=== PATIENT | male | born 1950 | race Caucasian/White ===

== ENCOUNTER 2019-07-13 13:38 | Outpatient (RCR) | payer MEDICARE, SELFPAY ==
--- NOTE | 2019-03-23 08:57 | PCPTNOTE ---
Patient called & cancelled scheduled appointment this date due to being sick
--- NOTE | 2019-03-23 09:20 | PCPTNOTE ---
The treatment documented on this account is a continuation of the treatment documented on visit number [id number] in [employer] EMR. Please see documentation on both accounts to view progress. The Plan of Care has been transitioned and updated within the new V#. I have addressed and agree with the discipline specific Problems, Interventions, and Goals for the current certification period. Completed interventions, outcomes, and problems have been marked as Inactive to facilitate the copying of the Care plan routine for recurring accounts.
--- NOTE | 2019-03-26 10:07 | PCPTNOTE ---
Patient called & cancelled scheduled appointment this date due to increased neck pain during his shoulder exercises. He reports the shoulder exercises cause increased pain and want to follow up with the MD. Will cancel his remaining therapy appts.[ ]
--- NOTE | 2019-03-26 10:08 | PCPTNOTE ---
Attending Provider: Jose Lewis DO Patient:Jose Watson Date of :1950 Patient has requested his remaining 4 physical therapy appointments be cancelled due to increased neck pain with shoulder exercises and increased shoulder pain with scapular strengthening exercises. He has not returned for additional visits since his last re-evaluation on 03/15/19. No additional progression with UE function or progression towards his therapy goals since last update performed. Therefore, Jose will be discharged from therapy at this time. The goals have been partially achieved. Thank you for referring this patient to [facility]. Please review, sign, date and return this discharge summary ESAU. I have been updated about the patient's current status and I agree with discharge from the above service at this time. Referring Physician Date
== END 2019-07-13 13:40 | disposition home or self-care (01) ==
LOC: ANHPT 13:38
PROVIDERS: PCP Internal Medicine; Visit Provider Internal Medicine
DX: M25.511 Pain in right shoulder (principal)
CPT/HCPCS: 99199

== ENCOUNTER 2019-12-17 06:54 | Outpatient (CLI) | payer MEDICARE, SELFPAY ==
[2019-12-17 07:30] LABS: Basophils Percent Auto 0.2 % (0.2-1.2); Eosinophils Absolute Auto 0.1 K/mm3 (0-0.3); Hematocrit 43.1 % (42.0-52.0); Hemoglobin 14.7 g/dL (14.0-18.0); Immature Platelet Fraction Pct 10.7 % (0.9-11.2); Lymphocytes Absolute Auto 1.61 K/mm3 (0.9-3.2); Lymphocytes Percent Auto 34.9 % (18.3-44.2); Mean Corpuscular HGB Conc 34.1 g/dl (32-36); Mean Corpuscular Hemoglobin 30.2 pg (26-34); Mean Corpuscular Volume 88.5 fl (80-100); Mean Platelet Volume 13.5 fl (7.4-10.4); Monocytes Absolute Auto 0.4 K/mm3 (0.1-0.6); Monocytes Percent Auto 8.2 % (2.6-8.5); Neutrophils Absolute Auto 2.5 K/mm3 (1.3-6.7); Neutrophils Percent Auto 53.7 % (45.5-73.1); Platelet Count Result 122 k/mm3 (150-375); Red Blood Count 4.87 M/mm3 (4.6-6.20); Red Cell Distribution Width 12.8 % (11.5-14.5); White Blood Count 4.6 K/mm3 (4.5-10.0)
[2019-12-17 07:40] LABS: Alanine Aminotransferase 27 U/L (4-50); Albumin Level 4.3 g/dL (3.5-5.1); Alkaline Phosphatase 52 U/L (38-126); Anion Gap 13.5 mmol/L (7-16); Aspartate Amino Transferase 32 U/L (17-59); Bilirubin,Total 0.8 mg/dL (0.2-1.3); Blood Urea Nitrogen 17 mg/dL (9-20); Calcium 9.1 mg/dL (8.4-10.2); Carbon Dioxide 25 mmol/L (22-30); Chloride 107 mmol/L (98-107); Cholesterol 107 mg/dL (0-200); Estimated Glomerular Filt Rate > 60; Glucose 142 mg/dL (75-110); HDL Direct 39 mg/dL; Potassium 4.5 mmol/L (3.4-5.0); Sodium 141 mmol/L (137-145); Triglycerides 68 mg/dL (<150)
[2019-12-17 07:56] LABS: LDL Cholesterol Direct 52 mg/dL
[2019-12-17 08:14] LABS: Hemoglobin A1C 6.4 % (<5.7)
[2019-12-17 08:36] LABS: Prostate Specific Antigen 0.3 ng/mL (< OR = 4.0)
== END 2019-12-17 06:55 | disposition home or self-care (01) ==
LOC: ANHIMG 07:00 → ANHLAB 07:31
PROVIDERS: PCP Internal Medicine; Visit Provider Clinical Nurse Specialist
DX: E78.5 Hyperlipidemia, unspecified (principal); E11.9 Type 2 diabetes mellitus without complications; Z12.5 Encounter for screening for malignant neoplasm of prostate
CPT/HCPCS: 36415; 80053; 80061; 83036; 84153; 85025; 85055; G0103

== ENCOUNTER 2019-12-24 07:04 | Outpatient (CLI) | payer MEDICARE, SELFPAY ==
[2019-12-24 11:39] LABS: Hepatitis C Virus Antibody Negative (Negative)
== END 2019-12-24 07:05 | disposition home or self-care (01) ==
PROVIDERS: PCP Internal Medicine; Visit Provider Nurse Practitioner
DX: D69.6 Thrombocytopenia, unspecified (principal)
CPT/HCPCS: 36415; 86803

== ENCOUNTER 2020-01-10 08:33 | Outpatient (CLI) | payer MEDICARE, SELFPAY ==
[2020-01-10 09:09] LABS: Basophils Percent Auto 0.5 % (0.2-1.2); Eosinophils Absolute Auto 0.2 K/mm3 (0-0.3); Eosinophils Percent Auto 4.1 % (0-4.4); Hematocrit 41.3 % (42.0-52.0); Hemoglobin 14.1 g/dL (14.0-18.0); Lymphocytes Absolute Auto 1.16 K/mm3 (0.9-3.2); Lymphocytes Percent Auto 27.8 % (18.3-44.2); Mean Corpuscular HGB Conc 34.1 g/dl (32-36); Mean Corpuscular Hemoglobin 29.7 pg (26-34); Mean Corpuscular Volume 86.9 fl (80-100); Monocytes Absolute Auto 0.3 K/mm3 (0.1-0.6); Monocytes Percent Auto 8.2 % (2.6-8.5); Neutrophils Absolute Auto 2.5 K/mm3 (1.3-6.7); Neutrophils Percent Auto 59.4 % (45.5-73.1); Red Blood Count 4.75 M/mm3 (4.6-6.20); Red Cell Distribution Width 12.8 % (11.5-14.5); White Blood Count 4.2 K/mm3 (4.5-10.0)
[2020-01-10 09:25] LABS: Platelet Count Result 109 k/mm3 (150-375)
[2020-01-10 11:26] LABS: Iron 107 ug/dL (49-181)
[2020-01-10 11:29] LABS: Alanine Aminotransferase 28 U/L (4-50); Albumin Level 4.2 g/dL (3.5-5.1); Alkaline Phosphatase 52 U/L (38-126); Anion Gap 9 mmol/L (8-16); Aspartate Amino Transferase 28 U/L (17-59); Bilirubin,Total 0.3 mg/dL (0.2-1.3); Blood Urea Nitrogen 16 mg/dL (9-20); Calcium 9.3 mg/dL (8.4-10.2); Carbon Dioxide 25 mmol/L (22-30); Chloride 105 mmol/L (98-107); Estimated Glomerular Filt Rate > 60; Glucose 112 mg/dL (75-110); Potassium 4.3 mmol/L (3.4-5.0); Sodium 139 mmol/L (137-145)
[2020-01-10 11:36] LABS: Percent Iron Saturation 31 % (20-50)
[2020-01-10 12:32] LABS: Folic Acid 8.8 ng/mL (2.76->20)
[2020-01-14 21:37] LABS: Platelet Antibody, Direct IgG NEGATIVE (NEGATIVE)
== END 2020-01-10 08:34 | disposition home or self-care (01) ==
PROVIDERS: PCP Internal Medicine; Visit Provider Internal Medicine Hematology & Oncology
DX: D69.59 Other secondary thrombocytopenia (principal)
CPT/HCPCS: 36415; 80053; 82607; 82728; 82746; 83540; 83550; 85025; 86023

== ENCOUNTER 2020-01-13 07:48 | Outpatient (CLI) | payer MEDICARE, SELFPAY ==
--- NOTE | ~2020-01-13 | US_ITS ---
EXAMINATION: US abdomen complete EXAM DATE: 01/13/2020 09:00 INDICATION: Secondary thrombocytopenia. TECHNIQUE: Multiple grayscale and Doppler images of the complete abdomen were obtained (by a technolo gist who performed the scan) and subsequently reviewed. Correlation is made to CT abdomen pelvis from 06/03/2018. FINDINGS: Mild aortic atherosclerosis and ectasia. Visualized portion IVC is patent. The pancreatic head and body are normal in appearance. The pancreatic tail is not visualized. The liver has normal echogenicity and contour. There are no focal liver lesions identified. There is no evidence of intrahepatic biliary duct dilation. Portal venous flow was seen in the hepatopedal , normal direction and has normal Doppler waveform. Common bile duct measures 5 mm, which is normal. The gallbladder wall is normal in thickness, with ex pected amount of distention. No sonographic evidence of pericholecystic fluid. There is no cholelit hiases. Technologist performing exam reports patient did not demonstrate sonographic Doherty's sign. Please note that this sign is less reliable in patients who have received pain medication. Right kidney: There is normal contour and echogenicity. It measures 11.9 x 6.5 x 4.6 centimeters. There are no focal renal lesions identified. There is no hydronephrosis. Left kidney: There is normal contour and echogenicity. It measures 10.5 x 6.5 x 6.3 centimeters. T here are no focal renal lesions identified. There is no hydronephrosis. Spleen has heterogeneous echogenicity which is nonspecific. No focal mass. It measures 10.7 cm which is normal. IMPRESSION: Nonspecific splenic heterogeneous echogenicity with normal size. Reviewed, dictated and finalized at location A.
== END 2020-01-13 07:49 | disposition home or self-care (01) ==
PROVIDERS: PCP Internal Medicine; Visit Provider Internal Medicine Hematology & Oncology
DX: D69.59 Other secondary thrombocytopenia (principal)
CPT/HCPCS: 76700

== ENCOUNTER 2020-04-17 08:27 | Outpatient (CLI) | payer MEDICARE, SELFPAY ==
[2020-04-17 08:49] LABS: Basophils Percent Auto 0.4 % (0.2-1.2); Eosinophils Absolute Auto 0.1 K/mm3 (0-0.3); Eosinophils Percent Auto 2.1 % (0-4.4); Hematocrit 41.6 % (42.0-52.0); Hemoglobin 14.2 g/dL (14.0-18.0); Immature Granulocyte Absolute 0.01 K/mm3 (0.00-0.031); Immature Granulocyte Percent A 0.2 % (0-0.5); Lymphocytes Absolute Auto 1.33 K/mm3 (0.9-3.2); Lymphocytes Percent Auto 27.8 % (18.3-44.2); Mean Corpuscular HGB Conc 34.1 g/dl (32-36); Mean Corpuscular Hemoglobin 29.5 pg (26-34); Mean Corpuscular Volume 86.5 fl (80-100); Mean Platelet Volume 12.2 fl (7.4-10.4); Monocytes Absolute Auto 0.3 K/mm3 (0.1-0.6); Monocytes Percent Auto 6.7 % (2.6-8.5); Neutrophils Percent Auto 62.8 % (45.5-73.1); Platelet Count Result 128 k/mm3 (150-375); Red Blood Count 4.81 M/mm3 (4.6-6.20); Red Cell Distribution Width 12.8 % (11.5-14.5); White Blood Count 4.8 K/mm3 (4.5-10.0)
[2020-04-17 12:38] LABS: Anion Gap 7 mmol/L (8-16); Blood Urea Nitrogen 15 mg/dL (9-20); Calcium 9.3 mg/dL (8.4-10.2); Carbon Dioxide 25 mmol/L (22-30); Chloride 106 mmol/L (98-107); Estimated Glomerular Filt Rate > 60; Glucose 153 mg/dL (75-110); Sodium 138 mmol/L (137-145)
[2020-04-17 12:44] LABS: Potassium 4.3 mmol/L (3.4-5.0)
[2020-04-17 13:37] LABS: Folic Acid 11.5 ng/mL (2.76->20)
== END 2020-04-17 08:28 | disposition home or self-care (01) ==
LOC: ANHLAB 08:29
PROVIDERS: PCP Internal Medicine; Visit Provider Internal Medicine Hematology & Oncology
DX: D69.59 Other secondary thrombocytopenia (principal)
CPT/HCPCS: 36415; 80048; 82607; 82746; 85025

== ENCOUNTER 2020-10-17 08:04 | Outpatient (CLI) | payer MEDICARE, SELFPAY ==
[2020-10-17 08:28] LABS: Basophils Percent Auto 0.7 % (0.2-1.2); Eosinophils Absolute Auto 0.2 K/mm3 (0-0.3); Eosinophils Percent Auto 4.4 % (0-4.4); Hematocrit 40.8 % (42.0-52.0); Hemoglobin 13.9 g/dL (14.0-18.0); Immature Granulocyte Absolute 0.01 K/mm3 (0.00-0.031); Immature Granulocyte Percent A 0.2 % (0-0.5); Lymphocytes Absolute Auto 1.24 K/mm3 (0.9-3.2); Mean Corpuscular HGB Conc 34.1 g/dl (32-36); Mean Corpuscular Hemoglobin 29.6 pg (26-34); Mean Corpuscular Volume 86.8 fl (80-100); Mean Platelet Volume 11.8 fl (7.4-10.4); Monocytes Absolute Auto 0.4 K/mm3 (0.1-0.6); Neutrophils Absolute Auto 2.3 K/mm3 (1.3-6.7); Neutrophils Percent Auto 55.7 % (45.5-73.1); Platelet Count Result 120 k/mm3 (150-375); Red Cell Distribution Width 12.7 % (11.5-14.5); White Blood Count 4.1 K/mm3 (4.5-10.0)
[2020-10-17 10:23] LABS: Alanine Aminotransferase 21 U/L (4-50); Albumin Level 3.9 g/dL (3.5-5.1); Alkaline Phosphatase 54 U/L (38-126); Anion Gap 8 mmol/L (8-16); Aspartate Amino Transferase 24 U/L (17-59); Bilirubin,Total 0.7 mg/dL (0.2-1.3); Blood Urea Nitrogen 14 mg/dL (9-20); Calcium 9.6 mg/dL (8.4-10.2); Carbon Dioxide 26 mmol/L (22-30); Chloride 107 mmol/L (98-107); Estimated Glomerular Filt Rate > 60; Glucose 144 mg/dL (75-110); Potassium 4.4 mmol/L (3.4-5.0); Sodium 141 mmol/L (137-145)
[2020-10-17 11:26] LABS: Folic Acid 6.4 ng/mL (2.76->20)
== END 2020-10-17 08:05 | disposition home or self-care (01) ==
LOC: ANHLAB 08:14
PROVIDERS: PCP Internal Medicine; Visit Provider Internal Medicine Hematology & Oncology
DX: D69.59 Other secondary thrombocytopenia (principal)
CPT/HCPCS: 36415; 80053; 82607; 82746; 85025

== ENCOUNTER 2021-01-18 06:57 | Outpatient (CLI) | payer MEDICARE, SELFPAY ==
[2021-01-18 07:36] LABS: Basophils Percent Auto 0.4 % (0.2-1.2); Eosinophils Absolute Auto 0.1 K/mm3 (0-0.3); Eosinophils Percent Auto 3.1 % (0-4.4); Hematocrit 41.1 % (42.0-52.0); Hemoglobin 13.6 g/dL (14.0-18.0); Immature Granulocyte Absolute 0.01 K/mm3 (0.00-0.031); Immature Granulocyte Percent A 0.2 % (0-0.5); Lymphocytes Absolute Auto 1.31 K/mm3 (0.9-3.2); Lymphocytes Percent Auto 29.4 % (18.3-44.2); Mean Corpuscular HGB Conc 33.1 g/dl (32-36); Mean Corpuscular Volume 90.5 fl (80-100); Mean Platelet Volume 12.4 fl (7.4-10.4); Monocytes Absolute Auto 0.4 K/mm3 (0.1-0.6); Monocytes Percent Auto 8.1 % (2.6-8.5); Neutrophils Absolute Auto 2.6 K/mm3 (1.3-6.7); Neutrophils Percent Auto 58.8 % (45.5-73.1); Platelet Count Result 107 k/mm3 (150-375); Red Blood Count 4.54 M/mm3 (4.6-6.20); Red Cell Distribution Width 12.9 % (11.5-14.5); White Blood Count 4.5 K/mm3 (4.5-10.0)
[2021-01-18 07:59] LABS: Hemoglobin A1C 6.2 % (<5.7)
[2021-01-18 08:16] LABS: Alanine Aminotransferase 21 U/L (4-50); Alkaline Phosphatase 52 U/L (38-126); Anion Gap 7 mmol/L (8-16); Aspartate Amino Transferase 29 U/L (17-59); Bilirubin,Total 1.2 mg/dL (0.2-1.3); Blood Urea Nitrogen 14 mg/dL (9-20); Calcium 9.3 mg/dL (8.4-10.2); Carbon Dioxide 24 mmol/L (22-30); Chloride 108 mmol/L (98-107); Cholesterol 97 mg/dL (0-200); Estimated Glomerular Filt Rate > 60; Glucose 124 mg/dL (65-110); HDL Direct 35 mg/dL; Potassium 4.4 mmol/L (3.4-5.0); Sodium 139 mmol/L (137-145); Triglycerides 55 mg/dL (<150)
[2021-01-18 08:27] LABS: LDL Cholesterol Direct 43 mg/dL
[2021-01-18 08:43] LABS: Prostate Specific Antigen 0.3 ng/mL (< OR = 4.0)
== END 2021-01-18 06:58 | disposition home or self-care (01) ==
PROVIDERS: PCP Internal Medicine; Visit Provider Nurse Practitioner
DX: E11.9 Type 2 diabetes mellitus without complications (principal); E78.2 Mixed hyperlipidemia; Z12.5 Encounter for screening for malignant neoplasm of prostate; I10 Essential (primary) hypertension
CPT/HCPCS: 36415; 80053; 80061; 83036; 84153; 85025; G0103

== ENCOUNTER 2021-07-16 10:14 | Outpatient (CLI) | payer MEDICARE, SELFPAY ==
[2021-07-16 10:37] LABS: Basophils Percent Auto 0.4 % (0.2-1.2); Eosinophils Absolute Auto 0.1 K/mm3 (0-0.3); Eosinophils Percent Auto 2.1 % (0-4.4); Hematocrit 43.1 % (42.0-52.0); Hemoglobin 14.2 g/dL (14.0-18.0); Immature Granulocyte Absolute 0.01 K/mm3 (0.00-0.031); Immature Granulocyte Percent A 0.2 % (0-0.5); Lymphocytes Percent Auto 22.7 % (18.3-44.2); Mean Corpuscular HGB Conc 32.9 g/dl (32-36); Mean Corpuscular Hemoglobin 30.1 pg (26-34); Mean Corpuscular Volume 91.3 fl (80-100); Mean Platelet Volume 11.6 fl (7.4-10.4); Monocytes Absolute Auto 0.4 K/mm3 (0.1-0.6); Monocytes Percent Auto 7.4 % (2.6-8.5); Neutrophils Absolute Auto 3.3 K/mm3 (1.3-6.7); Neutrophils Percent Auto 67.2 % (45.5-73.1); Platelet Count Result 136 k/mm3 (150-375); Red Blood Count 4.72 M/mm3 (4.6-6.20); White Blood Count 4.8 K/mm3 (4.5-10.0)
[2021-07-16 12:19] LABS: Alanine Aminotransferase 25 U/L (4-50); Albumin Level 4.3 g/dL (3.5-5.1); Alkaline Phosphatase 53 U/L (38-126); Anion Gap 4 mmol/L (8-16); Aspartate Amino Transferase 40 U/L (17-59); Bilirubin,Total 0.7 mg/dL (0.2-1.3); Blood Urea Nitrogen 18 mg/dL (9-20); Calcium 9.1 mg/dL (8.4-10.2); Carbon Dioxide 29 mmol/L (22-30); Chloride 105 mmol/L (98-107); Estimated Glomerular Filt Rate > 60; Glucose 137 mg/dL (65-110); Potassium 4.5 mmol/L (3.4-5.0); Sodium 138 mmol/L (137-145)
== END 2021-07-16 10:15 | disposition home or self-care (01) ==
LOC: ANHLAB 10:15
PROVIDERS: PCP Internal Medicine; Visit Provider Internal Medicine Hematology & Oncology
DX: D69.59 Other secondary thrombocytopenia (principal)
CPT/HCPCS: 36415; 80053; 82607; 85025

== ENCOUNTER 2022-01-23 07:07 | Outpatient (CLI) | payer MEDICARE, SELFPAY ==
[2022-01-23 08:02] LABS: Basophils Percent Auto 0.5 % (0.2-1.2); Eosinophils Absolute Auto 0.2 K/mm3 (0-0.3); Eosinophils Percent Auto 3.9 % (0-4.4); Hematocrit 40.6 % (42.0-52.0); Hemoglobin 13.7 g/dL (14.0-18.0); Lymphocytes Absolute Auto 1.35 K/mm3 (0.9-3.2); Lymphocytes Percent Auto 32.6 % (18.3-44.2); Mean Corpuscular HGB Conc 33.7 g/dl (32-36); Mean Corpuscular Hemoglobin 30.4 pg (26-34); Mean Corpuscular Volume 90.2 fl (80-100); Mean Platelet Volume 12.8 fl (7.4-10.4); Monocytes Absolute Auto 0.3 K/mm3 (0.1-0.6); Monocytes Percent Auto 7.7 % (2.6-8.5); Neutrophils Absolute Auto 2.3 K/mm3 (1.3-6.7); Neutrophils Percent Auto 55.3 % (45.5-73.1); Platelet Count Result 119 k/mm3 (150-375); Red Cell Distribution Width 12.9 % (11.5-14.5); White Blood Count 4.1 K/mm3 (4.5-10.0)
[2022-01-23 08:12] LABS: Hemoglobin A1C 6.5 % (<5.7)
[2022-01-23 08:13] LABS: Creatinine Urine 114.2 mg/dL
[2022-01-23 08:16] LABS: MALB Creatinine Ratio 16.5 mg/g (0-30); Microalbumin Urine Random 18.8 mg/L (0-16.7)
[2022-01-23 08:25] LABS: Alanine Aminotransferase 22 U/L (6-50); Albumin Level 4.1 g/dL (3.5-5.1); Alkaline Phosphatase 50 U/L (38-126); Anion Gap 8 mmol/L (8-16); Aspartate Amino Transferase 27 U/L (17-59); Bilirubin,Total 1.1 mg/dL (0.2-1.3); Blood Urea Nitrogen 16 mg/dL (9-20); Calcium 9.3 mg/dL (8.4-10.2); Carbon Dioxide 25 mmol/L (22-30); Chloride 106 mmol/L (98-107); Cholesterol 110 mg/dL (0-200); Estimated Glomerular Filt Rate > 60; Glucose 141 mg/dL (65-110); HDL Direct 41 mg/dL; Potassium 4.3 mmol/L (3.4-5.0); Sodium 139 mmol/L (137-145); Triglycerides 75 mg/dL (<150)
[2022-01-23 08:38] LABS: LDL Cholesterol Direct 43 mg/dL
[2022-01-23 08:52] LABS: Prostate Specific Antigen 0.3 ng/mL (< OR = 4.0)
== END 2022-01-23 07:08 | disposition home or self-care (01) ==
LOC: ANHLAB 07:10
PROVIDERS: PCP Internal Medicine; Visit Provider Clinical Nurse Specialist
DX: Z12.5 Encounter for screening for malignant neoplasm of prostate (principal); E11.9 Type 2 diabetes mellitus without complications; I10 Essential (primary) hypertension
CPT/HCPCS: 36415; 80053; 80061; 82043; 83036; 84153; 85025; G0103

== ENCOUNTER 2022-07-12 08:05 | Outpatient (CLI) | payer MEDICARE, SELFPAY ==
[2022-07-12 08:38] LABS: Basophils Percent Auto 0.5 % (0.2-1.2); Eosinophils Absolute Auto 0.2 K/mm3 (0-0.3); Eosinophils Percent Auto 3.6 % (0-4.4); Hematocrit 41.2 % (42.0-52.0); Hemoglobin 14.1 g/dL (14.0-18.0); Immature Granulocyte Absolute 0.01 K/mm3 (0.00-0.031); Immature Granulocyte Percent A 0.2 % (0-0.5); Lymphocytes Absolute Auto 1.04 K/mm3 (0.9-3.2); Lymphocytes Percent Auto 24.6 % (18.3-44.2); Mean Corpuscular HGB Conc 34.2 g/dl (32-36); Mean Corpuscular Hemoglobin 30.5 pg (26-34); Mean Corpuscular Volume 89.2 fl (80-100); Monocytes Absolute Auto 0.3 K/mm3 (0.1-0.6); Monocytes Percent Auto 6.9 % (2.6-8.5); Neutrophils Absolute Auto 2.7 K/mm3 (1.3-6.7); Neutrophils Percent Auto 64.2 % (45.5-73.1); Platelet Count Result 126 k/mm3 (150-375); Red Blood Count 4.62 M/mm3 (4.6-6.20); Red Cell Distribution Width 12.4 % (11.5-14.5); White Blood Count 4.2 K/mm3 (4.5-10.0)
== END 2022-07-12 08:06 | disposition home or self-care (01) ==
PROVIDERS: PCP Internal Medicine; Visit Provider Internal Medicine Hematology & Oncology
DX: D69.59 Other secondary thrombocytopenia (principal)
CPT/HCPCS: 36415; 82607; 82728; 85025

== ENCOUNTER 2023-01-28 06:45 | Outpatient (CLI) | payer MEDICARE, SELFPAY ==
[2023-01-28 07:45] LABS: Basophils Percent Auto 0.5 % (0.2-1.2); Eosinophils Absolute Auto 0.2 K/mm3 (0-0.3); Eosinophils Percent Auto 4.1 % (0-4.4); Hematocrit 40.4 % (42.0-52.0); Hemoglobin 13.3 g/dL (14.0-18.0); Lymphocytes Absolute Auto 1.09 K/mm3 (0.9-3.2); Lymphocytes Percent Auto 28.1 % (18.3-44.2); Mean Corpuscular HGB Conc 32.9 g/dl (32-36); Mean Corpuscular Volume 91.2 fl (80-100); Mean Platelet Volume 12.8 fl (7.4-10.4); Monocytes Absolute Auto 0.3 K/mm3 (0.1-0.6); Neutrophils Absolute Auto 2.3 K/mm3 (1.3-6.7); Neutrophils Percent Auto 60.3 % (45.5-73.1); Platelet Count Result 111 k/mm3 (150-375); Red Blood Count 4.43 M/mm3 (4.6-6.20); White Blood Count 3.9 K/mm3 (4.5-10.0)
[2023-01-28 07:47] LABS: Alanine Aminotransferase 29 U/L (6-50); Alkaline Phosphatase 51 U/L (38-126); Anion Gap 3 mmol/L (8-16); Aspartate Amino Transferase 30 U/L (17-59); Bilirubin,Total 0.7 mg/dL (0.2-1.3); Blood Urea Nitrogen 14 mg/dL (9-20); Calcium 8.7 mg/dL (8.4-10.2); Carbon Dioxide 29 mmol/L (22-30); Chloride 106 mmol/L (98-107); Cholesterol 105 mg/dL (0-200); Estimated Glomerular Filt Rate > 60; Glucose 159 mg/dL (65-110); HDL Direct 37 mg/dL; Potassium 4.4 mmol/L (3.4-5.0); Sodium 138 mmol/L (137-145); Triglycerides 77 mg/dL (<150)
[2023-01-28 07:56] LABS: Hemoglobin A1C 6.6 % (<5.7)
[2023-01-28 07:57] LABS: LDL Cholesterol Direct 55 mg/dL
[2023-01-28 08:17] LABS: Prostate Specific Antigen 0.1 ng/mL (< OR = 4.0)
[2023-01-28 10:16] LABS: Creatinine Urine 121.2 mg/dL
[2023-01-28 10:18] LABS: MALB Creatinine Ratio 18.1 mg/g (0-30); Microalbumin Urine Random 21.9 mg/L (0-16.7)
== END 2023-01-28 06:46 | disposition home or self-care (01) ==
LOC: ANHLAB 06:47
PROVIDERS: PCP Internal Medicine; Visit Provider Clinical Nurse Specialist
DX: Z12.5 Encounter for screening for malignant neoplasm of prostate (principal); Z13.228 Encounter for screening for other metabolic disorders; E11.9 Type 2 diabetes mellitus without complications; I10 Essential (primary) hypertension; E78.2 Mixed hyperlipidemia
CPT/HCPCS: 36415; 80053; 80061; 82043; 83036; 84153; 84443; 85025; G0103

== ENCOUNTER 2023-05-29 09:30 | Emergency (ER) | payer MEDICARE, SELFPAY ==
[2023-05-29 09:47] VITALS: BP 153/76; PULSE 57; RESP 16; TEMP 36.6; O2SAT 98
--- NOTE | 2023-05-29 10:34 | ED.URI ---
HPI - URI/Sore Throat General Chief Complaint: Upper Respiratory Infection Stated Complaint: Head Congestion Time Seen by Provider: 05/29/23 10:27 Source: patient and RN notes reviewed Mode of arrival: ambulatory Limitations: no limitations History of Present Illness HPI Narrative: Patient presents today with a 90 history of fatigue, body aches, nasal congestion, sinus pressure. Denies fever or cough. He has been taking Advil occasionally with some relief. Related Data Home Medications Medication Instructions Recorded Confirmed aspirin 81 mg tablet,delayed 81 mg PO DAILY 12/21/19 05/29/23 release (Adult Low Dose Aspirin) rosuvastatin 40 mg tablet (Crestor) 40 mg PO DAILY 12/21/19 05/29/23 lisinopril 10 mg tablet 20 mg PO DAILY 01/25/21 05/29/23 cholecalciferol (vitamin D3) 25 25 mcg PO DAILY 01/28/22 05/29/23 mcg (1,000 unit) capsule mecobalamin (vitamin B12) 1,000 1,000 mcg PO DAILY 01/28/22 05/29/23 mcg chewable tablet Allergies Allergy/AdvReac Type Severity Reaction Status Date / Time sulfamethoxazole Allergy Mild rash Verified 05/29/23 09:44 Penicillins Allergy Unknown Rash Verified 05/29/23 09:44 sulfamethizole Allergy Unknown Rash Verified 05/29/23 09:44 trimethoprim Allergy Unknown Rash Verified 05/29/23 09:44 Review of Systems Review of Systems: CONSTITUTIONAL: Denies fever, chills, or sweats.+ body aches, fatigue EYES: Denies visual changes, redness, or discharge. ENT: Denies rhinorrhea, sore throat, or otalgia.+ congestion, sinus pressure CARDIOVASCULAR: Denies chest pain, palpitations, or edema. RESPIRATORY: Denies cough or dyspnea. GASTROINTESTINAL: Denies abdominal pain, nausea, vomiting, or diarrhea. GENITOURINARY: Denies dysuria or hematuria. SKIN: Denies rash, itching, or wounds. MUSCULOSKELETAL: Denies back pain, joint pain, or myalgia. NEUROLOGIC: Denies headache, numbness, tingling, or weakness. PSYCH: Denies depression or anxiety. [facility] Past Medical History Medical History COVID Heart disease HTN (hypertension) Hyperlipidemia Pneumonia Surgical History Surgical History H/O eye surgery right eye refractive lens exchange History of appendectomy 1986 History of heart bypass surgery Status post biopsy of kidney Family History Family History Father Diabetes mellitus Family history of pancreatic cancer Grandparent Family history of malignant neoplasm Sibling Ovarian cancer Social History Social History Smoking status: Never smoker Alcohol intake: current Alcohol use details: rarely Lack of Transportation: No Lack of Food: Never True Current Housing: I Have Housing Concerned About Future Housing: No Difficulty Paying Gas/Electric Bills: No Difficulty Paying for Meds: No Currently Unemployed: No Education: Trade/Vocational Certificate Difficulty w/ Childcare or Family Care: No Comments At time of signature, I have reviewed and agree with nursing past medical, surgical, social and family history unless otherwise noted. Please see nursing chart for further information. There is no relevant family history pertinent to the presenting complaint Exam Narrative: GENERAL: Well-appearing, well-nourished, and in no acute distress. HEAD: Normocephalic, atraumatic. EYES: EOMI. No redness or drainage. Conjunctivae normal. ENT: Mucous membranes pink and moist. Nares congested. No rhinorrhea. Bilateral frontal and maxillary sinus tenderness. TMs normal bilaterally. Throat normal. Uvula midline. NECK: Normal AROM. Supple. No lymphadenopathy. CHEST: No respiratory distress. Clear to auscultation. HEART: Regular rate and rhythm. No murmur appreciated. EXTREMITIES: Normal range of motion. No edema. SKI
== END 2023-05-29 10:48 | disposition home or self-care (01) ==
PROVIDERS: Emergency Provider Nurse Practitioner; PCP Internal Medicine
DX: J01.90 Acute sinusitis, unspecified (principal); I10 Essential (primary) hypertension; E78.5 Hyperlipidemia, unspecified; I25.10 Atherosclerotic heart disease of native coronary artery without angina pectoris; Z95.1 Presence of aortocoronary bypass graft; Z86.16 Personal history of COVID-19
CPT/HCPCS: 99213; G0463

== ENCOUNTER 2023-08-20 07:03 | Outpatient (CLI) | payer MEDICARE, SELFPAY ==
[2023-08-20 07:39] LABS: Basophils Percent Auto 0.4 % (0.2-1.2); Eosinophils Absolute Auto 0.1 K/mm3 (0-0.3); Eosinophils Percent Auto 2.8 % (0-4.4); Hematocrit 43.5 % (42.0-52.0); Hemoglobin 14.5 g/dL (14.0-18.0); Immature Granulocyte Absolute 0.01 K/mm3 (0.00-0.031); Immature Granulocyte Percent A 0.2 % (0-0.5); Lymphocytes Absolute Auto 1.29 K/mm3 (0.9-3.2); Lymphocytes Percent Auto 25.4 % (18.3-44.2); Mean Corpuscular HGB Conc 33.3 g/dl (32-36); Mean Corpuscular Hemoglobin 29.9 pg (26-34); Mean Corpuscular Volume 89.7 fl (80-100); Mean Platelet Volume 12.1 fl (7.4-10.4); Monocytes Absolute Auto 0.3 K/mm3 (0.1-0.6); Monocytes Percent Auto 6.1 % (2.6-8.5); Neutrophils Absolute Auto 3.3 K/mm3 (1.3-6.7); Neutrophils Percent Auto 65.1 % (45.5-73.1); Platelet Count Result 138 k/mm3 (150-375); Red Blood Count 4.85 M/mm3 (4.6-6.20); Red Cell Distribution Width 12.7 % (11.5-14.5); White Blood Count 5.1 K/mm3 (4.5-10.0)
[2023-08-21 00:13] LABS: Alanine Aminotransferase 23 U/L (6-50); Albumin Level 4.3 g/dL (3.5-5.1); Alkaline Phosphatase 58 U/L (38-126); Anion Gap 6 mmol/L (4-12); Aspartate Amino Transferase 24 U/L (17-59); Bilirubin,Total 0.9 mg/dL (0.2-1.3); Blood Urea Nitrogen 18 mg/dL (9-20); Calcium 9.7 mg/dL (8.4-10.2); Carbon Dioxide 25 mmol/L (22-30); Chloride 106 mmol/L (98-107); Estimated Glomerular Filt Rate > 60; Glucose 181 mg/dL (65-110); Potassium 5.2 mmol/L (3.4-5.0); Sodium 137 mmol/L (137-145)
[2023-08-21 01:16] LABS: Folic Acid 7.6 ng/mL (2.76->20)
== END 2023-08-20 07:04 | disposition home or self-care (01) ==
LOC: ANHLAB 07:13
PROVIDERS: PCP Internal Medicine; Visit Provider Internal Medicine Hematology & Oncology
DX: D69.59 Other secondary thrombocytopenia (principal)
CPT/HCPCS: 36415; 80053; 82607; 82746; 85025

== ENCOUNTER 2023-09-26 08:54 | Outpatient (CLI) | payer MEDICARE, SELFPAY ==
[2023-09-26 09:39] LABS: Basophils Percent Auto 0.8 % (0.2-1.2); Eosinophils Absolute Auto 0.1 K/mm3 (0-0.3); Eosinophils Percent Auto 3.2 % (0-4.4); Hematocrit 40.1 % (42.0-52.0); Hemoglobin 13.3 g/dL (14.0-18.0); Immature Granulocyte Absolute 0.01 K/mm3 (0.00-0.031); Immature Granulocyte Percent A 0.3 % (0-0.5); Lymphocytes Absolute Auto 1.03 K/mm3 (0.9-3.2); Lymphocytes Percent Auto 27.7 % (18.3-44.2); Mean Corpuscular HGB Conc 33.2 g/dl (32-36); Mean Corpuscular Hemoglobin 29.6 pg (26-34); Mean Corpuscular Volume 89.3 fl (80-100); Mean Platelet Volume 12.2 fl (7.4-10.4); Monocytes Absolute Auto 0.3 K/mm3 (0.1-0.6); Monocytes Percent Auto 8.6 % (2.6-8.5); Neutrophils Absolute Auto 2.2 K/mm3 (1.3-6.7); Neutrophils Percent Auto 59.4 % (45.5-73.1); Platelet Count Result 151 k/mm3 (150-375); Red Blood Count 4.49 M/mm3 (4.6-6.20); Red Cell Distribution Width 12.5 % (11.5-14.5); White Blood Count 3.7 K/mm3 (4.5-10.0)
[2023-09-26 09:47] LABS: Alanine Aminotransferase 21 U/L (6-50); Albumin Level 4.2 g/dL (3.5-5.1); Alkaline Phosphatase 64 U/L (38-126); Anion Gap 6 mmol/L (4-12); Aspartate Amino Transferase 25 U/L (17-59); Bilirubin,Total 0.7 mg/dL (0.2-1.3); Blood Urea Nitrogen 15 mg/dL (9-20); Calcium 9.4 mg/dL (8.4-10.2); Carbon Dioxide 27 mmol/L (22-30); Chloride 107 mmol/L (98-107); Estimated Glomerular Filt Rate > 60; Glucose 140 mg/dL (65-110); Potassium 4.3 mmol/L (3.4-5.0); Sodium 140 mmol/L (137-145)
[2023-09-26 10:14] LABS: Hemoglobin A1C 6.7 % (<5.7)
[2023-09-26 10:19] LABS: Thyroid Stimulating Hormone 0.881 uIU/mL (0.465-4.680)
[2023-09-26 10:23] LABS: MALB Creatinine Ratio 20.4 mg/g (0-30); Microalbumin Urine Random 23.7 mg/L (0-16.7)
== END 2023-09-26 08:55 | disposition home or self-care (01) ==
PROVIDERS: PCP Internal Medicine; Visit Provider Clinical Nurse Specialist
DX: D69.6 Thrombocytopenia, unspecified (principal); E11.9 Type 2 diabetes mellitus without complications
CPT/HCPCS: 36415; 80053; 82043; 83036; 84443; 85025

== ENCOUNTER 2023-10-24 07:06 | Outpatient (CLI) | payer MEDICARE, SELFPAY ==
[2023-10-27 11:19] LABS: Thyroid Peroxidase Antibodies <1 IU/mL (<9)
[2023-10-29 13:34] LABS: Testosterone Free 63.7 pg/mL (30.0-135.0); Testosterone Total 364 ng/dL (250-1100)
== END 2023-10-24 07:07 | disposition home or self-care (01) ==
LOC: ANHLAB 07:09
PROVIDERS: PCP Internal Medicine; Visit Provider Clinical Nurse Specialist
DX: R53.83 Other fatigue (principal); E11.9 Type 2 diabetes mellitus without complications; F41.9 Anxiety disorder, unspecified
CPT/HCPCS: 36415; 84402; 84403; 84443; 86376

== ENCOUNTER 2024-02-19 07:01 | Outpatient (CLI) | payer MEDICARE, SELFPAY ==
[2024-02-19 08:07] LABS: Basophils Percent Auto 0.8 % (0.2-1.2); Eosinophils Absolute Auto 0.2 K/mm3 (0-0.3); Eosinophils Percent Auto 3.9 % (0-4.4); Hematocrit 40.4 % (42.0-52.0); Hemoglobin 13.5 g/dL (14.0-18.0); Immature Granulocyte Absolute 0.01 K/mm3 (0.00-0.031); Immature Granulocyte Percent A 0.3 % (0-0.5); Lymphocytes Absolute Auto 1.22 K/mm3 (0.9-3.2); Lymphocytes Percent Auto 31.7 % (18.3-44.2); Mean Corpuscular HGB Conc 33.4 g/dl (32-36); Mean Corpuscular Hemoglobin 29.5 pg (26-34); Mean Corpuscular Volume 88.2 fl (80-100); Mean Platelet Volume 12.5 fl (7.4-10.4); Monocytes Absolute Auto 0.3 K/mm3 (0.1-0.6); Monocytes Percent Auto 8.1 % (2.6-8.5); Neutrophils Absolute Auto 2.1 K/mm3 (1.3-6.7); Neutrophils Percent Auto 55.2 % (45.5-73.1); Platelet Count Result 121 k/mm3 (150-375); Red Blood Count 4.58 M/mm3 (4.6-6.20); White Blood Count 3.9 K/mm3 (4.5-10.0)
[2024-02-19 08:13] LABS: Alanine Aminotransferase 22 U/L (6-50); Alkaline Phosphatase 55 U/L (38-126); Anion Gap 6 mmol/L (4-12); Aspartate Amino Transferase 26 U/L (17-59); Bilirubin,Total 0.9 mg/dL (0.2-1.3); Blood Urea Nitrogen 13 mg/dL (9-20); Carbon Dioxide 26 mmol/L (22-30); Chloride 108 mmol/L (98-107); Cholesterol 100 mg/dL (0-200); Estimated Glomerular Filt Rate > 60; Glucose 150 mg/dL (65-110); HDL Direct 34 mg/dL; Potassium 3.8 mmol/L (3.4-5.0); Sodium 140 mmol/L (137-145); Triglycerides 74 mg/dL (<150)
[2024-02-19 08:25] LABS: LDL Cholesterol Direct 42 mg/dL
[2024-02-19 08:37] LABS: Prostate Specific Antigen 0.2 ng/mL (< OR = 4.0)
[2024-02-19 11:07] LABS: Hemoglobin A1C 7.3 % (<5.7)
== END 2024-02-19 07:02 | disposition home or self-care (01) ==
PROVIDERS: PCP Clinical Nurse Specialist; Visit Provider Clinical Nurse Specialist
DX: D69.6 Thrombocytopenia, unspecified (principal); E11.9 Type 2 diabetes mellitus without complications; I10 Essential (primary) hypertension; E78.2 Mixed hyperlipidemia; Z12.5 Encounter for screening for malignant neoplasm of prostate; Z13.228 Encounter for screening for other metabolic disorders
CPT/HCPCS: 36415; 80053; 80061; 83036; 84153; 85025; G0103

== ENCOUNTER 2024-03-23 00:36 | Day surgery (SDC) | payer MEDICARE, SELFPAY ==
[2024-03-16 14:07] VITALS: BMI 25.0
--- NOTE | 2024-03-22 14:02 | P.PNAN_ITS ---
Anes - Initial Pre Proc Eval Procedure: Operation Date: 03/23/24 07:30 Proposed Procedures p Esophagogastroduodenoscopy - Brice Salcedo MD Date/Time: 03/22/24 14:02 Surgeon: Brice Salcedo MD Pre Op Diagnosis: GERD Patient Data Age: 73 Gender: M Height: 1.83 m Weight: 83.9 kg Allergies Allergy/AdvReac Type Severity Reaction Status Date / Time sulfamethoxazole Allergy Mild rash Verified 02/25/24 08:24 Penicillins Allergy Unknown Rash Verified 02/25/24 08:24 sulfamethizole Allergy Unknown Rash Verified 02/25/24 08:24 trimethoprim Allergy Unknown Rash Verified 02/25/24 08:24 Home Medications Medication Instructions Recorded Confirmed Type aspirin 81 mg tablet,delayed 81 mg PO DAILY 12/21/19 03/16/24 History release (Adult Low Dose Aspirin) rosuvastatin 40 mg tablet (Crestor) 40 mg PO DAILY 12/21/19 03/16/24 History sildenafil 100 mg tablet (Viagra) 100 mg PO DAILY PRN sexual 02/08/21 03/16/24 Rx activity #20 tabs cholecalciferol (vitamin D3) 25 25 mcg PO DAILY 01/28/22 03/16/24 History mcg (1,000 unit) capsule mecobalamin (vitamin B12) 1,000 1,000 mcg PO DAILY 01/28/22 03/16/24 History mcg chewable tablet albuterol sulfate 90 mcg/actuation 2 puff inhalation Q4-6H PRN 01/30/23 03/16/24 Rx aerosol inhaler shortness of breath or wheezing #18 grams ascorbic acid (vitamin C) 1,000 mg 1 g PO DAILY 09/25/23 03/16/24 History capsule lisinopril 20 mg tablet 20 mg PO 09/25/23 02/25/24 History finasteride 5 mg tablet See Rx Instructions .Route 02/16/24 03/16/24 Rx .COMPLEX #90 tabs coenzyme Q10 200 mg capsule (Co 100 mg PO DAILY 02/25/24 03/16/24 History Q-10) zinc sulfate [Zinkel-220] 30 mg PO DAILY 02/25/24 03/16/24 History Results Review: All pre-operative results and documents have been reviewed as part of the pre- operative evaluation. [facility] Past Medical History Medical History (Updated 02/25/24 @ 12:47 by VALARIE Fonseca) COVID Heart disease HTN (hypertension) Hyperlipidemia Pneumonia Surgical History Surgical History (Updated 03/22/24 @ 14:02 by Khari Delong DO) H/O eye surgery right eye refractive lens exchange History of appendectomy 1986 History of heart bypass surgery 2007 Status post biopsy of kidney Family History Family History Father Diabetes mellitus Family history of pancreatic cancer Grandparent Family history of malignant neoplasm Sibling Ovarian cancer Social History Social History Smoking status: Never smoker Alcohol intake: current Drinks per week: 1 Alcohol use details: socially Substance use type: does not use Lack of Transportation: No Lack of Food: Never True Current Housing: I Have Housing Concerned About Future Housing: No Difficulty Paying Gas/Electric Bills: No Difficulty Paying for Meds: No Currently Unemployed: No Education: Trade/Vocational Certificate Difficulty w/ Childcare or Family Care: No Living arrangements: with family Spiritual care concerns: No Anes - Eval Final PreProcedure Day of Procedure 03/22/24 14:02 Results Review: All pre-operative results and documents have been reviewed as part of the pre- operative evaluation. Informed Consent: The patient's anesthetic plan and its attendant risks and benefits were discussed with the patient/family/POA. Questions were solicited and answers provided to the satisfaction of the patient/family/POA.
[2024-03-23 06:23] VITALS: BP 144/67; PULSE 51; RESP 18; TEMP 36.1; O2SAT 100
[2024-03-23] MEDS: LACTATED RINGERS 1,000 ML 150 ML IV CONT (06:35)
--- NOTE | 2024-03-23 06:39 | P.PNAN_ITS ---
Anes - Initial Pre Proc Eval Procedure: Operation Date: 03/23/24 07:30 Proposed Procedures p Esophagogastroduodenoscopy - Brice Salcedo MD Date/Time: 03/23/24 06:39 Surgeon: Brice Salcedo MD Pre Op Diagnosis: GERD Patient Data Age: 73 Gender: M Height: 1.83 m Weight: 85.5 kg Last Vital Signs Temp 36.1 C L 03/23/24 06:23 Pulse 51 L 03/23/24 06:23 Resp 18 03/23/24 06:23 BP 144/67 H 03/23/24 06:23 Pulse Ox 100 03/23/24 06:23 O2 Del Method Room Air 03/23/24 06:23 Allergies Allergy/AdvReac Type Severity Reaction Status Date / Time sulfamethoxazole Allergy Mild rash Verified 03/23/24 06:20 Penicillins Allergy Unknown Rash Verified 03/23/24 06:20 sulfamethizole Allergy Unknown Rash Verified 03/23/24 06:20 trimethoprim Allergy Unknown Rash Verified 03/23/24 06:20 Home Medications Medication Instructions Recorded Confirmed Type aspirin 81 mg tablet,delayed 81 mg PO DAILY 12/21/19 03/23/24 History release (Adult Low Dose Aspirin) rosuvastatin 40 mg tablet (Crestor) 40 mg PO DAILY 12/21/19 03/23/24 History sildenafil 100 mg tablet (Viagra) 100 mg PO DAILY PRN sexual 02/08/21 03/23/24 Rx activity #20 tabs cholecalciferol (vitamin D3) 25 25 mcg PO DAILY 01/28/22 03/23/24 History mcg (1,000 unit) capsule mecobalamin (vitamin B12) 1,000 1,000 mcg PO DAILY 01/28/22 03/23/24 History mcg chewable tablet albuterol sulfate 90 mcg/actuation 2 puff inhalation Q4-6H PRN 01/30/23 03/23/24 Rx aerosol inhaler shortness of breath or wheezing #18 grams ascorbic acid (vitamin C) 1,000 mg 1 g PO DAILY 09/25/23 03/23/24 History capsule lisinopril 20 mg tablet 20 mg PO DAILY 09/25/23 03/23/24 History finasteride 5 mg tablet See Rx Instructions .Route 02/16/24 03/23/24 Rx .COMPLEX #90 tabs coenzyme Q10 200 mg capsule (Co 100 mg PO DAILY 02/25/24 03/23/24 History Q-10) zinc sulfate [Zinkel-220] 30 mg PO DAILY 02/25/24 03/23/24 History Patient hx anesthesia problems: none Family hx anesthesia problems: none Results Review: All pre-operative results and documents have been reviewed as part of the pre- operative evaluation. 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 Status post biopsy of kidney Family History Family History Father Diabetes mellitus Family history of pancreatic cancer Grandparent Family history of malignant neoplasm Sibling Ovarian cancer Social History Social History Smoking status: Never smoker Alcohol intake: current Drinks per week: 1 Alcohol use details: socially Substance use type: does not use Lack of Transportation: No Lack of Food: Never True Current Housing: I Have Housing Concerned About Future Housing: No Difficulty Paying Gas/Electric Bills: No Difficulty Paying for Meds: No Currently Unemployed: No Education: Trade/Vocational Certificate Difficulty w/ Childcare or Family Care: No Living arrangements: with family Spiritual care concerns: No Anes - Eval Final PreProcedure Day of Procedure 03/23/24 06:39 Patient weight: normal Heart: regular rate and rhythm Lungs: clear to auscultation Airway: Mallampati scale class II Neurological: alert and oriented Last oral intake: >/= 8 hours ASA classification: III Emergent: no Anesthetic plan: proceed Anesthesia type and monitoring: general GIVS and standard monitoring Results Review: All pre-operative results and documents have been reviewed as part of the pre- operative evaluation. Informed Consent: The patient's anesthetic plan and its attendant risks and benefits were discussed with the patient/family/POA. Questions were solicited and answers provided to the satisfaction of the patient/family/POA.
--- NOTE | 2024-03-23 07:19 | P.HP_ITS ---
History of Present Illness History of Present Illness Consent: Risks, benefits, and alternatives have been discussed and questions answered. Patient agrees to proceed with procedure. Chief complaint: GERD Narrative: Jose Watson is a 73 year old male here for first EGD, noted intermittent cough after eating, no much of reflux symptoms and he is not taking any medication for that. 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 Status post biopsy of kidney Family History Family History Father Diabetes mellitus Family history of pancreatic cancer Grandparent Family history of malignant neoplasm Sibling Ovarian cancer Social History Social History Smoking status: Never smoker Alcohol intake: current Drinks per week: 1 Alcohol use details: socially Substance use type: does not use Lack of Transportation: No Lack of Food: Never True Current Housing: I Have Housing Concerned About Future Housing: No Difficulty Paying Gas/Electric Bills: No Difficulty Paying for Meds: No Currently Unemployed: No Education: Trade/Vocational Certificate Difficulty w/ Childcare or Family Care: No Living arrangements: with family Spiritual care concerns: No Meds Home Medications and Allergies Home Medications Medication Instructions Recorded Confirmed Type aspirin 81 mg tablet,delayed 81 mg PO DAILY 12/21/19 03/23/24 History release (Adult Low Dose Aspirin) rosuvastatin 40 mg tablet (Crestor) 40 mg PO DAILY 12/21/19 03/23/24 History sildenafil 100 mg tablet (Viagra) 100 mg PO DAILY PRN sexual 02/08/21 03/23/24 Rx activity #20 tabs cholecalciferol (vitamin D3) 25 25 mcg PO DAILY 01/28/22 03/23/24 History mcg (1,000 unit) capsule mecobalamin (vitamin B12) 1,000 1,000 mcg PO DAILY 01/28/22 03/23/24 History mcg chewable tablet albuterol sulfate 90 mcg/actuation 2 puff inhalation Q4-6H PRN 01/30/23 03/23/24 Rx aerosol inhaler shortness of breath or wheezing #18 grams ascorbic acid (vitamin C) 1,000 mg 1 g PO DAILY 09/25/23 03/23/24 History capsule lisinopril 20 mg tablet 20 mg PO DAILY 09/25/23 03/23/24 History finasteride 5 mg tablet See Rx Instructions .Route 02/16/24 03/23/24 Rx .COMPLEX #90 tabs coenzyme Q10 200 mg capsule (Co 100 mg PO DAILY 02/25/24 03/23/24 History Q-10) zinc sulfate [Zinkel-220] 30 mg PO DAILY 02/25/24 03/23/24 History Allergies Allergy/AdvReac Type Severity Reaction Status Date / Time sulfamethoxazole Allergy Mild rash Verified 03/23/24 06:20 Penicillins Allergy Unknown Rash Verified 03/23/24 06:20 sulfamethizole Allergy Unknown Rash Verified 03/23/24 06:20 trimethoprim Allergy Unknown Rash Verified 03/23/24 06:20 Vital Signs Vital Signs - 24 hr 03/23/24 06:23 Temperature 97 F L Pulse Rate 51 L Respiratory Rate 18 Blood Pressure 144/67 H Pulse Oximetry 100 Oxygen Delivery Room Air Exam Const: General: comfortable and no acute distress HENMT: Face/Nose/Sinus: Normal nares present Eyes: General: appearance normal, both eyes and all related structures Neck: Neck: no JVD Resp: Auscultation: clear to auscultation bilaterally Cardio: Rate: regular rate Rhythm: regular rhythm GI: Inspection: non-distended GI Palp: Yes Soft to palpation Skin: General skin exam: normal color Neuro: General: gait normal Speech: normal speech Extrem: General: normal to inspection Psych: Mental Status: mental status grossly normal Assessment and Plan Assessment and plan (1) Cough: Code(s): R05.9 - Cough, unspecified Status: Acute Assessment and Plan: egd with bx
[2024-03-23 07:41] VITALS: BP 121/84; PULSE 67; RESP 18; O2SAT 100
[2024-03-23 07:51] VITALS: BP 120/83; PULSE 61; RESP 25; O2SAT 100
[2024-03-23 07:58] VITALS: BP 117/57; PULSE 58; RESP 21; O2SAT 100
== END 2024-03-23 08:10 | disposition home or self-care (01) ==
PROVIDERS: PCP Clinical Nurse Specialist; Visit Provider Internal Medicine Gastroenterology
PROC: 0DJ08ZZ Inspection of Upper Intestinal Tract, Via Natural or Artificial Opening Endoscopic (ICD-10-PCS; CPT 43235; principal; 2024-03-23 07:30)
DX: K22.70 Barrett's esophagus without dysplasia (principal); K44.9 Diaphragmatic hernia without obstruction or gangrene; K29.70 Gastritis, unspecified, without bleeding; K21.9 Gastro-esophageal reflux disease without esophagitis; E78.5 Hyperlipidemia, unspecified; I11.9 Hypertensive heart disease without heart failure; Z79.82 Long term (current) use of aspirin; Z79.51 Long term (current) use of inhaled steroids; Z98.890 Other specified postprocedural states; Z95.1 Presence of aortocoronary bypass graft; Z80.0 Family history of malignant neoplasm of digestive organs; Z80.41 Family history of malignant neoplasm of ovary
CPT/HCPCS: 43239; 88305; J2003; J2704; J7120

== ENCOUNTER 2024-05-31 06:49 | Outpatient (CLI) | payer MEDICARE, SELFPAY ==
[2024-05-31 07:22] LABS: Hemoglobin A1C 6.8 % (<5.7)
[2024-05-31 10:05] LABS: Creatinine Urine 165.7 mg/dL
[2024-05-31 10:10] LABS: MALB Creatinine Ratio 27.2 mg/g (0-30)
[2024-06-02 05:09] LABS: ANA Cascade Screen NEGATIVE (NEGATIVE)
== END 2024-05-31 06:50 | disposition home or self-care (01) ==
PROVIDERS: PCP Clinical Nurse Specialist; Visit Provider Clinical Nurse Specialist
DX: R20.9 Unspecified disturbances of skin sensation (principal); E11.9 Type 2 diabetes mellitus without complications; Z82.49 Family history of ischemic heart disease and other diseases of the circulatory system
CPT/HCPCS: 36415; 82043; 83036; 86038; 86225; 86235; 86364

== ENCOUNTER 2024-08-17 07:06 | Outpatient (CLI) | payer MEDICARE, SELFPAY ==
--- OUTSIDE RECORDS SUMMARY | 2024-08-17 07:10 | XMS_ITS | Encounter Summary ---
Author Organization [facility] Address 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 Gender Identity Not on file Sexual Orientation Not on file documented as of this encounter Plan of Treatment Upcoming Encounters Date Type Department Care Team (Late st Contact Info) Description 08/20/2024 8:45 AM CDT Office Visit [facility] Oncology and Hematology - [place] [address] [place] [phone] Graeme Diez MD [address] [facility] [address] [place] [address] 03/18/2025 9:00 AM CDT Office Visit [facility] Heart and Vascular [facility] [place] [address] [facility] [address] [place] [phone] Jh Willis MD [address] [place] [address] [address] [place] [address] documented as of this encounter Visit Diagnoses Not on filedocumented in this encounter Care Teams Car Supplier Relationship Specialty Start Date End Date Jose Lewis DO PCP - General 05/04/15 documented as of this encounter
--- OUTSIDE RECORDS SUMMARY | 2024-08-17 07:10 | XMS_ITS | Encounter Summary ---
Author Organization [facility] Address 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 [address] D.O.B: 1950 SSN: [id number] Parent/Guardian if applicable: Patient Insurance: BLUE CROSS BLUE SHIELD ID#: [id number] Group#: ORDER(S) #: [id number] stress thallium BEST TO CALL HOME. BEST TIME TO CALL: ANYTIME. MAY WE LEAVE MESSAGE AT THAT NUMBER: YES, LEAVE MESSAGE. PLEASE SCHEDULE THE APPOINTMENT AT THE FOLLOWING LOCATION: nkechi batista m.d. [phone] TEST PRIORITY: 2 - 7 DAYS. SPECIAL SCHEDULING INSTRUCTIONS: pt needs prep ORDERING PHYSICIAN: LOBO OLSEN MD OFFICE PLATE PRINTER & PHONE: Katherine Byrd E ORDER PRINTED BY: Ayse Falcon A FOR SCHEDULING USE ONLY: FIRST ATTEMPT Date:AUG 13, 2006 Ayes Falcon A 06:23 p Spoke with Patient. PT WANTS TO HAVE DONE IN A PRIVATE DR'S OFFICE.. W/C/B IN AM.. DR. BATISTA SECOND ATTEMPT: Date:AUG 15, 2006 Ayse Falcon A 01:40 p Spoke with Patient. TEST SCHEDULE OTHER LOCATION. DR. KELLY'S OFFICE APPOINTMENT DATE : 08/21/2006 ( 9:15 AM) The appointment was scheduled by Ayse Falcon A at [phone] Pre[place]: [place] Given/Authorized by: pre-recorded message/fast check @ [phone] FINAL ACTION Spoke with patient. Follow up completed. * Lobo Olsen MD - 10/09/2007 2:07 PM CDT WHO TOOK THE CALL: Lobo Olsen M TIME:05:34 pm given wrong z richie--notify pt can change to z richie (script for alexandre) 08/11/06 5:38P Spoke w/pt. Pharm # [phone]. [place] called back & corrected to oral Z-richie 250 mg. take as directed. sl Electronically Signed by: Donna Gutiérrez on Friday, August 11, 2006 * Lobo Olsen MD - 10/09/2007 2:07 PM CDT WEIGHT: 202lbs BLOOD PRESSURE: 122/76 Right Arm Sitting NURSE NAME: SophiaGhazal J CHIEF COMPLAINT Patient here for follow up hyperlipidemia. HISTORY: HISTORY: 272.4-HYPERLIPIDEMIA The patient is tolerating the medications. The patient`s most recent labs reviewed. 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 RESPIRATORY: No dyspnea, cough, hemoptysis or wheezing. : No dysuria or hematuria. GI: No abdominal pain, nausea, vomiting, diarrhea, constipation, melena, or hematochezia. FAMILY HISTORY: father cad50's FATHER: The father is . Illnesses: Hypercholesterolemia, diabetes, heart disease. The causeof was cancer. occurred at age 67. MOTHER: The mother is . The cause of was. childbirth complications SIBLINGS: 1) The patient's sister is living. No major illnesses are known. PHYSICAL EXAMINATION: CONSTITUTIONAL: GENERAL APPEARANCE: Healthy appearing patient in no distress. EARS, NOSE, MOUTH AND THROAT: EARS: EFFUSION PRESENT BILATERALLY. ORAL: No erythema in oropharynx. NECK/THYROID: Trachea midline. No thyroid enlargement, tenderness, or mass. No supraclavicular or cervical adenopathy. RESPIRATORY: Clear to auscultation and percussion. Normal respiratory effort. CARDIOVASCULAR: CARDIAC: Regular rhythm. No murmurs, rubs, or gallops. ARTERIAL: No aortic bruits. EDEMA/VARICOSITIES OF EXTREMITIES: No edema or varicosities. GASTROINTESTINAL: ABDOMEN: Soft, non-tender, without masses. Bowel sounds active. LIVER/SPLEEN/KIDNEY: No hepatosplenomegaly, tenderness or nodularity. Kidneys not palpable. SKIN: SKIN: Warm, dry, no diaphoresis, no significant lesions, irritation, rashes or ulcers. No induration, obvious subcutaneous nodules or tightening. OFFICE PROCEDURES: EKG INTERPRETATION EKG RHYTHM: The EKG shows normal sinus rhythm. No ischemic changes noted. ASSESSMENT/PLAN: 272.4-HYPERLIPIDEMIA cont med, improved LAB ORDERS: 6 mo Order number: [id number] Test Ordered: COMPREHENSIVE METABOLIC PANEL & GFR 1112 Order number: [id number] Test Ordered: LIPID PANEL 1078 461.9-SINUSITIS UNSPECIFIED rx MEDICATIONS: ZITHROMAX Z-RICHIE ORAL TABLET 250 MG, DIRECTED, 1 Dispensed, status: NEW PRESCRIPTION, 08/11/2006. 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 Electronically Signed by: Lobo Olsen MD on Friday, August 11, 2006 documented in this encounter Plan of Treatment Upcoming Encounters Date Type Department Care Team (Late st Contact Info) Description 08/20/2024 8:45 AM CDT Office Visit [facility] Oncology and Hematology - [place] [address] [facility] [address] [place] [address] Graeme Diez MD [address] [facility] [address] [place] [address] 03/18/2025 9:00 AM CDT Office Visit [facility] Heart and Vascular At [place] [address] [address] [facility] [address] [place] [address] Jh Willis MD [address] [place] [address] [address] [place] [address] documented as of this encounter Visit Diagnoses Not on filedocumented in this encounter Care Teams Research Administrator Relationship Specialty Start Date End Date Nkechi Lewis DO PCP - General 05/04/15 documented as of this encounter
--- OUTSIDE RECORDS SUMMARY | 2024-08-17 07:10 | XMS_ITS | Encounter Summary ---
Author Organization [facility] Address 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 [address] [place] [address] Jh Willis MD [address] [place] [address] [address] [place] [address] documented as of this encounter Visit Diagnoses Not on filedocumented in this encounter Care Teams Countersinker Relationship Specialty Start Date End Date Jose Lewis DO PCP - General 05/04/15 documented as of this encounter
--- OUTSIDE RECORDS SUMMARY | 2024-08-17 07:10 | XMS_ITS | Continuity of Care Document ---
Author Organization [facility] Address [address] [place] [address] [address] [place] [address] Phone Care Team Providers Care Hearing Aid Repairer Name Role Phone Jh Peralta MD Unavailable Unavailable Allergies, Adverse Reactions, Alerts Substance Reaction Status Criticality niacin Active No Information trimethoprim Active No Information sulfamethoxazole Active No Informat ion PENICILLIN Active No Information Medications Medication Instructions Dosage Effective Dates (start - stop) Status Comments lisinopril 20 mg tablet - Active rosuvastatin 40 mg tablet - Active finasteride 5 mg tablet TAKE 1 TABLET BY MOUTH DAILY - Active sildenafil 100 mg tablet - Active Procedures Procedure Date CORNEAL PACHYMETRY VISUAL FIELD- EXTENDED GDX Optic Nerve GONIOSCOPY OFFICE/OUTPATIENT VISIT, [facility] Advance Directives Directive Yes / No Effective Date File Name No Information Encounters Encounter Description Practice Location Reason(s) For Visit Diagnoses Date Provider Providers Copied on Encounter OFFICE/OUTPA TIENT VISIT, [facility], [address] [place] [address], [place], [place], [id number], [place] tel:[phone] [facility] Glaucoma Evaluation (chief complaint) Presence of pseudophakiaOp en angle with borderline findings, low risk, bilateralPucke ring of macula, bilateral Jul-2 [address] [place], [address], [place]. tel:[phone] Consulting Provider: Donnie Lemons, [address] [facility], [place], [address]. tel:[phone] ring Provider: Jh Peralta, [address] [facility], [place], [address]. tel:[phone] [facility], [address] [place] [address], [place], [place], [id number], tel:[phone] [facility] No Information [address] [place], [address], [place]. tel:[phone] Family History Family Member Type Diagnosis Age At Onset Problem Family history of Heart dise ase Problem Family history of Diabetes m bryan Payers Payer name Insurance type Covered green party ID Authoriza anant(s) [place] [id number] [id number] Social History Type Description Quantity Date Captured Comments Alcohol Use Details Unknown Caffeine Use Details Unknown Tobacco Use Status Current non-smoker Smoking Status Never smoker Non-Smoking Tobacco Use Details : No Details Available : No Details Available Sex Male Chief Complaint And Reason For Visit From encounter dated '08/14/2021 14:00'. Glaucoma Evaluation (chief complaint). Description: The 71 year old male presents for evaluation ofGlaucoma Evaluation in the right eye and left eye, for the past 4 months. Patient was referred by Dr. Hinds for Glaucoma eval. Patient reports hx of high blood pressure, heart bypass (08/2006). Patient reports hx of RLE OU (02/2019) OD Distance, OS Near. Patient denies hx of eye disease and fhx glaucoma. Patient denies headaches, watering, and pain. Patient currently uses AT's PRN OU. Reason For Referral Reason For Referral No Information History Of Present Illness Encounter Date Complaint History Of Prese nt Illness Glaucoma Evaluation The 71 year old male presents for evaluation of Glaucoma Evaluation in the right eye and left eye, for the past 4 months. Patient was referred by Dr. Hinds for Glaucoma eval. Patient reports hx of high blood pressure, heart bypass (08/2006). Patient reports hx of RLE OU (02/2019) OD Distance, OS Near. Patient denies hx of eye disease and fhx glaucoma. Patient denies headaches, watering, and pain. Patient currently uses AT's PRN OU. Functional Status Date Functional Assessmen t No Information Instructions Date Instruction Additional Infor carter Impression/Plan Related to Prese nce of pseudophakia Impression/Plan Related to Pucke ring of macula, bilateral Impression/Plan Related to Open angle with borderline findings, low risk, bilateral Assessments Type Assessment Date assessment Presence of pseudophakia 2021 impression Presence of pseudophakia: Z96.1 assessment Open angle with borderline findi ngs, low risk, bilateral impression Open angle with bord belinda findings, low risk, bilateral: H40.013 assessment Puckering of macula, bilateral M impression Puckering of macula, 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
--- OUTSIDE RECORDS SUMMARY | 2024-08-17 07:10 | XMS_ITS | Encounter Summary ---
Author Organization [facility] Address 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 SIMVASTATIN ORAL TABLET 80 MG, 1 Every Day, 90 Dispensed, 3 Fills, 90 Duration/Days Supply, status:NEW PRESCRIPTION, 12/16/2006. ukendr 12/16/06 10:25 am STAFF FOLLOW UP: . spoke with pt. given above results and directions faxedto respiratory director Dr. Hernandez. /bear Electronically Signed by: Chayito Barakat on Saturday, December 16, 2006 documented in this encounter Plan of Treatment Upcoming Encounters Date Type Department Care Team (Late st Contact Info) Description 08/20/2024 8:45 AM CDT Office Visit [facility] Oncology and Hematology - [place] [address] [facility] [address] [place] [address] Graeme Diez MD [address] [facility] [address] [place] [address] 03/18/2025 9:00 AM CDT Office Visit [facility] Heart and Vascular At [facility] [address] [facility] [address] [place] [address] Jh Willis MD [facility] [address] [facility] [address] [place] [address] documented as of this encounter Visit Diagnoses Not on filedocumented in this encounter Care Teams Tourist Information Officer Relationship Specialty Start Date End Date Jose Lewis DO PCP - General 05/04/15 documented as of this encounter
--- OUTSIDE RECORDS SUMMARY | 2024-08-17 07:10 | XMS_ITS | Encounter Summary ---
Author Organization [facility] Address 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 Gender Identity Not on file Sexual Orientation Not on file documented as of this encounter Last Filed Vital Signs Vital Sign Reading Time Taken Comments Blood Pressure 122/74 09/29/2006 3:15 PM CDT Pulse - - Temperature - - Respiratory Rate - - Oxygen Saturation - - Inhaled Oxygen Concentration - - Weight 87.1 kg (192 lb) 09/29/2006 3:15 PM CDT Height - - Body Mass Index - - documented in this encounter Plan of Treatment Upcoming Encounters Date Type Department Care Team (Late st Contact Info) Description 08/20/2024 8:45 AM CDT Office Visit [facility] Oncology and Hematology - [place] [address] [facility] [address] [place] [address] Graeme Diez MD [address] [facility] [address] [place] [address] 03/18/2025 9:00 AM CDT Office Visit [facility] Heart and Vascular At [facility] [address] [facility] [address] [place] [address] [facility] [address] [facility] [address] [place] [address] documented as of this encounter Visit Diagnoses Not on filedocumented in this encounter Care Teams Autographer Relationship Specialty Start Date End Date Jose Lewis DO PCP - General 05/04/15 documented as of this encounter
--- OUTSIDE RECORDS SUMMARY | 2024-08-17 07:10 | XMS_ITS | Encounter Summary ---
Author Organization [facility] Address 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 [address] [place] [address] Jh Willis MD [address] [place] [address] [address] [place] [address] documented as of this encounter Visit Diagnoses Not on filedocumented in this encounter Care Teams Housekeeper/Laundry Assistant Relationship Specialty Start Date End Date Jose Lewis DO PCP - General 05/04/15 documented as of this encounter
--- OUTSIDE RECORDS SUMMARY | 2024-08-17 07:10 | XMS_ITS | Encounter Summary ---
Author Organization [facility] Address 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 PROBLEMS: S/P CABG 08/22/06. Only new med on is Metoprolol, which he was started on 08/23/06. RASH: Patient complains of rash. The rash began approximately 5 days ago. NO RASH NOW. He says it pops up in various places on his body & then it disappears. Rash is red & when scratched it forms bumps. Only seems to occur in late afternoon & goran. Tylenol PM seems to help. SECTION 1: REQUESTED ACTION laura 09/29/06 at 11:14 am: NEXT STEP: Patient is no better and wants to know the next step. (NO RASH VISIBLE NOW.) DOCTOR`S RESPONSE: canelo 09/29/06 at 11:16 am pt needs appt FINAL ACTION: laura 09/29/06 at 11:17 am Spoke with patient 09/29/06 at 11:17 am. Booked appointment: today Electronically Signed by: Donna Gutiérrez on Friday, September 29, 2006 * Octvaio Mccain MD - 10/08/2007 10:32 AM CDT WEIGHT: 192lbs BLOOD PRESSURE: 122/74 Right Arm Sitting NURSE NAME: Ghazal Cortes J CHIEF COMPLAINT Patient complains of rash. HISTORY: 1 mo post cabg---2 weeks post bypass--had itching and sweats, had chest xray--was on cipro, then got better, had been on metoprolol--then dose decreased due to low bp HISTORY: 272.4-HYPERLIPIDEMIA The patient is tolerating the medications. 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 CARDIAC: No chest pain, palpitations, orthopnea, dyspnea on exertion, or paroxysmal nocturnal dyspnea. RESPIRATORY: No dyspnea, cough, hemoptysis or wheezing. : No dysuria or hematuria. GI: No abdominal pain, nausea, vomiting, diarrhea, constipation, melena, or hematochezia. PAST MEDICAL HISTORY: reviewed CABG MEDICAL: No significant history of medical diseases. SURGICAL: Appendectomy. kidney biopsy CURRENT MEDICATIONS: Lescol. ALLERGIES/ADVERSE REACTIONS: Penicillins. FAMILY HISTORY: father cad50's FATHER: The father is . Illnesses: Hypercholesterolemia, diabetes, heart disease. The causeof was cancer. occurred at age 67. MOTHER: The mother is . The cause of was. childbirth complications SIBLINGS: 1) The patient's sister is living. No major illnesses are known. SOCIAL HISTORY: MARITAL HISTORY: , living with spouse. LIVING WILL: The patient has a living will. TOBACCO USE: Has no significant smoking history. DISCUSSED SMOKING: neg. 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 CAFFEINE: A minimal amount of caffeinated beverages daily. EXERCISES: The patient exercises regularly. The exercise is predominantly walking, weight lifting. DIET: Follows no specific diet. SAFETY ISSUES: Uses seat belts. PHYSICAL EXAMINATION: CONSTITUTIONAL: GENERAL APPEARANCE: Healthy appearing patient in no distress. EARS, NOSE, MOUTH AND THROAT: ORAL: Inspection of gums, lips, palate, and teeth normal. No scars, lesions, or masses. Oral mucosaunremarkable with non-inflamed posterior pharynx. NECK/THYROID: Trachea midline. No thyroid enlargement, tenderness, [...] ulcers. No induration, obvious subcutaneous nodules or tightening.scars well healed ASSESSMENT/PLAN: 272.4-HYPERLIPIDEMIA discussed aggressive rx, fu post cardiolgy 782.1-RASH pruritis, med vs anxiety, ok benadryl at hx, wean off metoprolol, consider Coreg, pt to Cardiology 414.00-CORONARY ARTERY DISEASE discussed at length, advised beta solitario, shruthi inh, statin, aspirin 309.81-ADJUSTMENT REACTION med prn reassess MEDICATIONS: ALPRAZOLAM ORAL TABLET 0.25 MG, 1 Two Times A Day, As Needed, 40 Dispensed, status: NEW PRESCRIPTION, 09/29/2006. PREVENTIVE COUNSELING The patient was counseled regarding diet, regular sustained exercise for at least 30 minutes 3-4 times per week. Patient Education: Risks, benefits, and possible side effects of medication(s) were reviewed with the patient. RETURN VISIT : Patient instructed to return in 2 months. Electronically Signed by: Octavio Mccain MD on Friday, September 29, 2006 documented in this encounter Plan of Treatment Upcoming Encounters Date Type Department Care Team (Late st Contact Info) Description 08/20/2024 8:45 AM CDT Office Visit [facility] Oncology and Hematology - [place] [address] [facility] [address] [place] [phone] Graeme Diez MD [address] [facility] [address] [place] [address] 03/18/2025 9:00 AM CDT Office Visit [facility] Heart and Vascular At [facility] [address] [facility] [address] [place] [address] Jh Willis MD [address] [facility] [address] [place] [address] documented as of this encounter Visit Diagnoses Not on filedocumented in this encounter Care Teams Retail Merchandiser Relationship Specialty Start Date End Date Jose Lewis DO PCP - General 05/04/15 documented as of this encounter
--- OUTSIDE RECORDS SUMMARY | 2024-08-17 07:10 | XMS_ITS | Encounter Summary ---
Author Organization [facility] Address 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 Gender Identity Not on file Sexual Orientation Not on file documented as of this encounter Plan of Treatment Upcoming Encounters Date Type Department Care Team (Late st Contact Info) Description 08/20/2024 8:45 AM CDT Office Visit [facility] Oncology and Hematology - [place] [address] [facility] [address] [place] [phone] Graeme Diez MD [address] [facility] [address] [place] [address] 03/18/2025 9:00 AM CDT Office Visit [facility] Heart and Vascular At [place] [address] [facility] [address] [place] [address] Jh Willis MD [facility] [address] [facility] [address] [place] [address] documented as of this encounter Procedures Procedure Name Priority Date/Time Associated Diagnosis Comments CBC WITH DIFFERENTIAL Routine 09/17/2006 11:50 AM CDT CBC WITH DIFFERENTIAL Routine 09/17/2006 11:50 AM CDT documented in this encounter Results * (ABNORMAL) CBC WITH DIFFERENTIAL (09/17/2006 11:50 AM CDT) NEUTROPHILS 58 45 - 70 % INTERFAC E SYSTEM LYMPHOCYTES 16 16 - 45 % INTERFAC E SYSTEM MONOCYTES 7 3 - 13 % INTERFACE SYSTEM EOSINOPHILS 18(H) 0 - 7 % INTERFAC E SYSTEM BASOPHILS 0 0 - 2 % INTERFACE SYSTEM NEUTROPHIL ABSOLUTE 3.90 1.90 - 7.00 K/uL INTERFACE SYSTEM LYMPHOCYTE ABSOLUTE 1.09 0.70 - 4.50 K/uL INTERFACE SYSTEM MONOCYTE ABSOLUTE 0.47 0.10 - 1.30 K/uL INTERFACE SYSTEM EOSINOPHIL ABSOLUTE 1.21(H) 0.00 - 0.70 K/uL INTERFACE SYSTEM BASOPHILS ABSOLUTE 0.03 0.00 - 0.20 K/uL INTERFACE SYSTEM 09/17/2006 11:5 0 AM CDT us Jh Guerrero Jr., MD HEMATOLOGY ORDERABLES E dited INTERFACE SYSTEM Refer to clinic/hospital department * (ABNORMAL) CBC WITH DIFFERENTIAL (09/17/2006 11:50 AM CDT) Pathologist [facility] WBC 6.7 4.0 - 9.8 K/uL INTERFACE SYSTEM RBC 4.13(L) 4.50 - 5.40 M/uL INTERFACE SYSTEM HEMOGLOBIN 12.0(L) 13.6 - 16.5 g/dL INTERFACE SYSTEM HEMATOCRIT 36.1(L) 40.0 - 48.0 % INTERFACE SYSTEM MCV 87.4 82.0 - 99.0 fL INTERFACE SYSTEM MCH 29.1 27.2 - 32.6 pg INTERFACE SYSTEM MCHC 33.2 31.5 - 35.5 % INTERFACE SYSTEM RDW 13.6 11.5 - 14.5 % INTERFACE SYSTEM RDW-STDEV 43.4 37.1 - 48.7 fL INTERFACE SYSTEM PLATELETS 230 140 - 350 K/uL INTERFACE SYSTEM MPV 11.9 9.3 - 12.4 fL INTERFACE SYSTEM 09/17/2006 11:5 0 AM CDT us Jh Guerrero Jr., MD HEMATOLOGY ORDERABLES E dited INTERFACE SYSTEM Refer to clinic/hospital department documented in this encounter Visit Diagnoses Diagnosis Coronary atherosclerosis of [place] coronary artery- Primary documented in this encounter Care Teams Radiographer Relationship Specialty Start Date End Date Jose Lewis DO PCP - General 05/04/15 documented as of this encounter
--- OUTSIDE RECORDS SUMMARY | 2024-08-17 07:10 | XMS_ITS | Encounter Summary ---
Author Organization [facility] Address [address] [place] [address] Care Team Providers Care Bird Cage Assembler Name Role Phone Joshua Jose Moreland DO Primary Care Provider Encounter Details Date Type Department Care Team (Late st Contact Info) Description 09/17/[address] 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 Oncology and Hematology - [place] [address] [facility] [address] [place] [phone] Graeme Diez MD [address] [facility] [address] [place] [phone] 03/18/2025 9:00 AM CDT Office Visit [facility] Heart and Vascular At [address] [place] [address] Jh Willis MD [address] [place] [address] [address] [place] [address] documented as of this encounter Visit Diagnoses Not on filedocumented in this encounter Care Teams Bird Cage Assembler Relationship Specialty Start Date End Date Jose Lewis DO PCP - General 05/04/15 documented as of this encounter
--- OUTSIDE RECORDS SUMMARY | 2024-08-17 07:10 | XMS_ITS | Encounter Summary ---
Author Organization [facility] Address 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 Gender Identity Not on file Sexual Orientation Not on file documented as of this encounter Plan of Treatment Upcoming Encounters Date Type Department Care Team (Late st Contact Info) Description 08/20/2024 8:45 AM CDT Office Visit [facility] Oncology and Hematology - [place] [address] [place] [address] [address] [place] [phone] Graeme Diez MD [address] [facility] [address] [place] [phone] 03/18/2025 9:00 AM CDT Office Visit [facility] Heart and Vascular At [place] [address] [facility] [address] [place] [address] Jh Willis MD [address] [place] [address] [address] [place], [place] [phone] documented as of this encounter Visit Diagnoses Diagnosis Special screening for malignant neoplasms, colon- Primary documented in this encounter Care Teams Bill Sorter Relationship Specialty Start Date End Date Jose Lewis DO PCP - General 05/04/15 documented as of this encounter
--- OUTSIDE RECORDS SUMMARY | 2024-08-17 07:10 | XMS_ITS | Encounter Summary ---
Author Organization [facility] Address 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 Gender Identity Not on file Sexual Orientation Not on file documented as of this encounter Plan of Treatment Upcoming Encounters Date Type Department Care Team (Late st Contact Info) Description 08/20/2024 8:45 AM CDT Office Visit [facility] Oncology and Hematology - [place] [address] [facility] [address] [place] [phone] Graeme Diez MD [address] [facility] [address] [place] [phone] 03/18/2025 9:00 AM CDT Office Visit [facility] Heart and Vascular At [address] [place] [address] Jh Willis MD [address] [place] [address] [address] [place] [address] documented as of this encounter Visit Diagnoses Not on filedocumented in this encounter Care Teams Knife Machine Operator Relationship Specialty Start Date End Date Jose Lewis DO PCP - General 05/04/15 documented as of this encounter
--- OUTSIDE RECORDS SUMMARY | 2024-08-17 07:10 | XMS_ITS | Encounter Summary ---
Author Organization [facility] Address 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 Gender Identity Not on file Sexual Orientation Not on file documented as of this encounter Last Filed Vital Signs Vital Sign Reading Time Taken Comments Blood Pressure 120/80 08/20/2005 3:15 PM CDT Pulse - - Temperature - - Respiratory Rate - - Oxygen Saturation - - Inhaled Oxygen Concentration - - Weight 97.5 kg (215 lb) 08/20/2005 3:15 PM CDT Height - - Body Mass Index - - documented in this encounter Plan of Treatment Upcoming Encounters Date Type Department Care Team (Late st Contact Info) Description 08/20/2024 8:45 AM CDT Office Visit [facility] Oncology and Hematology - [place] [address] [facility] [address] [place] [address] Graeme Diez MD [address] [facility] [address] [place] [address] 03/18/2025 9:00 AM CDT Office Visit [facility] Heart and Vascular At [facility] [address] [facility] [address] [place] [address] Jh Willis MD [facility] [address] [facility] [address] [place] [address] documented as of this encounter Visit Diagnoses Not on filedocumented in this encounter Care Teams Home Care Chaplain Relationship Specialty Start Date End Date Jose Lewis DO PCP - General 05/04/15 documented as of this encounter
--- OUTSIDE RECORDS SUMMARY | 2024-08-17 07:10 | XMS_ITS | Encounter Summary ---
Author Organization [facility] Address 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 No major weight gain or loss. No malaise, chills, fever, diaphoresis. ALLERGIC/IMMUNOLOGIC: No hay fever or history of environmental allergies. No chronic problems with immunity. EYES: No vision changes or diplopia. ENT: No hearing loss, epistaxis, hoarseness or dysphagia. No sinus congestion. ENDOCRINE: No heat or cold intolerance, no excessive thirst. CARDIAC: No chest pain, palpitations, orthopnea, dyspnea on exertion, or paroxysmal nocturnal dyspnea. RESPIRATORY: No dyspnea, cough, hemoptysis or wheezing. SKIN/BREAST/CHEST: No rashes or non-healing lesions. No breast symptoms noted. HEMATOLOGIC/LYMPHATIC: No anemia, easy bruising, bleeding or swollen nodes. : No dysuria or hematuria. GI: No abdominal pain, nausea, vomiting, diarrhea, constipation, melena, or hematochezia. NEUROLOGIC: No weakness, dizziness, loss of consciousness, transient ischemic symptoms, or seizures. MUSCULOSKELETAL: No muscle or joint pain, weakness, swelling or inflammation. No restriction of motion, no atrophy or backache. PSYCHIATRIC: No increased nervousness, mood changes or depression. Coping well. PAST MEDICAL HISTORY: MEDICAL: No significant history of medical diseases. SURGICAL: Appendectomy. kidney biopsy CURRENT MEDICATIONS: Lescol. ALLERGIES/ADVERSE REACTIONS: Penicillins. FAMILY HISTORY: FATHER: The father is . Illnesses: Hypercholesterolemia, [...] TOBACCO USE: Has no significant smoking history. 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 CAFFEINE: A minimal amount of caffeinated beverages daily. EXERCISES: The patient exercises regularly. The exercise is predominantly walking, weight lifting. DIET: Follows no specific diet. SAFETY ISSUES: Uses seat belts. PHYSICAL EXAMINATION: CONSTITUTIONAL: GENERAL APPEARANCE: Healthy appearing patient in no distress. EARS, NOSE, MOUTH AND THROAT: EARS: Tympanic membranes shiny without retraction. Canals unremarkable. Hearing grossly normal. ORAL: Normal oropharynx. NECK/THYROID: Trachea midline. No thyroid enlargement, tenderness, or mass. No supraclavicular or cervical adenopathy. RESPIRATORY: Clear to auscultation and percussion. Normal respiratory effort. CARDIOVASCULAR: CARDIAC: Regular rhythm. No murmurs, rubs, or gallops. ARTERIAL: Aortic pulses of normal amplitude with no bruits. EDEMA/VARICOSITIES OF EXTREMITIES: No edema or varicosities. GASTROINTESTINAL: ABDOMEN: Soft, non-tender, without masses. Bowel sounds active. LIVER/SPLEEN/KIDNEY: No hepatosplenomegaly, tenderness or nodularity. Kidneys not palpable. RECTAL: Rectal exam reveals no masses or hemorrhoids, sphincter tone is normal. STOOL/HEMOCCULT: Stool is hemoccult negative. Stool is normal. GENITOURINARY: SCROTUM/CONTENTS: Normal in appearance with no hydrocele, spermatocele, tenderness of cord, or testicular mass. PHALLUS: No lesion on glans. Shaft normal. No Peyronie's noted. PROSTATE: 1+ ENLARGED, smooth. ASSESSMENT/PLAN: V70.0-ROUTINE GENERAL MEDICAL EXAMINATION Td, colonoscpy, prostate exam, disc pros and cons of asa qd, ok fish oil, MVI, reviewed other supplts LAB ORDERS: Order number: [id number] Test Ordered: INJ-TETANUS & DIPTHERIA TOXOID 08082 272.4-HYPERLIPIDEMIA LAB ORDERS: now, pt fasting Order number: [id number] Test Ordered: CBC (INCLUDES DIFF/PLT) 6399 Order number: [id number] Test Ordered: COMPREHENSIVE METABOLIC PANEL 16556 Order number: [id number] Test Ordered: LIPID PANEL 7600 Order number: [id number] Test Ordered: TSH 899 Order number: [id number] Test Ordered: PSA 5363 602.9-OTHER DISORDERS OF PROSTATE discussed, rx if sx, check psa LAB ORDERS: Order number: [id number] Test Ordered: HEMOCCULT SINGLE 00676 SPECIALTY REFERRAL: GASTROENTEROLOGY Dr. Anil Shaw ph: [phone].colonscopy RETURN VISIT : Patient instructed to return in 3 months. Electronically Signed by: Octavio Mccain MD on Tuesday, June 14, 2005 documented in this encounter Plan of Treatment Upcoming Encounters Date Type Department Care Team (Late st Contact Info) Description 08/20/2024 8:45 AM CDT Office Visit [facility] Oncology and Hematology - [place] [address] [facility] [address] [place] [address] Graeme Diez MD [address] [facility] [address] [place] [address] 03/18/2025 9:00 AM CDT Office Visit [facility] Heart and Vascular At [facility] [address] [facility] [address] [place] [address] Jh Willis MD [facility] [address] [facility] [address] [place] [address] documented as of this encounter Visit Diagnoses Not on filedocumented in this encounter Care Teams Personal Lines Account Manager Relationship Specialty Start Date End Date Jose Lewis DO PCP - General 05/04/15 documented as of this encounter
--- OUTSIDE RECORDS SUMMARY | 2024-08-17 07:10 | XMS_ITS | Encounter Summary ---
Author Organization [facility] Address [address] [place] [address] Care Team Providers Care Photography Sales Associate Name Role Phone Joshua Jose Moreland DO Primary Care Provider Encounter Details Date Type Department Care Team (Late st Contact Info) Description 08/22/2006 Outpatient Historical [facility] ([facility]3] Cardiovas and Thor Surg at [address] [place] [address] Jh Guerrero Jr., MD NO ADDRESS ON FILE Social History Tobacco Use Types Packs/Day Years Used Date Smoking Tobacco: Never Assessed Sex and Gender Information Value Date Recorded Sex Assigned at Not on file 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 [address] [place] [phone] 03/18/2025 9:00 AM CDT Office Visit [facility] ([facility]3] Heart and Vascular At [address] [place] [address] Jh Willis MD [address] [place] [address] [address] [place] [address] documented as of this encounter Visit Diagnoses Not on filedocumented in this encounter Care Teams Photography Sales Associate Relationship Specialty Start Date End Date Jose Lewis DO PCP - General 05/04/15 documented as of this encounter
--- OUTSIDE RECORDS SUMMARY | 2024-08-17 07:10 | XMS_ITS | Encounter Summary ---
Author Organization [facility] Address 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) Social History Tobacco Use Types Packs/Day Years Used Date Smoking Tobacco: Never Assessed Sex and Gender Information Value Date Recorded Sex Assigned at Not on file 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 Gender Identity Not on file Sexual Orientation Not on file documented as of this encounter Plan of Treatment Upcoming Encounters Date Type Department Care Team (Late st Contact Info) Description 08/20/2024 8:45 AM CDT Office Visit [facility] Oncology and Hematology - [place] [address] [facility] [address] [place] [address] Graeme Diez MD [address] [facility] [address] [place] [address] 03/18/2025 9:00 AM CDT Office Visit [facility] Heart and Vascular At [facility] [address] [facility] [address] [place] [id number] Jh Willis MD [facility] [address] [facility] [address] [place] [address] documented as of this encounter Procedures Procedure Name Priority Date/Time Associated Diagnosis Comments POC GLUCOSE Routine 08/26/2006 12:08 PM CDT CBC WITH DIFFERENTIAL Routine 08/26/2006 8:37 AM CDT CBC WITH DIFFERENTIAL Routine 08/26/2006 8:37 AM CDT BASIC METABOLIC PANEL Routine 08/26/2006 8:37 AM CDT POC GLUCOSE Routine 08/26/2006 8:16 AM CDT POC GLUCOSE Routine 08/25/2006 8:18 PM CDT POC GLUCOSE Routine 08/25/2006 4:56 PM CDT POC GLUCOSE Routine 08/25/2006 12:00 PM CDT POC GLUCOSE Routine 08/25/2006 7:25 AM CDT POC GLUCOSE Routine 08/24/2006 8:33 PM CDT POC GLUCOSE Routine 08/24/2006 6:12 PM CDT POC GLUCOSE Routine 08/24/2006 11:48 AM CDT CBC WITH DIFFERENTIAL Routine 08/24/2006 8:05 AM CDT CBC WITH DIFFERENTIAL Routine 08/24/2006 8:05 AM CDT POC GLUCOSE Routine 08/24/2006 7:56 AM CDT BASIC METABOLIC PANEL Routine 08/24/2006 5:37 AM CDT POC GLUCOSE Routine 08/23/2006 8:28 PM CDT POC GLUCOSE Routine 08/23/2006 6:00 PM CDT POC GLUCOSE Routine 08/23/2006 3:50 PM CDT POC GLUCOSE Routine 08/23/2006 12:38 PM CDT POC GLUCOSE Routine 08/23/2006 9:57 AM CDT POC GLUCOSE Routine 08/23/2006 6:14 AM CDT POC GLUCOSE Routine 08/23/2006 4:57 AM CDT PT AND APTT Routine 08/23/2006 4:20 AM CDT CBC WITH DIFFERENTIAL Routine 08/23/2006 4:20 AM CDT CBC WITH DIFFERENTIAL Routine 08/23/2006 4:20 AM CDT COMPREHENSIVE METABOLIC PANEL Routine 08/23/2006 4:20 AM CDT POC GLUCOSE Routine 08/23/2006 4:11 AM CDT POC GLUCOSE Routine 08/23/2006 2:40 AM CDT POC GLUCOSE Routine 08/23/2006 1:45 AM CDT POC GLUCOSE Routine 08/23/2006 12:26 AM CDT POC, BLOOD GASES Routine 08/23/2006 12:2 2 AM CDT CVR ONLY, CKMB/CK Routine 08/22/2006 11: 50 PM CDT POTASSIUM LEVEL Routine 08/22/2006 11:50 PM CDT MAGNESIUM LEVEL Routine 08/22/2006 11:50 PM CDT POC GLUCOSE Routine 08/22/2006 11:46 PM CDT POC GLUCOSE Routine 08/22/2006 11:02 PM CDT POC GLUCOSE Routine 08/22/2006 9:58 PM CDT POC GLUCOSE Routine 08/22/2006 9:31 PM CDT POC, BLOOD GASES Routine 08/22/2006 9:15 PM CDT POC GLUCOSE Routine 08/22/2006 8:31 PM CDT POC GLUCOSE Routine 08/22/2006 7:40 PM CDT MAGNESIUM LEVEL Routine 08/22/2006 5:57 PM CDT CVR ONLY, CKMB/CK Routine 08/22/2006 5:5 5 PM CDT PT AND APTT Routine 08/22/2006 5:55 PM CDT CBC WITH DIFFERENTIAL Routine 08/22/2006 5:55 PM CDT CBC WITH DIFFERENTIAL Routine 08/22/2006 5:55 PM CDT BASIC METABOLIC PANEL Routine 08/22/2006 5:55 PM CDT POC, BLOOD GASES Routine 08/22/2006 5:25 PM CDT POC, BLOOD GASES Routine 08/22/2006 4:19 PM CDT CVR ONLY, CKMB/CK Routine 08/22/2006 4:0 0 PM CDT CBC WITH DIFFERENTIAL Routine 08/22/2006 4:00 PM CDT CBC WITH DIFFERENTIAL Routine 08/22/2006 4:00 PM CDT MAGNESIUM LEVEL Routine 08/22/2006 4:00 PM CDT BASIC METABOLIC PANEL Routine 08/22/2006 4:00 PM CDT POC, BLOOD GASES Routine 08/22/2006 3:52 PM CDT POC, BLOOD GASES Routine 08/22/2006 3:20 PM CDT POC, BLOOD GASES Routine 08/22/2006 2:54 PM CDT POC, BLOOD GASES Routine 08/22/2006 2:44 PM CDT POC, BLOOD GASES Routine 08/22/2006 1:58 PM CDT POC, BLOOD GASES Routine 08/22/2006 12:4 9 PM CDT PT AND APTT Routine 08/22/2006 9:42 AM CDT documented in this encounter Results * (ABNORMAL) POC GLUCOSE (08/26/2006 12:08 PM CDT) [facility] GLUCOSE POC 124(H) 65 - 99 mg/dL INTERFACE SYSTEM 08/26/2006 12:0 8 PM CDT Jose Schrader MD POINT OF CARE TESTING Edited INTERFACE SYSTEM Refer to clinic/hospital department * (ABNORMAL) CBC WITH DIFFERENTIAL (08/26/2006 8:37 AM CDT) Pathologist [facility] NEUTROPHILS 82(H) 45 - 70 % INTERFAC E SYSTEM LYMPHOCYTES 14(L) 16 - 45 % INTERFAC E SYSTEM MONOCYTES 3 3 - 13 % INTERFACE SYSTEM EOSINOPHILS 1 0 - 7 % INTERFAC E SYSTEM BASOPHILS 0 0 - 2 % INTERFACE SYSTEM NEUTROPHIL ABSOLUTE 5.97 1.90 - 7.00 K/uL INTERFACE SYSTEM LYMPHOCYTE ABSOLUTE 1.04 0.70 - 4.50 K/uL INTERFACE SYSTEM MONOCYTE ABSOLUTE 0.23 0.10 - 1.30 K/uL INTERFACE SYSTEM EOSINOPHIL ABSOLUTE 0.08 0.00 - 0.70 K/uL INTERFACE SYSTEM BASOPHILS ABSOLUTE 0.01 0.00 - 0.20 K/uL INTERFACE SYSTEM 08/26/2006 8:37 AM CDT us Jh Guerrero Jr., MD HEMATOLOGY ORDERABLES E dited Performing Organization Address [facility] Phone Number INTERFACE SYSTEM Refer to clinic/hospital department * (ABNORMAL) CBC WITH DIFFERENTIAL (08/26/2006 8:37 AM CDT) WBC 7.3 4.0 - 9.8 K/uL INTERFACE SYSTEM RBC 3.37(L) 4.50 - 5.40 M/uL INTERFACE SYSTEM HEMOGLOBIN 9.8(L) 13.6 - 16.5 g/dL INTERFACE SYSTEM HEMATOCRIT 29.3(L) 40.0 - 48.0 % INTERFACE SYSTEM MCV 86.9 82.0 - 99.0 fL INTERFACE SYSTEM MCH 29.1 27.2 - 32.6 pg INTERFACE SYSTEM MCHC 33.4 31.5 - 35.5 % INTERFACE SYSTEM RDW 13.4 11.5 - 14.5 % INTERFACE SYSTEM RDW-STDEV 42.3 37.1 - 48.7 fL INTERFACE SYSTEM PLATELETS 130(L) 140 - 350 K/uL INTERFACE SYSTEM MPV 12.8(H) 9.3 - 12.4 fL INTERFACE SYSTEM 08/26/2006 8:37 AM CDT us Jh Guerrero Jr., MD HEMATOLOGY ORDERABLES E dited Performing Organization Address [facility] Phone Number INTERFACE SYSTEM Refer to clinic/hospital department * (ABNORMAL) BASIC METABOLIC PANEL (08/26/2006 8:37 AM CDT) GLUCOSE 177(H) 65 - 99 mg/dL INTERFACE SYSTEM CREATININE 0.82 0.67 - 1.17 mg/dL INTERFACE SYSTEM CALCIUM 8.0(L) 8.4 - 10.2 mg/dL INTERFACE SYSTEM BUN 15 6 - 20 mg/dL INTERFACE SYSTEM SODIUM 133(L) 135 - 145 mmol/L INTERFACE SYSTEM POTASSIUM 3.8 3.5 - 4.9 mmol/L INTERFACE SYSTEM CHLORIDE 99 96 - 108 mmol/L INTERFACE SYSTEM CO2 23 22 - 30 mmol/L INTERFACE SYSTEM GFR, >60 >=60 mL/min/1. 7 sq meter INTERFACE SYSTEM GFR >60 >=60 mL/min/1. 7 sq meter INTERFACE SYSTEM Comment: Estimated GFR rate interpretative information for both Americans and non- Americans is available on the [facility]anet at: [email or web address] Select: Lab Policies and Procedures Select: Reference Ranges - GFR 08/26/2006 8:37 AM CDT Jh Guerrero Jr., MD CHEMISTRY ORDERABLES Ed ited Performing Organization Address City/[facility] Co de Phone Number INTERFACE SYSTEM Refer to clinic/hospital department * (ABNORMAL) POC GLUCOSE (08/26/2006 8:16 AM CDT) GLUCOSE POC 202(H) 65 - 99 mg/dL INTERFACE SYSTEM 08/26/2006 8:16 AM CDT us Jose Schrader MD POINT OF CARE TESTING Edited Performing Organization Address [facility] Co de Phone Number INTERFACE SYSTEM Refer to clinic/hospital department * (ABNORMAL) POC GLUCOSE (08/25/2006 8:18 PM CDT) GLUCOSE POC 180(H) 65 - 99 mg/dL INTERFACE SYSTEM 08/25/2006 8:18 PM CDT Jose Schrader MD POINT OF CARE TESTING Edited Performing Organization Address [facility] de Phone Number INTERFACE SYSTEM Refer to clinic/hospital department * (ABNORMAL) POC GLUCOSE (08/25/2006 4:56 PM CDT) GLUCOSE POC 131(H) 65 - 99 mg/dL INTERFACE SYSTEM 08/25/2006 4:56 PM CDT us Jose Schrader MD POINT OF CARE TESTING Edited Performing Organization Address City/[facility] Co de Phone Number INTERFACE SYSTEM Refer to clinic/hospital department * (ABNORMAL) POC GLUCOSE (08/25/2006 12:00 PM CDT) GLUCOSE POC 148(H) 65 - 99 mg/dL INTERFACE SYSTEM 08/25/2006 12:0 0 PM CDT us Jose Schrader MD POINT OF CARE TESTING Edited Performing Organization Address City/[facility] Co de Phone Number INTERFACE SYSTEM Refer to clinic/hospital department * (ABNORMAL) POC GLUCOSE (08/25/2006 7:25 AM CDT) GLUCOSE POC 137(H) 65 - 99 mg/dL INTERFACE SYSTEM 08/25/2006 7:25 AM CDT us Jose Schrader MD POINT OF CARE TESTING Edited Performing Organization Address [facility] de Phone Number INTERFACE SYSTEM Refer to clinic/hospital department * (ABNORMAL) POC GLUCOSE (08/24/2006 8:33 PM CDT) GLUCOSE POC 185(H) 65 - 99 mg/dL INTERFACE SYSTEM 08/24/2006 8:33 PM CDT us Jose Schrader MD POINT OF CARE TESTING Edited Performing Organization Address [facility] de Phone Number INTERFACE SYSTEM Refer to clinic/hospital department * (ABNORMAL) POC GLUCOSE (08/24/2006 6:12 PM CDT) GLUCOSE POC 165(H) 65 - 99 mg/dL INTERFACE SYSTEM 08/24/2006 6:12 PM CDT us Jose Schrader MD POINT OF CARE TESTING Edited Performing Organization Address City/[facility] de Phone Number INTERFACE SYSTEM Refer to clinic/hospital department * (ABNORMAL) POC GLUCOSE (08/24/2006 11:48 AM CDT) GLUCOSE POC 135(H) 65 - 99 mg/dL INTERFACE SYSTEM 08/24/2006 11:4 8 AM CDT Jose Schrader MD POINT OF CARE TESTING Edited Performing Organization Address City/[facility] Co de Phone Number INTERFACE SYSTEM Refer to clinic/hospital department * (ABNORMAL) CBC WITH DIFFERENTIAL (08/24/2006 8:05 AM CDT) NEUTROPHILS 88(H) 45 - 70 % INTERFAC E SYSTEM LYMPHOCYTES 7(L) 16 - 45 % INTERFAC E SYSTEM MONOCYTES 5 3 - 13 % INTERFACE SYSTEM EOSINOPHILS 0 0 - 7 % INTERFAC E SYSTEM BASOPHILS 0 0 - 2 % INTERFACE SYSTEM NEUTROPHIL ABSOLUTE 14.05(H) 1.90 - 7.00 K/uL INTERFACE SYSTEM LYMPHOCYTE ABSOLUTE 1.09 0.70 - 4.50 K/uL INTERFACE SYSTEM MONOCYTE ABSOLUTE 0.77 0.10 - 1.30 K/uL INTERFACE SYSTEM EOSINOPHIL ABSOLUTE 0.01 0.00 - 0.70 K/uL INTERFACE SYSTEM BASOPHILS ABSOLUTE 0.01 0.00 - 0.20 K/uL INTERFACE SYSTEM 08/24/2006 8:05 AM CDT us Srinivas Guardado MD HEMATOLOGY ORDERABLES Edited Performing Organization Address [facility] de Phone Number INTERFACE SYSTEM Refer to clinic/hospital department * (ABNORMAL) CBC WITH DIFFERENTIAL (08/24/2006 8:05 AM CDT) WBC 15.9(H) 4.0 - 9.8 K/uL INTERFACE SYSTEM RBC 3.73(L) 4.50 - 5.40 M/uL INTERFACE SYSTEM HEMOGLOBIN 11.0(L) 13.6 - 16.5 g/dL INTERFACE SYSTEM HEMATOCRIT 31.6(L) 40.0 - 48.0 % INTERFACE SYSTEM MCV 84.7 82.0 - 99.0 fL INTERFACE SYSTEM MCH 29.5 27.2 - 32.6 pg INTERFACE SYSTEM MCHC 34.8 31.5 - 35.5 % INTERFACE SYSTEM RDW 13.1 11.5 - 14.5 % INTERFACE SYSTEM RDW-STDEV 39.8 37.1 - 48.7 fL INTERFACE SYSTEM PLATELETS 93(L) 140 - 350 K/uL INTERFACE SYSTEM Comment:Persistent abnormal result MPV 12.8(H) 9.3 - 12.4 fL INTERFACE SYSTEM 08/24/2006 8:05 AM CDT Srinivas Guardado MD HEMATOLOGY ORDERABLES Edited Performing Organization Address [facility] Phone Number INTERFACE SYSTEM Refer to clinic/hospital department * (ABNORMAL) POC GLUCOSE (08/24/2006 7:56 AM CDT) GLUCOSE POC 157(H) 65 - 99 mg/dL INTERFACE SYSTEM 08/24/2006 7:56 AM CDT Jose Schrader MD POINT OF CARE TESTING Edited Performing Organization Address [facility] Phone Number INTERFACE SYSTEM Refer to clinic/hospital department * (ABNORMAL) BASIC METABOLIC PANEL (08/24/2006 5:37 AM CDT) GLUCOSE 144(H) 65 - 99 mg/dL INTERFACE SYSTEM CREATININE 0.80 0.67 - 1.17 mg/dL INTERFACE SYSTEM CALCIUM 7.6(L) 8.4 - 10.2 mg/dL INTERFACE SYSTEM BUN 16 6 - 20 mg/dL INTERFACE SYSTEM SODIUM 137 135 - 145 mmol/L INTERFACE SYSTEM POTASSIUM 4.2 3.5 - 4.9 mmol/L INTERFACE SYSTEM CHLORIDE 106 96 - 108 mmol/L INTERFACE SYSTEM CO2 24 22 - 30 mmol/L INTERFACE SYSTEM GFR, >60 >=60 mL/min/1. 7 sq meter INTERFACE SYSTEM GFR >60 >=60 mL/min/1. 7 sq meter INTERFACE SYSTEM Comment: Estimated GFR rate interpretative information for both Americans and non- Americans is available on the [facility] Intran[facility] at: [email or web address] Select: Lab Policies and Procedures Select: Reference Ranges - GFR 08/24/2006 5:37 AM CDT us Jh Guerrero Jr., MD CHEMISTRY ORDERABLES Ed ited Performing Organization Address [facility] de Phone Number INTERFACE SYSTEM Refer to clinic/hospital department * (ABNORMAL) POC GLUCOSE (08/23/2006 8:28 PM CDT) GLUCOSE POC 153(H) 65 - 99 mg/dL INTERFACE SYSTEM 08/23/2006 8:28 PM CDT us Jose Schrader MD POINT OF CARE TESTING Edited Performing Organization Address City/[facility] Co de Phone Number INTERFACE SYSTEM Refer to clinic/hospital department * (ABNORMAL) POC GLUCOSE (08/23/2006 6:00 PM CDT) GLUCOSE POC 160(H) 65 - 99 mg/dL INTERFACE SYSTEM 08/23/2006 6:00 PM CDT us Jose Schrader MD POINT OF CARE TESTING Edited Performing Organization Address [facility] Phone Number INTERFACE SYSTEM Refer to clinic/hospital department * (ABNORMAL) POC GLUCOSE (08/23/2006 3:50 PM CDT) GLUCOSE POC 181(H) 65 - 99 mg/dL INTERFACE SYSTEM 08/23/2006 3:50 PM CDT us Jose Schrader MD POINT OF CARE TESTING Edited Performing Organization Address [facility] de Phone Number INTERFACE SYSTEM Refer to clinic/hospital department * (ABNORMAL) POC GLUCOSE (08/23/2006 12:38 PM CDT) GLUCOSE POC 137(H) 65 - 99 mg/dL INTERFACE SYSTEM 08/23/2006 12:3 8 PM CDT us Jose Schrader MD POINT OF CARE TESTING Edited Performing Organization Address City/[facility] Co de Phone Number INTERFACE SYSTEM Refer to clinic/hospital department * (ABNORMAL) POC GLUCOSE (08/23/2006 9:57 AM CDT) GLUCOSE POC 170(H) 65 - 99 mg/dL INTERFACE SYSTEM 08/23/2006 9:57 AM CDT Jose Schrader MD POINT OF CARE TESTING Edited Performing Organization Address [facility] de Phone Number INTERFACE SYSTEM Refer to clinic/hospital department * (ABNORMAL) POC GLUCOSE (08/23/2006 6:14 AM CDT) GLUCOSE POC 114(H) 65 - 99 mg/dL INTERFACE SYSTEM 08/23/2006 6:14 AM CDT Jose Schrader MD POINT OF CARE TESTING Edited Performing Organization Address [facility] de Phone Number INTERFACE SYSTEM Refer to clinic/hospital department * (ABNORMAL) POC GLUCOSE (08/23/2006 4:57 AM CDT) GLUCOSE POC 111(H) 65 - 99 mg/dL INTERFACE SYSTEM 08/23/2006 4:57 AM CDT Jose Schrader MD POINT OF CARE TESTING Edited Performing Organization Address [facility] de Phone Number INTERFACE SYSTEM Refer to clinic/hospital department * (ABNORMAL) CBC WITH DIFFERENTIAL (08/23/2006 4:20 AM CDT) NEUTROPHILS 91(H) 45 - 70 % INTERFAC E SYSTEM LYMPHOCYTES 4(L) 16 - 45 % INTERFAC E SYSTEM MONOCYTES 6 3 - 13 % INTERFACE SYSTEM EOSINOPHILS 0 0 - 7 % INTERFAC E SYSTEM BASOPHILS 0 0 - 2 % INTERFACE SYSTEM NEUTROPHIL ABSOLUTE 11.73(H) 1.90 - 7.00 K/uL INTERFACE SYSTEM LYMPHOCYTE ABSOLUTE 0.49(L) 0.70 - 4.50 K/uL INTERFACE SYSTEM MONOCYTE ABSOLUTE 0.74 0.10 - 1.30 K/uL INTERFACE SYSTEM EOSINOPHIL ABSOLUTE 0.00 0.00 - 0.70 K/uL INTERFACE SYSTEM BASOPHILS ABSOLUTE 0.00 0.00 - 0.20 K/uL INTERFACE SYSTEM 08/23/2006 4:20 AM CDT Jh Guerrero Jr., MD HEMATOLOGY ORDERABLES E dited Performing Organization Address [facility] Phone Number INTERFACE SYSTEM Refer to clinic/hospital department * (ABNORMAL) CBC WITH DIFFERENTIAL (08/23/2006 4:20 AM CDT) WBC 13.0(H) 4.0 - 9.8 K/uL INTERFACE SYSTEM RBC 3.95(L) 4.50 - 5.40 M/uL INTERFACE SYSTEM HEMOGLOBIN 11.8(L) 13.6 - 16.5 g/dL INTERFACE SYSTEM HEMATOCRIT 33.2(L) 40.0 - 48.0 % INTERFACE SYSTEM MCV 84.1 82.0 - 99.0 fL INTERFACE SYSTEM MCH 29.9 27.2 - 32.6 pg INTERFACE SYSTEM MCHC 35.5 31.5 - 35.5 % INTERFACE SYSTEM RDW 12.7 11.5 - 14.5 % INTERFACE SYSTEM RDW-STDEV 38.9 37.1 - 48.7 fL INTERFACE SYSTEM PLATELETS 96(L) 140 - 350 K/uL INTERFACE SYSTEM MPV 12.4 9.3 - 12.4 fL INTERFACE SYSTEM 08/23/2006 4:20 AM CDT Jh Guerrero Jr., MD HEMATOLOGY ORDERABLES E dited Performing Organization Address [facility] Phone Number INTERFACE SYSTEM Refer to clinic/hospital department * (ABNORMAL) PT AND APTT (08/23/2006 4:20 AM CDT) PROTIME 17.2(H) 12.7 - 15.1 Seconds INTERFACE SYSTEM INR 1.4(H) 0.9 - 1.1 INTERFACE SYSTEM Comment: INR Therapeutic Range: Adult: 2.0 - 3.0 for pulmonary embolism or prophylaxis against venous thrombosis or systemic embolization. 2.0 - 3.0 for patients with tissue heart valves. 2.5 - 3.5 for patients with mechanical heart valves or post [place]. Pediatric (12 years and under): 1.5 - 3.0 Although the target range in children is not well established , INR values of 1.5 - 3.0 are recommended for most patients. Higher values have been used in children with prosthetic cardiac valves and hereditary clotting disorders. (<3 days) therapeutic ranges have not been established. PTT 30.5 24.4 - 36.4 Seconds INTERFACE SYSTEM Comment: PTT Therapeutic Range: Heparin Level PTT (seconds) <0.10 units/mL <53 0.10 - 0.30 units/mL 53 - 67 0.30 - 0.70 units/mL* 67 - 95* 0.70 - 1.00 units/mL 95 - 116 *corresponds to therapeutic range for unfractionated heparin 08/23/2006 4:20 AM CDT Jh Guerrero Jr., MD HEMATOLOGY ORDERABLES E dited INTERFACE SYSTEM Refer to clinic/hospital department * (ABNORMAL) COMPREHENSIVE METABOLIC PANEL (08/23/2006 4:20 AM CDT) GLUCOSE 104(H) 65 - 99 mg/dL INTERFACE SYSTEM CREATININE 0.83 0.67 - 1.17 mg/dL INTERFACE SYSTEM CALCIUM 7.5(L) 8.4 - 10.2 mg/dL INTERFACE SYSTEM ALKALINE PHOSPHATASE 40 40 - 129 U/L INTERFACE SYSTEM AST 34 12 - 38 U/L INTERFACE SYSTEM ALT 23 0 - 41 U/L INTERFACE SYSTEM TOTAL PROTEIN 4.3(L) 6.3 - 8.6 g/dL INTERFACE SYSTEM ALBUMIN 2.4(L) 3.4 - 4.8 g/dL INTERFACE SYSTEM BILIRUBIN TOTAL 0.4 0.2 - 1.0 mg/dL INTERFACE SYSTEM BUN 9 6 - 20 mg/dL INTERFACE SYSTEM SODIUM 140 135 - 145 mmol/L INTERFACE SYSTEM POTASSIUM 4.2 3.5 - 4.9 mmol/L INTERFACE SYSTEM CHLORIDE 109(H) 96 - 108 mmol/L INTERFACE SYSTEM CO2 24 22 - 30 mmol/L INTERFACE SYSTEM GFR, >60 >=60 mL/min/1. 7 sq meter INTERFACE SYSTEM GFR >60 >=60 mL/min/1. 7 sq meter INTERFACE SYSTEM Comment: Estimated GFR rate interpretative information for both Americans and non- Americans is available on the [facility] Intran[facility] at: [email or web address] Select: Lab Policies and Procedures Select: Reference Ranges - GFR 08/23/2006 4:20 AM CDT Jh Guerrero Jr., MD CHEMISTRY ORDERABLES Ed ited Performing Organization Address [facility] Phone Number INTERFACE SYSTEM Refer to clinic/hospital department * (ABNORMAL) POC GLUCOSE (08/23/2006 4:11 AM CDT) GLUCOSE POC 118(H) 65 - 99 mg/dL INTERFACE SYSTEM 08/23/2006 4:11 AM CDT Jose Schrader MD POINT OF CARE TESTING Edited Performing Organization Address [facility] Phone Number INTERFACE SYSTEM Refer to clinic/hospital department * (ABNORMAL) POC GLUCOSE (08/23/2006 2:40 AM CDT) GLUCOSE POC 133(H) 65 - 99 mg/dL INTERFACE SYSTEM 08/23/2006 2:40 AM CDT Jose Schrader MD POINT OF CARE TESTING Edited Performing Organization Address [facility] Phone Number INTERFACE SYSTEM Refer to clinic/hospital department * (ABNORMAL) POC GLUCOSE (08/23/2006 1:45 AM CDT) GLUCOSE POC 142(H) 65 - 99 mg/dL INTERFACE SYSTEM 08/23/2006 1:45 AM CDT us Jose Schrader MD POINT OF CARE TESTING Edited Performing Organization Address [facility] Phone Number INTERFACE SYSTEM Refer to clinic/hospital department * (ABNORMAL) POC GLUCOSE (08/23/2006 12:26 AM CDT) GLUCOSE POC 168(H) 65 - 99 mg/dL INTERFACE SYSTEM 08/23/2006 12:2 6 AM CDT us Jose Schrader MD POINT OF CARE TESTING Edited Performing Organization Address [facility] de Phone Number INTERFACE SYSTEM Refer to clinic/hospital department * (ABNORMAL) POC RT, BLOOD GASES (08/23/2006 12:22 AM CDT) PH ARTERIAL 7.31(L) 7.35 - 7.45 INTERFACE SYSTEM PCO2 ARTERIAL 42 35 - 48 mm Hg INTERFACE SYSTEM PO2 ARTERIAL 132(H) 83 - 108 mm Hg INTERFACE SYSTEM O2 SAT EST ABG POC 99 95 - 99 % INTERFACE SYSTEM PATIENT'S TEMPERATURE 37.0 Degree C INTERFACE SYSTEM BASE EXCESS ABG -4.9(L) -2.0 - 3.0 mmol/L INTERFACE SYSTEM HCO3 ARTERIAL 21(L) 22 - 26 mmol/L INTERFACE SYSTEM SODIUM POC 136 135 - 145 mmol/L INTERFACE SYSTEM POTASSIUM POC 4.4 3.5 - 4.9 mmol/L INTERFACE SYSTEM CALICUM IONIZED, WHOLE BLOOD 4.53(L) 4.76 - 5.16 mg/dL INTERFACE SYSTEM HEMATOCRIT POC 32.0(L) 40.0 - 48.0 % INTERFACE SYSTEM FIO2 35 INTERFACE SYSTEM OXYGEN MODE SIMV/PS 8 INTERFAC E SYSTEM PEEP POC 5 INTERFACE SYSTEM COMMENT, GASES POC RN AWARE INTERFACE SYSTEM 08/23/2006 12:2 2 AM CDT us Jose Schrader MD CHEMISTRY ORDERABLES Edited Performing Organization Address [facility] Phone Number INTERFACE SYSTEM Refer to clinic/hospital department * MAGNESIUM LEVEL (08/22/2006 11:50 PM CDT) MAGNESIUM 1.9 1.5 - 2.5 mg/dL INTERFACE SYSTEM 08/22/2006 11:5 0 PM CDT us Jh Guerrero Jr., MD CHEMISTRY ORDERABLES Ed ited Performing Organization Address City/[facility] Co de Phone Number INTERFACE SYSTEM Refer to clinic/hospital department * POTASSIUM LEVEL (08/22/2006 11:50 PM CDT) POTASSIUM 4.8 3.5 - 4.9 mmol/L INTERFACE SYSTEM 08/22/2006 11:5 0 PM CDT us Jh Guerrero Jr., MD CHEMISTRY ORDERABLES Ed ited Performing Organization Address [facility] Phone Number INTERFACE SYSTEM Refer to clinic/hospital department * (ABNORMAL) CVR ONLY, CKMB/CK (08/22/2006 11:50 PM CDT) CKMB 16.8(AA) <=6.7 ng/mL INTERFACE SYSTEM Comment:Persistent abnormal result CKMB INTERP See Below INTERFAC E SYSTEM Comment:Elevated CKMB,Consis tent with Myocardial Injury CK 404(H) 10 - 170 U/L INTERFACE SYSTEM CARDIAC RELATIVE INDEX 4.2(H) <=4.0 INTERFACE SYSTEM 08/22/2006 11:5 0 PM CDT us Jh Guerrero Jr., MD CHEMISTRY ORDERABLES Ed ited Performing Organization Address [facility] [address] [facility] Phone Number INTERFACE SYSTEM Refer to clinic/hospital department * (ABNORMAL) POC GLUCOSE (08/22/2006 11:46 PM CDT) GLUCOSE POC 175(H) 65 - 99 mg/dL INTERFACE SYSTEM 08/22/2006 11:4 6 PM CDT us Jose Schrader MD POINT OF CARE TESTING Edited Performing Organization Address [facility] [address]/[facility] Phone Number INTERFACE SYSTEM Refer to clinic/hospital department * (ABNORMAL) POC GLUCOSE (08/22/2006 11:02 PM CDT) GLUCOSE POC 177(H) 65 - 99 mg/dL INTERFACE SYSTEM 08/22/2006 11:0 2 PM CDT Jose Schrader MD POINT OF CARE TESTING Edited Performing Organization Address [facility] [address]/[facility] de Phone Number INTERFACE SYSTEM Refer to clinic/hospital department * (ABNORMAL) POC GLUCOSE (08/22/2006 9:58 PM CDT) GLUCOSE POC 183(H) 65 - 99 mg/dL INTERFACE SYSTEM 08/22/2006 9:58 PM CDT Jose Schrader MD POINT OF CARE TESTING Edited Performing Organization Address [facility] [address]/[facility] Co de Phone Number INTERFACE SYSTEM Refer to clinic/hospital department * (ABNORMAL) POC GLUCOSE (08/22/2006 9:31 PM CDT) GLUCOSE POC 189(H) 65 - 99 mg/dL INTERFACE SYSTEM 08/22/2006 9:31 PM CDT Jose Schrader MD POINT OF CARE TESTING Edited Performing Organization Address [facility] [address]/[facility] de Phone Number INTERFACE SYSTEM Refer to clinic/hospital department * (ABNORMAL) POC RT, BLOOD GASES (08/22/2006 9:15 PM CDT) PH ARTERIAL 7.30(L) 7.35 - 7.45 INTERFACE SYSTEM PCO2 ARTERIAL 42 35 - 48 mm Hg INTERFACE SYSTEM PO2 ARTERIAL 136(H) 83 - 108 mm Hg INTERFACE SYSTEM O2 SAT EST ABG POC 99 95 - 99 % INTERFACE SYSTEM PATIENT'S TEMPERATURE 37.0 Degree C INTERFACE SYSTEM BASE EXCESS ABG -5.5(L) -2.0 - 3.0 mmol/L INTERFACE SYSTEM HCO3 ARTERIAL 21(L) 22 - 26 mmol/L INTERFACE SYSTEM SODIUM POC 135 135 - 145 mmol/L INTERFACE SYSTEM POTASSIUM POC 5.0(H) 3.5 - 4.9 mmol/L INTERFACE SYSTEM CALICUM IONIZED, WHOLE BLOOD 4.65(L) 4.76 - 5.16 mg/dL INTERFACE SYSTEM HEMATOCRIT POC 37.0(L) 40.0 - 48.0 % INTERFACE SYSTEM FIO2 35 INTERFACE SYSTEM OXYGEN MODE SIMV/PS 8 INTERFAC E SYSTEM PEEP POC 5 INTERFACE SYSTEM COMMENT, GASES POC RN AWARE INTERFACE SYSTEM 08/22/2006 9:15 PM CDT us Jose Schrader MD CHEMISTRY ORDERABLES Edited Performing Organization Address City/[facility] [address]/[facility] de Phone Number INTERFACE SYSTEM Refer to clinic/hospital department * (ABNORMAL) POC GLUCOSE (08/22/2006 8:31 PM CDT) GLUCOSE POC 168(H) 65 - 99 mg/dL INTERFACE SYSTEM 08/22/2006 8:31 PM CDT Jose Schrader MD POINT OF CARE TESTING Edited Performing Organization Address [facility] [address]/[facility] de Phone Number INTERFACE SYSTEM Refer to clinic/hospital department * (ABNORMAL) POC GLUCOSE (08/22/2006 7:40 PM CDT) GLUCOSE POC 142(H) 65 - 99 mg/dL INTERFACE SYSTEM 08/22/2006 7:40 PM CDT Jose Schrader MD POINT OF CARE TESTING Edited Performing Organization Address [facility] Phone Number INTERFACE SYSTEM Refer to clinic/hospital department * MAGNESIUM LEVEL (08/22/2006 5:57 PM CDT) MAGNESIUM 2.0 1.5 - 2.5 mg/dL INTERFACE SYSTEM 08/22/2006 5:57 PM CDT Jh Guerrero Jr., MD CHEMISTRY ORDERABLES Ed ited Performing Organization Address [facility] [address]/[facility] Phone Number INTERFACE SYSTEM Refer to clinic/hospital department * (ABNORMAL) CBC WITH DIFFERENTIAL (08/22/2006 5:55 PM CDT) NEUTROPHILS 84(H) 45 - 70 % INTERFAC E SYSTEM LYMPHOCYTES 10(L) 16 - 45 % INTERFAC E SYSTEM MONOCYTES 6 3 - 13 % INTERFACE SYSTEM EOSINOPHILS 0 0 - 7 % INTERFAC E SYSTEM BASOPHILS 0 0 - 2 % INTERFACE SYSTEM NEUTROPHIL ABSOLUTE 18.81(H) 1.90 - 7.00 K/uL INTERFACE SYSTEM LYMPHOCYTE ABSOLUTE 2.13 0.70 - 4.50 K/uL INTERFACE SYSTEM MONOCYTE ABSOLUTE 1.36(H) 0.10 - 1.30 K/uL INTERFACE SYSTEM EOSINOPHIL ABSOLUTE 0.07 0.00 - 0.70 K/uL INTERFACE SYSTEM BASOPHILS ABSOLUTE 0.02 0.00 - 0.20 K/uL INTERFACE SYSTEM 08/22/2006 5:55 PM CDT us Jh Guerrero Jr., MD HEMATOLOGY ORDERABLES E dited INTERFACE SYSTEM Refer to clinic/hospital department * (ABNORMAL) CBC WITH DIFFERENTIAL (08/22/2006 5:55 PM CDT) WBC 22.4(H) 4.0 - 9.8 K/uL INTERFACE SYSTEM RBC 4.26(L) 4.50 - 5.40 M/uL INTERFACE SYSTEM HEMOGLOBIN 13.0(L) 13.6 - 16.5 g/dL INTERFACE SYSTEM HEMATOCRIT 35.7(L) 40.0 - 48.0 % INTERFACE SYSTEM MCV 83.8 82.0 - 99.0 fL INTERFACE SYSTEM MCH 30.5 27.2 - 32.6 pg INTERFACE SYSTEM MCHC 36.4(H) 31.5 - 35.5 % INTERFACE SYSTEM RDW 12.8 11.5 - 14.5 % INTERFACE SYSTEM RDW-STDEV 38.4 37.1 - 48.7 fL INTERFACE SYSTEM PLATELETS 125(L) 140 - 350 K/uL INTERFACE SYSTEM MPV 12.5(H) 9.3 - 12.4 fL INTERFACE SYSTEM 08/22/2006 5:55 PM CDT us Jh Guerrero Jr., MD HEMATOLOGY ORDERABLES E dited Performing Organization Address [facility] [address]/[facility] de Phone Number INTERFACE SYSTEM Refer to clinic/hospital department * (ABNORMAL) PT AND APTT (08/22/2006 5:55 PM CDT) PROTIME 18.1(H) 12.7 - 15.1 Seconds INTERFACE SYSTEM INR 1.5(H) 0.9 - 1.1 INTERFACE SYSTEM Comment: INR Therapeutic Range: Adult: 2.0 - 3.0 for pulmonary embolism or prophylaxis against venous thrombosis or systemic embolization. 2.0 - 3.0 for patients with tissue heart valves. 2.5 - 3.5 for patients with mechanical heart valves or post [place]. Pediatric (12 years and under): 1.5 - 3.0 Although the target range in children is not well established , INR values of 1.5 - 3.0 are recommended for most patients. Higher values have been used in children with prosthetic cardiac valves and hereditary clotting disorders. (<3 days) therapeutic ranges have not been established. PTT 31.9 24.4 - 36.4 Seconds INTERFACE SYSTEM Comment: PTT Therapeutic Range: Heparin Level PTT (seconds) <0.10 units/mL <53 0.10 - 0.30 units/mL 53 - 67 0.30 - 0.70 units/mL* 67 - 95* 0.70 - 1.00 units/mL 95 - 116 *corresponds to therapeutic range for unfractionated heparin 08/22/2006 5:55 PM CDT Jh Guerrero Jr., MD HEMATOLOGY ORDERABLES E dited Performing Organization Address [facility] [address]/[facility] de Phone Number INTERFACE SYSTEM Refer to clinic/hospital department * (ABNORMAL) BASIC METABOLIC PANEL (08/22/2006 5:55 PM CDT) GLUCOSE 156(H) 65 - 99 mg/dL INTERFACE SYSTEM CREATININE 0.75 0.67 - 1.17 mg/dL INTERFACE SYSTEM CALCIUM 7.9(L) 8.4 - 10.2 mg/dL INTERFACE SYSTEM BUN 10 6 - 20 mg/dL INTERFACE SYSTEM SODIUM 134(L) 135 - 145 mmol/L INTERFACE SYSTEM POTASSIUM 3.9 3.5 - 4.9 mmol/L INTERFACE SYSTEM CHLORIDE 108 96 - 108 mmol/L INTERFACE SYSTEM CO2 19(L) 22 - 30 mmol/L INTERFACE SYSTEM GFR, >60 >=60 mL/min/1. 7 sq meter INTERFACE SYSTEM GFR >60 >=60 mL/min/1. 7 sq meter INTERFACE SYSTEM Comment: Estimated GFR rate interpretative information for both Americans and non- Americans is available on the [facility] at: [email or web address] Select: Lab Policies and Procedures Select: Reference Ranges - GFR 08/22/2006 5:55 PM CDT Jh Guerrero Jr., MD CHEMISTRY ORDERABLES Ed ited Performing Organization Address [facility] [address]/[facility] de Phone Number INTERFACE SYSTEM Refer to clinic/hospital department * (ABNORMAL) CVR ONLY, CKMB/CK (08/22/2006 5:55 PM CDT) CKMB 19.5(AA) <=6.7 ng/mL INTERFACE SYSTEM Comment:Results called to Humberto pérez at 08/22/2006 7:10 PM and read back verified. CKMB INTERP See Below INTERFAC E SYSTEM Comment:Elevated CKMB,Consis tent with Myocardial Injury. CK 275(H) 10 - 170 U/L INTERFACE SYSTEM CARDIAC RELATIVE INDEX 7.1(H) <=4.0 INTERFACE SYSTEM 08/22/2006 5:55 PM CDT us Jh Guerrero Jr., MD CHEMISTRY ORDERABLES Ed ited Performing Organization Address [facility] [address]/[facility] de Phone Number INTERFACE SYSTEM Refer to clinic/hospital department * (ABNORMAL) POC RT, BLOOD GASES (08/22/2006 5:25 PM CDT) PH ARTERIAL 7.38 7.35 - 7.45 INTERFACE SYSTEM PCO2 ARTERIAL 36 35 - 48 mm Hg INTERFACE SYSTEM PO2 ARTERIAL 422(H) 83 - 108 mm Hg INTERFACE SYSTEM O2 SAT EST ABG POC 100(H) 95 - 99 % INTERFACE SYSTEM PATIENT'S TEMPERATURE 37.0 Degree C INTERFACE SYSTEM BASE EXCESS ABG -3.4(L) -2.0 - 3.0 mmol/L INTERFACE SYSTEM HCO3 ARTERIAL 21(L) 22 - 26 mmol/L INTERFACE SYSTEM SODIUM POC 136 135 - 145 mmol/L INTERFACE SYSTEM POTASSIUM POC 3.7 3.5 - 4.9 mmol/L INTERFACE SYSTEM CALICUM IONIZED, WHOLE BLOOD 4.89 4.76 - 5.16 mg/dL INTERFACE SYSTEM HEMATOCRIT POC 31.0(L) 40.0 - 48.0 % INTERFACE SYSTEM COMMENT, GASES POC RN AWARE INTERFACE SYSTEM 08/22/2006 5:25 PM CDT us Jose Schrader MD CHEMISTRY ORDERABLES Edited Performing Organization Address [facility] [address]/[facility] Co de Phone Number INTERFACE SYSTEM Refer to clinic/hospital department * (ABNORMAL) POC RT, BLOOD GASES (08/22/2006 4:19 PM CDT) PH ARTERIAL 7.41 7.35 - 7.45 INTERF ALLAN SYSTEM PCO2 ARTERIAL 36 35 - 48 mm Hg INTERFACE SYSTEM PO2 ARTERIAL 447(H) 83 - 108 mm Hg INTERFACE SYSTEM O2 SAT EST ABG POC 100(H) 95 - 99 % INTERFACE SYSTEM PATIENT'S TEMPERATURE 37.0 Degree C INTERFACE SYSTEM BASE EXCESS ABG -1.6 -2.0 - 3.0 mmol/L INTERFACE SYSTEM HCO3 ARTERIAL 23 22 - 26 mmol/L INTERFACE SYSTEM SODIUM POC 134(L) 135 - 145 mmol/L INTERFACE SYSTEM POTASSIUM POC 4.2 3.5 - 4.9 mmol/L INTERFACE SYSTEM CALICUM IONIZED, WHOLE BLOOD 4.89 4.76 - 5.16 mg/dL INTERFACE SYSTEM HEMATOCRIT POC 25.0(L) 40.0 - 48.0 % INTERFACE SYSTEM TCO2, ABG POC 24 19 - 24 mmol/L INTERFACE SYSTEM LACTIC ACID 1.7 0.5 - 2.2 mmol/L INTERFACE SYSTEM GLUCOSE POC 133(H) 65 - 99 mg/dL INTERFACE SYSTEM 08/22/2006 4:19 PM CDT us Jose Schrader MD CHEMISTRY ORDERABLES Edited INTERFACE SYSTEM Refer to clinic/hospital department * CVR ONLY, CKMB/CK (08/22/2006 4:00 PM CDT) [facility] CKMB Invalid Result <=6.7 INTERFACE SYSTEM Comment:Results called to Sarmad posey at 08/22/2006 4:33 PM and read back verified. CKMB INTERP Invalid Result INTERFACE SYSTEM Comment:Elevated CKMB,Consis tent with Myocardial Injury. CK Invalid Result 10 - 170 INTERFACE SYSTEM CARDIAC RELATIVE INDEX Invalid Result <=4.0 INTERFACE SYSTEM 08/22/2006 4:00 PM CDT us Jh Guerrero Jr., MD CHEMISTRY ORDERABLES Ed ited INTERFACE SYSTEM Refer to clinic/hospital department * CBC WITH DIFFERENTIAL (08/22/2006 4:00 PM CDT) Pathologist [facility] NEUTROPHILS Invalid Result 45 - 70 INTERFACE SYSTEM Comment:Wrong patient per RN Karin LYMPHOCYTES Invalid Result 16 - 45 INTERFACE SYSTEM MONOCYTES Invalid Result 3 - 13 INTERFACE SYSTEM EOSINOPHILS Invalid Result 0 - 7 INTERFACE SYSTEM BASOPHILS Invalid Result 0 - 2 INTERFACE SYSTEM NEUTROPHIL ABSOLUTE Invalid Result 1.90 - 7.00 INTERFACE SYSTEM LYMPHOCYTE ABSOLUTE Invalid Result 0.70 - 4.50 INTERFACE SYSTEM MONOCYTE ABSOLUTE Invalid Result 0.10 - 1.30 INTERFACE SYSTEM EOSINOPHIL ABSOLUTE Invalid Result 0.00 - 0.70 INTERFACE SYSTEM BASOPHILS ABSOLUTE Invalid Result 0.00 - 0.20 INTERFACE SYSTEM 08/22/2006 4:00 PM CDT us Jh Guerrero Jr., MD HEMATOLOGY ORDERABLES E dited Performing Organization Address City/[facility] [address]/[facility] de Phone Number INTERFACE SYSTEM Refer to clinic/hospital department * CBC WITH DIFFERENTIAL (08/22/2006 4:00 PM CDT) WBC Invalid Result 4.0 - 9.8 INTERFACE SYSTEM RBC Invalid Result 4.50 - 5.40 INTERFACE SYSTEM HEMOGLOBIN Invalid Result 13.6 - 16.5 INTERFACE SYSTEM HEMATOCRIT Invalid Result 40.0 - 48.0 INTERFACE SYSTEM MCV Invalid Result 82.0 - 99.0 INTERFACE SYSTEM MCH Invalid Result 27.2 - 32.6 INTERFACE SYSTEM MCHC Invalid Result 31.5 - 35.5 INTERFACE SYSTEM RDW Invalid Result 11.5 - 14.5 INTERFACE SYSTEM RDW-STDEV Invalid Result 37.1 - 48.7 INTERFACE SYSTEM PLATELETS Invalid Result 140 - 350 INTERFACE SYSTEM MPV Invalid Result 9.3 - 12.4 INTERFACE SYSTEM 08/22/2006 4:00 PM CDT us Jh Guerrero Jr., MD HEMATOLOGY ORDERABLES E dited INTERFACE SYSTEM Refer to clinic/hospital department * MAGNESIUM LEVEL (08/22/2006 4:00 PM CDT) MAGNESIUM Invalid Result 1.5 - 2.5 INTERFACE SYSTEM 08/22/2006 4:00 PM CDT us Jh Guerrero Jr., MD CHEMISTRY ORDERABLES Ed ited INTERFACE SYSTEM Refer to clinic/hospital department * BASIC METABOLIC PANEL (08/22/2006 4:00 PM CDT) GLUCOSE Invalid Result 65 - 99 INTERFACE SYSTEM CREATININE Invalid Result 0.67 - 1.17 INTERFACE SYSTEM CALCIUM Invalid Result 8.4 - 10.2 INTERFACE SYSTEM BUN Invalid Result 6 - 20 INTERFACE SYSTEM SODIUM Invalid Result 135 - 145 INTERFACE SYSTEM POTASSIUM Invalid Result 3.5 - 4.9 INTERFACE SYSTEM CHLORIDE Invalid Result 96 - 108 INTERFACE SYSTEM CO2 Invalid Result 22 - 30 INTERFACE SYSTEM GFR, Invalid Result >=60 INTERFACE SYSTEM GFR Invalid Result >=60 INTERFACE SYSTEM Comment: Estimated GFR rate interpretative information for both Americans and non- Americans is available on the [facility] Intranet at: [email or web address] Select: Lab Policies and Procedures Select: Reference Ranges - GFR 08/22/2006 4:00 PM CDT Jh Guerrero Jr., MD CHEMISTRY ORDERABLES Ed ited Performing Organization Address City/State/[facility] Co de Phone Number INTERFACE SYSTEM Refer to clinic/hospital department * (ABNORMAL) POC RT, BLOOD GASES (08/22/2006 3:52 PM CDT) PH ARTERIAL 7.37 7.35 - 7.45 INTERF ALLAN SYSTEM PCO2 ARTERIAL 39 35 - 48 mm Hg INTERFACE SYSTEM PO2 ARTERIAL 98 83 - 108 mm Hg INTERFACE SYSTEM O2 SAT EST ABG POC 97 95 - 99 % INTERFACE SYSTEM PATIENT'S TEMPERATURE 37.0 Degree C INTERFACE SYSTEM BASE EXCESS ABG -2.6(L) -2.0 - 3.0 mmol/L INTERFACE SYSTEM HCO3 ARTERIAL 22 22 - 26 mmol/L INTERFACE SYSTEM SODIUM POC 135 135 - 145 mmol/L INTERFACE SYSTEM POTASSIUM POC 4.3 3.5 - 4.9 mmol/L INTERFACE SYSTEM CALICUM IONIZED, WHOLE BLOOD 5.17(H) 4.76 - 5.16 mg/dL INTERFACE SYSTEM HEMATOCRIT POC 24.0(L) 40.0 - 48.0 % INTERFACE SYSTEM TCO2, ABG POC 24 19 - 24 mmol/L INTERFACE SYSTEM LACTIC ACID 2.1 0.5 - 2.2 mmol/L INTERFACE SYSTEM GLUCOSE POC 144(H) 65 - 99 mg/dL INTERFACE SYSTEM 08/22/2006 3:52 PM CDT Jose Schrader MD CHEMISTRY ORDERABLES Edited Performing Organization Address [facility] [address]/[facility] de Phone Number INTERFACE SYSTEM Refer to clinic/hospital department * (ABNORMAL) POC RT, BLOOD GASES (08/22/2006 3:20 PM CDT) PH ARTERIAL 7.43 7.35 - 7.45 INTERFACE SYSTEM PCO2 ARTERIAL 35 35 - 48 mm Hg INTERFACE SYSTEM PO2 ARTERIAL 292(H) 83 - 108 mm Hg INTERFACE SYSTEM O2 SAT EST ABG POC 100(H) 95 - 99 % INTERFACE SYSTEM PATIENT'S TEMPERATURE 37.0 Degree C INTERFACE SYSTEM BASE EXCESS ABG -1.0 -2.0 - 3.0 mmol/L INTERFACE SYSTEM HCO3 ARTERIAL 23 22 - 26 mmol/L INTERFACE SYSTEM SODIUM POC 134(L) 135 - 145 mmol/L INTERFACE SYSTEM POTASSIUM POC 4.9 3.5 - 4.9 mmol/L INTERFACE SYSTEM CALICUM IONIZED, WHOLE BLOOD 4.61(L) 4.76 - 5.16 mg/dL INTERFACE SYSTEM HEMATOCRIT POC 22.0(AA) 40.0 - 48.0 % INTERFACE SYSTEM TCO2, ABG POC 24 19 - 24 mmol/L INTERFACE SYSTEM LACTIC ACID 1.7 0.5 - 2.2 mmol/L INTERFACE SYSTEM GLUCOSE POC 119(H) 65 - 99 mg/dL INTERFACE SYSTEM 08/22/2006 3:20 PM CDT Jose Schrader MD CHEMISTRY ORDERABLES Edited Performing Organization Address [facility] [address]/[facility] Co de Phone Number INTERFACE SYSTEM Refer to clinic/hospital department * (ABNORMAL) POC RT, BLOOD GASES (08/22/2006 2:54 PM CDT) PH MVBG 7.38 7.32 - 7.43 INTERFACE SYSTEM PCO2 VENOUS 41 38 - 50 mm Hg INTERFACE SYSTEM PO2 MVBG 31 25 - 40 mm Hg INTERFACE SYSTEM O2 SAT EST MVBG POC 58 40 - 70 % INTERFACE SYSTEM PATIENT'S TEMPERATURE 37.0 Degree C INTERFACE SYSTEM BASE EXCESS VENOUS -0.8 -2.0 - 3.0 mmol/L INTERFACE SYSTEM HCO3 MIXED VENOUS 24 22 - 29 mmol/L INTERFACE SYSTEM SODIUM POC 137 135 - 145 mmol/L INTERFACE SYSTEM POTASSIUM POC 4.7 3.5 - 4.9 mmol/L INTERFACE SYSTEM CALICUM IONIZED, WHOLE BLOOD 4.85 4.76 - 5.16 mg/dL INTERFACE SYSTEM HEMATOCRIT POC 23.0(AA) 40.0 - 48.0 % INTERFACE SYSTEM TCO2, MVBG POC 26 22 - 26 mmol/L INTERFACE SYSTEM LACTIC ACID 1.5 0.5 - 2.2 mmol/L INTERFACE SYSTEM GLUCOSE POC 87 65 - 99 mg/dL INTERFACE SYSTEM 08/22/2006 2:54 PM CDT us Jose Schrader MD CHEMISTRY ORDERABLES Edited INTERFACE SYSTEM Refer to clinic/hospital department * (ABNORMAL) POC RT, BLOOD GASES (08/22/2006 2:44 PM CDT) PH ARTERIAL 7.41 7.35 - 7.45 INTERFACE SYSTEM PCO2 ARTERIAL 36 35 - 48 mm Hg INTERFACE SYSTEM PO2 ARTERIAL 294(H) 83 - 108 mm Hg INTERFACE SYSTEM O2 SAT EST ABG POC 100(H) 95 - 99 % INTERFACE SYSTEM PATIENT'S TEMPERATURE 37.0 Degree C INTERFACE SYSTEM BASE EXCESS ABG -1.7 -2.0 - 3.0 mmol/L INTERFACE SYSTEM HCO3 ARTERIAL 23 22 - 26 mmol/L INTERFACE SYSTEM SODIUM POC 132(L) 135 - 145 mmol/L INTERFACE SYSTEM POTASSIUM POC 5.5(H) 3.5 - 4.9 mmol/L INTERFACE SYSTEM CALICUM IONIZED, WHOLE BLOOD 4.65(L) 4.76 - 5.16 mg/dL INTERFACE SYSTEM HEMATOCRIT POC 21.0(AA) 40.0 - 48.0 % INTERFACE SYSTEM TCO2, ABG POC 24 19 - 24 mmol/L INTERFACE SYSTEM LACTIC ACID 2.0 0.5 - 2.2 mmol/L INTERFACE SYSTEM GLUCOSE POC 84 65 - 99 mg/dL INTERFACE SYSTEM 08/22/2006 2:44 PM CDT us Jose Schrader MD CHEMISTRY ORDERABLES Edited INTERFACE SYSTEM Refer to clinic/hospital department * (ABNORMAL) POC RT, BLOOD GASES (08/22/2006 1:58 PM CDT) PH ARTERIAL 7.37 7.35 - 7.45 INTERF ALLAN SYSTEM PCO2 ARTERIAL 43 35 - 48 mm Hg INTERFACE SYSTEM PO2 ARTERIAL 385(H) 83 - 108 mm Hg INTERFACE SYSTEM O2 SAT EST ABG POC 100(H) 95 - 99 % INTERFACE SYSTEM PATIENT'S TEMPERATURE 37.0 Degree C INTERFACE SYSTEM BASE EXCESS ABG -0.5 -2.0 - 3.0 mmol/L INTERFACE SYSTEM HCO3 ARTERIAL 25 22 - 26 mmol/L INTERFACE SYSTEM SODIUM POC 137 135 - 145 mmol/L INTERFACE SYSTEM POTASSIUM POC 4.0 3.5 - 4.9 mmol/L INTERFACE SYSTEM CALICUM IONIZED, WHOLE BLOOD 4.69(L) 4.76 - 5.16 mg/dL INTERFACE SYSTEM HEMATOCRIT POC 35.0(L) 40.0 - 48.0 % INTERFACE SYSTEM TCO2, ABG POC 26(H) 19 - 24 mmol/L INTERFACE SYSTEM LACTIC ACID 0.9 0.5 - 2.2 mmol/L INTERFACE SYSTEM GLUCOSE POC 100(H) 65 - 99 mg/dL INTERFACE SYSTEM 08/22/2006 1:58 PM CDT Jose Schrader MD CHEMISTRY ORDERABLES Final R esult INTERFACE SYSTEM Refer to clinic/hospital department * (ABNORMAL) POC RT, BLOOD GASES (08/22/2006 12:49 PM CDT) PH ARTERIAL 7.37 7.35 - 7.45 INTERF ALLAN SYSTEM PCO2 ARTERIAL 45 35 - 48 mm Hg INTERFACE SYSTEM PO2 ARTERIAL 472(H) 83 - 108 mm Hg INTERFACE SYSTEM O2 SAT EST ABG POC 100(H) 95 - 99 % INTERFACE SYSTEM PATIENT'S TEMPERATURE 37.0 Degree C INTERFACE SYSTEM BASE EXCESS ABG 0.4 -2.0 - 3.0 mmol/L INTERFACE SYSTEM HCO3 ARTERIAL 26 22 - 26 mmol/L INTERFACE SYSTEM SODIUM POC 137 135 - 145 mmol/L INTERFACE SYSTEM POTASSIUM POC 3.7 3.5 - 4.9 mmol/L INTERFACE SYSTEM CALICUM IONIZED, WHOLE BLOOD 4.69(L) 4.76 - 5.16 mg/dL INTERFACE SYSTEM HEMATOCRIT POC 38.0(L) 40.0 - 48.0 % INTERFACE SYSTEM TCO2, ABG POC 27(H) 19 - 24 mmol/L INTERFACE SYSTEM LACTIC ACID 0.8 0.5 - 2.2 mmol/L INTERFACE SYSTEM GLUCOSE POC 90 65 - 99 mg/dL INTERFACE SYSTEM 08/22/2006 12:4 9 PM CDT us Jose Schrader MD CHEMISTRY ORDERABLES Edited Performing Organization Address [facility] [address]/[facility] de Phone Number INTERFACE SYSTEM Refer to clinic/hospital department * PT AND APTT (08/22/2006 9:42 AM CDT) PROTIME 14.7 12.7 - 15.1 Seconds INTERFACE SYSTEM INR 1.1 0.9 - 1.1 INTERFACE SYSTEM Comment: INR Therapeutic Range: Adult: 2.0 - 3.0 for pulmonary embolism or prophylaxis against venous thrombosis or systemic embolization. 2.0 - 3.0 for patients with tissue heart valves. 2.5 - 3.5 for patients with mechanical heart valves or post [place]. Pediatric (12 years and under): 1.5 - 3.0 Although the target range in children is not well established , INR values of 1.5 - 3.0 are recommended for most patients. Higher values have been used in children with prosthetic cardiac valves and hereditary clotting disorders. (<3 days) therapeutic ranges have not been established. PTT 27.5 24.4 - 36.4 Seconds INTERFACE SYSTEM Comment: PTT Therapeutic Range: Heparin Level PTT (seconds) <0.10 units/mL <53 0.10 - 0.30 units/mL 53 - 67 0.30 - 0.70 units/mL* 67 - 95* 0.70 - 1.00 units/mL 95 - 116 *corresponds to therapeutic range for unfractionated heparin 08/22/2006 9:42 AM CDT us Jh Guerrero Jr., MD HEMATOLOGY ORDERABLES E dited Performing Organization Address City/[facility] [address]/[facility] Co de Phone Number INTERFACE SYSTEM Refer to clinic/hospital department documented in this encounter Visit Diagnoses Diagnosis Coronary atherosclerosis of [place] coronary artery- Primary documented in this encounter Care Teams Junior Network Administrator Relationship Specialty Start Date End Date Jose Lewis DO PCP - General 05/04/15 documented as of this encounter
--- OUTSIDE RECORDS SUMMARY | 2024-08-17 07:10 | XMS_ITS | Encounter Summary ---
Author Organization [facility] Address 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 Gender Identity Not on file Sexual Orientation Not on file documented as of this encounter Plan of Treatment Upcoming Encounters Date Type Department Care Team (Late st Contact Info) Description 08/20/2024 8:45 AM CDT Office Visit [facility] Oncology and Hematology - [place] [address] [facility] [address] [place] [phone] Graeme Diez MD [address] [facility] [address] [place] [phone] 03/18/2025 9:00 AM CDT Office Visit [facility] Heart and Vascular At [address] [place] [address] Jh Willis MD [address] [place] [address] [address] [place] [address] documented as of this encounter Visit Diagnoses Not on filedocumented in this encounter Care Teams Stripping Cutter And Winder Relationship Specialty Start Date End Date Jose Lewis DO PCP - General 05/04/15 documented as of this encounter
--- OUTSIDE RECORDS SUMMARY | 2024-08-17 07:10 | XMS_ITS | Encounter Summary ---
Author Organization [facility] Address 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 Gender Identity Not on file Sexual Orientation Not on file documented as of this encounter Plan of Treatment Upcoming Encounters Date Type Department Care Team (Late st Contact Info) Description 08/20/2024 8:45 AM CDT Office Visit [facility] Oncology and Hematology - [place] [address] [facility] [address] [place] [phone] Graeme Diez MD [address] [facility] [address] [place] [address] 03/18/2025 9:00 AM CDT Office Visit [facility] Heart and Vascular [place] [address] [facility] [address] [place] [address] Jh Willis MD [address] [place] [address] [address] [place] [address] documented as of this encounter Visit Diagnoses Not on filedocumented in this encounter Care Teams Pharmacy Analyst Relationship Specialty Start Date End Date Jsoe Lewis DO PCP - General 05/04/15 documented as of this encounter
--- OUTSIDE RECORDS SUMMARY | 2024-08-17 07:10 | XMS_ITS | Encounter Summary ---
Author Organization [facility] Address 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 Gender Identity Not on file Sexual Orientation Not on file documented as of this encounter Plan of Treatment Upcoming Encounters Date Type Department Care Team (Late st Contact Info) Description 08/20/2024 8:45 AM CDT Office Visit [facility] Oncology and Hematology - [place] 222 [facility] 200 [place] [phone] Graeme Diez MD [address] [facility] [address] [place] [address] 03/18/2025 9:00 AM CDT Office Visit [facility] Heart and Vascular [place] [address] [facility] [address] [place] [address] Jh Willis MD [address] [place] [address] [address] [place] [address] documented as of this encounter Visit Diagnoses Not on filedocumented in this encounter Care Teams Tattoo Designer Relationship Specialty Start Date End Date Jose Lewis DO PCP - General 05/04/15 documented as of this encounter
--- OUTSIDE RECORDS SUMMARY | 2024-08-17 07:10 | XMS_ITS | Encounter Summary ---
Author Organization [facility] Address 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 Gender Identity Not on file Sexual Orientation Not on file documented as of this encounter Plan of Treatment Upcoming Encounters Date Type Department Care Team (Late st Contact Info) Description 08/20/2024 8:45 AM CDT Office Visit [facility] Oncology and Hematology - [place] 222 [facility] [address] [place] [phone] Graeme Diez MD [address] [facility] [address] [place] [address] 03/18/2025 9:00 AM CDT Office Visit [facility] Heart and Vascular [place] [address] [facility] [address] [place] [address] Jh Willis MD [address] [place] [address] [address] [place] [address] documented as of this encounter Visit Diagnoses Not on filedocumented in this encounter Care Teams Complaint Manager Relationship Specialty Start Date End Date Jose Lewis DO PCP - General 05/04/15 documented as of this encounter
--- OUTSIDE RECORDS SUMMARY | 2024-08-17 07:10 | XMS_ITS | Encounter Summary ---
Author Organization [facility] Address 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 Gender Identity Not on file Sexual Orientation Not on file documented as of this encounter Plan of Treatment Upcoming Encounters Date Type Department Care Team (Late st Contact Info) Description 08/20/2024 8:45 AM CDT Office Visit [facility] Oncology and Hematology - [place] [address] [place] [address] [address] Graeme Diez MD 2[address] [facility] [address] [place] [address] 03/18/2025 9:00 AM CDT Office Visit [facility] Heart and Vascular At [address] [place] [address] Jh Willis MD [address] [place] [address] [address] [place] [address] documented as of this encounter Visit Diagnoses Not on filedocumented in this encounter Care Teams Informaticist Relationship Specialty Start Date End Date Jose Lewis DO PCP - General 05/04/15 documented as of this encounter
--- OUTSIDE RECORDS SUMMARY | 2024-08-17 07:10 | XMS_ITS | Encounter Summary ---
Author Organization [facility] Address 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 Gender Identity Not on file Sexual Orientation Not on file documented as of this encounter Plan of Treatment Upcoming Encounters Date Type Department Care Team (Late st Contact Info) Description 08/20/2024 8:45 AM CDT Office Visit [facility] Oncology and Hematology - [place] 222 [facility] 200 [place] [phone] Graeme Diez MD [address] [facility] [address] [place] [address] 03/18/2025 9:00 AM CDT Office Visit [facility] Heart and Vascular At [place] [address] [facility] [address] [place] [address] Jh Willis MD [address] [place] [address] [address] [place] [address] documented as of this encounter Visit Diagnoses Not on filedocumented in this encounter Care Teams Consumer Attorney Relationship Specialty Start Date End Date Jose Lewis DO PCP - General 05/04/15 documented as of this encounter
--- OUTSIDE RECORDS SUMMARY | 2024-08-17 07:10 | XMS_ITS | Encounter Summary ---
Author Organization [facility] Address 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 [address] [place] [address] Jh Willis MD [address] [place] [address] [address] [place] [address] documented as of this encounter Visit Diagnoses Not on filedocumented in this encounter Care Teams Taper Operator Relationship Specialty Start Date End Date Jose Lewis DO PCP - General 05/04/15 documented as of this encounter
--- OUTSIDE RECORDS SUMMARY | 2024-08-17 07:10 | XMS_ITS | Encounter Summary ---
Author Organization [facility] Address 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 Gender Identity Not on file Sexual Orientation Not on file documented as of this encounter Plan of Treatment Upcoming Encounters Date Type Department Care Team (Late st Contact Info) Description 08/20/2024 8:45 AM CDT Office Visit [facility] Oncology and Hematology - [place] [address] [facility] 200 [place] [address] Graeme Diez MD [address] [facility] [address] [place] [address] 03/18/2025 9:00 AM CDT Office Visit [facility] Heart and Vascular [place] [address] [facility] [address] [place] [address] Jh Willis MD [address] [place] [address] [address] [place] [address] documented as of this encounter Visit Diagnoses Not on filedocumented in this encounter Care Teams Pot Lining Supervisor Relationship Specialty Start Date End Date Jose Lewis DO PCP - General 05/04/15 documented as of this encounter
--- OUTSIDE RECORDS SUMMARY | 2024-08-17 07:10 | XMS_ITS | Encounter Summary ---
Author Organization [facility] Address 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 [address] D.O.B: 1950 SSN: [id number] Parent/Guardian if applicable: Patient Insurance: BLUE CROSS BLUE SHIELD ID#: [id number] Group#: ORDER(S) #: [id number] MRI of left shoulder BEST TO CALL HOME. BEST TIME TO CALL: ANYTIME. MAY WE LEAVE MESSAGE AT THAT NUMBER: YES, LEAVE MESSAGE. PLEASE SCHEDULE THE APPOINTMENT AT THE FOLLOWING LOCATION: TEST SCHEDULE OTHER LOCATION. [place] in [place]-patient to give name of facility TEST PRIORITY: 2 - 7 DAYS. ORDERING PHYSICIAN: LOBO OLSEN MD OFFICE CONFERENCE SERVICES MANAGER & PHONE: Rita Alfaro R ORDER PRINTED BY: DEC 04, 2006 Thania Michelle, P 06:09 p FOR SCHEDULING USE ONLY: FIRST ATTEMPT Date:DEC 04, 2006 Thania Michelle, P 06:47 p Left message on Recorder. Actually spoke with pt and stated he will call back tomorrow to schedule because [facility] already closed. SECOND ATTEMPT: Date:MAR 05, 2007 Misty Jules C 12:48 p Left Message on [email or web address].@home LETTER SENT: Date MAR 05, 2007 Misty Jules C 12:48 p * Lobo Olsen MD - 10/07/2007 10:37 AM CDT WEIGHT: 196lbs BLOOD PRESSURE: 118/72 Right Arm Sitting NURSE NAME: Sophia Samantha Harman TOBACCO USE Patient does not currently use tobacco. CHIEF COMPLAINT Patient here for follow up Coronary Artery Disease (CAD), hyperlipidemia. HISTORY: HISTORY: 272.4-HYPERLIPIDEMIA The patient is tolerating the medications. The patient has not had any labs done recently. 309.81-ADJUSTMENT REACTION stable, did not use xanax 414.00-CORONARY ARTERY DISEASE The patient denies dyspnea on exertion, orthopnea, pedal edema, palpitations, and paroxysmal nocturnal dyspnea. No complications noted from the medication presently being used. 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 715.11-OSTEOARTHROSIS AND ALLIED DISORDERS difficulty moving left shoulder since bypass ROS: ENT: No hearing loss, epistaxis, hoarseness or dysphagia. No sinus congestion. oc left ear pain ENDOCRINE: No heat or cold intolerance, no [...] retraction. Canals unremarkable. Hearing grossly normal. ORAL: Inspection of gums, lips, palate, and [...] hepatosplenomegaly, tenderness or nodularity. Kidneys not palpable. MUSCULOSKELETAL EXAM: dec abd, tender, left shoulder SKIN: SKIN: Warm, dry, no diaphoresis, no significant lesions, irritation, rashes or ulcers. No induration, obvious subcutaneous nodules or tightening. 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 Patient Education: Risks, benefits, and possible side effects of medication(s) were reviewed with the patient. RETURN VISIT : Patient instructed to return in 4 months. Electronically Signed by: Lobo Olsen MD on Saturday, December 02, 2006 documented in this encounter Plan of Treatment Upcoming Encounters Date Type Department Care Team (Late st Contact Info) Description 08/20/2024 8:45 AM CDT Office Visit [facility] Oncology and Hematology - [place] [address] [facility] 200 [place] [address] Graeme Diez MD 2[address] [facility] [address] [place] [address] 03/18/2025 9:00 AM CDT Office Visit [facility] Heart and Vascular [place] [address] [facility] [address] [place] [address] Jh Willis MD [address] [place] [address] documented as of this encounter Visit Diagnoses Not on filedocumented in this encounter Care Teams Fisher Gill Net Relationship Specialty Start Date End Date Nkechi Lewis DO PCP - General 05/04/15 documented as of this encounter
--- OUTSIDE RECORDS SUMMARY | 2024-08-17 07:10 | XMS_ITS | Clinical Summary ---
Author Organization [facility] Address [address] [place] [address] Care Team Providers Care Preparing Box Tender Name Role Phone Jose Lewis DO Primary Care Provider Allergies Active Allergy Reactions Criticality Noted Date Comments Niacin 06/14/2005 Penicillins Rash Low 11/23/2008 Sulfamethoxazole-Trimethoprim Fever Low 2018 Medications aspirin (ASPIR-81) 81 mg Oral TbEC Take 1 Tab by mouth daily. 90 0 8 Active finasteride (PROSCAR) 5 mg tablet Take 5 mg by mouth daily. Active albuterol HFA 90 mcg inhaler INL 2 PFS PO Q 4 TO 6 H PRF SOB OR WHZ 0 Active Cholecalciferol, Vitamin D3, (VITAMIN D3) 10 mcg (400 unit) capsule 9 Active Zinc Gluconate 100 mg Tablet Take by mouth. Active famotidine (PEPCID) 20 mg tablet take 1 tablet by mouth every day at bedtime 4 Active cyanocobalamin/marina mamide (B-12 PLUS SUBLINGUAL) 0 Active omega 2-nky-tlo-fish oil 300 mg (120 mg- 180mg)-1,000 mg Capsule 9 Active rosuvastatin (CRESTOR) 40 mg tabletIndications:C oronary artery disease involving ekwok coronary artery of ekwok heart without angina pectoris,Mixed hyperlipidemia TAKE 1 TABLET(40 MG) BY MOUTH DAILY 90 Tablet 3 4 Active omeprazole (PriLOSEC) 20 mg Capsule, Delayed Release(E.C.) Take 20 mg by mouth daily. Active NIFEdipine (PROCARDIA XL) 30 mg Extended Release 24 hour tablet Take 1 Tablet (30 mg) by mouth daily. 90 Tablet 1 5 Active lisinopriL (PRINIVIL) 20 mg tablet TAKE 1 TABLET(20 MG) BY MOUTH DAILY 90 Tablet 3 5 Active Active Problems Patient Care Coordination No te Formatting of this note migh t be different from the original. 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 Sinus node dysfunction 04/10/2015 Overview (04/10/2015): HR 50 on no rate slowing meds HTN (hypertension) 04/10/2015 Glucose intolerance (pre-diabetes) 04/10/2015 Overview (04/10/2015): hgb A1C 6.3 CAD (coronary artery disease) 03/29/2010 Overview (02/18/2022): Given advanced ds at young age, active lifestyle, surveillnace stress test 2021 S/P CABG 2006 No echo ischemia, + ECG ischemia, nl LV fxn stress 02/07 bblocker not started bc bradycardia HLD (hyperlipidemia) 03/29/2010 Erectile dysfunction 02/28/2010 Unspecified disorder of prostate 06/14/2005 Overview (02/03/2008): 08 bx neg Resolved Problems Problem Noted Date Diagnosed Date Resolved Date Type 2 diabetes mellitus 02/11/201901/2020 Primary localized osteoarthr osis, shoulder region 12/02/2006 02/28/2010 Other and unspecified hyperlipidemia 09/29/2006 03/29/2010 Rash and other nonspecific skin eruption 09/29/2006 02/03/2008 Coronary atherosclerosis of unspecified type of vessel, ekwok or graft 09/29/2006 03/29/2010 Posttraumatic stress disorder 09/29/2006 02/03/2008 Chest pain, unspecified 08/11/200601/17 Acute sinusitis, unspecified 08/20/2005 02/03/2008 Routine general medical exam ination at a health care facility 06/14/2005 02/03/2008 Special screening for malign ant neoplasm of prostate 06/14/2005 02/03/2008 Need for prophylactic vaccin ation with tetanus-diphtheria (Td) 06/14/2005 02/03/2008 Screening for malignant neop lasm of the rectum 06/14/2005 02/03/2008 Encounters Date Type Department Care Team Description 08/04/2024 External Device Data STL ABSTRACTION Provider, Abstract 07/24/2024 External Device Data STL ABSTRACTION Provider, Abstract 07/23/2024 External Device Data ST[facility] ABSTRACTION Provider, Abstract 07/07/2024 External Device Data [facility] ABSTRACTION Provider, Abstract 06/16/2024 External Device Data [facility] ABSTRACTION Provider, Abstract 06/10/2024 External Device Data ST[facility] ABSTRACTION Provider, Abstract 06/08/2024 Refill [facility] Heart and Vascular At [address] [place] [address] Jh Willis MD from Last 3 Months Immunizations Immunization Administration Dates Next Due (ADACEL/BOOSTRIX)(10 YR UP) TDAP VACCINE, 0.5ML, IM 11/14/2011 (PFIZER)(12 YR UP) COVID-19 VACCINE - EMERGENCY USE AUTHORIZATION, MRNA, [id number](PF) 30 MCG/0.3 ML IM SUSP 02/20/2021,07/12/2020,06/23/2020 (PNEUMOVAX 23)(50 YRS UP) PN EUMOCOCCAL POLYSACCHARIDE (PPV23) 0.5 ML, IM 02/03/2008 (Pfizer Bivalent)(12 Yr Up) COVID-19 Vaccine - Emergency Use Authorization, MRNA, Lnp-S(Pf) 30 Mcg/0.3 Ml Susp 02/07/2022 (TDVAX)(7 YRS UP) TETANUS AN D DIPHTHERIA TOXOIDS, ADSORBED (2 LF OF TETANUS TOXOID AND 2 LF OF DIPHTHERIA TOXOID), 0.5ML (PF), IM 06/14/2005 Influenza Seasonal Unspecifi ed Formulation IM 03/06/2012,02/25/2011,03/02/2010,03/07 Influenza Vaccine Split 3+ Yrs IM 03/19/2007 Family History Medical History Relation Name Comments Heart Disease Father Relation Name Status Comments Father Mother Sister Alive Son 1 Alive Son 2 Alive Son 3 Alive Social History Tobacco Use Types Packs/Day Years Used Date Smoking Tobacco: Never Smokeless Tobacco: Never Tobacco Cessation:Counseling Given: Not Answered Alcohol Use Standard Drinks/Week Comments Yes 0 (1 standard drink = 0.6 oz pur e alcohol) OCASSIONLLY Sex and Gender Information Value Date Recorded Sex Assigned at Not on file 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 Gender Identity Not on file Sexual Orientation Not on file Last Filed Vital Signs Vital Sign Reading Time Taken Comments Blood Pressure 122/72 03/15/2024 1:09 PM CDT Pulse 54 03/15/2024 1:09 PM CDT Temperature 36.2 C (97.2 F) 08/22/2023 9:52 AM CDT Respiratory Rate 14 08/22/2023 9:52 AM CDT Oxygen Saturation 96% 08/22/2023 9:52 AM CDT Inhaled Oxygen Concentration - - Weight 89.8 kg (198 lb) 03/15/2024 1:09 PM CDT Height 182.9 cm (6') 03/15/2024 1:09 PM CDT Body Mass Index 26.85 03/15/2024 1:09 PM CDT Plan of Treatment Upcoming Encounters Date Type Department Care Team (Late st Contact Info) Description 08/20/2024 8:45 AM CDT Office Visit [facility] Oncology and Hematology - [place] [address] [place] [address] [address] Graeme Diez MD [address] [facility] [address] [place] [address] 03/18/2025 9:00 AM CDT Office Visit [facility] Heart and Vascular At [facility] [address] [facility] [address] [place] [address] Jh Willis MD [facility] [address] [facility] [address] [place], [place] [phone] Health Maintenance Due Date Last Done Comments Traditional Medicare (ACO) A nnual Wellness Visit 1970 COLORECTAL SCREENING 1996 FIT-DNA Q 3 years 1996 Flex Sig/CT Colonography Q 5 years 1996 ZOSTER VACCINE (1 of 2) 2001 Colorectal Cancer Screening 02/10/2007 FIT/FOBT Q 1 year 02/10/2007 02/10/2006, 06/14/2005 PNEUMOCOCCAL VACCINE 50+ YEA RS (2 of 2 - PCV) 02/02/2009 02/03/2008 RSV VACCINE (60+ or ) (1 - Risk 60-74 years 1-dose series) 2011 DTAP/TDAP/TD VACCINES (2 - T d or Tdap) 11/13/2021 11/14/2011, 06/14/2005 INFLUENZA VACCINE (#1) 2023 2, 02/25/2011, 03/02/2010, Additional history exists COVID-19 Vaccine (2023-2 5 season) 2024 02/07/2022, 02/20/2021, 07/12/2020, Additional history exists Insurance MEDICARE PART A AND B [facility] SUPP [facility] MEDICARE PART A AND B BCBS SUPP Advance Directives For more information, please contact: [phone] Documents on File Type Date Recorded Patient Home Care Nurse Expl anation Advance Directive POA 01/06/2020 10:40 AM Advance Directive POA Care Teams Preparing Box Tender Relationship Specialty Start Date End Date Jose Lewis DO PCP - General 05/04/15
--- OUTSIDE RECORDS SUMMARY | 2024-08-17 07:10 | XMS_ITS | Encounter Summary ---
Author Organization [facility] Address 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 Gender Identity Not on file Sexual Orientation Not on file documented as of this encounter Last Filed Vital Signs Vital Sign Reading Time Taken Comments Blood Pressure 118/72 12/02/2006 3:45 PM CDT Pulse - - Temperature - - Respiratory Rate - - Oxygen Saturation - - Inhaled Oxygen Concentration - - Weight 88.9 kg (196 lb) 12/02/2006 3:45 PM CDT Height - - Body Mass Index - - documented in this encounter Plan of Treatment Upcoming Encounters Date Type Department Care Team (Late st Contact Info) Description 08/20/2024 8:45 AM CDT Office Visit [facility] Oncology and Hematology - [place] [address] [facility] [address] [place] [address] Graeme Diez MD [address] [facility] [address] [place] [address] 03/18/2025 9:00 AM CDT Office Visit [facility] Heart and Vascular At [facility] [address] [facility] [address] [place] [address] Jh Willis MD [facility] [address] [facility] [address] [place] [address] documented as of this encounter Visit Diagnoses Not on filedocumented in this encounter Care Teams Bowling Ball Engraver Relationship Specialty Start Date End Date Jose Lewis DO PCP - General 05/04/15 documented as of this encounter
[2024-08-17 08:11] LABS: Basophils Percent Auto 0.7 % (0.2-1.2); Eosinophils Absolute Auto 0.1 K/mm3 (0-0.3); Eosinophils Percent Auto 3.2 % (0-4.4); Hematocrit 42.8 % (42.0-52.0); Hemoglobin 14.1 g/dL (14.0-18.0); Immature Granulocyte Absolute 0.04 K/mm3 (0.00-0.031); Immature Granulocyte Percent A 0.9 % (0-0.5); Lymphocytes Absolute Auto 1.62 K/mm3 (0.9-3.2); Lymphocytes Percent Auto 37.4 % (18.3-44.2); Mean Corpuscular HGB Conc 32.9 g/dl (32-36); Mean Corpuscular Hemoglobin 29.3 pg (26-34); Mean Platelet Volume 12.6 fl (7.4-10.4); Monocytes Absolute Auto 0.3 K/mm3 (0.1-0.6); Monocytes Percent Auto 6.5 % (2.6-8.5); Neutrophils Absolute Auto 2.2 K/mm3 (1.3-6.7); Neutrophils Percent Auto 51.3 % (45.5-73.1); Platelet Count Result 127 k/mm3 (150-375); Red Blood Count 4.81 M/mm3 (4.6-6.20); Red Cell Distribution Width 12.8 % (11.5-14.5); White Blood Count 4.3 K/mm3 (4.5-10.0)
[2024-08-17 08:20] LABS: Alanine Aminotransferase 24 U/L (6-50); Albumin Level 4.3 g/dL (3.5-5.1); Alkaline Phosphatase 58 U/L (38-126); Anion Gap 8 mmol/L (4-12); Aspartate Amino Transferase 23 U/L (17-59); Bilirubin,Total 0.7 mg/dL (0.2-1.3); Blood Urea Nitrogen 21 mg/dL (9-20); Calcium 9.3 mg/dL (8.4-10.2); Carbon Dioxide 27 mmol/L (22-30); Chloride 105 mmol/L (98-107); Estimated Glomerular Filt Rate > 60; Glucose 163 mg/dL (65-110); Potassium 4.4 mmol/L (3.4-5.0); Sodium 140 mmol/L (137-145)
== END 2024-08-17 07:07 | disposition home or self-care (01) ==
PROVIDERS: PCP Clinical Nurse Specialist; Visit Provider Internal Medicine Hematology & Oncology
DX: D69.59 Other secondary thrombocytopenia (principal)
CPT/HCPCS: 36415; 80053; 82607; 85025

== ENCOUNTER 2024-08-31 06:48 | Outpatient (CLI) | payer MEDICARE, SELFPAY ==
--- OUTSIDE RECORDS SUMMARY | 2024-08-31 06:52 | XMS_ITS | Encounter Summary ---
Author Organization [facility] Address 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 Gender Identity Not on file Sexual Orientation Not on file documented as of this encounter Plan of Treatment Upcoming Encounters Date Type Department Care Team (Late st Contact Info) Description 03/18/2025 9:00 AM CDT Office Visit [facility] Heart and Vascular At [address] [place] [address] Jh Willis MD [address] [place] [address] [address] [place] [address] 08/26/2025 8:45 AM CDT Office Visit [facility] Oncology and Hematology - [place] [address] [facility] [address] [place] [address] Graeme Diez MD [address] [facility] [address] [place] [address] documented as of this encounter Visit Diagnoses Not on filedocumented in this encounter Care Teams Headwaitress Relationship Specialty Start Date End Date Jose Lewis DO PCP - General 05/04/15 documented as of this encounter
--- OUTSIDE RECORDS SUMMARY | 2024-08-31 06:52 | XMS_ITS | Encounter Summary ---
Author Organization [facility] Address [address] [place] [address] Care Team Providers Care Lead Web Application Developer Name Role Phone Nkechi Lewis DO Primary Care Provider Encounter Details Date Type Department Care Team (Late st Contact Info) Description 12/02/2006 Orders Only [facility] Internal Medicine [address] [address] Lobo Olsen MD [address] [place] [address] Social History Tobacco Use Types Packs/Day Years Used Date Smoking Tobacco: Never Assessed Sex and Gender Information Value Date Recorded Sex Assigned at Not on file Legal Sex Male 5:22 AM SAMPLE STITCHER Gender Identity Not on file Sexual Orientation Not on file documented as of this encounter Progress Notes * Lobo Olsen MD - 10/07/2007 10:37 AM CDT CENTRAL TEST SCHEDULING DATE: DEC 02, 2006 Note created by: Rita Alfaro R 04:13 p Patient Name : NKECHI AGUIAR [address]: [address] [place] [address]. [address] D.O.B: 1950 SSN: [id number] Parent/Guardian if applicable: Patient Insurance: BLUE CROSS BLUE SHIELD ID#: [id number] Group#: ORDER(S) #: [id number] MRI of left shoulder BEST TO CALL HOME. BEST TIME TO CALL: ANYTIME. MAY WE LEAVE MESSAGE AT THAT NUMBER: YES, LEAVE MESSAGE. PLEASE SCHEDULE THE APPOINTMENT AT THE FOLLOWING LOCATION: TEST SCHEDULE OTHER LOCATION. MRI in [place]-patient to give name of facility TEST PRIORITY: 2 - 7 DAYS. ORDERING PHYSICIAN: LOBO OLSEN MD OFFICE CORRECTIONAL OFFICER CHIEF & PHONE: Rita Alfaro R ORDER PRINTED BY: DEC 04, 2006 Thania Michelle, P 06:09 p FOR SCHEDULING USE ONLY: FIRST ATTEMPT Date:DEC 04, 2006 Thania Michelle, P 06:47 p Left message on Recorder. Actually spoke with pt and stated he will call back tomorrow to schedule because [facility] in [place] was already closed. 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 782.1-RASH improved 715.11-OSTEOARTHROSIS AND ALLIED DISORDERS left shoulder pain LAB ORDERS: Order number: [id number] Test Ordered: MRI SHOULDER LEFT PREVENTIVE COUNSELING [...] Description 03/18/2025 9:00 AM CDT Office Visit [facility] Heart and Vascular At [place] [address] [facility] [address] [place] [address] Jh Willis MD [facility] [address] [facility] [address] [place] [address] 08/26/2025 8:45 AM CDT Office Visit [facility] Oncology and Hematology - [place] [address] [place] [address] Graeme Diez MD [facility] [facility] [address] [place] [phone] documented as of this encounter Visit Diagnoses Not on filedocumented in this encounter Care Teams Lead Web Application Developer Relationship Specialty Start Date End Date Nkechi Lewis DO PCP - General 05/04/15 documented as of this encounter
--- OUTSIDE RECORDS SUMMARY | 2024-08-31 06:52 | XMS_ITS | Encounter Summary ---
Author Organization [facility] Address [address] [place] [address] Care Team Providers Care Shell Trim Operator Name Role Phone Joshua Jose Moreland DO Primary Care Provider Encounter Details Date Type Department Care Team (Late st Contact Info) Description 08/22/2006 Outpatient Historical [facility] Cardiovas and Thor Surg at [address] [place] [address] Jh Guerrero Jr., MD NO ADDRESS ON FILE Social History Tobacco Use Types Packs/Day Years Used Date Smoking Tobacco: Never Assessed Sex and Gender Information Value Date Recorded Sex Assigned at Not on file Legal Sex Male 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 Gender Identity Not on file Sexual Orientation Not on file documented as of this encounter Plan of Treatment Upcoming Encounters Date Type Department Care Team (Late st Contact Info) Description 03/18/2025 9:00 AM CDT Office Visit [facility] Heart and Vascular At [address] [place] [address] Jh Willis MD [address] [place] [address] [address] [place] [address] 08/26/2025 8:45 AM CDT Office Visit [facility] Oncology and Hematology - [place] [address] [facility] [address] [place] [address] Graeme Diez MD [address] [facility] [address] [place] [address] documented as of this encounter Visit Diagnoses Not on filedocumented in this encounter Care Teams Shell Trim Operator Relationship Specialty Start Date End Date Jose Lewis DO PCP - General 05/04/15 documented as of this encounter
--- OUTSIDE RECORDS SUMMARY | 2024-08-31 06:52 | XMS_ITS | Encounter Summary ---
Author Organization [facility] Address 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 Gender Identity Not on file Sexual Orientation Not on file documented as of this encounter Plan of Treatment Upcoming Encounters Date Type Department Care Team (Late st Contact Info) Description 03/18/2025 9:00 AM CDT Office Visit [facility] Heart and Vascular At [address] [place] [address] Jh Willis MD [address] [place] [address] [address] [place] [address] 08/26/2025 8:45 AM CDT Office Visit [facility] Oncology and Hematology - [place] [address] [facility] [address] [place] [address] Graeme Diez MD [address] [facility] [address] [place] [phone] documented as of this encounter Visit Diagnoses Not on filedocumented in this encounter Care Teams Lawn Mower Relationship Specialty Start Date End Date Jose Lewis DO PCP - General 05/04/15 documented as of this encounter
--- OUTSIDE RECORDS SUMMARY | 2024-08-31 06:52 | XMS_ITS | Encounter Summary ---
Author Organization [facility] Address [address] [place] [address] Care Team Providers Care Mma Fighter Name Role Phone Jose Lewis DO Primary Care Provider Encounter Details Date Type Department Care Team (Late st Contact Info) Description 06/14/2005 Outpatient Historical [facility] Internal Medicine [address] [address] Octavio Mccain MD [address] [place] [phone] Social History Tobacco Use Types Packs/Day Years Used Date Smoking Tobacco: Never Assessed Sex and Gender Information Value Date Recorded Sex Assigned at Not on file Legal 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 Male 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 Gender Identity Not on file Sexual Orientation Not on file documented as of this encounter Plan of Treatment Upcoming Encounters Date Type Department Care Team (Late st Contact Info) Description 03/18/2025 9:00 AM CDT Office Visit [facility]3] Heart and Vascular At [address] [place] [address] Jh Willis MD [address] [place] [address] [address] [place] [address] 08/26/2025 8:45 AM CDT Office Visit [facility]3] Oncology and Hematology - [place] [address] [facility] [address] [place] [address] Graeme Diez MD [address] [facility] [address] [place] [phone] documented as of this encounter Visit Diagnoses Not on filedocumented in this encounter Care Teams Mma Fighter Relationship Specialty Start Date End Date Jose Lewis DO PCP - General 05/04/15 documented as of this encounter
--- OUTSIDE RECORDS SUMMARY | 2024-08-31 06:52 | XMS_ITS | Encounter Summary ---
Author Organization [facility] Address [address] [place] [address] Care Team Providers Care Radiology Teacher Name Role Phone Jose Lewis DO Primary Care Provider Encounter Details Date Type Department Care Team (Late st Contact Info) Description 02/10/2006 Outpatient Historical [facility] Internal Medicine [address] [address] Octavio Mccain MD [address] [place] [phone] Social History Tobacco Use Types Packs/Day Years Used Date Smoking Tobacco: Never Assessed Sex and Gender Information Value Date Recorded Sex Assigned at Not on file Legal Sex Male 5:22 AM ROUTER OPERATOR RADIAL Gender Identity Not on file Sexual Orientation Not on file documented as of this encounter Plan of Treatment Upcoming Encounters Date Type Department Care Team (Late st Contact Info) Description 03/18/2025 9:00 AM CDT Office Visit [facility] Heart and Vascular At [address] [place] [address] Jh Willis MD [address] [place] [address] [address] [place] [address] 08/26/2025 8:45 AM CDT Office Visit [facility] Oncology and Hematology - [place] [address] [facility] 200 [place] [address] Graeme Diez MD [address] [facility] [address] [place] [phone] documented as of this encounter Visit Diagnoses Not on filedocumented in this encounter Care Teams Radiology Teacher Relationship Specialty Start Date End Date Jose Lewis DO PCP - General 05/04/15 documented as of this encounter
--- OUTSIDE RECORDS SUMMARY | 2024-08-31 06:52 | XMS_ITS | Encounter Summary ---
Author Organization [facility] Address 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 Gender Identity Not on file Sexual Orientation [...] Description 03/18/2025 9:00 AM CDT Office Visit [facility] Heart and Vascular At [address] [place] [address] Jh Willis MD [address] [place] [address] [address] [place], [place] [phone] 08/26/2025 8:45 AM CDT Office Visit [facility] Oncology and Hematology - [place] [address] [facility] 200 [place] [address] Graeme Diez MD [address] [facility] [address] [place] [address] documented as of this encounter Visit Diagnoses Not on filedocumented in this encounter Care Teams Job Trainer Relationship Specialty Start Date End Date Jose Lewis DO PCP - General 05/04/15 documented as of this encounter
--- OUTSIDE RECORDS SUMMARY | 2024-08-31 06:52 | XMS_ITS | Encounter Summary ---
Author Organization [facility] Address [address] [place] [address] Care Team Providers Care Salt Manager Name Role Phone Jose Lewis DO Primary Care Provider Encounter Details Date Type Department Care Team (Late st Contact Info) Description 07/26/2005 Outpatient Historical [facility] Angel Luis Paul MD [address] [place] [address] [address] [place] [address] Special Screening for Malignant Neoplasms, Colon (Primary Dx) Social History Tobacco Use Types Packs/Day Years Used Date Smoking Tobacco: Never Assessed Sex and Gender Information Value Date Recorded Sex Assigned at Not on file Legal Sex Male 5:22 AM ANESTHESIOLOGY CRNA Gender Identity Not on file Sexual Orientation Not on file documented as of this encounter Plan of Treatment Upcoming Encounters Date Type Department Care Team (Late st Contact Info) Description 03/18/2025 9:00 AM CDT Office Visit [facility] Heart and Vascular At [place] [address] [facility] [address] [place] [address] Jh Willis MD [facility] [address] [facility] [address] [place] [address] 08/26/2025 8:45 AM CDT Office Visit [facility] Oncology and Hematology - [place] [address] [facility] [address] [place] [address] Graeme Diez MD [address] [facility] [address] [place] [address] documented as of this encounter Visit Diagnoses Diagnosis Special screening for malignant neoplasms, colon- Primary documented in this encounter Care Teams Salt Manager Relationship Specialty Start Date End Date Jose Lewis DO PCP - General 05/04/15 documented as of this encounter
--- OUTSIDE RECORDS SUMMARY | 2024-08-31 06:52 | XMS_ITS | Encounter Summary ---
Author Organization [facility] Address 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 Gender Identity Not on file Sexual Orientation Not on file documented as of this encounter Plan of Treatment Upcoming Encounters Date Type Department Care Team (Late st Contact Info) Description 03/18/2025 9:00 AM CDT [facility] Visit [facility] Heart and Vascular At [address] [place] [address] Jh Willis MD [address] [place] [address] [address] [place] [address] 08/26/2025 8:45 AM CDT Office Visit [facility] Oncology and Hematology - Brandin [address] [facility] 200 [place] [address] Graeme Diez MD [address] [facility] [address] [place] [phone] documented as of this encounter Visit Diagnoses Not on filedocumented in this encounter Care Teams Fine Arts Packer Relationship Specialty Start Date End Date Jose Lewis DO PCP - General 05/04/15 documented as of this encounter
--- OUTSIDE RECORDS SUMMARY | 2024-08-31 06:52 | XMS_ITS | Encounter Summary ---
Author Organization [facility] Address 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 Gender Identity Not on file Sexual Orientation [...] Description 03/18/2025 9:00 AM CDT Office Visit [facility] Heart and Vascular At [place] [address] [facility] [address] [place] [address] Jh Willis MD [address] [place] [address] [address] [place], [place] [id number] 08/26/2025 8:45 AM CDT Office Visit [facility] Oncology and Hematology - Brand[place] [address] [facility] 200 [place] [address] Graeme Diez MD [address] [facility] [address] [place] [address] documented as of this encounter Visit Diagnoses Not on filedocumented in this encounter Care Teams Cash Management Coordinator Relationship Specialty Start Date End Date Jose Lewis DO PCP - General 05/04/15 documented as of this encounter
--- OUTSIDE RECORDS SUMMARY | 2024-08-31 06:52 | XMS_ITS | Encounter Summary ---
Author Organization [facility] Address 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 Gender Identity Not on file Sexual Orientation [...] reviewed other supplts LAB ORDERS: Order number: [id number] Test Ordered: INJ-TETANUS & DIPTHERIA TOXOID 84396 272.4-HYPERLIPIDEMIA LAB ORDERS: now, pt fasting Order number: [id number] Test Ordered: CBC (INCLUDES DIFF/PLT) 6399 Order number: [id number] Test Ordered: COMPREHENSIVE METABOLIC PANEL 72670 Order number: [id number] Test Ordered: LIPID PANEL 7600 Order number: [id number] Test Ordered: TSH 899 Order number: [id number] Test Ordered: PSA 5363 602.9-OTHER DISORDERS OF PROSTATE discussed, rx if sx, check psa LAB ORDERS: Order number: [id number] Test Ordered: HEMOCCULT SINGLE 20755 SPECIALTY REFERRAL: GASTROENTEROLOGY Dr. Anil Shaw ph: [phone].colonscopy RETURN VISIT : Patient instructed to return in 3 months. Electronically Signed by: Octavio Mccain MD on Tuesday, June 14, 2005 documented in this encounter Plan of Treatment Upcoming Encounters Date Type Department Care Team (Late st Contact Info) Description 03/18/2025 9:00 AM CDT Office Visit [facility] Heart and Vascular At [address] [place] [address] Jh Willis MD [address] [place] [address] [address] [place] [address] 08/26/2025 8:45 AM CDT Office Visit [facility] Oncology and Hematology - Brandin [address] [facility] 200 [place] [address] Graeme Diez MD [address] [facility] [address] [place] [address] documented as of this encounter Visit Diagnoses Not on filedocumented in this encounter Care Teams Dry Transfer Man Relationship Specialty Start Date End Date Jose Lewis DO PCP - General 05/04/15 documented as of this encounter
--- OUTSIDE RECORDS SUMMARY | 2024-08-31 06:52 | XMS_ITS | Encounter Summary ---
Author Organization [facility] Address 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 Gender Identity Not on file Sexual Orientation Not on file documented as of this encounter Plan of Treatment Upcoming Encounters Date Type Department Care Team (Late st Contact Info) Description 03/18/2025 9:00 AM CDT Office Visit [facility] Heart and Vascular At [address] [place] [address] Jh Willis MD [address] [place] [address] [address] [place] [address] 08/26/2025 8:45 AM CDT Office Visit [facility] Oncology and Hematology - Brandin [address] [facility] 200 [place] [address] Graeme Diez MD [address] [facility] [address] [place] [phone] documented as of this encounter Visit Diagnoses Not on filedocumented in this encounter Care Teams Portrait Photographer Relationship Specialty Start Date End Date Jose Lewis DO PCP - General 05/04/15 documented as of this encounter
--- OUTSIDE RECORDS SUMMARY | 2024-08-31 06:52 | XMS_ITS | Encounter Summary ---
Author Organization [facility] Address 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 PROBLEMS: S/P CABG [...] seems to occur in late afternoon & gorna. Tylenol PM seems to help. SECTION 1: [...] Gutiérrez on Friday, September 29, 2006 * Octavio Mccain MD - 10/08/2007 10:32 AM CDT [facility] Heart [facility] At [facility] [address] [facility] [address] [place] [address] Jh Willis MD [facility] [address] [facility] [address] [place] [address] 08/26/2025 8:45 AM CDT Office Visit [facility] Oncology and Hematology - Brand[place] [address] [facility] 200 [place] [address] Graeme Diez MD [address] [facility] [address] [place] [address] documented as of this encounter Visit Diagnoses Not on filedocumented in this encounter Care Teams Char Belt Operator Relationship Specialty Start Date End Date Jose Lewis DO PCP - General 05/04/15 documented as of this encounter
--- OUTSIDE RECORDS SUMMARY | 2024-08-31 06:52 | XMS_ITS | Encounter Summary ---
Author Organization [facility] Address 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 Gender Identity Not on file Sexual [...] Description 03/18/2025 9:00 AM CDT Office Visit [facility] Heart and Vascular At [address] [place] [address] Jh Willis MD [address] [place] [address] [address] [place], [place] [id number] 08/26/2025 8:45 AM CDT Office Visit [facility] Oncology and Hematology - Brandin [address] [facility] 200 [place] [address] Graeme Diez MD [address] [facility] [address] [place] [address] documented as of this encounter Visit Diagnoses Not on filedocumented in this encounter Care Teams In Flight Refueling System Repairer Relationship Specialty Start Date End Date Jose Lewis DO PCP - General 05/04/15 documented as of this encounter
--- OUTSIDE RECORDS SUMMARY | 2024-08-31 06:52 | XMS_ITS | Encounter Summary ---
Author Organization [facility] Address 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 [address] [place] [phone] documented as of this encounter Visit Diagnoses Not on filedocumented in this encounter Care Teams Hearing Therapy Director Relationship Specialty Start Date End Date Jose Lewis DO PCP - General 05/04/15 documented as of this encounter
--- OUTSIDE RECORDS SUMMARY | 2024-08-31 06:52 | XMS_ITS | Encounter Summary ---
Author Organization [facility] Address 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 200 [place] [address] Graeme Diez MD [address] [facility] [address] [place] [phone] documented as of this encounter Visit Diagnoses Not on filedocumented in this encounter Care Teams Plastic Production Machine Setter Relationship Specialty Start Date End Date Jose Lewis DO PCP - General 05/04/15 documented as of this encounter
--- OUTSIDE RECORDS SUMMARY | 2024-08-31 06:53 | XMS_ITS | Encounter Summary ---
Author Organization [facility] Address 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 [address] D.O.B: 1950 SSN: [id number] Parent/Guardian if applicable: Patient Insurance: BLUE CROSS BLUE SHIELD ID#: [id number] Group#: ORDER(S) #: [id number] stress thallium BEST TO CALL HOME. BEST TIME TO CALL: ANYTIME. MAY WE LEAVE MESSAGE AT THAT NUMBER: YES, LEAVE MESSAGE. PLEASE SCHEDULE THE APPOINTMENT AT THE FOLLOWING LOCATION: nkechi batista m.d. [phone] TEST PRIORITY: 2 - 7 DAYS. SPECIAL SCHEDULING INSTRUCTIONS: pt needs prep ORDERING PHYSICIAN: LOBO OLSEN MD OFFICE CERAMIC COATER MACHINE & PHONE: Katherine Byrd E ORDER PRINTED BY: Ayse Falcon A FOR SCHEDULING USE ONLY: FIRST ATTEMPT Date:AUG 13, 2006 Ayse Falcon A 06:23 p Spoke with Patient. PT WANTS TO HAVE DONE IN A PRIVATE DR'S OFFICE.. W/C/B IN AM.. DR. BATISTA SECOND ATTEMPT: Date:AUG 15, 2006 Ayse Falcon A 01:40 p Spoke with Patient. TEST SCHEDULE OTHER LOCATION. DR. KELLY'S OFFICE APPOINTMENT DATE : 08/21/2006 ( 9:15 AM) The appointment was scheduled by Ayse Falcon A at [phone] Pre-authorization number: [place] of [place] -- NN Given/Authorized by: pre-recorded message/fast check @ [phone] FINAL ACTION Spoke with patient. Follow up completed. * Lobo Olsen MD - 10/09/2007 2:07 PM CDT WHO TOOK THE CALL: Lobo Olsen M TIME:05:34 pm given wrong z richie--notify pt can change to z richie (script for alexandre) 08/11/06 5:38P Spoke w/pt. Pharm # [phone]. AK called back & corrected to oral Z-richie 250 mg. take as directed. sl Electronically Signed by: Donna Gutiérrez on Friday, August 11, 2006 * Lobo Olsen MD - 10/09/2007 2:07 PM CDT WEIGHT: 202lbs BLOOD PRESSURE: 122/76 Right Arm Sitting NURSE NAME: [place] J CHIEF COMPLAINT Patient here for follow [...] improved LAB ORDERS: 6 mo Order number: [id number] Test Ordered: COMPREHENSIVE METABOLIC PANEL & GFR 1112 Order number: [id number] Test Ordered: LIPID PANEL 1078 461.9-SINUSITIS UNSPECIFIED rx MEDICATIONS: ZITHROMAX Z-RICHIE ORAL TABLET 250 MG, DIRECTED, 1 Dispensed, status: NEW PRESCRIPTION, 08/11/2006. 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 Electronically Signed by: Lobo Olsen MD on Friday, August 11, 2006 documented in this encounter Plan of Treatment Upcoming Encounters Date Type Department Care Team (Late st Contact Info) Description 03/18/2025 9:00 AM CDT Office Visit [facility] Heart and Vascular At [place] [address] [facility] [address] [place] [address] Jh Willis MD [facility] S [facility] [address] [place] [address] 08/26/2025 8:45 AM CDT Office Visit [facility] Oncology and Hematology - [place] [address] [place] [address] Graeme Diez MD [address] [facility] [address] [place] [address] documented as of this encounter Visit Diagnoses Not on filedocumented in this encounter Care Teams Mail Messenger Relationship Specialty Start Date End Date Nkechi Lewis DO PCP - General 05/04/15 documented as of this encounter
--- OUTSIDE RECORDS SUMMARY | 2024-08-31 06:53 | XMS_ITS | Encounter Summary ---
Author Organization [facility] Address 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 given above results and directions faxedto it programmer Dr. Hernandez. /bear Electronically Signed by: Chayito Barakat on Saturday, December 16, 2006 documented in this encounter Plan of Treatment Upcoming Encounters Date Type Department Care Team (Late st Contact Info) Description 03/18/2025 9:00 AM CDT Office Visit [facility] Heart and Vascular At [facility] [address] [facility] [address] [place] [address] Jh Willis MD [address] [facility] [address] [place] [address] 08/26/2025 8:45 AM CDT Office Visit [facility] Oncology and Hematology - [place] [address] [facility] [place] [address] [place] [address] rGaeme Diez MD [address] [facility] [address] [place] [address] documented as of this encounter Visit Diagnoses Not on filedocumented in this encounter Care Teams Sample Sewer Relationship Specialty Start Date End Date Jose Lewis DO PCP - General 05/04/15 documented as of this encounter
--- OUTSIDE RECORDS SUMMARY | 2024-08-31 06:53 | XMS_ITS | Encounter Summary ---
Author Organization [facility] Address 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 Gender Identity Not on file Sexual Orientation Not on file documented as of this encounter Plan of Treatment Upcoming Encounters Date Type Department Care Team (Late st Contact Info) Description 03/18/2025 9:00 AM CDT Office Visit [facility] Heart and Vascular At [address] [place] [address] Jh Willis MD [address] [place] [address] [address] [place] [address] 08/26/2025 8:45 AM CDT Office Visit [facility] Oncology and Hematology - [place]in [address] [facility] 200 [place] [address] Graeme Diez MD [address] [facility] [address] [place] [address] documented as of this encounter Visit Diagnoses Not on filedocumented in this encounter Care Teams Dump Truck Driver Off Highway Relationship Specialty Start Date End Date Jose Lewis DO PCP - General 05/04/15 documented as of this encounter
--- OUTSIDE RECORDS SUMMARY | 2024-08-31 06:53 | XMS_ITS | Encounter Summary ---
Author Organization [facility] Address [address] [place] [address] Care Team Providers Care Self Pay Specialist Name Role Phone Jose Lewis DO Primary Care Provider Encounter Details Date Type Department Care Team (Latest Contact Info) Description 08/22/2006 Inpatient Historical HIS PATIENT IN A BED Jh Guerrero Jr., MD NO ADDRESS ON FILE Jose Schrader MD [address] 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 Gender Identity Not on file Sexual Orientation Not on file documented as of this encounter Plan of Treatment Upcoming Encounters Date Type Department Care Team (Late st Contact Info) Description 03/18/2025 9:00 AM CDT Office Visit [facility] [address] [facility] [facility] [address] [place] [address] Jh Willis MD [facility] [address] [facility] [address] [place] [address] 08/26/2025 8:45 AM CDT Office Visit [facility] Oncology and Hematology - [place] [address] [place] [address] Graeme Diez MD [address] [facility] [address] [place] [address] documented as of this encounter Procedures Procedure [...] (ABNORMAL) POC GLUCOSE (08/26/2006 12:08 PM CDT) [facility] GLUCOSE POC 124(H) 65 - 99 mg/dL INTERFACE SYSTEM 08/26/2006 12:0 8 PM CDT Jose Schrader MD POINT OF CARE TESTING Edited INTERFACE SYSTEM Refer to clinic/hospital department * (ABNORMAL) CBC WITH DIFFERENTIAL (08/26/2006 8:37 AM CDT) Pathologist [facility] NEUTROPHILS 82(H) 45 - 70 % INTERFAC [...] HEMATOLOGY ORDERABLES E dited Performing Organization Address [facility] Phone Number INTERFACE SYSTEM Refer [...] HEMATOLOGY ORDERABLES E dited Performing Organization Address [facility] Phone Number INTERFACE SYSTEM Refer [...] and non- Americans is available on the [facility] Intranet at: [email or web address] Select: Lab Policies and Procedures Select: Reference Ranges - GFR 08/26/2006 8:37 AM CDT Jh Guerrero Jr., MD CHEMISTRY ORDERABLES Ed ited Performing Organization Address City/[facility] Co de Phone Number INTERFACE SYSTEM Refer to clinic/hospital department * (ABNORMAL) POC GLUCOSE (08/26/2006 8:16 AM CDT) GLUCOSE POC 202(H) 65 - 99 mg/dL INTERFACE SYSTEM 08/26/2006 8:16 AM CDT us Jose Schrader MD POINT OF CARE TESTING Edited Performing Organization Address [facility] Co de Phone Number INTERFACE SYSTEM Refer to clinic/hospital department * (ABNORMAL) POC GLUCOSE (08/25/2006 8:18 PM CDT) GLUCOSE POC 180(H) 65 - 99 mg/dL INTERFACE SYSTEM 08/25/2006 8:18 PM CDT Jose Schrader MD POINT OF CARE TESTING Edited Performing Organization Address [facility] de Phone Number INTERFACE SYSTEM Refer to clinic/hospital department * (ABNORMAL) POC GLUCOSE (08/25/2006 4:56 PM CDT) GLUCOSE POC 131(H) 65 - 99 mg/dL INTERFACE SYSTEM 08/25/2006 4:56 PM CDT us Jose Schrader MD POINT OF CARE TESTING Edited Performing Organization Address [facility] Co de Phone Number INTERFACE SYSTEM Refer to clinic/hospital department * (ABNORMAL) POC GLUCOSE (08/25/2006 12:00 PM CDT) GLUCOSE POC 148(H) 65 - 99 mg/dL INTERFACE SYSTEM 08/25/2006 12:0 0 PM CDT us Jose Schrader MD POINT OF CARE TESTING Edited Performing Organization Address [facility] Co de Phone Number INTERFACE SYSTEM Refer to clinic/hospital department * (ABNORMAL) POC GLUCOSE (08/25/2006 7:25 AM CDT) GLUCOSE POC 137(H) 65 - 99 mg/dL INTERFACE SYSTEM 08/25/2006 7:25 AM CDT us Jose Schrader MD POINT OF CARE TESTING Edited Performing Organization Address [facility] de Phone Number INTERFACE SYSTEM Refer to clinic/hospital department * (ABNORMAL) POC GLUCOSE (08/24/2006 8:33 PM CDT) GLUCOSE POC 185(H) 65 - 99 mg/dL INTERFACE SYSTEM 08/24/2006 8:33 PM CDT us Jose Schrader MD POINT OF CARE TESTING Edited Performing Organization Address [facility] de Phone Number INTERFACE SYSTEM Refer to clinic/hospital department * (ABNORMAL) POC GLUCOSE (08/24/2006 6:12 PM CDT) GLUCOSE POC 165(H) 65 - 99 mg/dL INTERFACE SYSTEM 08/24/2006 6:12 PM CDT us Jose Schrader MD POINT OF CARE TESTING Edited Performing Organization Address [facility] de Phone Number INTERFACE SYSTEM Refer to clinic/hospital department * (ABNORMAL) POC GLUCOSE (08/24/2006 11:48 AM CDT) GLUCOSE POC 135(H) 65 - 99 mg/dL INTERFACE SYSTEM 08/24/2006 11:4 8 AM CDT Jose Schrader MD POINT OF CARE TESTING Edited Performing Organization Address [facility] Co de Phone Number INTERFACE SYSTEM Refer [...] MD HEMATOLOGY ORDERABLES Edited Performing Organization Address [facility] de Phone Number INTERFACE SYSTEM Refer to [...] MD HEMATOLOGY ORDERABLES Edited Performing Organization Address [facility] Phone Number INTERFACE SYSTEM Refer to clinic/hospital department * (ABNORMAL) POC GLUCOSE (08/24/2006 7:56 AM CDT) GLUCOSE POC 157(H) 65 - 99 mg/dL INTERFACE SYSTEM 08/24/2006 7:56 AM CDT Jose Schrader MD POINT OF CARE TESTING Edited Performing Organization Address [facility] Phone Number INTERFACE SYSTEM Refer to [...] and non- Americans is available on the [facility] Intranet at: [email or web address] Select: Lab Policies and Procedures Select: Reference Ranges - GFR 08/24/2006 5:37 AM CDT us Jh Guerrero Jr., MD CHEMISTRY ORDERABLES Ed ited Performing Organization Address [facility] de Phone Number INTERFACE SYSTEM Refer to clinic/hospital department * (ABNORMAL) POC GLUCOSE (08/23/2006 8:28 PM CDT) GLUCOSE POC 153(H) 65 - 99 mg/dL INTERFACE SYSTEM 08/23/2006 8:28 PM CDT us Jose Schrader MD POINT OF CARE TESTING Edited Performing Organization Address City/[facility] Co de Phone Number INTERFACE SYSTEM Refer to clinic/hospital department * (ABNORMAL) POC GLUCOSE (08/23/2006 6:00 PM CDT) GLUCOSE POC 160(H) 65 - 99 mg/dL INTERFACE SYSTEM 08/23/2006 6:00 PM CDT us Jose Schrader MD POINT OF CARE TESTING Edited Performing Organization Address [facility] Phone Number INTERFACE SYSTEM Refer to clinic/hospital department * (ABNORMAL) POC GLUCOSE (08/23/2006 3:50 PM CDT) GLUCOSE POC 181(H) 65 - 99 mg/dL INTERFACE SYSTEM 08/23/2006 3:50 PM CDT us Jose Schrader MD POINT OF CARE TESTING Edited Performing Organization Address [facility] de Phone Number INTERFACE SYSTEM Refer to clinic/hospital department * (ABNORMAL) POC GLUCOSE (08/23/2006 12:38 PM CDT) GLUCOSE POC 137(H) 65 - 99 mg/dL INTERFACE SYSTEM 08/23/2006 12:3 8 PM CDT us Jose Scrhader MD POINT OF CARE TESTING Edited Performing Organization Address [facility] Co de Phone Number INTERFACE SYSTEM Refer to clinic/hospital department * (ABNORMAL) POC GLUCOSE (08/23/2006 9:57 AM CDT) GLUCOSE POC 170(H) 65 - 99 mg/dL INTERFACE SYSTEM 08/23/2006 9:57 AM CDT Jose Schrader MD POINT OF CARE TESTING Edited Performing Organization Address [facility] de Phone Number INTERFACE SYSTEM Refer to clinic/hospital department * (ABNORMAL) POC GLUCOSE (08/23/2006 6:14 AM CDT) GLUCOSE POC 114(H) 65 - 99 mg/dL INTERFACE SYSTEM 08/23/2006 6:14 AM CDT Jose Schrader MD POINT OF CARE TESTING Edited Performing Organization Address [facility] de Phone Number INTERFACE SYSTEM Refer to clinic/hospital department * (ABNORMAL) POC GLUCOSE (08/23/2006 4:57 AM CDT) GLUCOSE POC 111(H) 65 - 99 mg/dL INTERFACE SYSTEM 08/23/2006 4:57 AM CDT Jose Schrader MD POINT OF CARE TESTING Edited Performing Organization Address [facility] de Phone Number INTERFACE SYSTEM Refer to [...] HEMATOLOGY ORDERABLES E dited Performing Organization Address [facility] Phone Number INTERFACE SYSTEM Refer [...] HEMATOLOGY ORDERABLES E dited Performing Organization Address [facility] Phone Number INTERFACE SYSTEM Refer [...] patients with mechanical heart valves or post [place]. Pediatric (12 years and under): 1.5 - [...] and non- Americans is available on the [facility] Intranet at: [email or web address] Select: Lab Policies and Procedures Select: Reference Ranges - GFR 08/23/2006 4:20 AM CDT Jh Guerrero Jr., MD CHEMISTRY ORDERABLES Ed ited Performing Organization Address [facility] Phone Number INTERFACE SYSTEM Refer to clinic/hospital department * (ABNORMAL) POC GLUCOSE (08/23/2006 4:11 AM CDT) GLUCOSE POC 118(H) 65 - 99 mg/dL INTERFACE SYSTEM 08/23/2006 4:11 AM CDT Jose Schrader MD POINT OF CARE TESTING Edited Performing Organization Address [facility] Phone Number INTERFACE SYSTEM Refer to clinic/hospital department * (ABNORMAL) POC GLUCOSE (08/23/2006 2:40 AM CDT) GLUCOSE POC 133(H) 65 - 99 mg/dL INTERFACE SYSTEM 08/23/2006 2:40 AM CDT Jose Schrader MD POINT OF CARE TESTING Edited Performing Organization Address [facility] Phone Number INTERFACE SYSTEM Refer to clinic/hospital department * (ABNORMAL) POC GLUCOSE (08/23/2006 1:45 AM CDT) GLUCOSE POC 142(H) 65 - 99 mg/dL INTERFACE SYSTEM 08/23/2006 1:45 AM CDT us Jose Schrader MD POINT OF CARE TESTING Edited Performing Organization Address [facility] Phone Number INTERFACE SYSTEM Refer to clinic/hospital department * (ABNORMAL) POC GLUCOSE (08/23/2006 12:26 AM CDT) GLUCOSE POC 168(H) 65 - 99 mg/dL INTERFACE SYSTEM 08/23/2006 12:2 6 AM CDT us Jose Schrader MD POINT OF CARE TESTING Edited Performing Organization Address [facility] de Phone Number INTERFACE SYSTEM Refer to [...] MD CHEMISTRY ORDERABLES Edited Performing Organization Address [facility] Phone Number INTERFACE SYSTEM Refer to clinic/hospital department * MAGNESIUM LEVEL (08/22/2006 11:50 PM CDT) MAGNESIUM 1.9 1.5 - 2.5 mg/dL INTERFACE SYSTEM 08/22/2006 11:5 0 PM CDT us Jh Guerrero Jr., MD CHEMISTRY ORDERABLES Ed ited Performing Organization Address City/[facility] Co de Phone Number INTERFACE SYSTEM Refer to clinic/hospital department * POTASSIUM LEVEL (08/22/2006 11:50 PM CDT) POTASSIUM 4.8 3.5 - 4.9 mmol/L INTERFACE SYSTEM 08/22/2006 11:5 0 PM CDT us Jh Guerrero Jr., MD CHEMISTRY ORDERABLES Ed ited Performing Organization Address [facility] Phone Number INTERFACE SYSTEM Refer [...] CHEMISTRY ORDERABLES Ed ited Performing Organization Address [facility] Phone Number INTERFACE SYSTEM Refer to clinic/hospital department * (ABNORMAL) POC GLUCOSE (08/22/2006 11:46 PM CDT) GLUCOSE POC 175(H) 65 - 99 mg/dL INTERFACE SYSTEM 08/22/2006 11:4 6 PM CDT us Jose Schrader MD POINT OF CARE TESTING Edited Performing Organization Address [facility] Phone Number INTERFACE SYSTEM Refer to clinic/hospital department * (ABNORMAL) POC GLUCOSE (08/22/2006 11:02 PM CDT) GLUCOSE POC 177(H) 65 - 99 mg/dL INTERFACE SYSTEM 08/22/2006 11:0 2 PM CDT Jose Schrader MD POINT OF CARE TESTING Edited Performing Organization Address [facility] de Phone Number INTERFACE SYSTEM Refer to clinic/hospital department * (ABNORMAL) POC GLUCOSE (08/22/2006 9:58 PM CDT) GLUCOSE POC 183(H) 65 - 99 mg/dL INTERFACE SYSTEM 08/22/2006 9:58 PM CDT Jose Schrader MD POINT OF CARE TESTING Edited Performing Organization Address [facility] Co de Phone Number INTERFACE SYSTEM Refer to clinic/hospital department * (ABNORMAL) POC GLUCOSE (08/22/2006 9:31 PM CDT) GLUCOSE POC 189(H) 65 - 99 mg/dL INTERFACE SYSTEM 08/22/2006 9:31 PM CDT Jose Schrader MD POINT OF CARE TESTING Edited Performing Organization Address [facility] de Phone Number INTERFACE SYSTEM Refer to [...] MD CHEMISTRY ORDERABLES Edited Performing Organization Address City/[facility] de Phone Number INTERFACE SYSTEM Refer to clinic/hospital department * (ABNORMAL) POC GLUCOSE (08/22/2006 8:31 PM CDT) GLUCOSE POC 168(H) 65 - 99 mg/dL INTERFACE SYSTEM 08/22/2006 8:31 PM CDT Jose Schrader MD POINT OF CARE TESTING Edited Performing Organization Address [facility] de Phone Number INTERFACE SYSTEM Refer to clinic/hospital department * (ABNORMAL) POC GLUCOSE (08/22/2006 7:40 PM CDT) GLUCOSE POC 142(H) 65 - 99 mg/dL INTERFACE SYSTEM 08/22/2006 7:40 PM CDT Jose Schrader MD POINT OF CARE TESTING Edited Performing Organization Address [facility] Phone Number INTERFACE SYSTEM Refer to clinic/hospital department * MAGNESIUM LEVEL (08/22/2006 5:57 PM CDT) MAGNESIUM 2.0 1.5 - 2.5 mg/dL INTERFACE SYSTEM 08/22/2006 5:57 PM CDT Jh Guerrero Jr., MD CHEMISTRY ORDERABLES Ed ited Performing Organization Address [facility] Phone Number INTERFACE SYSTEM Refer [...] HEMATOLOGY ORDERABLES E dited Performing Organization Address [facility] de Phone Number INTERFACE SYSTEM Refer to [...] patients with mechanical heart valves or post [place]. Pediatric (12 years and under): 1.5 - [...] HEMATOLOGY ORDERABLES E dited Performing Organization Address [facility] de Phone Number INTERFACE SYSTEM Refer to [...] and non- Americans is available on the [facility] Intranet at: [email or web address] Select: Lab Policies and Procedures Select: Reference Ranges - GFR 08/22/2006 5:55 PM CDT Jh Guerrero Jr., MD CHEMISTRY ORDERABLES Ed ited Performing Organization Address [facility] de Phone Number INTERFACE SYSTEM Refer to [...] CHEMISTRY ORDERABLES Ed ited Performing Organization Address [facility] de Phone Number INTERFACE SYSTEM Refer to [...] MD CHEMISTRY ORDERABLES Edited Performing Organization Address [facility] Co de Phone Number INTERFACE SYSTEM Refer [...] CVR ONLY, CKMB/CK (08/22/2006 4:00 PM CDT) [facility] CKMB Invalid Result <=6.7 INTERFACE SYSTEM Comment:Results [...] WITH DIFFERENTIAL (08/22/2006 4:00 PM CDT) Pathologist [facility] NEUTROPHILS Invalid Result 45 - 70 INTERFACE [...] HEMATOLOGY ORDERABLES E dited Performing Organization Address City/[facility] de Phone Number INTERFACE SYSTEM Refer to [...] and non- Americans is available on the [facility] Intranet at: [email or web address] Select: Lab Policies and Procedures Select: Reference Ranges - GFR 08/22/2006 4:00 PM CDT Jh Guerrero Jr., MD CHEMISTRY ORDERABLES Ed ited Performing Organization Address City/State/[facility] Co de Phone Number INTERFACE SYSTEM Refer [...] MD CHEMISTRY ORDERABLES Edited Performing Organization Address [facility] de Phone Number INTERFACE SYSTEM Refer to [...] MD CHEMISTRY ORDERABLES Edited Performing Organization Address [facility] Co de Phone Number INTERFACE SYSTEM Refer [...] MD CHEMISTRY ORDERABLES Edited Performing Organization Address [facility] de Phone Number INTERFACE SYSTEM Refer to [...] patients with mechanical heart valves or post [place]. Pediatric (12 years and under): 1.5 - [...] HEMATOLOGY ORDERABLES E dited Performing Organization Address City/[facility] Co de Phone Number INTERFACE SYSTEM Refer to clinic/hospital department documented in this encounter Visit Diagnoses Diagnosis Coronary atherosclerosis of [place] coronary artery- Primary documented in this encounter Care Teams Self Pay Specialist Relationship Specialty Start Date End Date Jose Lewis DO PCP - General 05/04/15 documented as of this encounter
--- OUTSIDE RECORDS SUMMARY | 2024-08-31 06:53 | XMS_ITS | Clinical Summary ---
Author Organization [facility] Address [address] [place] [address] Care Team Providers Care Peanut Picker Name Role Phone Jose Lewis DO Primary [...] mamide (B-12 PLUS SUBLINGUAL) 0 Active omega 3-tqu-ujr-fish oil 300 mg (120 mg- 180mg)-1,000 mg Capsule 9 Active rosuvastatin (CRESTOR) 40 mg tabletIndications:C oronary artery disease involving [place] coronary artery of [place] heart without angina pectoris,Mixed hyperlipidemia TAKE 1 [...] Coronary atherosclerosis of unspecified type of vessel, [place] or graft 09/29/2006 03/29/2010 Posttraumatic stress disorder [...] Encounters Date Type Department Care Team Description 08/20/2024 8:45 AM CDT Office Visit [facility] Oncology and Hematology [facility] [address] [place] [address] Graeme Diez MD Other secondary thrombocytopenia (Primary Dx) 08/17/2024 Orders Only [facility] Oncology [facility] Hematology [facility] [address] [place] [address] Graeme Diez MD 08/04/2024 External Device Data [facility] ABSTRACTION Provider, Abstract 07/24/2024 External Device Data [place] ABSTRACTION Provider, Abstract 07/23/2024 External Device Data [facility] ABSTRACTION Provider, Abstract 07/07/2024 External Device Data [facility] ABSTRACTION Provider, Abstract 06/16/2024 External Device Data [place] ABSTRACTION Provider, Abstract 06/10/2024 External Device Data [place] ABSTRACTION Provider, Abstract 06/08/2024 Refill [facility] [place] [address] [place] [address] Jh Willis MD from Last 3 Months Immunizations Immunization Administration Dates Next Due (ADACEL/BOOSTRIX)(10 YR UP) TDAP VACCINE, 0.5ML, IM 11/14/2011 (PFIZER)(12 YR UP) COVID-19 VACCINE - EMERGENCY USE AUTHORIZATION, MRNA, [id number](PF) 30 MCG/0.3 ML IM SUSP 02/20/2021,07/12/2020,06/23/2020 (PNEUMOVAX [...] on file 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 Gender Identity Not on file Sexual Orientation Not on file Last Filed Vital Signs Vital Sign Reading Time Taken Comments Blood Pressure 131/72 08/20/2024 9:03 AM CDT Pulse 50 08/20/2024 9:03 AM CDT Temperature 35.9 C (96.6 F) 08/20/2024 9:03 AM CDT Respiratory Rate 16 08/20/2024 9:03 AM CDT Oxygen Saturation 97% 08/20/2024 9:03 AM CDT Inhaled Oxygen Concentration - - Weight 84.5 kg (186 lb 3.2 oz) 08/20/2024 9:03 A M CDT Height 182.9 cm (6') 03/15/2024 1:09 PM CDT Body Mass Index 25.25 03/15/2024 1:09 PM CDT Plan of Treatment Upcoming Encounters Date Type Department Care Team (Late st Contact Info) Description 03/18/2025 9:00 AM CDT Office Visit [facility] [place] [address] [place] [phone] Jh Willis MD [facility] [address] [facility] [address] [place] [address] 08/26/2025 8:45 AM CDT Office Visit [facility] Oncology and Hematology - [place] [address] [place] [address] Graeme Diez MD [address] [facility] [address] [place] [address] Health Maintenance Due Date Last Done Comments [...] 02/25/2011, 03/02/2010, Additional history exists COVID-19 Vaccine (5 - 2023-2 5 season) 2024 02/07/2022, 02/20/2021, 07/12/2020, Additional history exists Procedures Procedure Name Priority Date/Time Associated Diagnosis Comments COMPREHENSIVE METABOLIC PANEL Routine 08/17/2024 1:04 PM CDT COMPREHENSIVE METABOLIC PANEL Routine 08/17/2024 1:00 PM CDT from Last 3 Months Results * COMPREHENSIVE METABOLIC PANEL (08/17/2024 1:04 PM CDT) Only the most recent of2 resultswithin the time period is included. Blood us Graeme Diez MD CHEMISTRY ORDERABLES Final Resu lt from Last 3 Months Insurance MEDICARE PART A AND B [facility] SUPP MEDICARE PART A AND B [facility] SUPP Advance Directives For more information, please contact: [phone] Documents on File Type Date Recorded Patient Cupola Operator Insulation Expl anation Advance Directive POA 01/06/2020 10:40 AM Advance Directive POA Care Teams Peanut Picker Relationship Specialty Start Date End Date Jose Lewis DO PCP - General 05/04/15
--- OUTSIDE RECORDS SUMMARY | 2024-08-31 06:53 | XMS_ITS | Encounter Summary ---
Author Organization [facility] Address 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 Gender Identity Not on file Sexual Orientation Not on file documented as of this encounter Plan of Treatment Upcoming Encounters Date Type Department Care Team (Late st Contact Info) Description 03/18/2025 9:00 AM CDT Office Visit [facility] Heart and Vascular At [address] [place] [address] Jh Willis MD [address] [place] [address] [address] [place] [address] 08/26/2025 8:45 AM CDT Office Visit [facility] Oncology and Hematology - [place] [address] [facility] [address] [place] [address] Graeme Diez MD [address] [facility] [address] [place] [address] documented as of this encounter Visit Diagnoses Not on filedocumented in this encounter Care Teams Youth Corrections Officer Relationship Specialty Start Date End Date Jose Lewis DO PCP - General 05/04/15 documented as of this encounter
--- OUTSIDE RECORDS SUMMARY | 2024-08-31 06:53 | XMS_ITS | Continuity of Care Document ---
Author Organization [facility] Address [address] [place] [address] [address] [place] [address] Phone Care Team Providers Care Revenue Cycle Consultant Name Role Phone Jh Peralta MD Unavailable [...] GDX Optic Nerve GONIOSCOPY OFFICE/OUTPATIENT VISIT, [facility] Advance Directives Directive Yes / No Effective Date File Name No Information Encounters Encounter Description Practice Location Reason(s) For Visit Diagnoses Date Provider Providers Copied on Encounter OFFICE/OUTPA TIENT VISIT, [facility], [address] [place] [address], [place], [place], [id number], [place] tel:[phone] [facility] Glaucoma Evaluation (chief complaint) Presence of pseudophakiaOp en angle with borderline findings, low risk, bilateralPucke ring of macula, bilateral Jul-2 Bj Peñaloza. [address] [place], [address], [place]. tel:[phone] Consulting Provider: Donnie Lemons, [address] [place] [facility], [place], [address]. tel:[phone] ring Provider: Jh Peralta, [address] [facility], [place], [address]. tel:[phone] [facility], [address] [place] [address], [place], [place], [id number], tel:[phone] [facility] No Information 2 Bj Peñaloza. [address] [place], [address], [place]. tel:[phone] Family History Family Member Type Diagnosis Age At Onset Problem Family history of Heart dise ase Problem Family history of Diabetes m bryan Payers Payer name Insurance type Covered green party ID Authoriza anant(s) [place] MB [id number] [employer] [place] [id number] Social History Type Description Quantity Date Captured [...]
--- OUTSIDE RECORDS SUMMARY | 2024-08-31 06:53 | XMS_ITS | Encounter Summary ---
Author Organization [facility] Address 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 Gender Identity Not on file Sexual Orientation Not on file documented as of this encounter Plan of Treatment Upcoming Encounters Date Type Department Care Team (Late st Contact Info) Description 03/18/2025 9:00 AM CDT Office Visit [facility] Heart and Vascular At [address] [place] [address] Jh Willis MD [address] [place] [address] [address] [place] [address] 08/26/2025 8:45 AM CDT Office Visit [facility] Oncology and Hematology - [place] [address] [facility] 200 [place] [address] Graeme Diez MD 2227 [facility] 100 [place] [address] documented as of this encounter Visit Diagnoses Not on filedocumented in this encounter Care Teams Greenhouse Laborer Relationship Specialty Start Date End Date Jose Lewis DO PCP - General 05/04/15 documented as of this encounter
--- OUTSIDE RECORDS SUMMARY | 2024-08-31 06:53 | XMS_ITS | Encounter Summary ---
Author Organization [facility] Address 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 Gender Identity Not on file Sexual Orientation Not on file documented as of this encounter Plan of Treatment Upcoming Encounters Date Type Department Care Team (Late st Contact Info) Description 03/18/2025 9:00 AM CDT Office Visit [facility] Heart and Vascular At [place] [address] [facility] [address] [place] [address] Jh Willis MD [address] [place] [address] [address] [place] [address] 08/26/2025 8:45 AM CDT Office Visit [facility] Oncology and Hematology - Brandin 2[address] [facility] 200 [place] [address] Graeme Diez MD 2227 [facility] [address] [place] [phone] documented as of this encounter Visit Diagnoses Not on filedocumented in this encounter Care Teams Ged Teacher Relationship Specialty Start Date End Date Jose Lewis DO PCP - General 05/04/15 documented as of this encounter
--- OUTSIDE RECORDS SUMMARY | 2024-08-31 06:53 | XMS_ITS | Encounter Summary ---
Author Organization [facility] Address 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 Gender Identity Not on file Sexual Orientation Not on file documented as of this encounter Plan of Treatment Upcoming Encounters Date Type Department Care Team (Late st Contact Info) Description 03/18/2025 9:00 AM CDT Office Visit [facility] Heart and Vascular At [address] [place] [address] Jh Willis MD [address] [place] [address] [address] [place] [address] 08/26/2025 8:45 AM CDT Office Visit [facility] Oncology and Hematology - Brandin [address] [place] [address] Graeme Diez MD 2227 [facility] [address] [place] [address] documented as of this encounter Procedures Procedure [...] WITH DIFFERENTIAL (09/17/2006 11:50 AM CDT) Pathologist [facility] WBC 6.7 4.0 - 9.8 K/uL INTERFACE [...] encounter Visit Diagnoses Diagnosis Coronary atherosclerosis of [place] coronary artery- Primary documented in this encounter Care Teams Balloon Seller Relationship Specialty Start Date End Date Jose Lewis DO PCP - General 05/04/15 documented as of this encounter
--- OUTSIDE RECORDS SUMMARY | 2024-08-31 06:53 | XMS_ITS | Encounter Summary ---
Author Organization [facility] Address 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 Gender Identity Not on file Sexual Orientation Not on file documented as of this encounter Plan of Treatment Upcoming Encounters Date Type Department Care Team (Late st Contact Info) Description 03/18/2025 9:00 AM CDT Office Visit [facility] Heart and Vascular At [place] [address] [facility] [address] [place] [address] Jh Willis MD [address] [place] [address] [address] [place] [address] 08/26/2025 8:45 AM CDT Office Visit [facility] Oncology and Hematology - Brandin 2[address] [facility] 200 [place] [address] Graeme iDez MD 2227 [facility] [address] [place] [phone] documented as of this encounter Visit Diagnoses Not on filedocumented in this encounter Care Teams Orange Picker Relationship Specialty Start Date End Date Jose Lewis DO PCP - General 05/04/15 documented as of this encounter
[2024-08-31 08:59] LABS: Creatinine Urine 105.3 mg/dL
[2024-08-31 09:03] LABS: MALB Creatinine Ratio 32.9 mg/g (0-30); Microalbumin Urine Random 34.6 mg/L (0-16.7)
== END 2024-08-31 06:49 | disposition home or self-care (01) ==
PROVIDERS: PCP Clinical Nurse Specialist; Visit Provider Clinical Nurse Specialist
DX: E11.9 Type 2 diabetes mellitus without complications (principal)
CPT/HCPCS: 36415; 82043; 83036

== ENCOUNTER 2024-09-20 13:46 | Emergency (ER) | payer MEDICARE, SELFPAY ==
[2024-09-20] VITALS (11 sets, daily range): BP systolic 142–162; BP diastolic 61–70; PULSE 52–67; RESP 13–24; TEMP 36.6; O2SAT 97–100
--- NOTE | ~2024-09-20 | XR_ITS ---
EXAMINATION: XR chest 2V DATE: 09/20/2024 14:22 INDICATION: Chest pain and shortness of breath TECHNIQUE: PA and lateral views of the chest were obtained. COMPARISON: Chest radiograph dated 04/06/2022 FINDINGS: The lungs are clear with no focal airspace opacities, pulmonary edema, pleural effusion or pneumothor ax. The cardiomediastinal silhouette is normal. Median sternotomy wires and mediastinal surgical clip s are seen, likely from prior coronary artery bypass grafting. IMPRESSION: 1. No acute cardiopulmonary disease. Reviewed, dictated and finalized at location A.
--- NOTE | 2024-09-20 13:47 | ECG_ITS ---
Test Date: 2024-09-20 13:56:09 Measurements Intervals [place] Rate: 61 P: -1 TX: 147 QRS: 16 QRSD: 96 T: 41 QT: 426 QTc: 432 Interpretive Statements SINUS RHYTHM [address] SEGMENT DEPRESSION CONSIDER ISCHEMIA ABNORMAL ECG No previous ECG available for comparison Electronically Signed On 09-20-2024 15:50:11 CDT by Noel Hernández M.D.
--- OUTSIDE RECORDS SUMMARY | 2024-09-20 14:18 | XMS_ITS | Encounter Summary ---
Author Organization [facility] Address 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 Gender Identity Not on file Sexual Orientation Not on file documented as of this encounter Plan of Treatment Upcoming Encounters Date Type Department Care Team (Late st Contact Info) Description 03/18/2025 9:00 AM CDT Office Visit [facility] Heart and Vascular At [address] [place] [address] Jh Willis MD [address] [place] [address] [address] [place] [address] 08/26/2025 8:45 AM CDT Office Visit [facility] Oncology and Hematology - Brandin [address] [facility] 200 [place] [address] Graeme Diez MD 2227 [facility] [address] [place] [phone] documented as of this encounter Visit Diagnoses Not on filedocumented in this encounter Care Teams Tow Mate Relationship Specialty Start Date End Date Jose Lewis DO PCP - General 05/04/15 documented as of this encounter
--- OUTSIDE RECORDS SUMMARY | 2024-09-20 14:19 | XMS_ITS | Encounter Summary ---
Author Organization [facility] Address 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 Gender Identity Not on file Sexual Orientation Not on file documented as of this encounter Plan of Treatment Upcoming Encounters Date Type Department Care Team (Late st Contact Info) Description 03/18/2025 9:00 AM CDT Office Visit [facility] Heart and Vascular At [address] [place] [address] Jh Willis MD [address] [place] [address] [address] [place] [address] 08/26/2025 8:45 AM CDT Office Visit [facility] Oncology and Hematology - Brandin 2227 [facility] 200 [place] [address] Graeme Diez MD 2227 [facility] [address] [place] [phone] documented as of this encounter Visit Diagnoses Not on filedocumented in this encounter Care Teams Benefits Administrator Relationship Specialty Start Date End Date Jose Lewis DO PCP - General 05/04/15 documented as of this encounter
--- OUTSIDE RECORDS SUMMARY | 2024-09-20 14:19 | XMS_ITS | Encounter Summary ---
Author Organization [facility] Address 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 Gender Identity Not on file Sexual Orientation Not on file documented as of this encounter Plan of Treatment Upcoming Encounters Date Type Department Care Team (Late st Contact Info) Description 03/18/2025 9:00 AM CDT Office Visit [facility] Heart and Vascular At [address] [place] [address] Jh Willis MD [address] [place] [address] [address] [place] [address] 08/26/2025 8:45 AM CDT Office Visit [facility] Oncology and Hematology - Brandin [address] [facility] 200 [place] [address] Graeme Diez MD 2[address] [facility] 100 [place] [address] documented as of this encounter Visit Diagnoses Not on filedocumented in this encounter Care Teams Operations Asst Relationship Specialty Start Date End Date Jose Lewis DO PCP - General 05/04/15 documented as of this encounter
--- OUTSIDE RECORDS SUMMARY | 2024-09-20 14:19 | XMS_ITS | Encounter Summary ---
Author Organization [facility] Address 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 [address] D.O.B: 1950 SSN: [id number] Parent/Guardian if applicable: Patient Insurance: BLUE CROSS BLUE SHIELD ID#: [id number] Group#: ORDER(S) #: [id number] MRI of left shoulder BEST TO CALL HOME. BEST TIME TO CALL: ANYTIME. MAY WE LEAVE MESSAGE AT THAT NUMBER: YES, LEAVE MESSAGE. PLEASE SCHEDULE THE APPOINTMENT AT THE FOLLOWING LOCATION: TEST SCHEDULE OTHER LOCATION. MRI in [place]-patient to give name of facility TEST PRIORITY: 2 - 7 DAYS. ORDERING PHYSICIAN: LOBO OLSEN MD OFFICE BLUEPRINT CLERK & PHONE: Rita Alfaro R ORDER PRINTED BY: DEC 04, 2006 Thania Michelle, P 06:09 p FOR SCHEDULING USE ONLY: FIRST ATTEMPT Date:DEC 04, 2006 Thania Michelle, P 06:47 p Left message on Recorder. Actually spoke with pt and stated he will call back tomorrow to schedule because [facility] [place] was already closed. SECOND ATTEMPT: Date:MAR 05, [...] aggressive risk reduction LAB ORDERS: Order number: [id number] Test Ordered: COMPREHENSIVE METABOLIC PANEL & GFR 1112 Order number: [id number] Test Ordered: LIPID PANEL 1078 Order number: [id number] Test Ordered: PSA, TOTAL 1002 602.9-OTHER DISORDERS OF PROSTATE cont med 782.1-RASH improved 715.11-OSTEOARTHROSIS AND ALLIED DISORDERS left shoulder pain LAB ORDERS: Order number: [id number] Test Ordered: MRI SHOULDER LEFT PREVENTIVE COUNSELING [...] Description 03/18/2025 9:00 AM CDT Office Visit [facility] Heart and Vascular At [place] [address] [facility] [address] [place] [address] Jh Willis MD [facility] [address] [place] [address] 08/26/2025 8:45 AM CDT Office Visit [facility] Oncology and Hematology - Brandin [address] [place] [address] Graeme Diez MD [facility] [address] [place] [address] [phone] documented as of this encounter Visit Diagnoses Not on filedocumented in this encounter Care Teams Shoe Lacer Relationship Specialty Start Date End Date Nkechi Lewis DO PCP - General 05/04/15 documented as of this encounter
--- OUTSIDE RECORDS SUMMARY | 2024-09-20 14:19 | XMS_ITS | Encounter Summary ---
Author Organization [facility] Address 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 Gender Identity Not on file Sexual Orientation Not on file documented as of this encounter Plan of Treatment Upcoming Encounters Date Type Department Care Team (Late st Contact Info) Description 03/18/2025 9:00 AM CDT Office Visit [facility] Heart and Vascular At [address] [place] [address] Jh Willis MD [address] [place] [address] [address] [place] [address] 08/26/2025 8:45 AM CDT Office Visit [facility] Oncology and Hematology - Brandin 2227 [facility] 200 [place] [address] Graeme Diez MD 2227 [facility] [address] [place] [phone] documented as of this encounter Visit Diagnoses Not on filedocumented in this encounter Care Teams Ssrs Developer Relationship Specialty Start Date End Date Jose Lewis DO PCP - General 05/04/15 documented as of this encounter
--- OUTSIDE RECORDS SUMMARY | 2024-09-20 14:19 | XMS_ITS | Encounter Summary ---
Author Organization [facility] Address 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 Gender Identity Not on file Sexual Orientation Not on file documented as of this encounter Plan of Treatment Upcoming Encounters Date Type Department Care Team (Late st Contact Info) Description 03/18/2025 9:00 AM CDT Office Visit [facility] Heart and Vascular At [address] [place] [address] Jh Willis MD [address] [place] [address] [address] [place] [address] 08/26/2025 8:45 AM CDT Office Visit [facility] Oncology and Hematology - Brandin 2227 [facility] 200 [place] [address] Graeme Diez MD 2227 [facility] [address] [place] [phone] documented as of this encounter Visit Diagnoses Not on filedocumented in this encounter Care Teams Glove Printer Relationship Specialty Start Date End Date Jose Lewis DO PCP - General 05/04/15 documented as of this encounter
--- OUTSIDE RECORDS SUMMARY | 2024-09-20 14:19 | XMS_ITS | Encounter Summary ---
Author Organization [facility] Address 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 Gender Identity Not on file Sexual Orientation Not on file documented as of this encounter Plan of Treatment Upcoming Encounters Date Type Department Care Team (Late st Contact Info) Description 03/18/2025 9:00 AM CDT Office Visit [facility] Heart and Vascular At [address] [place] [address] Jh Willis MD [address] [place] [address] [address] [place] [address] 08/26/2025 8:45 AM CDT Office Visit [facility] Oncology and Hematology - Brandin 2227 [facility] 200 [place] [address] Graeme Diez MD 2227 [facility] [address] [place] [phone] documented as of this encounter Visit Diagnoses Not on filedocumented in this encounter Care Teams Frog Farmer Relationship Specialty Start Date End Date Jose Lewis DO PCP - General 05/04/15 documented as of this encounter
--- OUTSIDE RECORDS SUMMARY | 2024-09-20 14:19 | XMS_ITS | Encounter Summary ---
Author Organization [facility] Address 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 PROBLEMS: S/P CABG [...] [facility] V[facility] At [facility] [address] [facility] [address] [place] [address] Jh Willis MD [facility] [address] [facility] [address] [place] [address] 08/26/2025 8:45 AM CDT Office Visit [facility] Oncology and Hematology - Brandin 2227 [facility] 200 [place] [address] Graeme Diez MD 2227 [facility] [address] [place] [address] documented as of this encounter Visit Diagnoses Not on filedocumented in this encounter Care Teams Ludlow Machine Operator Relationship Specialty Start Date End Date Jose Lewis DO PCP - General 05/04/15 documented as of this encounter
--- OUTSIDE RECORDS SUMMARY | 2024-09-20 14:19 | XMS_ITS | Encounter Summary ---
Author Organization [facility] Address 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 Gender Identity Not on file Sexual Orientation [...] reviewed other supplts LAB ORDERS: Order number: [id number] Test Ordered: INJ-TETANUS & DIPTHERIA TOXOID 63287 272.4-HYPERLIPIDEMIA LAB ORDERS: now, pt fasting Order number: [id number] Test Ordered: CBC (INCLUDES DIFF/PLT) 6399 Order number: [id number] Test Ordered: COMPREHENSIVE METABOLIC PANEL 29090 Order number: [id number] Test Ordered: LIPID PANEL 7600 Order number: [id number] Test Ordered: TSH 899 Order number: [id number] Test Ordered: PSA 5363 602.9-OTHER DISORDERS OF PROSTATE discussed, rx if sx, check psa LAB ORDERS: Order number: [id number] Test Ordered: HEMOCCULT SINGLE 23116 SPECIALTY REFERRAL: GASTROENTEROLOGY Dr. Anil Shaw ph: [phone].colonscopy RETURN VISIT : Patient instructed to return in 3 months. Electronically Signed by: Octavio Mccain MD on Tuesday, June 14, 2005 documented in this encounter Plan of Treatment Upcoming Encounters Date Type Department Care Team (Late st Contact Info) Description 03/18/2025 9:00 AM CDT Office Visit [facility] Heart and Vascular At [address] [place] [address] Jh Willis MD [address] [place] [address] [address] [place] [address] 08/26/2025 8:45 AM CDT Office Visit [facility] Oncology and Hematology - Brandin 2227 [facility] 200 [place] [address] Graeme Diez MD 2227 [facility] [address] [place] [address] documented as of this encounter Visit Diagnoses Not on filedocumented in this encounter Care Teams Ball Rolling Machine Operator Relationship Specialty Start Date End Date Jose Lewis DO PCP - General 05/04/15 documented as of this encounter
--- OUTSIDE RECORDS SUMMARY | 2024-09-20 14:19 | XMS_ITS | Encounter Summary ---
Author Organization [facility] Address 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 Gender Identity Not on file Sexual Orientation Not on file documented as of this encounter Plan of Treatment Upcoming Encounters Date Type Department Care Team (Late st Contact Info) Description 03/18/2025 9:00 AM CDT Office Visit [facility] Heart and Vascular At [address] [place] [address] Jh Willis MD [address] [place] [address] [address] [place] [address] 08/26/2025 8:45 AM CDT Office Visit [facility] Oncology and Hematology - Brandin [address] [place] [address] Graeme Diez MD [address] [facility] [address] [place] [address] documented as of this encounter [...] WITH DIFFERENTIAL (09/17/2006 11:50 AM CDT) Pathologist [facility] WBC 6.7 4.0 - 9.8 K/uL INTERFACE [...] encounter Visit Diagnoses Diagnosis Coronary atherosclerosis of [place] coronary artery- Primary documented in this encounter Care Teams Mud Mixer Operator Relationship Specialty Start Date End Date Jose Lewis DO PCP - General 05/04/15 documented as of this encounter
--- OUTSIDE RECORDS SUMMARY | 2024-09-20 14:19 | XMS_ITS | Encounter Summary ---
Author Organization [facility] Address 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 PAN OPERATOR Gender Identity Not on file Sexual [...] 03/18/2025 9:00 AM CDT Office Visit [facility] Heart and Vascular At [address] [place] [address] Jh Willis MD [address] [place] [address] [address] [place], [place] [id number] 08/26/2025 8:45 AM CDT Office Visit [facility] Oncology and Hematology - Brandin 2227 [facility] 200 [place] [address] Graeme Diez MD [address] [facility] [address] [place] [address] documented as of this encounter Visit Diagnoses Not on filedocumented in this encounter Care Teams Finishing Powder Press Operator Relationship Specialty Start Date End Date Jose Lewis DO PCP - General 05/04/15 documented as of this encounter
--- OUTSIDE RECORDS SUMMARY | 2024-09-20 14:19 | XMS_ITS | Encounter Summary ---
Author Organization [facility] Address [address] [place] [address] Care Team Providers Care Software Developer Mid Level Name Role Phone Jose Lewis DO Primary Care Provider Encounter Details Date Type Department Care Team (Late st Contact Info) Description 08/20/2005 Outpatient Historical [facility] Internal Medicine [address] [address] Octavio Mccain MD [address] [place] [address] Social History Tobacco Use Types Packs/Day Years Used Date Smoking Tobacco: Never Assessed Sex and Gender Information Value Date Recorded Sex Assigned at Not on file Legal Sex Male 5:22 AM ESTIMATOR Gender Identity Not on file Sexual Orientation [...] Description 03/18/2025 9:00 AM CDT Office Visit [facility] Heart and Vascular At [address] [place] [address] Jh Willis MD [address] [place] [address] [address] [place], [place] [id number] 08/26/2025 8:45 AM CDT Office Visit [facility] Oncology and Hematology - Brandin 2227 [facility] 200 [place] [address] Graeme Diez MD 2227 [facility] [address] [place] [address] documented as of this encounter Visit Diagnoses Not on filedocumented in this encounter Care Teams Software Developer Mid Level Relationship Specialty Start Date End Date Jose Lewis DO PCP - General 05/04/15 documented as of this encounter
--- OUTSIDE RECORDS SUMMARY | 2024-09-20 14:19 | XMS_ITS | Encounter Summary ---
Author Organization [facility] Address [address] [place] [address] Care Team Providers Care Rotary Surface Grinder Name Role Phone Jose Lewis DO Primary Care Provider Encounter Details Date Type Department Care Team (Late st Contact Info) Description 12/02/2006 Outpatient Historical [facility] Internal Medicine [address] [address] Octavio Mccain MD [address] [place] [address] Social History Tobacco Use Types Packs/Day Years Used Date Smoking Tobacco: Never Assessed Sex and Gender Information Value Date Recorded Sex Assigned at Not on file Legal Sex Male 5:[address] INSTALLER Gender Identity Not on file Sexual [...] Description 03/18/2025 9:00 AM CDT Office Visit [facility] Heart and Vascular At [place] [address] [facility] [address] [place] [address] Jh Willis MD [address] [place] [address] [address] [place], [place] [id number] 08/26/2025 8:45 AM CDT Office Visit [facility] Oncology and Hematology - Brandin 2227 [facility] 200 [place] [address] Graeme Diez MD 2227 [facility] [address] [place] [address] documented as of this encounter Visit Diagnoses Not on filedocumented in this encounter Care Teams Rotary Surface Grinder Relationship Specialty Start Date End Date Jose Lewis DO PCP - General 05/04/15 documented as of this encounter
--- OUTSIDE RECORDS SUMMARY | 2024-09-20 14:19 | XMS_ITS | Encounter Summary ---
Author Organization [facility] Address 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 Gender Identity Not on file Sexual Orientation Not on file documented as of this encounter Plan of Treatment Upcoming Encounters Date Type Department Care Team (Late st Contact Info) Description 03/18/2025 9:00 AM CDT Office Visit [facility] Heart and Vascular At [address] [place] [address] Jh Willis MD [address] [place] [address] [address] [place] [address] 08/26/2025 8:45 AM CDT Office Visit [facility] Oncology and Hematology - Brandin [address] [facility] 200 [place] [address] Graeme Diez MD 2227 [facility] 100 [place] [address] documented as of this encounter Visit Diagnoses Not on filedocumented in this encounter Care Teams Production Engineer Track Relationship Specialty Start Date End Date Jose Lewis DO PCP - General 05/04/15 documented as of this encounter
--- OUTSIDE RECORDS SUMMARY | 2024-09-20 14:19 | XMS_ITS | Encounter Summary ---
Author Organization [facility] Address 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 [address] [facility] [address] [place] [address] 08/26/2025 8:45 AM CDT Office Visit [facility] Oncology and Hematology - Brandin [address] [facility] [address] [place] [address] Graeme Diez MD 2[address] [facility] [address] [place] [address] documented as of this encounter Visit Diagnoses Diagnosis Special screening for malignant neoplasms, colon- Primary documented in this encounter Care Teams Elevator Builder Relationship Specialty Start Date End Date Jose Lewis DO PCP - General 05/04/15 documented as of this encounter
--- OUTSIDE RECORDS SUMMARY | 2024-09-20 14:19 | XMS_ITS | Continuity of Care Document ---
Author Organization [facility] Address [address] [place] [address] [address] [place] [address] Phone Care Team Providers Care Switch Crew Supervisor Name Role Phone Jh Peralta MD Unavailable [...] EXTENDED GDX Optic Nerve GONIOSCOPY OFFICE/OUTPATIENT VISIT, [facility] Advance Directives Directive Yes / No Effective Date File Name No Information Encounters Encounter Description Practice Location Reason(s) For Visit Diagnoses Date Provider Providers Copied on Encounter OFFICE/OUTPA TIENT VISIT, [facility], [address] [place] [address], [place], [place], [id number], [place] tel:[phone] [facility] Glaucoma Evaluation (chief complaint) Presence of pseudophakiaOp en angle with borderline findings, low risk, bilateralPucke ring of macula, bilateral Jul-2 2 Bj Peñalo[address]. [address] [place], [place], [id number] , [place]. tel:[phone] Consulting Provider: Donnie Lemons, [address] [facility], [place], [address]. tel:[phone] ring Provider: Jh Peralta, [address] [facility], [place], [address]. tel:[phone] [facility], [address] [place] [address], [place], [place], [id number], tel:[phone] [facility] No Information 2 Bj Peñaloza. [address] [facility], [place], [place], [id number] , [place]. [phone] Family History Family Member Type Diagnosis Age At Onset Problem Family history of Heart dise ase Problem Family history of Diabetes m bryan Payers Payer name Insurance type Covered republican ID Authoriza tion(s) [place] MB [id number] [facility] [id number] Social History Type Description Quantity Date Captured [...]
--- OUTSIDE RECORDS SUMMARY | 2024-09-20 14:19 | XMS_ITS | Encounter Summary ---
Author Organization [facility] Address 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 Gender Identity Not on file Sexual Orientation Not on file documented as of this encounter Plan of Treatment Upcoming Encounters Date Type Department Care Team (Late st Contact Info) Description 03/18/2025 9:00 AM CDT Office Visit [facility] Heart and Vascular At [address] [place] [address] Jh Willis MD [address] [place] [address] [address] [place] [address] 08/26/2025 8:45 AM CDT Office Visit [facility] Oncology and Hematology - Brandin 2227 [facility] 200 [place] [address] Graeme Diez MD 2227 [facility] [address] [place] [address] documented as of this encounter Visit Diagnoses Not on filedocumented in this encounter Care Teams Tool Room Lathe Operator Relationship Specialty Start Date End Date Jose Lewis DO PCP - General 05/04/15 documented as of this encounter
--- OUTSIDE RECORDS SUMMARY | 2024-09-20 14:19 | XMS_ITS | Encounter Summary ---
Author Organization [facility] Address 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 given above results and directions faxedto wood tile installer Dr. Hernandez. /bear Electronically Signed by: Chayito Barakat on Saturday, December 16, 2006 documented in this encounter Plan of Treatment Upcoming Encounters Date Type Department Care Team (Late st Contact Info) Description 03/18/2025 9:00 AM CDT Office Visit [facility] Heart and Vascular At [facility] [address] [facility] [address] [place] [address] Jh Willis MD [address] [facility] [address] [place] [address] 08/26/2025 8:45 AM CDT Office Visit [facility] Oncology and Hematology - Brandin 2227 [facility] 200 [place] [address] rGaeme Diez MD 2227 [facility] [address] [place] [address] documented as of this encounter Visit Diagnoses Not on filedocumented in this encounter Care Teams Cone Operator Relationship Specialty Start Date End Date Jose Lewis DO PCP - General 05/04/15 documented as of this encounter
--- OUTSIDE RECORDS SUMMARY | 2024-09-20 14:19 | XMS_ITS | Encounter Summary ---
Author Organization [facility] Address [address] [place] [address] Care Team Providers Care Advertising Analyst Name Role Phone Joshua Jose Moreland DO Primary Care Provider Encounter Details Date Type Department Care Team (Late st Contact Info) Description 08/22/2006 Outpatient Historical [facility] Cardiovas and Thor Surg at [address] [place] [address] Jh Guerrero Jr., MD NO ADDRESS ON FILE Social History Tobacco Use Types Packs/Day Years Used Date Smoking Tobacco: Never Assessed Sex and Gender Information Value Date Recorded Sex Assigned at Not on file Legal Sex Male 5:22 AM MUSEUM GUIDE Gender Identity Not on file Sexual Orientation Not on file documented as of this encounter Plan of Treatment Upcoming Encounters Date Type Department Care Team (Late st Contact Info) Description 03/18/2025 9:00 AM CDT Office Visit [facility] Heart and Vascular At [address] [place] [address] Jh Willis MD [address] [place] [address] [address] [place] [address] 08/26/2025 8:45 AM CDT Office Visit [facility] Oncology and Hematology - Brandin [address] [facility] 200 [place] [address] Graeme Diez MD 2227 [facility] 100 [place] [address] documented as of this encounter Visit Diagnoses Not on filedocumented in this encounter Care Teams Advertising Analyst Relationship Specialty Start Date End Date Jose Lewis DO PCP - General 05/04/15 documented as of this encounter
--- OUTSIDE RECORDS SUMMARY | 2024-09-20 14:19 | XMS_ITS | Encounter Summary ---
Author Organization [facility] Address 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 Gender Identity Not on file Sexual Orientation Not on file documented as of this encounter Plan of Treatment Upcoming Encounters Date Type Department Care Team (Late st Contact Info) Description 03/18/2025 9:00 AM CDT Office Visit [facility] Heart and Vascular At [address] [place] [address] Jh Willis MD [address] [place] [address] [address] [place] [address] 08/26/2025 8:45 AM CDT Office Visit [facility] Oncology and Hematology - Brandin [address] [facility] 200 [place] [address] Graeme Diez MD 2227 [facility] 100 [place] [address] documented as of this encounter Visit Diagnoses Not on filedocumented in this encounter Care Teams Product Merchandiser Relationship Specialty Start Date End Date Jose Lewis DO PCP - General 05/04/15 documented as of this encounter
--- OUTSIDE RECORDS SUMMARY | 2024-09-20 14:19 | XMS_ITS | Encounter Summary ---
Author Organization [facility] Address 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 [address] [place] [address] Graeme Diez MD [address] [facility] [address] [place] [phone] documented as of this encounter Visit Diagnoses Not on filedocumented in this encounter Care Teams Workers Compensation Legal Secretary Relationship Specialty Start Date End Date Jose Lewis DO PCP - General 05/04/15 documented as of this encounter
--- OUTSIDE RECORDS SUMMARY | 2024-09-20 14:19 | XMS_ITS | Encounter Summary ---
Author Organization [facility] Address [address] [place] [address] Care Team Providers Care Safety Equipment Testing Specialist Name Role Phone Jose Lewis DO Primary Care Provider Encounter Details Date Type Department Care Team (Late st Contact Info) Description 08/22/2006 Outpatient Historical [facility]3] Cardiovas and Thor Surg at [address] [place] [phone] Amy Norman PA Social History Tobacco Use Types Packs/Day Years Used Date Smoking Tobacco: Never Assessed Sex and Gender Information Value Date Recorded Sex Assigned at Not on file 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 Gender Identity Not on file Sexual Orientation Not on file documented as of this encounter Plan of Treatment Upcoming Encounters Date Type Department Care Team (Late st Contact Info) Description 03/18/2025 9:00 AM CDT Office Visit [facility]3] Heart and Vascular At [address] [place] [address] Jh Willis MD [address] [place] [address] [address] [place] [address] 08/26/2025 8:45 AM CDT Office Visit [facility]3] Oncology and Hematology - [place] [address] [facility] [address] [place] [address] Graeme Diez MD [address] [facility] [address] [place] [address] documented as of this encounter Visit Diagnoses Not on filedocumented in this encounter Care Teams Safety Equipment Testing Specialist Relationship Specialty Start Date End Date Jose Lewis DO PCP - General 05/04/15 documented as of this encounter
--- OUTSIDE RECORDS SUMMARY | 2024-09-20 14:19 | XMS_ITS | Clinical Summary ---
Author Organization [facility] Address [address] [place] [address] Care Team Providers Care Barbed Wire Machine Operator Name Role Phone Jose Lewis [...] mamide (B-12 PLUS SUBLINGUAL) 0 Active omega 6-sbb-zmr-fish oil 300 mg (120 mg- 180mg)-1,000 mg Capsule 9 Active rosuvastatin (CRESTOR) 40 mg tabletIndications:C oronary artery disease involving [place] coronary artery of [place] heart without angina pectoris,Mixed hyperlipidemia TAKE 1 [...] Coronary atherosclerosis of unspecified type of vessel, [place] or graft 09/29/2006 03/29/2010 Posttraumatic stress disorder [...] Office Visit [facility] Oncology and Hematology [place] [address] [place] [phone] Graeme Diez MD Other secondary thrombocytopenia (Primary Dx) 08/17/2024 Orders Only [facility] Oncology and Hematology [facility] [address] [place] [phone] Graeme Diez MD 08/04/2024 External Device Data STL ABSTRACTION Provider, Abstract 07/24/2024 External Device Data ST[facility] ABSTRACTION Provider, Abstract 07/23/2024 External Device Data ST[place] ABSTRACTION Provider, Abstract 07/07/2024 External Device Data STL ABSTRACTION Provider, Abstract from Last 3 Months Immunizations Immunization Administration Dates Next Due (ADACEL/BOOSTRIX)(10 YR UP) TDAP VACCINE, 0.5ML, IM 11/14/2011 (PFIZER)(12 YR UP) COVID-19 VACCINE - EMERGENCY USE AUTHORIZATION, MRNA, [id number](PF) 30 MCG/0.3 ML IM SUSP 02/20/2021,07/12/2020,06/23/2020 (PNEUMOVAX [...] on file 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 Gender Identity Not on file Sexual Orientation [...] Visit [facility] Heart and Vascular At [place] [address] [facility] [address] [place] [address] Jh Willis MD [facility] [address] [place] [address] 08/26/2025 8:45 AM CDT Office Visit [facility] Oncology and Hematology - [place] [address] [facility] [address] [place] [address] Graeme Diez MD [address] [facility] [address] [place] [address] Health Maintenance Due Date Last Done Comments COLORECTAL SCREENING 1996 FIT-DNA Q 3 years [...] resultswithin the time period is included. Blood Graeme Diez MD CHEMISTRY ORDERABLES Final Resu lt from Last 3 Months Insurance MEDICARE PART A AND B BCBS SUPP MEDICARE PART A AND B [facility] SUPP Advance Directives For more information, please contact: [phone] Documents on File Type Date Recorded Patient Debt Recovery Officer Expl anation Advance Directive POA 01/06/2020 10:40 AM Advance Directive POA Care Teams Barbed Wire Machine Operator Relationship Specialty Start Date End Date Jose Lewis DO PCP - General 05/04/15
--- OUTSIDE RECORDS SUMMARY | 2024-09-20 14:19 | XMS_ITS | Encounter Summary ---
Author Organization [facility] Address 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 Gender Identity Not on file Sexual Orientation Not on file documented as of this encounter Plan of Treatment Upcoming Encounters Date Type Department Care Team (Late st Contact Info) Description 03/18/2025 9:00 AM CDT Office Visit [facility] Heart and Vascular At [place] [address] [facility] [address] [place] [address] Jh Willis MD [address] [place] [address] [address] [place] [address] 08/26/2025 8:45 AM CDT Office Visit [facility] Oncology and Hematology - [place] [address] [facility] [place] [address] [place] [address] Graeme Diez MD [address] [facility] [address] [place] [phone] documented as of this encounter Visit Diagnoses Not on filedocumented in this encounter Care Teams Newspaper Publisher Relationship Specialty Start Date End Date Jose Lewis DO PCP - General 05/04/15 documented as of this encounter
--- OUTSIDE RECORDS SUMMARY | 2024-09-20 14:19 | XMS_ITS | Encounter Summary ---
Author Organization [facility] Address [address] [place] [address] Care Team Providers Care Bilingual Loan Processor Name Role Phone Jose Lewis DO Primary Care Provider Encounter Details Date Type Department Care Team (Latest Contact Info) Description 08/22/2006 Inpatient Historical HIS PATIENT IN A BED Jh Guerrero Jr., MD NO ADDRESS ON FILE Jose Schrader MD [address] [place] [address] Coronary Atherosclerosis of [place] Coronary Artery (Primary Dx) Social History Tobacco Use Types Packs/Day Years Used Date Smoking Tobacco: Never Assessed Sex and Gender Information Value Date Recorded Sex Assigned at Not on file 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 Gender Identity Not on file Sexual Orientation Not on file documented as of this encounter Plan of Treatment Upcoming Encounters Date Type Department Care Team (Late st Contact Info) Description 03/18/2025 9:00 AM CDT Office Visit [facility] Heart [facility] V[facility] At [facility] [address] [place] [address] Jh Willis MD [facility] [address] [facility] [address] [place] [address] 08/26/2025 8:45 AM CDT Office Visit [facility] Oncology and Hematology - Brandin [address] [place] [address] Graeme Diez MD [address] [place] [address] documented as of this encounter Procedures Procedure [...] (ABNORMAL) POC GLUCOSE (08/26/2006 12:08 PM CDT) [facility] GLUCOSE POC 124(H) 65 - 99 mg/dL INTERFACE SYSTEM 08/26/2006 12:0 8 PM CDT Jose Schrader MD POINT OF CARE TESTING Edited INTERFACE SYSTEM Refer to clinic/hospital department * (ABNORMAL) CBC WITH DIFFERENTIAL (08/26/2006 8:37 AM CDT) Pathologist [facility] NEUTROPHILS 82(H) 45 - 70 % INTERFAC [...] HEMATOLOGY ORDERABLES E dited Performing Organization Address [facility] Phone Number INTERFACE SYSTEM Refer to [...] HEMATOLOGY ORDERABLES E dited Performing Organization Address [facility] Phone Number INTERFACE SYSTEM Refer to [...] and non- Americans is available on the [facility] Intranet at: [email or web address] Select: Lab Policies and Procedures Select: Reference Ranges - GFR 08/26/2006 8:37 AM CDT Jh Guerrero Jr., MD CHEMISTRY ORDERABLES Ed ited Performing Organization Address City/[facility] Co de Phone Number INTERFACE SYSTEM Refer to clinic/hospital department * (ABNORMAL) POC GLUCOSE (08/26/2006 8:16 AM CDT) GLUCOSE POC 202(H) 65 - 99 mg/dL INTERFACE SYSTEM 08/26/2006 8:16 AM CDT us Jose Schrader MD POINT OF CARE TESTING Edited Performing Organization Address [facility] Co de Phone Number INTERFACE SYSTEM Refer to clinic/hospital department * (ABNORMAL) POC GLUCOSE (08/25/2006 8:18 PM CDT) GLUCOSE POC 180(H) 65 - 99 mg/dL INTERFACE SYSTEM 08/25/2006 8:18 PM CDT Jose Schrader MD POINT OF CARE TESTING Edited Performing Organization Address [facility] de Phone Number INTERFACE SYSTEM Refer to clinic/hospital department * (ABNORMAL) POC GLUCOSE (08/25/2006 4:56 PM CDT) GLUCOSE POC 131(H) 65 - 99 mg/dL INTERFACE SYSTEM 08/25/2006 4:56 PM CDT us Jose Schrader MD POINT OF CARE TESTING Edited Performing Organization Address City/[facility] Co de Phone Number INTERFACE SYSTEM Refer to clinic/hospital department * (ABNORMAL) POC GLUCOSE (08/25/2006 12:00 PM CDT) GLUCOSE POC 148(H) 65 - 99 mg/dL INTERFACE SYSTEM 08/25/2006 12:0 0 PM CDT us Jose Schrader MD POINT OF CARE TESTING Edited Performing Organization Address [facility] Co de Phone Number INTERFACE SYSTEM Refer to clinic/hospital department * (ABNORMAL) POC GLUCOSE (08/25/2006 7:25 AM CDT) GLUCOSE POC 137(H) 65 - 99 mg/dL INTERFACE SYSTEM 08/25/2006 7:25 AM CDT us Jose Schrader MD POINT OF CARE TESTING Edited Performing Organization Address [facility] de Phone Number INTERFACE SYSTEM Refer to clinic/hospital department * (ABNORMAL) POC GLUCOSE (08/24/2006 8:33 PM CDT) GLUCOSE POC 185(H) 65 - 99 mg/dL INTERFACE SYSTEM 08/24/2006 8:33 PM CDT us Jose Schrader MD POINT OF CARE TESTING Edited Performing Organization Address [facility] de Phone Number INTERFACE SYSTEM Refer to clinic/hospital department * (ABNORMAL) POC GLUCOSE (08/24/2006 6:12 PM CDT) GLUCOSE POC 165(H) 65 - 99 mg/dL INTERFACE SYSTEM 08/24/2006 6:12 PM CDT us Jose Schrader MD POINT OF CARE TESTING Edited Performing Organization Address [facility] de Phone Number INTERFACE SYSTEM Refer to clinic/hospital department * (ABNORMAL) POC GLUCOSE (08/24/2006 11:48 AM CDT) GLUCOSE POC 135(H) 65 - 99 mg/dL INTERFACE SYSTEM 08/24/2006 11:4 8 AM CDT Jose Schrader MD POINT OF CARE TESTING Edited Performing Organization Address [facility] Co de Phone Number INTERFACE SYSTEM [...] MD HEMATOLOGY ORDERABLES Edited Performing Organization Address [facility] de Phone Number INTERFACE SYSTEM Refer to [...] MD HEMATOLOGY ORDERABLES Edited Performing Organization Address [facility] Phone Number INTERFACE SYSTEM Refer to clinic/hospital department * (ABNORMAL) POC GLUCOSE (08/24/2006 7:56 AM CDT) GLUCOSE POC 157(H) 65 - 99 mg/dL INTERFACE SYSTEM 08/24/2006 7:56 AM CDT Jose Schrader MD POINT OF CARE TESTING Edited Performing Organization Address [facility] Phone Number INTERFACE SYSTEM Refer to [...] and non- Americans is available on the [facility] Intranet at: [email or web address] Select: Lab Policies and Procedures Select: Reference Ranges - GFR 08/24/2006 5:37 AM CDT us Jh Guerrero Jr., MD CHEMISTRY ORDERABLES Ed ited Performing Organization Address [facility] de Phone Number INTERFACE SYSTEM Refer to clinic/hospital department * (ABNORMAL) POC GLUCOSE (08/23/2006 8:28 PM CDT) GLUCOSE POC 153(H) 65 - 99 mg/dL INTERFACE SYSTEM 08/23/2006 8:28 PM CDT us Jose Schrader MD POINT OF CARE TESTING Edited Performing Organization Address [facility] Co de Phone Number INTERFACE SYSTEM Refer to clinic/hospital department * (ABNORMAL) POC GLUCOSE (08/23/2006 6:00 PM CDT) GLUCOSE POC 160(H) 65 - 99 mg/dL INTERFACE SYSTEM 08/23/2006 6:00 PM CDT us oJse Schrader MD POINT OF CARE TESTING Edited Performing Organization Address [facility] Phone Number INTERFACE SYSTEM Refer to clinic/hospital department * (ABNORMAL) POC GLUCOSE (08/23/2006 3:50 PM CDT) GLUCOSE POC 181(H) 65 - 99 mg/dL INTERFACE SYSTEM 08/23/2006 3:50 PM CDT us Jose Schrader MD POINT OF CARE TESTING Edited Performing Organization Address [facility] de Phone Number INTERFACE SYSTEM Refer to clinic/hospital department * (ABNORMAL) POC GLUCOSE (08/23/2006 12:38 PM CDT) GLUCOSE POC 137(H) 65 - 99 mg/dL INTERFACE SYSTEM 08/23/2006 12:3 8 PM CDT us Jose Schrader MD POINT OF CARE TESTING Edited Performing Organization Address [facility] Co de Phone Number INTERFACE SYSTEM Refer to clinic/hospital department * (ABNORMAL) POC GLUCOSE (08/23/2006 9:57 AM CDT) GLUCOSE POC 170(H) 65 - 99 mg/dL INTERFACE SYSTEM 08/23/2006 9:57 AM CDT Jose Schrader MD POINT OF CARE TESTING Edited Performing Organization Address [facility] de Phone Number INTERFACE SYSTEM Refer to clinic/hospital department * (ABNORMAL) POC GLUCOSE (08/23/2006 6:14 AM CDT) GLUCOSE POC 114(H) 65 - 99 mg/dL INTERFACE SYSTEM 08/23/2006 6:14 AM CDT Jose Schrader MD POINT OF CARE TESTING Edited Performing Organization Address [facility] de Phone Number INTERFACE SYSTEM Refer to clinic/hospital department * (ABNORMAL) POC GLUCOSE (08/23/2006 4:57 AM CDT) GLUCOSE POC 111(H) 65 - 99 mg/dL INTERFACE SYSTEM 08/23/2006 4:57 AM CDT Jose Schrader MD POINT OF CARE TESTING Edited Performing Organization Address [facility] de Phone Number INTERFACE SYSTEM [...] HEMATOLOGY ORDERABLES E dited Performing Organization Address [facility] Phone Number INTERFACE SYSTEM Refer to [...] HEMATOLOGY ORDERABLES E dited Performing Organization Address [facility] Phone Number INTERFACE SYSTEM Refer to [...] patients with mechanical heart valves or post CO. Pediatric (12 years and under): 1.5 - [...] and non- Americans is available on the [facility] Intranet at: [email or web address] Select: Lab Policies and Procedures Select: Reference Ranges - GFR 08/23/2006 4:20 AM CDT Jh Guerrero Jr., MD CHEMISTRY ORDERABLES Ed ited Performing Organization Address [facility] Phone Number INTERFACE SYSTEM Refer to clinic/hospital department * (ABNORMAL) POC GLUCOSE (08/23/2006 4:11 AM CDT) GLUCOSE POC 118(H) 65 - 99 mg/dL INTERFACE SYSTEM 08/23/2006 4:11 AM CDT Jose Schrader MD POINT OF CARE TESTING Edited Performing Organization Address [facility] Phone Number INTERFACE SYSTEM Refer to clinic/hospital department * (ABNORMAL) POC GLUCOSE (08/23/2006 2:40 AM CDT) GLUCOSE POC 133(H) 65 - 99 mg/dL INTERFACE SYSTEM 08/23/2006 2:40 AM CDT Jose Schrader MD POINT OF CARE TESTING Edited Performing Organization Address [facility] Phone Number INTERFACE SYSTEM Refer to clinic/hospital department * (ABNORMAL) POC GLUCOSE (08/23/2006 1:45 AM CDT) GLUCOSE POC 142(H) 65 - 99 mg/dL INTERFACE SYSTEM 08/23/2006 1:45 AM CDT us Jose Schrader MD POINT OF CARE TESTING Edited Performing Organization Address [facility] Phone Number INTERFACE SYSTEM Refer to clinic/hospital department * (ABNORMAL) POC GLUCOSE (08/23/2006 12:26 AM CDT) GLUCOSE POC 168(H) 65 - 99 mg/dL INTERFACE SYSTEM 08/23/2006 12:2 6 AM CDT us Jose Schrader MD POINT OF CARE TESTING Edited Performing Organization Address [facility] de Phone Number INTERFACE SYSTEM Refer to [...] MD CHEMISTRY ORDERABLES Edited Performing Organization Address [facility] Phone Number INTERFACE SYSTEM Refer to clinic/hospital department * MAGNESIUM LEVEL (08/22/2006 11:50 PM CDT) MAGNESIUM 1.9 1.5 - 2.5 mg/dL INTERFACE SYSTEM 08/22/2006 11:5 0 PM CDT us Jh Guerrero Jr., MD CHEMISTRY ORDERABLES Ed ited Performing Organization Address [facility] Co de Phone Number INTERFACE SYSTEM Refer to clinic/hospital department * POTASSIUM LEVEL (08/22/2006 11:50 PM CDT) POTASSIUM 4.8 3.5 - 4.9 mmol/L INTERFACE SYSTEM 08/22/2006 11:5 0 PM CDT us Jh Guerrero Jr., MD CHEMISTRY ORDERABLES Ed ited Performing Organization Address [facility] Phone Number INTERFACE SYSTEM Refer to [...] CHEMISTRY ORDERABLES Ed ited Performing Organization Address [facility] Phone Number INTERFACE SYSTEM Refer to clinic/hospital department * (ABNORMAL) POC GLUCOSE (08/22/2006 11:46 PM CDT) GLUCOSE POC 175(H) 65 - 99 mg/dL INTERFACE SYSTEM 08/22/2006 11:4 6 PM CDT us Jose Schrader MD POINT OF CARE TESTING Edited Performing Organization Address [facility] Phone Number INTERFACE SYSTEM Refer to clinic/hospital department * (ABNORMAL) POC GLUCOSE (08/22/2006 11:02 PM CDT) GLUCOSE POC 177(H) 65 - 99 mg/dL INTERFACE SYSTEM 08/22/2006 11:0 2 PM CDT Jose Schrader MD POINT OF CARE TESTING Edited Performing Organization Address [facility] de Phone Number INTERFACE SYSTEM Refer to clinic/hospital department * (ABNORMAL) POC GLUCOSE (08/22/2006 9:58 PM CDT) GLUCOSE POC 183(H) 65 - 99 mg/dL INTERFACE SYSTEM 08/22/2006 9:58 PM CDT Jose Schrader MD POINT OF CARE TESTING Edited Performing Organization Address [facility] Co de Phone Number INTERFACE SYSTEM Refer to clinic/hospital department * (ABNORMAL) POC GLUCOSE (08/22/2006 9:31 PM CDT) GLUCOSE POC 189(H) 65 - 99 mg/dL INTERFACE SYSTEM 08/22/2006 9:31 PM CDT Jose Schrader MD POINT OF CARE TESTING Edited Performing Organization Address [facility] de Phone Number INTERFACE SYSTEM Refer to [...] MD CHEMISTRY ORDERABLES Edited Performing Organization Address City/[facility] de Phone Number INTERFACE SYSTEM Refer to clinic/hospital department * (ABNORMAL) POC GLUCOSE (08/22/2006 8:31 PM CDT) GLUCOSE POC 168(H) 65 - 99 mg/dL INTERFACE SYSTEM 08/22/2006 8:31 PM CDT Jose Schrader MD POINT OF CARE TESTING Edited Performing Organization Address [facility] de Phone Number INTERFACE SYSTEM Refer to clinic/hospital department * (ABNORMAL) POC GLUCOSE (08/22/2006 7:40 PM CDT) GLUCOSE POC 142(H) 65 - 99 mg/dL INTERFACE SYSTEM 08/22/2006 7:40 PM CDT Jose Schrader MD POINT OF CARE TESTING Edited Performing Organization Address [facility] Phone Number INTERFACE SYSTEM Refer to clinic/hospital department * MAGNESIUM LEVEL (08/22/2006 5:57 PM CDT) MAGNESIUM 2.0 1.5 - 2.5 mg/dL INTERFACE SYSTEM 08/22/2006 5:57 PM CDT Jh Guerrero Jr., MD CHEMISTRY ORDERABLES Ed ited Performing Organization Address [facility] Phone Number INTERFACE SYSTEM Refer to [...] HEMATOLOGY ORDERABLES E dited Performing Organization Address [facility] de Phone Number INTERFACE SYSTEM Refer to [...] patients with mechanical heart valves or post CO. Pediatric (12 years and under): 1.5 - [...] HEMATOLOGY ORDERABLES E dited Performing Organization Address [facility] de Phone Number INTERFACE SYSTEM Refer to [...] and non- Americans is available on the [facility] Intranet at: [email or web address] Select: Lab Policies and Procedures Select: Reference Ranges - GFR 08/22/2006 5:55 PM CDT Jh Guerrero Jr., MD CHEMISTRY ORDERABLES Ed ited Performing Organization Address [facility] de Phone Number INTERFACE SYSTEM Refer to [...] CHEMISTRY ORDERABLES Ed ited Performing Organization Address [facility] de Phone Number INTERFACE SYSTEM Refer to [...] MD CHEMISTRY ORDERABLES Edited Performing Organization Address [facility] Co de Phone Number INTERFACE SYSTEM [...] CVR ONLY, CKMB/CK (08/22/2006 4:00 PM CDT) [facility] CKMB Invalid Result <=6.7 INTERFACE SYSTEM Comment:Results [...] WITH DIFFERENTIAL (08/22/2006 4:00 PM CDT) Pathologist [facility] NEUTROPHILS Invalid Result 45 - 70 INTERFACE [...] HEMATOLOGY ORDERABLES E dited Performing Organization Address [facility] de Phone Number INTERFACE SYSTEM Refer to [...] and non- Americans is available on the [facility] Intranet at: [email or web address] Select: Lab Policies and Procedures Select: Reference Ranges - GFR 08/22/2006 4:00 PM CDT Jh Guerrero Jr., MD CHEMISTRY ORDERABLES Ed ited Performing Organization Address City/State/[facility] Co de Phone Number INTERFACE SYSTEM [...] MD CHEMISTRY ORDERABLES Edited Performing Organization Address [facility] de Phone Number INTERFACE SYSTEM Refer to [...] MD CHEMISTRY ORDERABLES Edited Performing Organization Address [facility] Co de Phone Number INTERFACE SYSTEM [...] MD CHEMISTRY ORDERABLES Edited Performing Organization Address [facility] de Phone Number INTERFACE SYSTEM Refer to [...] patients with mechanical heart valves or post CO. Pediatric (12 years and under): 1.5 - [...] HEMATOLOGY ORDERABLES E dited Performing Organization Address City/[facility] Co de Phone Number INTERFACE SYSTEM Refer to clinic/hospital department documented in this encounter Visit Diagnoses Diagnosis Coronary atherosclerosis of [place] coronary artery- Primary documented in this encounter Care Teams Bilingual Loan Processor Relationship Specialty Start Date End Date Jose Lewis DO PCP - General 05/04/15 documented as of this encounter
--- OUTSIDE RECORDS SUMMARY | 2024-09-20 14:19 | XMS_ITS | Encounter Summary ---
Author Organization [facility] Address 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 [address] D.O.B: 1950 SSN: [id number] Parent/Guardian if applicable: Patient Insurance: BLUE CROSS BLUE SHIELD ID#: [id number] Group#: ORDER(S) #: [id number] stress thallium BEST TO CALL HOME. BEST TIME TO CALL: ANYTIME. MAY WE LEAVE MESSAGE AT THAT NUMBER: YES, LEAVE MESSAGE. PLEASE SCHEDULE THE APPOINTMENT AT THE FOLLOWING LOCATION: nkechi batista m.d. [phone] TEST PRIORITY: 2 - 7 DAYS. SPECIAL SCHEDULING INSTRUCTIONS: pt needs prep ORDERING PHYSICIAN: LOBO OLSEN MD OFFICE DULSER & PHONE: Katherine Byrd E ORDER PRINTED [...] was scheduled by Ayse Falcon A at [phone] Pre-authorization number: [place] of [place] -- [place] Given/Authorized by: pre-recorded message/fast check @ [phone] FINAL ACTION Spoke with patient. Follow up completed. * Lobo Olsen MD - 10/09/2007 2:07 PM CDT WHO TOOK THE CALL: Lobo Olsen M TIME:05:34 pm given wrong z richie--notify pt can change to z richie (script for alexandre) 08/11/06 5:38P Spoke w/pt. Pharm # [phone]. [place] called back & corrected to oral Z-richie 250 mg. take as directed. sl Electronically Signed by: Donna Gutiérrez on Friday, August 11, 2006 * Lobo Olsen MD - 10/09/2007 2:07 PM CDT WEIGHT: 202lbs BLOOD PRESSURE: 122/76 Right Arm Sitting NURSE NAME: [place] CHIEF COMPLAINT Patient here for follow [...] improved LAB ORDERS: 6 mo Order number: [id number] Test Ordered: COMPREHENSIVE METABOLIC PANEL & GFR 1112 Order number: [id number] Test Ordered: LIPID PANEL 1078 461.9-SINUSITIS UNSPECIFIED rx MEDICATIONS: ZITHROMAX Z-RICHIE ORAL TABLET 250 MG, DIRECTED, 1 Dispensed, status: NEW PRESCRIPTION, 08/11/2006. 602.9-OTHER DISORDERS OF PROSTATE cont med, discussed 786.50-CHEST PAIN UNSPECIFIED risk factors, fhx, send stress test discussed LAB ORDERS: Order number: [id number] Test Ordered: EKG W/ INTERPRETATION & REPORT [id number] Order number: [id number] Test Ordered: STRESS THALLIUM pt would like to schedule with [facility] RETURN VISIT : Patient instructed to return in 6 months. Electronically Signed by: Lobo Olsen MD on Friday, August 11, 2006 documented in this encounter Plan of Treatment Upcoming Encounters Date Type Department Care Team (Late st Contact Info) Description 03/18/2025 9:00 AM CDT Office Visit [facility] Heart and Vascular At [place] [address] [place] [address] Jh Willis MD [facility] [address] [facility] [address] [place] [address] 08/26/2025 8:45 AM CDT Office Visit [facility] Oncology and Hematology - [address] [place] [address] Graeme Diez MD [address] [place] [address] documented as of this encounter Visit Diagnoses Not on filedocumented in this encounter Care Teams Bundle Breaker Relationship Specialty Start Date End Date Nkechi Lewis DO PCP - General 05/04/15 documented as of this encounter
--- OUTSIDE RECORDS SUMMARY | 2024-09-20 14:19 | XMS_ITS | Encounter Summary ---
Author Organization [facility] Address 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 Gender Identity Not on file Sexual Orientation Not on file documented as of this encounter Plan of Treatment Upcoming Encounters Date Type Department Care Team (Late st Contact Info) Description 03/18/2025 9:00 AM CDT Office Visit [facility] Heart and Vascular At [address] [place] [address] Jh Willis MD [address] [place] [address] [address] [place] [address] 08/26/2025 8:45 AM CDT Office Visit [facility] Oncology and Hematology - Brandin [address] [facility] [address] [place] [address] Graeme Diez MD [address] [facility] [address] [place] [address] [phone] documented as of this encounter Visit Diagnoses Not on filedocumented in this encounter Care Teams Synthetic Gem Press Operator Relationship Specialty Start Date End Date Jose Lewis DO PCP - General 05/04/15 documented as of this encounter
--- NOTE | 2024-09-20 14:27 | ECG_ITS ---
Test Date: 2024-09-20 14:31:13 Measurements Intervals [place] Rate: 56 P: 12 PA: 155 QRS: 26 QRSD: 98 T: 40 QT: 423 QTc: 411 Interpretive Statements [address]US BR[address]IA [address] SEGMENT DEPRESSION CONSIDER ISCHEMIA ABNORMAL ECG Compared to ECG 09/20/2024 13:56:09 NO SIGNIFICANT CHANGE Electronically Signed On 09-20-2024 15:51:27 CDT by Noel Hernández M.D.
--- NOTE | 2024-09-20 14:28 | ED_ITS ---
HPI - Chest Pain General Chief Complaint: Chest Pain <Deepthi Lee PA-C - Last Filed: 09/22/24 09:14> Stated Complaint: chest pain <Deepthi Lee PA-C - Last Filed: 09/22/24 09:14> Time Seen by Provider: 09/20/24 14:28 <Deepthi Lee PA-C - Last Filed: 09/22/24 09:14> Focused HPI: This is a 74 year old male that presents to the ER for chest pain. Reports it started after walking on the treadmill this morning. Reports he also felt short of breath going up the steps. 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 History of CABG. Reports he believes the last time he had a stress test was 2021. GENERAL: Well-appearing, well-nourished, and in no acute distress. HEAD: Normocephalic, atraumatic. CHEST: Clear to auscultation. ?No respiratory distress. HEART: Regular rate and rhythm.? NEURO: ?Alert and oriented x3. Patient screened in triage and initial orders placed.? ?Additional care and disposition to be based upon?diagnostic testing and treatment. <Deepthi Lee PA-C - Last Filed: 09/22/24 09:14> History of Present Illness HPI narrative: 74-year-old male with a history of CAD status post CABG in 2006 presenting with chest pressure. States that he had a little bit of chest pressure at the start of the weekend while getting worked up watching a sports game. It resolved on its own and then he again had an episode last night while watching another hockey game and getting worked up. It went away as well. This morning he did a treadmill workup and then noticed chest pressure and shortness of breath when he went up the stairs. This concerned him enough to tell his who brought him in for evaluation. No lightheadedness or palpitations. No sweating or nausea. No leg swelling. <Sherry Puri MD - Last Filed: 09/20/24 19:14> Related Data Home Medications: Home Medications ?Medication ?Instructions ?Recorded ?Confirmed ?Last Taken ?Type aspirin 81 mg tablet,delayed 81 mg PO DAILY 12/21/19 09/03/24 03/22/24 History release (Adult Low Dose Aspirin) rosuvastatin 40 mg tablet (Crestor) 40 mg PO DAILY 12/21/19 09/03/24 03/22/24 History cholecalciferol (vitamin D3) 25 25 mcg PO DAILY 01/28/22 09/03/24 03/22/24 History mcg (1,000 unit) capsule mecobalamin (vitamin B12) 1,000 1,000 mcg PO DAILY 01/28/22 09/03/24 03/22/24 History mcg chewable tablet ascorbic acid (vitamin C) 1,000 mg 1 g PO DAILY 09/25/23 09/03/24 03/22/24 History capsule lisinopril 20 mg tablet 20 mg PO DAILY 09/25/23 09/03/24 03/22/24 History coenzyme Q10 200 mg capsule (Co 100 mg PO DAILY 02/25/24 09/03/24 03/22/24 History Q-10) zinc sulfate [Zinkel-220] 30 mg PO DAILY 02/25/24 09/03/24 03/22/24 History <Deepthi Lee PA-C - Last Filed: 09/22/24 09:14> Allergies/Adverse Reactions: Allergies Allergy/AdvReac Type Severity Reaction Status Date / Time sulfamethoxazole Allergy Mild rash Verified 09/03/24 08:28 Penicillins Allergy Unknown Rash Verified 09/03/24 08:28 sulfamethizole Allergy Unknown Rash Verified 09/03/24 08:28 trimethoprim Allergy Unknown Rash Verified 09/03/24 08:28 <Deepthi Lee PA-C - Last Filed: 09/22/24 09:14> Review of Systems 2 Review of Systems: All systems reviewed & are unremarkable except as noted in HPI and below <Sherry Puri MD - Last Filed: 09/20/24 19:14> [facility] Past Medical History Medical History: Medical History Cough COVID HTN (hypertension) Heart disease Hyperlipidemia Pneumonia <Deepthi Lee PA-C - Last Filed: 09/22/24 09:14> Surgical History Surgical History: Surgical History History of heart bypass surgery 2006 at [facility] Dr. Beard. Dr. Willis ferryboat operator helper Status post biopsy of kidney History of appendectomy 1985 H/O eye surgery right eye refractive lens exchange <Deepthi Lee PA-C - Last Filed: 09/22/24 09:14> Family History Family History: Family History Father Diabetes mellitus Family history of pancreatic cancer Grandparent Family history of malignant neoplasm Sibling Ovarian cancer <Deepthi Lee PA-C - Last Filed: 09/22/24 09:14> Social History Social History: Social History Smoking status: Never smoker Alcohol intake: current Drinks per week: 1 Alcohol use details: socially Substance use type: does not use Lack of Transportation: No Lack of Food: Never True Current Housing: I Have Housing Concerned About Future Housing: No Difficulty Paying Gas/Electric Bills: No Difficulty Paying for Meds: No Currently Unemployed: No Education: Trade/Vocational Certificate Difficulty w/ Childcare or Family Care: No Living arrangements: with family Spiritual care concerns: No <Deepthi Lee PA-C - Last Filed: 09/22/24 09:14> Exam 2 Narrative: GENERAL: Well-appearing, well-nourished, and in no acute distress. HEAD: Normocephalic, atraumatic. EYES: PERRLA and EOMI. ENT: Mucous membranes moist. NECK: Supple. CHEST: Clear to auscultation. No respiratory distress. HEART: Regular rate and rhythm. ABDOMEN: Soft, nontender, nondistended EXTREMITIES: Normal range of motion. No edema. SKIN: Warm, dry, no rash. NEURO: Alert and oriented x3. PSYCH: Normal mood and affect. <Sherry Puri MD - Last Filed: 09/20/24 19:14> Course Vital Signs Vital signs: Vital Signs Temperature 97.9 F 09/20/24 13:51 Pulse Rate 63 09/20/24 13:51 Respiratory Rate 18 09/20/24 13:51 Blood Pressure 162/64 H 09/20/24 13:51 Pulse Oximetry 100 09/20/24 13:51 Oxygen Delivery Room Air 09/20/24 13:51 Temperature 97.9 F 09/20/24 13:51 Pulse Rate 52 L 09/20/24 16:30 Respiratory Rate 18 09/20/24 16:30 Blood Pressure 155/70 H 09/20/24 16:30 Pulse Oximetry 100 09/20/24 16:30 Oxygen Delivery Room Air 09/20/24 13:51 <Deepthi Lee PA-C - Last Filed: 09/22/24 09:14> Vital Signs Temperature 97.9 F 09/20/24 13:51 Pulse Rate 63 09/20/24 13:51 Respiratory Rate 18 09/20/24 13:51 Blood Pressure 162/64 H 09/20/24 13:51 Pulse Oximetry 100 09/20/24 13:51 Oxygen Delivery Room Air 09/20/24 13:51 Temperature 97.9 F 09/20/24 13:51 Pulse Rate 52 L 09/20/24 16:30 Respiratory Rate 18 09/20/24 16:30 Blood Pressure 155/70 H 09/20/24 16:30 Pulse Oximetry 100 09/20/24 16:30 Oxygen Delivery Room Air 09/20/24 13:51 <Sherry Puri MD - Last Filed: 09/20/24 19:14> MDM - Chest Pain MDM Narrative Medical decision making narrative: 74-year-old male presenting with exertional chest pressure and shortness of breath this morning. Patient is hypertensive, otherwise vitals are within normal limits. Exam remarkable for the above. EKG per my interpretation shows normal sinus rhythm, ST depressions laterally, no ST elevations. Troponin is undetectable. Patient follows with Cardiology at [facility], this is where he had his bypass surgery 18 years ago. His ferryboat operator helper is Dr. Willis. Spoke with the hospitalist at [facility] was accepted the patient for transfer. Patient and updated with this plan. Transferred in hemodynamically stable condition. <Sherry Puri MD - Last Filed: 09/20/24 19:14> Differential Diagnosis Differential diagnosis: Likely stable angina, unstable angina pectoris, atypical chest pain and chest pain <Sherry Puri MD - Last Filed: 09/20/24 19:14> Medical Records Data Attestation: I reviewed the patient's medical records. <Sherry Puri MD - Last Filed: 09/20/24 19:14> Lab Data Attestation: I reviewed the patient's lab results. <Sherry Puri MD - Last Filed: 09/20/24 19:14> Result diagrams: 09/20/24 14:29 09/20/24 14:29 <Deepthi Lee PA-C - Last Filed: 09/22/24 09:14> Labs: Lab Results 09/20/24 09/20/24 Range/Units 14:29 17:00 WBC 6.1 (4.5-10.0) K/mm3 RBC 4.68 (4.6-6.20) M/mm3 Hgb 13.6 L (14.0-18.0) g/dL Hct 42.1 (42.0-52.0) % MCV 90.0 (80-100) fl MCH 29.1 (26-34) pg MCHC 32.3 (32-36) g/dl RDW 12.9 (11.5-14.5) % Plt Count 130 L (150-375) k/mm3 MPV 11.9 H (7.4-10.4) fl Immature Gran % (Auto) 0.2 (0-0.5) % Neut % (Auto) 63.2 (45.5-73.1) % Lymph % (Auto) 28.2 (18.3-44.2) % Mclennan % (Auto) 6.6 (2.6-8.5) % Eos % (Auto) 1.3 (0-4.4) % Baso % (Auto) 0.5 (0.2-1.2) % Lymph # (Auto) 1.72 (0.9-3.2) K/mm3 Mclennan # (Auto) 0.4 (0.1-0.6) K/mm3 Eos # (Auto) 0.1 (0-0.3) K/mm3 Baso # (Auto) 0.0 (0.0-0.1) K/mm3 Abs Immat Gran (auto) 0.01 (0.00-0.031) K/mm3 Absolute Neuts (auto) 3.9 (1.3-6.7) K/mm3 Absolute Nucleated RBC 0.000 (0.0-0.012) K/mm3 Nucleated RBC % 0.0 (0.0-0.2) % PT 14.1 (11.1-14.7) Seconds INR 1.0 APTT 25.4 (22.3-36.8) Seconds Sodium 140 (137-145) mmol/L Potassium 4.0 (3.4-5.0) mmol/L Chloride 105 (98-107) mmol/L Carbon Dioxide 25 (22-30) mmol/L Anion Gap 10 (4-12) mmol/L BUN 18 (9-20) mg/dL Creatinine 0.83 (0.7-1.3) mg/dL Estim Creat Clear Calc 76 ml/min Estimated GFR > 60 (59 - ) Glucose 134 H (65-110) mg/dL Calcium 9.2 (8.4-10.2) mg/dL Total Bilirubin 0.6 (0.2-1.3) mg/dL AST 28 (17-59) U/L ALT 26 (6-50) U/L Alkaline Phosphatase 58 (38-126) U/L Troponin I < 0.012 0.016 D (0.000-0.034) ng/mL Total Protein 7.0 (6.3-8.2) g/dL Albumin 4.5 (3.5-5.1) g/dL Lipase 37 (23-300) U/L <Deepthi Lee PA-C - Last Filed: 09/22/24 09:14> Lab Results 09/20/24 09/20/24 Range/Units 14:29 17:00 WBC 6.1 (4.5-10.0) K/mm3 RBC 4.68 (4.6-6.20) M/mm3 Hgb 13.6 L (14.0-18.0) g/dL Hct 42.1 (42.0-52.0) % MCV 90.0 (80-100) fl MCH 29.1 (26-34) pg MCHC 32.3 (32-36) g/dl RDW 12.9 (11.5-14.5) % Plt Count 130 L (150-375) k/mm3 MPV 11.9 H (7.4-10.4) fl Immature Gran % (Auto) 0.2 (0-0.5) % Neut % (Auto) 63.2 (45.5-73.1) % Lymph % (Auto) 28.2 (18.3-44.2) % Mclennan % (Auto) 6.6 (2.6-8.5) % Eos % (Auto) 1.3 (0-4.4) % Baso % (Auto) 0.5 (0.2-1.2) % Lymph # (Auto) 1.72 (0.9-3.2) K/mm3 Mclennan # (Auto) 0.4 (0.1-0.6) K/mm3 Eos # (Auto) 0.1 (0-0.3) K/mm3 Baso # (Auto) 0.0 (0.0-0.1) K/mm3 Abs Immat Gran (auto) 0.01 (0.00-0.031) K/mm3 Absolute Neuts (auto) 3.9 (1.3-6.7) K/mm3 Absolute Nucleated RBC 0.000 (0.0-0.012) K/mm3 Nucleated RBC % 0.0 (0.0-0.2) % PT 14.1 (11.1-14.7) Seconds INR 1.0 APTT 25.4 (22.3-36.8) Seconds Sodium 140 (137-145) mmol/L Potassium 4.0 (3.4-5.0) mmol/L Chloride 105 (98-107) mmol/L Carbon Dioxide 25 (22-30) mmol/L Anion Gap 10 (4-12) mmol/L BUN 18 (9-20) mg/dL Creatinine 0.83 (0.7-1.3) mg/dL Estim Creat Clear Calc 76 ml/min Estimated GFR > 60 (59 - ) Glucose 134 H (65-110) mg/dL Calcium 9.2 (8.4-10.2) mg/dL Total Bilirubin 0.6 (0.2-1.3) mg/dL AST 28 (17-59) U/L ALT 26 (6-50) U/L Alkaline Phosphatase 58 (38-126) U/L Troponin I < 0.012 0.016 D (0.000-0.034) ng/mL Total Protein 7.0 (6.3-8.2) g/dL Albumin 4.5 (3.5-5.1) g/dL Lipase 37 (23-300) U/L <Sherry Puri MD - Last Filed: 09/20/24 19:14> Imaging Data Radiologist's impression: ITS Impressions Chest X-Ray 09/20/24 14:24 IMPRESSION: 1. No acute cardiopulmonary disease. <Sherry Puri MD - Last Filed: 09/20/24 19:14> Critical Care Time Critical Care Time Critical Care Time: No <Sherry Puri MD - Last Filed: 09/20/24 19:14> Discharge Plan Discharge Clinical Impression: Chest pain, exertional, ST segment depression, Exertional dyspnea <Deepthi Lee PA-C - Last Filed: 09/22/24 09:14> Patient Disposition: [facility] <Deepthi Lee PA-C - Last Filed: 09/22/24 09:14> Condition: Stable <Deepthi Lee PA-C - Last Filed: 09/22/24 09:14> Patient Language: Georgian <Deepthi Lee PA-C - Last Filed: 09/22/24 09:14> Prescriptions: No Action zinc sulfate [Zinkel-220] 30 mg PO DAILY (DME) [facility] See Rx Instructions .Route Qty: 1 0RF Rx Instructions: As directed aspirin [Adult Low Dose Aspirin] 81 mg tablet,delayed release (DR/EC) 81 mg PO DAILY rosuvastatin [Crestor] 40 mg tablet 40 mg PO DAILY cholecalciferol (vitamin D3) 25 mcg (1,000 unit) capsule 25 mcg PO DAILY mecobalamin (vitamin B12) 1,000 mcg tablet,chewable 1,000 mcg PO DAILY albuterol sulfate 90 mcg/actuation HFA aerosol inhaler 2 puff INHALATION Q4-6H PRN (Reason: shortness of breath or wheezing) Qty: 18 1RF lisinopril 20 mg tablet 20 mg PO DAILY ascorbic acid (vitamin C) 1,000 mg capsule 1 g PO DAILY coenzyme Q10 [Co Q-10] 200 mg capsule 100 mg PO DAILY sildenafil [Viagra] 100 mg tablet 100 mg PO DAILY PRN (Reason: sexual activity) Qty: 20 1RF Rx Instructions: administer 30 minutes to 4 hours before activity finasteride 5 mg tablet See Rx Instructions .ROUTE .COMPLEX Qty: 90 0RF Dose Instruction: TAKE 1 TABLET BY MOUTH DAILY Rx Instructions: TAKE 1 TABLET BY MOUTH DAILY omeprazole 20 mg capsule,delayed release(DR/EC) 20 mg PO .daily Qty: 30 11RF (DME) FreeStyle Joseph 3 Plus Sensor Device See Rx Instructions .Route Qty: 2 4RF Rx Instructions: Change every 15 days. <Deepthi Lee PA-C - Last Filed: 09/22/24 09:14> Follow-up/Referrals: PHYSICIAN,MEDIA PLANNER [Primary Care Provider] - <Deepthi Lee PA-C - Last Filed: 09/22/24 09:14>
[2024-09-20 14:35] LABS: Basophils Percent Auto 0.5 % (0.2-1.2); Eosinophils Absolute Auto 0.1 K/mm3 (0-0.3); Eosinophils Percent Auto 1.3 % (0-4.4); Hematocrit 42.1 % (42.0-52.0); Hemoglobin 13.6 g/dL (14.0-18.0); Immature Granulocyte Absolute 0.01 K/mm3 (0.00-0.031); Immature Granulocyte Percent A 0.2 % (0-0.5); Lymphocytes Absolute Auto 1.72 K/mm3 (0.9-3.2); Lymphocytes Percent Auto 28.2 % (18.3-44.2); Mean Corpuscular HGB Conc 32.3 g/dl (32-36); Mean Corpuscular Hemoglobin 29.1 pg (26-34); Mean Platelet Volume 11.9 fl (7.4-10.4); Monocytes Absolute Auto 0.4 K/mm3 (0.1-0.6); Monocytes Percent Auto 6.6 % (2.6-8.5); Neutrophils Absolute Auto 3.9 K/mm3 (1.3-6.7); Neutrophils Percent Auto 63.2 % (45.5-73.1); Platelet Count Result 130 k/mm3 (150-375); Red Blood Count 4.68 M/mm3 (4.6-6.20); Red Cell Distribution Width 12.9 % (11.5-14.5); White Blood Count 6.1 K/mm3 (4.5-10.0)
[2024-09-20 14:49] LABS: Prothrombin Time 14.1 Seconds (11.1-14.7)
[2024-09-20 14:51] LABS: Partial Thromboplastin Time 25.4 Seconds (22.3-36.8)
[2024-09-20 14:52] LABS: Alanine Aminotransferase 26 U/L (6-50); Albumin Level 4.5 g/dL (3.5-5.1); Alkaline Phosphatase 58 U/L (38-126); Anion Gap 10 mmol/L (4-12); Aspartate Amino Transferase 28 U/L (17-59); Bilirubin,Total 0.6 mg/dL (0.2-1.3); Blood Urea Nitrogen 18 mg/dL (9-20); Calcium 9.2 mg/dL (8.4-10.2); Carbon Dioxide 25 mmol/L (22-30); Chloride 105 mmol/L (98-107); Estimated CRCL calculation 76 ml/min; Estimated Glomerular Filt Rate > 60; Glucose 134 mg/dL (65-110); Lipase 37 U/L (23-300); Sodium 140 mmol/L (137-145)
[2024-09-20 15:04] LABS: Troponin I < 0.012 ng/mL (0.000-0.034)
[2024-09-20] MEDS: ASPIRIN 81 MG CHEWABLE TABLET 324 MG PO (15:13)
--- OUTSIDE RECORDS SUMMARY | 2024-09-20 15:29 | XMS_ITS | Encounter Summary ---
Author Organization [facility] Address 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 Gender Identity Not on file Sexual Orientation Not on file documented as of this encounter Plan of Treatment Upcoming Encounters Date Type Department Care Team (Late st Contact Info) Description 03/18/2025 9:00 AM CDT Office Visit [facility] Heart and Vascular At [address] [place] [address] Jh Willis MD [address] [place] [address] [address] [place] [address] 08/26/2025 8:45 AM CDT Office Visit [facility] Oncology and Hematology - Brandin [address] [facility] 200 [place] [address] Graeme Diez MD [address] [facility] [address] [place] [address] [phone] documented as of this encounter Visit Diagnoses Not on filedocumented in this encounter Care Teams Key Ringer Relationship Specialty Start Date End Date Jose Lewis DO PCP - General 05/04/15 documented as of this encounter
--- OUTSIDE RECORDS SUMMARY | 2024-09-20 15:29 | XMS_ITS | Encounter Summary ---
Author Organization [facility] Address 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 Gender Identity Not on file Sexual Orientation [...] Description 03/18/2025 9:00 AM CDT Office Visit [facility] Heart and Vascular At [address] [place] [address] Jh Willis MD [address] [place] [address] [address] [place], [place] [id number] 08/26/2025 8:45 AM CDT Office Visit [facility] Oncology and Hematology - Brandin [address] [facility] 200 [place] [address] Graeme Diez MD [address] [facility] [address] [place] [address] documented as of this encounter Visit Diagnoses Not on filedocumented in this encounter Care Teams Dentistry Teacher Relationship Specialty Start Date End Date Jose Lewis DO PCP - General 05/04/15 documented as of this encounter
--- OUTSIDE RECORDS SUMMARY | 2024-09-20 15:29 | XMS_ITS | Encounter Summary ---
Author Organization [facility] Address 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 Gender Identity Not on file Sexual Orientation Not on file documented as of this encounter Plan of Treatment Upcoming Encounters Date Type Department Care Team (Late st Contact Info) Description 03/18/2025 9:00 AM CDT Office Visit [facility] Heart and Vascular At [address] [place] [address] Jh Willis MD [address] [place] [address] [address] [place] [address] 08/26/2025 8:45 AM CDT Office Visit [facility] Oncology and Hematology - Brandin [address] [facility] 200 [place] [address] Graeme Diez MD [address] [facility] [address] [place] [address] [phone] documented as of this encounter Visit Diagnoses Not on filedocumented in this encounter Care Teams Side Door Worker Relationship Specialty Start Date End Date Jose Lewis DO PCP - General 05/04/15 documented as of this encounter
--- OUTSIDE RECORDS SUMMARY | 2024-09-20 15:29 | XMS_ITS | Encounter Summary ---
Author Organization [facility] Address [address] [place] [address] Care Team Providers Care Bias Machine Operator Helper Name Role Phone Jose Lewis DO Primary Care Provider Encounter Details Date Type Department Care Team (Late st Contact Info) Description 08/11/[address] 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 Heart and Vascular At [address] [place] [address] Jh Willis MD [address] [place] [address] [address] [place] [address] 08/26/2025 8:45 AM CDT Office Visit [facility] Oncology and Hematology - Brandin 2[address] [facility] 200 [place] [address] Graeme Diez MD [address] [facility] [address] [place] [address] [phone] documented as of this encounter Visit Diagnoses Not on filedocumented in this encounter Care Teams Bias Machine Operator Helper Relationship Specialty Start Date End Date Jose Lewis DO PCP - General 05/04/15 documented as of this encounter
--- OUTSIDE RECORDS SUMMARY | 2024-09-20 15:29 | XMS_ITS | Encounter Summary ---
Author Organization [facility] Address 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 Gender Identity Not on file Sexual Orientation Not on file documented as of this encounter Plan of Treatment Upcoming Encounters Date Type Department Care Team (Late st Contact Info) Description 03/18/2025 9:00 AM CDT Office Visit [facility] Heart and Vascular At [address] [place] [address] Jh Willis MD [address] [place] [address] [address] [place] [address] 08/26/2025 8:45 AM CDT Office Visit [facility] Oncology and Hematology - Brandin 2227 [facility] [place] 200 [place] [address] Graeme Diez MD [address] [facility] [address] [place] [address] [phone] documented as of this encounter Visit Diagnoses Not on filedocumented in this encounter Care Teams Sheet Rock Taper Relationship Specialty Start Date End Date Jose Lewis DO PCP - General 05/04/15 documented as of this encounter
--- OUTSIDE RECORDS SUMMARY | 2024-09-20 15:30 | XMS_ITS | Encounter Summary ---
Author Organization [facility] Address 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 Gender Identity Not on file Sexual Orientation Not on file documented as of this encounter Plan of Treatment Upcoming Encounters Date Type Department Care Team (Late st Contact Info) Description 03/18/2025 9:00 AM CDT Office Visit [facility] Heart and Vascular At [place] [address] [facility] [address] [place] [address] Jh Willis MD [address] [place] [address] [address] [place] [address] 08/26/2025 8:45 AM CDT Office Visit [facility] Oncology and Hematology - [place] [address] [facility] 200 [place] [address] Graeme Diez MD [address] [facility] [address] [place] [phone] documented as of this encounter Visit Diagnoses Not on filedocumented in this encounter Care Teams Single Spindle Screw Machine Operator Relationship Specialty Start Date End Date Jose Lewis DO PCP - General 05/04/15 documented as of this encounter
--- OUTSIDE RECORDS SUMMARY | 2024-09-20 15:30 | XMS_ITS | Continuity of Care Document ---
Author Organization [facility] Address [address] [place] [address] [address] [place] [address] Phone Care Team Providers Care Rf Engineer Name Role Phone Jh Peralta MD Unavailable [...] EXTENDED GDX Optic Nerve GONIOSCOPY OFFICE/OUTPATIENT VISIT, [facility] Advance Directives Directive Yes / No Effective Date File Name No Information Encounters Encounter Description Practice Location Reason(s) For Visit Diagnoses Date Provider Providers Copied on Encounter OFFICE/OUTPA TIENT VISIT, [facility], [id number] [place] [address], [place], [place], [id number], [place] tel:[phone] [facility] Glaucoma Evaluation (chief complaint) Presence of pseudophakiaOp en angle with borderline findings, low risk, bilateralPucke ring of macula, bilateral Jul-2 2 Bj Peñaloza. [address] [place], [place], [id number] , [place]. tel:[phone] Consulting Provider: Donnie Lemons, [address] [facility], [place], [address]. tel:[phone] ring Provider: Jh Peralta, [address] [facility], [place], [address]. tel:[phone] [facility], [address] [place] [address], [place], [place], [id number], tel:[phone] [facility] No Information 2 Bj Peñaloza. [address] [facility], [place], [place], [id number] , [place]. [phone] Family History Family Member Type Diagnosis Age At Onset Problem Family history of Heart dise ase Problem Family history of Diabetes m bryan Payers Payer name Insurance type Covered libertarian ID Authoriza tion(s) [place] MB [id number] [facility] [id number] Social History Type Description Quantity Date Captured [...]
--- OUTSIDE RECORDS SUMMARY | 2024-09-20 15:30 | XMS_ITS | Encounter Summary ---
Author Organization [facility] Address 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 Gender Identity Not on file Sexual Orientation Not on file documented as of this encounter Plan of Treatment Upcoming Encounters Date Type Department Care Team (Late st Contact Info) Description 03/18/2025 9:00 AM CDT Office Visit [facility] Heart and Vascular At [address] [place] [address] Jh Willis MD [address] [place] [address] [address] [place] [address] 08/26/2025 8:45 AM CDT Office Visit [facility] Oncology and Hematology - [place] [address] [facility] 200 [place] [address] Graeme Diez MD 2227 [facility] [address] [place] [address] documented as of this encounter Visit Diagnoses Not on filedocumented in this encounter Care Teams Termite Exterminator Helper Relationship Specialty Start Date End Date Jose Lewis DO PCP - General 05/04/15 documented as of this encounter
--- OUTSIDE RECORDS SUMMARY | 2024-09-20 15:30 | XMS_ITS | Encounter Summary ---
Author Organization [facility] Address 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 Gender Identity Not on file Sexual Orientation Not on file documented as of this encounter Plan of Treatment Upcoming Encounters Date Type Department Care Team (Late st Contact Info) Description 03/18/2025 9:00 AM CDT Office Visit [facility] Heart and Vascular At [address] [place] [address] Jh Willis MD [address] [place] [address] [address] [place] [address] 08/26/2025 8:45 AM CDT Office Visit [facility] Oncology and Hematology - [place] [address] [place] [address] Graeme Diez MD 2[address] [facility] [address] [place] [address] documented as of this encounter [...] WITH DIFFERENTIAL (09/17/2006 11:50 AM CDT) Pathologist [facility] WBC 6.7 4.0 - 9.8 K/uL INTERFACE [...] encounter Visit Diagnoses Diagnosis Coronary atherosclerosis of [place] coronary artery- Primary documented in this encounter Care Teams Chairman Relationship Specialty Start Date End Date Jose Lewis DO PCP - General 05/04/15 documented as of this encounter
--- OUTSIDE RECORDS SUMMARY | 2024-09-20 15:30 | XMS_ITS | Encounter Summary ---
Author Organization [facility] Address [address] [place] [address] Care Team Providers Care Information Engineer Name Role Phone Jose Lewis DO Primary Care Provider Encounter Details Date Type Department Care Team (Late st Contact Info) Description 09/29/[address] 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 PROBLEMS: S/P CABG [facility] At [facility] [address] [facility] [address] [place] [address] Jh Willis MD [facility] [address] [facility] [address] [place] [address] 08/26/2025 8:45 AM CDT Office Visit [facility] Oncology and Hematology - Brandin [address] [facility] 200 [place] [address] Graeme Diez MD [address] [facility] [address] [place] [address] documented as of this encounter Visit Diagnoses Not on filedocumented in this encounter Care Teams Information Engineer Relationship Specialty Start Date End Date Jose Lewis DO PCP - General 05/04/15 documented as of this encounter
--- OUTSIDE RECORDS SUMMARY | 2024-09-20 15:30 | XMS_ITS | Encounter Summary ---
Author Organization [facility] Address 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 Gender Identity Not on file Sexual Orientation Not on file documented as of this encounter Plan of Treatment Upcoming Encounters Date Type Department Care Team (Late st Contact Info) Description 03/18/2025 9:00 AM CDT Office Visit [facility] Heart and Vascular At [address] [place] [address] Jh Willis MD [address] [place] [address] [address] [place] [address] 08/26/2025 8:45 AM CDT Office Visit [facility] Oncology and Hematology - Brandin [address] [facility] 200 [place] [address] Graeme Diez MD [address] [facility] [address] [place] [phone] documented as of this encounter Visit Diagnoses Not on filedocumented in this encounter Care Teams Electrical Tests Supervisor Relationship Specialty Start Date End Date Jose Lewis DO PCP - General 05/04/15 documented as of this encounter
--- OUTSIDE RECORDS SUMMARY | 2024-09-20 15:30 | XMS_ITS | Encounter Summary ---
Author Organization [facility] Address 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 given above results and directions faxedto organic chemistry teacher Dr. Hernandez. /bear Electronically Signed by: Chayito Barakat on Saturday, December 16, 2006 documented in this encounter Plan of Treatment Upcoming Encounters Date Type Department Care Team (Late st Contact Info) Description 03/18/2025 9:00 AM CDT Office Visit [facility] Heart and Vascular At [facility] [address] [facility] [address] [place] [address] hJ Willis MD [address] [facility] [address] [place] [address] 08/26/2025 8:45 AM CDT Office Visit [facility] Oncology and Hematology - Brandin [address] [facility] 200 [place] [address] Graeme Diez MD [address] [facility] [address] [place] [address] documented as of this encounter Visit Diagnoses Not on filedocumented in this encounter Care Teams Furniture Assembly Supervisor Relationship Specialty Start Date End Date Jose Lewis DO PCP - General 05/04/15 documented as of this encounter
--- OUTSIDE RECORDS SUMMARY | 2024-09-20 15:30 | XMS_ITS | Encounter Summary ---
Author Organization [facility] Address [address] [place] [address] Care Team Providers Care Produce Laborer Name Role Phone Jose Lewis DO Primary Care Provider Encounter Details Date Type Department Care Team (Latest Contact Info) Description 08/22/2006 Inpatient Historical HIS PATIENT IN A BED Jh Guerrero Jr., MD NO ADDRESS ON FILE Jose Schrader MD [address] [facility] [address] [place] [address] Coronary Atherosclerosis of [place] Coronary Artery (Primary Dx) Social History Tobacco Use Types Packs/Day Years Used Date Smoking Tobacco: Never Assessed Sex and Gender Information Value Date Recorded Sex Assigned at Not on file 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 At [facility] [address] [place] [address] hJ Willis MD [facility] [address] [facility] [address] [place] [address] 08/26/2025 8:45 AM CDT Office Visit [facility] Oncology and Hematology - Brandin Ailyn [address] [place] [address] Graeme Diez MD [address] [facility] [address] [place] [address] documented as of this encounter Procedures Procedure [...] (ABNORMAL) POC GLUCOSE (08/26/2006 12:08 PM CDT) [facility] [address] [facility] GLUCOSE POC 124(H) 65 - 99 mg/dL INTERFACE SYSTEM 08/26/2006 12:0 8 PM CDT Jose Schrader MD POINT OF CARE TESTING Edited INTERFACE SYSTEM Refer to clinic/hospital department * (ABNORMAL) CBC WITH DIFFERENTIAL (08/26/2006 8:37 AM CDT) Pathologist [facility] NEUTROPHILS 82(H) 45 - 70 % INTERFAC [...] HEMATOLOGY ORDERABLES E dited Performing Organization Address [facility] Phone Number INTERFACE SYSTEM Refer to clinic/hospital [...] HEMATOLOGY ORDERABLES E dited Performing Organization Address [facility] Phone Number INTERFACE SYSTEM Refer to clinic/hospital [...] and non- Americans is available on the [facility] Intranet at: [email or web address] [email or web address] Select: Lab Policies and Procedures Select: Reference Ranges - GFR 08/26/2006 8:37 AM CDT Jh Guerrero Jr., MD CHEMISTRY ORDERABLES Ed ited Performing Organization Address City/[facility] Co de Phone Number INTERFACE SYSTEM Refer to clinic/hospital department * (ABNORMAL) POC GLUCOSE (08/26/2006 8:16 AM CDT) GLUCOSE POC 202(H) 65 - 99 mg/dL INTERFACE SYSTEM 08/26/2006 8:16 AM CDT us Jose Schrader MD POINT OF CARE TESTING Edited Performing Organization Address [facility] Co de Phone Number INTERFACE SYSTEM Refer to clinic/hospital department * (ABNORMAL) POC GLUCOSE (08/25/2006 8:18 PM CDT) GLUCOSE POC 180(H) 65 - 99 mg/dL INTERFACE SYSTEM 08/25/2006 8:18 PM CDT Jose Schrader MD POINT OF CARE TESTING Edited Performing Organization Address [facility] de Phone Number INTERFACE SYSTEM Refer to clinic/hospital department * (ABNORMAL) POC GLUCOSE (08/25/2006 4:56 PM CDT) GLUCOSE POC 131(H) 65 - 99 mg/dL INTERFACE SYSTEM 08/25/2006 4:56 PM CDT us Jose Schrader MD POINT OF CARE TESTING Edited Performing Organization Address City/[facility] Co de Phone Number INTERFACE SYSTEM Refer to clinic/hospital department * (ABNORMAL) POC GLUCOSE (08/25/2006 12:00 PM CDT) GLUCOSE POC 148(H) 65 - 99 mg/dL INTERFACE SYSTEM 08/25/2006 12:0 0 PM CDT us Jose Schrader MD POINT OF CARE TESTING Edited Performing Organization Address City/[facility] Co de Phone Number INTERFACE SYSTEM Refer to clinic/hospital department * (ABNORMAL) POC GLUCOSE (08/25/2006 7:25 AM CDT) GLUCOSE POC 137(H) 65 - 99 mg/dL INTERFACE SYSTEM 08/25/2006 7:25 AM CDT us Jose Schrader MD POINT OF CARE TESTING Edited Performing Organization Address [facility] de Phone Number INTERFACE SYSTEM Refer to clinic/hospital department * (ABNORMAL) POC GLUCOSE (08/24/2006 8:33 PM CDT) GLUCOSE POC 185(H) 65 - 99 mg/dL INTERFACE SYSTEM 08/24/2006 8:33 PM CDT us Jose Schrader MD POINT OF CARE TESTING Edited Performing Organization Address [facility] de Phone Number INTERFACE SYSTEM Refer to clinic/hospital department * (ABNORMAL) POC GLUCOSE (08/24/2006 6:12 PM CDT) GLUCOSE POC 165(H) 65 - 99 mg/dL INTERFACE SYSTEM 08/24/2006 6:12 PM CDT us Jose Schrader MD POINT OF CARE TESTING Edited Performing Organization Address City/[facility] de Phone Number INTERFACE SYSTEM Refer to clinic/hospital department * (ABNORMAL) POC GLUCOSE (08/24/2006 11:48 AM CDT) GLUCOSE POC 135(H) 65 - 99 mg/dL INTERFACE SYSTEM 08/24/2006 11:4 8 AM CDT Jose Schrader MD POINT OF CARE TESTING Edited Performing Organization Address City/[facility] Co de Phone Number INTERFACE SYSTEM [...] MD HEMATOLOGY ORDERABLES Edited Performing Organization Address [facility] de Phone Number INTERFACE SYSTEM Refer [...] MD HEMATOLOGY ORDERABLES Edited Performing Organization Address [facility] Phone Number INTERFACE SYSTEM Refer to clinic/hospital department * (ABNORMAL) POC GLUCOSE (08/24/2006 7:56 AM CDT) GLUCOSE POC 157(H) 65 - 99 mg/dL INTERFACE SYSTEM 08/24/2006 7:56 AM CDT Jose Schrader MD POINT OF CARE TESTING Edited Performing Organization Address [facility] Phone Number INTERFACE SYSTEM Refer to clinic/hospital [...] and non- Americans is available on the [facility] Intranet at: [email or web address] Select: Lab Policies and Procedures Select: Reference Ranges - GFR 08/24/2006 5:37 AM CDT us Jh Guerrero Jr., MD CHEMISTRY ORDERABLES Ed ited Performing Organization Address [facility] de Phone Number INTERFACE SYSTEM Refer to clinic/hospital department * (ABNORMAL) POC GLUCOSE (08/23/2006 8:28 PM CDT) GLUCOSE POC 153(H) 65 - 99 mg/dL INTERFACE SYSTEM 08/23/2006 8:28 PM CDT us Jose Schrader MD POINT OF CARE TESTING Edited Performing Organization Address City/[facility] Co de Phone Number INTERFACE SYSTEM Refer to clinic/hospital department * (ABNORMAL) POC GLUCOSE (08/23/2006 6:00 PM CDT) GLUCOSE POC 160(H) 65 - 99 mg/dL INTERFACE SYSTEM 08/23/2006 6:00 PM CDT us Jose Schrader MD POINT OF CARE TESTING Edited Performing Organization Address [facility] Phone Number INTERFACE SYSTEM Refer to clinic/hospital department * (ABNORMAL) POC GLUCOSE (08/23/2006 3:50 PM CDT) GLUCOSE POC 181(H) 65 - 99 mg/dL INTERFACE SYSTEM 08/23/2006 3:50 PM CDT us Jose Schrader MD POINT OF CARE TESTING Edited Performing Organization Address [facility] de Phone Number INTERFACE SYSTEM Refer to clinic/hospital department * (ABNORMAL) POC GLUCOSE (08/23/2006 12:38 PM CDT) GLUCOSE POC 137(H) 65 - 99 mg/dL INTERFACE SYSTEM 08/23/2006 12:3 8 PM CDT us Jose Schrader MD POINT OF CARE TESTING Edited Performing Organization Address City/[facility] Co de Phone Number INTERFACE SYSTEM Refer to clinic/hospital department * (ABNORMAL) POC GLUCOSE (08/23/2006 9:57 AM CDT) GLUCOSE POC 170(H) 65 - 99 mg/dL INTERFACE SYSTEM 08/23/2006 9:57 AM CDT Jose Schrader MD POINT OF CARE TESTING Edited Performing Organization Address [facility] de Phone Number INTERFACE SYSTEM Refer to clinic/hospital department * (ABNORMAL) POC GLUCOSE (08/23/2006 6:14 AM CDT) GLUCOSE POC 114(H) 65 - 99 mg/dL INTERFACE SYSTEM 08/23/2006 6:14 AM CDT Jose Schrader MD POINT OF CARE TESTING Edited Performing Organization Address [facility] de Phone Number INTERFACE SYSTEM Refer to clinic/hospital department * (ABNORMAL) POC GLUCOSE (08/23/2006 4:57 AM CDT) GLUCOSE POC 111(H) 65 - 99 mg/dL INTERFACE SYSTEM 08/23/2006 4:57 AM CDT Jose Schrader MD POINT OF CARE TESTING Edited Performing Organization Address [facility] de Phone Number INTERFACE SYSTEM Refer [...] HEMATOLOGY ORDERABLES E dited Performing Organization Address [facility] Phone Number INTERFACE SYSTEM Refer to clinic/hospital [...] HEMATOLOGY ORDERABLES E dited Performing Organization Address [facility] Phone Number INTERFACE SYSTEM Refer to clinic/hospital [...] patients with mechanical heart valves or post [place]. Pediatric (12 years and under): 1.5 - [...] and non- Americans is available on the [facility] Intranet at: [email or web address] Select: Lab Policies and Procedures Select: Reference Ranges - GFR 08/23/2006 4:20 AM CDT Jh Guerrero Jr., MD CHEMISTRY ORDERABLES Ed ited Performing Organization Address [facility] Phone Number INTERFACE SYSTEM Refer to clinic/hospital department * (ABNORMAL) POC GLUCOSE (08/23/2006 4:11 AM CDT) GLUCOSE POC 118(H) 65 - 99 mg/dL INTERFACE SYSTEM 08/23/2006 4:11 AM CDT Jose Schrader MD POINT OF CARE TESTING Edited Performing Organization Address [facility] Phone Number INTERFACE SYSTEM Refer to clinic/hospital department * (ABNORMAL) POC GLUCOSE (08/23/2006 2:40 AM CDT) GLUCOSE POC 133(H) 65 - 99 mg/dL INTERFACE SYSTEM 08/23/2006 2:40 AM CDT Jose Schrader MD POINT OF CARE TESTING Edited Performing Organization Address [facility] Phone Number INTERFACE SYSTEM Refer to clinic/hospital department * (ABNORMAL) POC GLUCOSE (08/23/2006 1:45 AM CDT) GLUCOSE POC 142(H) 65 - 99 mg/dL INTERFACE SYSTEM 08/23/2006 1:45 AM CDT us Jose Schrader MD POINT OF CARE TESTING Edited Performing Organization Address [facility] Phone Number INTERFACE SYSTEM Refer to clinic/hospital department * (ABNORMAL) POC GLUCOSE (08/23/2006 12:26 AM CDT) GLUCOSE POC 168(H) 65 - 99 mg/dL INTERFACE SYSTEM 08/23/2006 12:2 6 AM CDT us Jose Schrader MD POINT OF CARE TESTING Edited Performing Organization Address [facility] de Phone Number INTERFACE SYSTEM Refer [...] MD CHEMISTRY ORDERABLES Edited Performing Organization Address [facility] Phone Number INTERFACE SYSTEM Refer to clinic/hospital department * MAGNESIUM LEVEL (08/22/2006 11:50 PM CDT) MAGNESIUM 1.9 1.5 - 2.5 mg/dL INTERFACE SYSTEM 08/22/2006 11:5 0 PM CDT us Jh Guerrero Jr., MD CHEMISTRY ORDERABLES Ed ited Performing Organization Address City/[facility] Co de Phone Number INTERFACE SYSTEM Refer to clinic/hospital department * POTASSIUM LEVEL (08/22/2006 11:50 PM CDT) POTASSIUM 4.8 3.5 - 4.9 mmol/L INTERFACE SYSTEM 08/22/2006 11:5 0 PM CDT us Jh Guerrero Jr., MD CHEMISTRY ORDERABLES Ed ited Performing Organization Address [facility] Phone Number INTERFACE SYSTEM Refer to clinic/hospital [...] CHEMISTRY ORDERABLES Ed ited Performing Organization Address [facility] Phone Number INTERFACE SYSTEM Refer to clinic/hospital department * (ABNORMAL) POC GLUCOSE (08/22/2006 11:46 PM CDT) GLUCOSE POC 175(H) 65 - 99 mg/dL INTERFACE SYSTEM 08/22/2006 11:4 6 PM CDT us Jose Schrader MD POINT OF CARE TESTING Edited Performing Organization Address [facility] Phone Number INTERFACE SYSTEM Refer to clinic/hospital department * (ABNORMAL) POC GLUCOSE (08/22/2006 11:02 PM CDT) GLUCOSE POC 177(H) 65 - 99 mg/dL INTERFACE SYSTEM 08/22/2006 11:0 2 PM CDT Jose Schrader MD POINT OF CARE TESTING Edited Performing Organization Address [facility] de Phone Number INTERFACE SYSTEM Refer to clinic/hospital department * (ABNORMAL) POC GLUCOSE (08/22/2006 9:58 PM CDT) GLUCOSE POC 183(H) 65 - 99 mg/dL INTERFACE SYSTEM 08/22/2006 9:58 PM CDT Jose Schrader MD POINT OF CARE TESTING Edited Performing Organization Address [facility] Co de Phone Number INTERFACE SYSTEM Refer to clinic/hospital department * (ABNORMAL) POC GLUCOSE (08/22/2006 9:31 PM CDT) GLUCOSE POC 189(H) 65 - 99 mg/dL INTERFACE SYSTEM 08/22/2006 9:31 PM CDT Jose Schrader MD POINT OF CARE TESTING Edited Performing Organization Address [facility] de Phone Number INTERFACE SYSTEM Refer [...] MD CHEMISTRY ORDERABLES Edited Performing Organization Address City/[facility] de Phone Number INTERFACE SYSTEM Refer to clinic/hospital department * (ABNORMAL) POC GLUCOSE (08/22/2006 8:31 PM CDT) GLUCOSE POC 168(H) 65 - 99 mg/dL INTERFACE SYSTEM 08/22/2006 8:31 PM CDT Jose Schrader MD POINT OF CARE TESTING Edited Performing Organization Address [facility] de Phone Number INTERFACE SYSTEM Refer to clinic/hospital department * (ABNORMAL) POC GLUCOSE (08/22/2006 7:40 PM CDT) GLUCOSE POC 142(H) 65 - 99 mg/dL INTERFACE SYSTEM 08/22/2006 7:40 PM CDT Jose Schrader MD POINT OF CARE TESTING Edited Performing Organization Address [facility] Phone Number INTERFACE SYSTEM Refer to clinic/hospital department * MAGNESIUM LEVEL (08/22/2006 5:57 PM CDT) MAGNESIUM 2.0 1.5 - 2.5 mg/dL INTERFACE SYSTEM 08/22/2006 5:57 PM CDT Jh Guerrero Jr., MD CHEMISTRY ORDERABLES Ed ited Performing Organization Address [facility] Phone Number INTERFACE SYSTEM Refer to clinic/hospital [...] HEMATOLOGY ORDERABLES E dited Performing Organization Address [facility] de Phone Number INTERFACE SYSTEM Refer [...] patients with mechanical heart valves or post [place]. Pediatric (12 years and under): 1.5 - [...] HEMATOLOGY ORDERABLES E dited Performing Organization Address [facility] de Phone Number INTERFACE SYSTEM Refer [...] and non- Americans is available on the [facility] Intranet at: [email or web address] Select: Lab Policies and Procedures Select: Reference Ranges - GFR 08/22/2006 5:55 PM CDT Jh Guerrero Jr., MD CHEMISTRY ORDERABLES Ed ited Performing Organization Address [facility] de Phone Number INTERFACE SYSTEM Refer [...] CHEMISTRY ORDERABLES Ed ited Performing Organization Address [facility] de Phone Number INTERFACE SYSTEM Refer [...] MD CHEMISTRY ORDERABLES Edited Performing Organization Address [facility] Co de Phone Number INTERFACE SYSTEM [...] CVR ONLY, CKMB/CK (08/22/2006 4:00 PM CDT) [facility] [address] CKMB Invalid Result <=6.7 INTERFACE SYSTEM Comment:Results [...] WITH DIFFERENTIAL (08/22/2006 4:00 PM CDT) Pathologist [facility] NEUTROPHILS Invalid Result 45 - 70 INTERFACE [...] HEMATOLOGY ORDERABLES E dited Performing Organization Address City/[facility] de Phone Number INTERFACE SYSTEM Refer [...] and non- Americans is available on the [facility] Intranet at: [email or web address] Select: Lab Policies and Procedures Select: Reference Ranges - GFR 08/22/2006 4:00 PM CDT Jh Guerrero Jr., MD CHEMISTRY ORDERABLES Ed ited Performing Organization Address City/State/[facility] Co de Phone Number INTERFACE SYSTEM [...] MD CHEMISTRY ORDERABLES Edited Performing Organization Address [facility] de Phone Number INTERFACE SYSTEM Refer [...] MD CHEMISTRY ORDERABLES Edited Performing Organization Address [facility] Co de Phone Number INTERFACE SYSTEM [...] MD CHEMISTRY ORDERABLES Edited Performing Organization Address [facility] de Phone Number INTERFACE SYSTEM Refer [...] patients with mechanical heart valves or post [place]. Pediatric (12 years and under): 1.5 - [...] HEMATOLOGY ORDERABLES E dited Performing Organization Address City/[facility] Co de Phone Number INTERFACE SYSTEM Refer to clinic/hospital department documented in this encounter Visit Diagnoses Diagnosis Coronary atherosclerosis of [place] coronary artery- Primary documented in this encounter Care Teams Produce Laborer Relationship Specialty Start Date End Date Jose Lewis DO PCP - General 05/04/15 documented as of this encounter
--- OUTSIDE RECORDS SUMMARY | 2024-09-20 15:30 | XMS_ITS | Encounter Summary ---
Author Organization [facility] Address 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 Gender Identity Not on file Sexual Orientation [...] Description 03/18/2025 9:00 AM CDT Office Visit [facility] Heart and Vascular At [address] [place] [address] Jh Willis MD [address] [place] [address] [address] [place], [place] [id number] 08/26/2025 8:45 AM CDT Office Visit [facility] Oncology and Hematology - Brandin [address] [facility] [address] [place] [address] Graeme Diez MD [address] [facility] [address] [place] [address] documented as of this encounter Visit Diagnoses Not on filedocumented in this encounter Care Teams Bar Welder Relationship Specialty Start Date End Date Jose Lewis DO PCP - General 05/04/15 documented as of this encounter
--- OUTSIDE RECORDS SUMMARY | 2024-09-20 15:30 | XMS_ITS | Encounter Summary ---
Author Organization [facility] Address [address] [place] [address] Care Team Providers Care Phonograph Needle Tip Maker Name Role Phone Nkechi Lewis DO Primary Care Provider Encounter Details Date Type Department Care Team (Late st Contact Info) Description 12/02/[address] 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 [address] D.O.B: 1950 SSN: [id number] Parent/Guardian if applicable: Patient Insurance: BLUE CROSS BLUE SHIELD ID#: [id number] Group#: ORDER(S) #: [id number] MRI of left shoulder BEST TO CALL HOME. BEST TIME TO CALL: ANYTIME. MAY WE LEAVE MESSAGE AT THAT NUMBER: YES, LEAVE MESSAGE. PLEASE SCHEDULE THE APPOINTMENT AT THE FOLLOWING LOCATION: TEST SCHEDULE OTHER LOCATION. [place] in [place]-patient to give name of facility TEST PRIORITY: 2 - 7 DAYS. ORDERING PHYSICIAN: LOBO OLSEN MD OFFICE BOOK SOLICITOR & PHONE: Rita Alfaro R ORDER PRINTED BY: DEC 04, 2006 Thania Michelle, P 06:09 p FOR SCHEDULING USE ONLY: FIRST ATTEMPT Date:DEC 04, 2006 Thania Michelle, P 06:47 p Left message on Recorder. Actually spoke with pt and stated he will call back tomorrow to schedule because Pending [facility] [place] was already closed. 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 Oncology and Hematology - Brandin [address] A[address] [place] [phone] Graeme Diez MD [facility] [facility] [address] [place] [phone] documented as of this encounter Visit Diagnoses Not on filedocumented in this encounter Care Teams Phonograph Needle Tip Maker Relationship Specialty Start Date End Date Nkechi Lewis DO PCP - General 05/04/15 documented as of this encounter
--- OUTSIDE RECORDS SUMMARY | 2024-09-20 15:30 | XMS_ITS | Encounter Summary ---
Author Organization [facility] Address 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 Gender Identity Not on file Sexual Orientation [...] reviewed other supplts LAB ORDERS: Order number: [id number] Test Ordered: INJ-TETANUS & DIPTHERIA TOXOID 50271 272.4-HYPERLIPIDEMIA LAB ORDERS: now, pt fasting Order number: [id number] Test Ordered: CBC (INCLUDES DIFF/PLT) 6399 Order number: [id number] Test Ordered: COMPREHENSIVE METABOLIC PANEL 98498 Order number: [id number] Test Ordered: LIPID PANEL 7600 Order number: [id number] Test Ordered: TSH 899 Order number: [id number] Test Ordered: PSA 5363 602.9-OTHER DISORDERS OF PROSTATE discussed, rx if sx, check psa LAB ORDERS: Order number: [id number] Test Ordered: HEMOCCULT SINGLE 19260 SPECIALTY REFERRAL: GASTROENTEROLOGY Dr. Anil Shaw ph: [phone].colonscopy RETURN VISIT : Patient instructed to return in 3 months. Electronically Signed by: Octavio Mccain MD on Tuesday, June 14, 2005 documented in this encounter Plan of Treatment Upcoming Encounters Date Type Department Care Team (Late st Contact Info) Description 03/18/2025 9:00 AM CDT Office Visit [facility] Heart and Vascular At [address] [place] [address] Jh Willis MD [address] [place] [address] [address] [place] [address] 08/26/2025 8:45 AM CDT Office Visit [facility] Oncology and Hematology - [place] [address] [facility] 200 [place] [address] Graeme Diez MD 2227 [facility] [address] [place] [address] documented as of this encounter Visit Diagnoses Not on filedocumented in this encounter Care Teams Telephone Collector Relationship Specialty Start Date End Date Jose Lewis DO PCP - General 05/04/15 documented as of this encounter
--- OUTSIDE RECORDS SUMMARY | 2024-09-20 15:30 | XMS_ITS | Encounter Summary ---
Author Organization [facility] Address 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 Gender Identity Not on file Sexual Orientation Not on file documented as of this encounter Plan of Treatment Upcoming Encounters Date Type Department Care Team (Late st Contact Info) Description 03/18/2025 9:00 AM CDT Office Visit [facility] Heart and Vascular At [address] [place] [address] Jh Willis MD [address] [place] [address] [address] [place] [address] 08/26/2025 8:45 AM CDT Office Visit [facility] Oncology and Hematology - [place] 2227 [facility] 200 [place] [address] Graeme Diez MD 2227 [facility] [address] [place] [phone] documented as of this encounter Visit Diagnoses Not on filedocumented in this encounter Care Teams Associate Director Finance Relationship Specialty Start Date End Date Jose Lewis DO PCP - General 05/04/15 documented as of this encounter
--- OUTSIDE RECORDS SUMMARY | 2024-09-20 15:30 | XMS_ITS | Encounter Summary ---
Author Organization [facility] Address 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 [address] D.O.B: 1950 SSN: [id number] Parent/Guardian if applicable: Patient Insurance: BLUE CROSS BLUE SHIELD ID#: [id number] Group#: ORDER(S) #: [id number] stress thallium BEST TO CALL HOME. BEST TIME TO CALL: ANYTIME. MAY WE LEAVE MESSAGE AT THAT NUMBER: YES, LEAVE MESSAGE. PLEASE SCHEDULE THE APPOINTMENT AT THE FOLLOWING LOCATION: nkechi batista m.d. [phone] TEST PRIORITY: 2 - 7 DAYS. SPECIAL SCHEDULING INSTRUCTIONS: pt needs prep ORDERING PHYSICIAN: LOBO OLSEN MD OFFICE CAMPAIGN MANAGEMENT SENIOR MANAGER & PHONE: Katherine Byrd E ORDER PRINTED [...] was scheduled by Ayse Falcon A at [phone] Pre-authorization number: [place] -- NN Given/Authorized by: pre-recorded message/fast check @ [phone] FINAL ACTION Spoke with patient. Follow up completed. * Lobo Olsen MD - 10/09/2007 2:07 PM CDT WHO TOOK THE CALL: Lobo Olsen M TIME:05:34 pm given wrong z richie--notify pt can change to z richie (script for alexandre) 08/11/06 5:38P Spoke w/pt. Pharm # [phone]. [place] called back & corrected to oral Z-richie 250 mg. take as directed. sl Electronically Signed by: Donna Gutiérrez on Friday, August 11, 2006 * Lobo Olsen MD - 10/09/2007 2:07 PM CDT WEIGHT: 202lbs BLOOD PRESSURE: 122/76 Right Arm Sitting NURSE NAME: NeedhamGhazal J CHIEF COMPLAINT Patient here for follow [...] improved LAB ORDERS: 6 mo Order number: [id number] Test Ordered: COMPREHENSIVE METABOLIC PANEL & GFR 1112 Order number: [id number] Test Ordered: LIPID PANEL 1078 461.9-SINUSITIS UNSPECIFIED rx MEDICATIONS: ZITHROMAX Z-RICHIE ORAL TABLET 250 MG, DIRECTED, 1 Dispensed, status: NEW PRESCRIPTION, 08/11/2006. 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 Electronically Signed by: Lobo Olsen MD on Friday, August 11, 2006 documented in this encounter Plan of Treatment Upcoming Encounters Date Type Department Care Team (Late st Contact Info) Description 03/18/2025 9:00 AM CDT Office Visit [facility] Heart and Vascular At [place] [address] [facility] [address] [place] [address] Jh Willis MD [facility] [address] [place] [address] 08/26/2025 8:45 AM CDT Office Visit [facility] Oncology and Hematology - [place] [address] [place] [address] Graeme Diez MD 2227 [facility] [address] [place] [address] documented as of this encounter Visit Diagnoses Not on filedocumented in this encounter Care Teams Mill Tender Warm Up Relationship Specialty Start Date End Date Nkechi Lewis DO PCP - General 05/04/15 documented as of this encounter
--- OUTSIDE RECORDS SUMMARY | 2024-09-20 15:30 | XMS_ITS | Encounter Summary ---
Author Organization [facility] Address 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 Gender Identity Not on file Sexual Orientation Not on file documented as of this encounter Plan of Treatment Upcoming Encounters Date Type Department Care Team (Late st Contact Info) Description 03/18/2025 9:00 AM CDT Office Visit [facility] Heart and Vascular At [address] [place] [address] Jh Willis MD [address] [place] [address] [address] [place] [address] 08/26/2025 8:45 AM CDT Office Visit [facility] Oncology and Hematology - [place] [address] [facility] 200 [place] [address] Graeme Diez MD 2227 [facility] 100 [place] [address] documented as of this encounter Visit Diagnoses Not on filedocumented in this encounter Care Teams Snow Technician Relationship Specialty Start Date End Date Jose Lewis DO PCP - General 05/04/15 documented as of this encounter
--- OUTSIDE RECORDS SUMMARY | 2024-09-20 15:30 | XMS_ITS | Encounter Summary ---
Author Organization [facility] Address 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 Gender Identity Not on file Sexual Orientation Not on file documented as of this encounter Plan of Treatment Upcoming Encounters Date Type Department Care Team (Late st Contact Info) Description 03/18/2025 9:00 AM CDT Office Visit [facility] Heart and Vascular At [address] [place] [address] Jh Willis MD [address] [place] [address] [address] [place] [address] 08/26/2025 8:45 AM CDT Office Visit [facility] Oncology and Hematology - [place] [address] [facility] 200 [place] [address] Graeme Diez MD 2227 [facility] 100 [place] [address] documented as of this encounter Visit Diagnoses Not on filedocumented in this encounter Care Teams Tennis Desk Team Member Relationship Specialty Start Date End Date Jose Lewis DO PCP - General 05/04/15 documented as of this encounter
--- OUTSIDE RECORDS SUMMARY | 2024-09-20 15:30 | XMS_ITS | Encounter Summary ---
Author Organization [facility] Address [address] [place] [address] Care Team Providers Care Marine Equipment Research Engineer Name Role Phone Jose Lewis DO Primary Care Provider Encounter Details Date Type Department Care Team (Late st Contact Info) Description 06/14/2005 Outpatient Historical [facility] Internal Medicine [address] [address] Octavio Mccain MD [address] [place] [phone] Social History Tobacco Use Types Packs/Day Years Used Date Smoking Tobacco: Never Assessed Sex and Gender Information Value Date Recorded Sex Assigned at Not on file Legal 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 200 [place] [address] Graeme Diez MD 2227 [facility] [address] [place] [phone] documented as of this encounter Visit Diagnoses Not on filedocumented in this encounter Care Teams Marine Equipment Research Engineer Relationship Specialty Start Date End Date Jose Lewis DO PCP - General 05/04/15 documented as of this encounter
--- OUTSIDE RECORDS SUMMARY | 2024-09-20 15:30 | XMS_ITS | Encounter Summary ---
Author Organization [facility] Address [address] [place] [address] Care Team Providers Care Intranet Developer Name Role Phone Jose Lewis DO Primary Care Provider Encounter Details Date Type Department Care Team (Late st Contact Info) Description 12/02/2006 Outpatient Historical [facility] Internal Medicine [address] [address] Octavio Mccain MD [address] [place] [phone] Social History Tobacco Use Types Packs/Day Years Used Date Smoking Tobacco: Never Assessed Sex and Gender Information Value Date Recorded Sex Assigned at Not on file Legal Sex Male 5:22 AM RN TRANSFER Gender Identity Not on file Sexual Orientation [...] Description 03/18/2025 9:00 AM CDT Office Visit [facility] Heart and Vascular At [place] [address] [facility] [address] [place] [address] Jh Willis MD [address] [place] [address] [address] [place], [place] [id number] 08/26/2025 8:45 AM CDT Office Visit [facility] Oncology and Hematology - [place] 2227 [facility] 200 [place] [address] Graeme Diez MD 2227 [facility] [address] [place] [address] documented as of this encounter Visit Diagnoses Not on filedocumented in this encounter Care Teams Intranet Developer Relationship Specialty Start Date End Date Jose Lewis DO PCP - General 05/04/15 documented as of this encounter
--- OUTSIDE RECORDS SUMMARY | 2024-09-20 15:30 | XMS_ITS | Clinical Summary ---
Author Organization [facility] Address [address] [place] [address] Care Team Providers Care Commercial Manager Name Role Phone Jose Lewis DO [...] mamide (B-12 PLUS SUBLINGUAL) 0 Active omega 1-pvn-rbr-fish oil 300 mg (120 mg- 180mg)-1,000 mg Capsule 9 Active rosuvastatin (CRESTOR) 40 mg tabletIndications:C oronary artery disease involving ho-chunk coronary artery of ho-chunk heart without angina pectoris,Mixed hyperlipidemia TAKE 1 [...] Coronary atherosclerosis of unspecified type of vessel, ho-chunk or graft 09/29/2006 03/29/2010 Posttraumatic stress disorder [...] Description 08/20/2024 8:45 AM CDT Office Visit [facility] Oncology and Hematology [place] [address] [place] [address] Graeme Diez MD Other secondary thrombocytopenia (Primary Dx) 08/17/2024 Orders Only [facility] Oncology and Hematology [facility] [place] [facility] [address] [place] [address] Graeme Diez MD 08/04/2024 External Device Data STL ABSTRACTION Provider, Abstract 07/24/2024 External Device Data STL ABSTRACTION Provider, Abstract 07/23/2024 External Device Data STL ABSTRACTION Provider, Abstract 07/07/2024 External Device Data STL ABSTRACTION Provider, Abstract from Last 3 Months Immunizations Immunization Administration Dates Next Due (ADACEL/BOOSTRIX)(10 YR UP) TDAP VACCINE, 0.5ML, IM 11/14/2011 (PFIZER)(12 YR UP) COVID-19 VACCINE - EMERGENCY USE AUTHORIZATION, MRNA, [id number](PF) 30 MCG/0.3 ML IM SUSP 02/20/2021,07/12/2020,06/23/2020 (PNEUMOVAX [...] on file Legal Sex Male 5:22 AM 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 Gender Identity Not on file Sexual Orientation [...] 03/18/2025 9:00 AM CDT Office Visit [facility] Heart and Vascular At [place] [address] [facility] [address] [place] [address] Jh Willis MD [facility] S [facility] [address] [place] [address] 08/26/2025 8:45 AM CDT Office Visit [facility] Oncology and Hematology - [place] [address] [facility] 200 [place] [address] Graeme Diez MD 2227 [facility] [address] [place] [address] Health Maintenance Due Date Last [...] MEDICARE PART A AND B [facility] SUPP Advance Directives For more information, please contact: [phone] Documents on File Type Date Recorded Patient Scratcher Expl anation Advance Directive POA 01/06/2020 10:40 AM Advance Directive POA Care Teams Commercial Manager Relationship Specialty Start Date End Date Jose Lewis DO PCP - General 05/04/15
--- OUTSIDE RECORDS SUMMARY | 2024-09-20 15:30 | XMS_ITS | Encounter Summary ---
Author Organization [facility] Address [address] [place] [address] Care Team Providers Care Gluing Crew Leader Name Role Phone Jose Lewis DO Primary Care Provider Encounter Details Date Type Department Care Team (Late st Contact Info) Description 04/21/2007 Outpatient Historical [facility] Internal Medicine [address] [address] Octavio Mccain MD [address] [place] [phone] Social History Tobacco Use Types Packs/Day Years Used Date Smoking Tobacco: Never Assessed Sex and Gender Information Value Date Recorded Sex Assigned at Not on file Legal Sex Male 5:22 AM ACADEMIC ADVISER Gender Identity Not on file Sexual Orientation Not on file documented as of this encounter Plan of Treatment Upcoming Encounters Date Type Department Care Team (Late st Contact Info) Description 03/18/2025 9:00 AM CDT Office Visit [facility] Heart and Vascular At [place] [address] [address] [facility] [address] [place] [address] Jh Willis MD [address] [place] [address] [address] [place] [address] 08/26/2025 8:45 AM CDT Office Visit [facility] Oncology and Hematology - [place] 2227 [facility] 200 [place] [address] Graeme Diez MD 2227 [facility] [address] [place] [phone] documented as of this encounter Visit Diagnoses Not on filedocumented in this encounter Care Teams Gluing Crew Leader Relationship Specialty Start Date End Date Jose Lewis DO PCP - General 05/04/15 documented as of this encounter
--- OUTSIDE RECORDS SUMMARY | 2024-09-20 15:30 | XMS_ITS | Encounter Summary ---
Author Organization [facility] Address [address] [place] [address] Care Team Providers Care Airflight Attendants Supervisor Name Role Phone Joshua Jose Moreland DO Primary Care Provider Encounter Details Date Type Department Care Team (Late st Contact Info) Description 08/22/2006 Outpatient Historical [facility] Cardiovas and Thor Surg at [address] [place] [address] Jh Guerrero Jr., MD NO ADDRESS ON FILE Social History Tobacco Use Types Packs/Day Years Used Date Smoking Tobacco: Never Assessed Sex and Gender Information Value Date Recorded Sex Assigned at Not on file Legal Sex Male 5:22 AM CERTIFIED 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 200 [place] [address] Graeme Diez MD 2227 [facility] 100 [place] [address] documented as of this encounter Visit Diagnoses Not on filedocumented in this encounter Care Teams Airflight Attendants Supervisor Relationship Specialty Start Date End Date Jose Lewis DO PCP - General 05/04/15 documented as of this encounter
--- OUTSIDE RECORDS SUMMARY | 2024-09-20 15:30 | XMS_ITS | Encounter Summary ---
Author Organization [facility] Address 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 Gender Identity Not on file Sexual Orientation Not on file documented as of this encounter Plan of Treatment Upcoming Encounters Date Type Department Care Team (Late st Contact Info) Description 03/18/2025 9:00 AM CDT Office Visit [facility] Heart and Vascular At [address] [place] [address] Jh Willis MD [address] [place] [address] [address] [place] [address] 08/26/2025 8:45 AM CDT Office Visit [facility] Oncology and Hematology - [place] [address] [facility] 200 [place] [address] Graeme Diez MD 2227 [facility] 100 [place] [address] documented as of this encounter Visit Diagnoses Not on filedocumented in this encounter Care Teams Pump Erector Relationship Specialty Start Date End Date Jose Lewis DO PCP - General 05/04/15 documented as of this encounter
--- OUTSIDE RECORDS SUMMARY | 2024-09-20 15:30 | XMS_ITS | Encounter Summary ---
Author Organization [facility] Address 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 Gender Identity Not on file Sexual Orientation Not on file documented as of this encounter Plan of Treatment Upcoming Encounters Date Type Department Care Team (Late st Contact Info) Description 03/18/2025 9:00 AM CDT Office Visit [facility] Heart and Vascular At [place] [address] [facility] [address] [place] [address] Jh Willis MD [facility] [address] [facility] [address] [place] [address] 08/26/2025 8:45 AM CDT Office Visit [facility] Oncology and Hematology - [place] [address] [facility] [address] [place] [address] Graeme Diez MD [address] [facility] [address] [place] [address] documented as of this encounter Visit Diagnoses Diagnosis Special screening for malignant neoplasms, colon- Primary documented in this encounter Care Teams Bookseamer Blindstitch Relationship Specialty Start Date End Date Jose Lewis DO PCP - General 05/04/15 documented as of this encounter
--- NOTE | 2024-09-20 16:55 | ECG_ITS ---
Test Date: 2024-09-20 16:57:13 Measurements Intervals [place] Rate: 53 P: 46 MD: 194 QRS: 28 QRSD: 104 T: 36 QT: 439 QTc: 413 Interpretive Statements SINUS BRADYCARDIA MODERATE ST DEPRESSION [0.05+ mV ST DEPRESSION] Compared to ECG 09/20/2024 14:31:13 NO SIGNIFICANT CHANGES Electronically Signed On 09-21-2024 14:15:36 CDT by Rolando Gomes M.D.
--- NOTE | 2024-09-20 17:25 | PC.NURSE ---
To [facility] via [facility]. Condition stable.
[2024-09-20 17:29] LABS: Troponin I 0.016 ng/mL (0.000-0.034)
== END 2024-09-20 17:26 | disposition short-term general hospital (02) ==
PROVIDERS: Emergency Medicine; Emergency Provider Emergency Medicine
DX: R07.9 Chest pain, unspecified (principal); R06.00 Dyspnea, unspecified; Z95.1 Presence of aortocoronary bypass graft; Z79.82 Long term (current) use of aspirin; I10 Essential (primary) hypertension; E78.5 Hyperlipidemia, unspecified
CPT/HCPCS: 36415; 71046; 80053; 83690; 84484; 85025; 85610; 85730; 93005; 99285; A9270

== ENCOUNTER 2024-11-10 14:30 | Outpatient (RCR) | payer MEDICARE, SELFPAY | END 2024-12-20 10:21 | disposition home or self-care (01) | LOC: ANHDMC 14:30 | PROVIDERS: Visit Provider Clinical Nurse Specialist | DX: E11.9 Type 2 diabetes mellitus without complications (principal); Z71.89 Other specified counseling | CPT/HCPCS: G0108; G0109 ==

== ENCOUNTER 2024-12-28 06:54 | Outpatient (CLI) | payer MEDICARE, SELFPAY ==
--- OUTSIDE RECORDS SUMMARY | 2024-12-28 06:58 | XMS_ITS | Encounter Summary ---
Author Organization [facility] Address 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 AUDITOR Gender Identity Not on file Sexual Orientation Not on file documented as of this encounter Plan of Treatment Upcoming Encounters Date Type Department Care Team (Late st Contact Info) Description 03/18/2025 9:00 AM CDT Office Visit [facility] Heart and Vascular At [address] [place] [address] Jh Willis MD [address] [place] [address] [address] [place] [address] 08/26/2025 8:45 AM CDT Office Visit [facility] Oncology and Hematology - [place] [address] [facility] [address] [place] [address] Graeme Diez MD [address] [facility] [address] [place] [address] documented as of this encounter Visit Diagnoses Not on filedocumented in this encounter Care Teams Aniline Press Worker Relationship Specialty Start Date End Date Jose Lewis DO PCP - General 05/04/15 documented as of this encounter
--- OUTSIDE RECORDS SUMMARY | 2024-12-28 06:58 | XMS_ITS | Encounter Summary ---
Author Organization [facility] Address [address] [place] [address] Care Team Providers Care Walnut Dehydrator Operator Name Role Phone Jose Lewis DO Primary Care Provider Encounter Details Date Type Department Care Team (Late st Contact Info) Description 12/16/2006 Orders Only [facility] [place] Internal Medicine [address] [address] Octavio Mccain MD [address] [place] [phone] Social History Tobacco Use Types Packs/Day Years Used Date Smoking Tobacco: Never Assessed Sex and Gender Information Value Date Recorded Sex Assigned at Not on file Legal Sex Male 5:22 AM RHINOLOGIST Gender Identity Not on file Sexual Orientation [...] pt. given above results and directions faxedto peripatologist Dr. Hernandez. /bear Electronically Signed by: Chayito Barakat on Saturday, December 16, 2006 documented in this encounter Plan of Treatment Upcoming Encounters Date Type Department Care Team (Late st Contact Info) Description 03/18/2025 9:00 AM CDT Office Visit [facility] Heart and Vascular At [facility] [address] [facility] [address] [place] [address] Jh Willis MD [address] [facility] [address] [place] [address] 08/26/2025 8:45 AM CDT Office Visit [facility] Oncology and Hematology - [place] [address] [facility] 200 [place] [address] Graeme Diez MD [address] [facility] [address] [place] [address] documented as of this encounter Visit Diagnoses Not on filedocumented in this encounter Care Teams Walnut Dehydrator Operator Relationship Specialty Start Date End Date Jose Lewis DO PCP - General 05/04/15 documented as of this encounter
--- OUTSIDE RECORDS SUMMARY | 2024-12-28 06:58 | XMS_ITS | Encounter Summary ---
Author Organization [facility] Address [address] [place] [address] Care Team Providers Care Assistant Director Of Plant Operations Name Role Phone Jose Lewis DO Primary Care Provider Encounter Details Date Type Department Care Team (Late st Contact Info) Description 04/21/2007 Outpatient Historical [facility] Internal Medicine [address] [address] Octavio Mccain MD [address] [place] [phone] Social History Tobacco Use Types Packs/Day Years Used Date Smoking Tobacco: Never Assessed Sex and Gender Information Value Date Recorded Sex Assigned at Not on file Legal Sex Male 5:22 AM BLOWING WEASAND Gender Identity Not on file Sexual Orientation Not on file documented as of this encounter Plan of Treatment Upcoming Encounters Date Type Department Care Team (Late st Contact Info) Description 03/18/2025 9:00 AM CDT Office Visit [facility] Heart and Vascular At [address] [place] [address] Jh Willis MD [address] [place] [address] [address] [place] [address] 08/26/2025 8:45 AM CDT Office Visit [facility] Oncology and Hematology - [place] [address] [place] [address] [address] [place] [address] [place] [address] [place] [address] documented as of this encounter Visit Diagnoses Not on filedocumented in this encounter Care Teams Assistant Director Of Plant Operations Relationship Specialty Start Date End Date Jose Lewis DO PCP - General 05/04/15 documented as of this encounter
--- OUTSIDE RECORDS SUMMARY | 2024-12-28 06:58 | XMS_ITS | Encounter Summary ---
Author Organization [facility] Address 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 Gender Identity Not on file Sexual Orientation Not on file documented as of this encounter Plan of Treatment Upcoming Encounters Date Type Department Care Team (Late st Contact Info) Description 03/18/2025 9:00 AM CDT Office Visit [facility] Heart and Vascular At [address] [place] [address] Jh Willis MD [address] [place] [address] [address] [place] [address] 08/26/2025 8:45 AM CDT Office Visit [facility] Oncology and Hematology - [place] [address] [place] [address] [address] [place] [address] [place] [address] [place] [address] documented as of this encounter Visit Diagnoses Not on filedocumented in this encounter Care Teams Carpentry Professional Relationship Specialty Start Date End Date Jose Lewis DO PCP - General 05/04/15 documented as of this encounter
--- OUTSIDE RECORDS SUMMARY | 2024-12-28 06:58 | XMS_ITS | Encounter Summary ---
Author Organization [facility] Address 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 Gender Identity Not on file Sexual Orientation [facility] At [address] [place] [address] Jh Willis MD [address] [place] [address] [address] [place], [place] [id number] 08/26/2025 8:45 AM CDT Office Visit [facility] Oncology and Hematology - [place] [address] [facility] 200 [place] [address] Graeme Diez MD [address] [facility] [address] [place] [address] documented as of this encounter Visit Diagnoses Not on filedocumented in this encounter Care Teams Coil Former Relationship Specialty Start Date End Date Jose Lewis DO PCP - General 05/04/15 documented as of this encounter
--- OUTSIDE RECORDS SUMMARY | 2024-12-28 06:58 | XMS_ITS | Encounter Summary ---
Author Organization [facility] Address [address] [place] [address] Care Team Providers Care First Cook Name Role Phone Jose Lewis DO Primary Care Provider Encounter Details Date Type Department Care Team (Late st Contact Info) Description 06/14/[address] 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 Heart and Vascular At [address] [place] [address] Jh Willis MD [address] [place] [address] [address] [place] [address] 08/26/2025 8:45 AM CDT Office Visit [facility] Oncology and Hematology - [place] [address] [place] [address] [address] [place] [address] [place] [address] [place] [address] documented as of this encounter Visit Diagnoses Not on filedocumented in this encounter Care Teams First Cook Relationship Specialty Start Date End Date Jose Lewis DO PCP - General 05/04/15 documented as of this encounter
--- OUTSIDE RECORDS SUMMARY | 2024-12-28 06:58 | XMS_ITS | Encounter Summary ---
Author Organization [facility] Address [address] [place] [address] Care Team Providers Care Share Holder Name Role Phone Jose Lewis DO Primary Care Provider Encounter Details Date Type Department Care Team (Latest Contact Info) Description 08/22/2006 Inpatient Historical HIS PATIENT IN A BED Jh Guerrero Jr., MD NO ADDRESS ON FILE Jose Schrader MD [address] [facility] [address] [place] [address] Coronary Atherosclerosis of [place] Coronary Artery (Primary Dx) Social History Tobacco Use Types Packs/Day Years Used Date Smoking Tobacco: Never Assessed Sex and Gender Information Value Date Recorded Sex Assigned at Not on file 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 [address] [place] [address] Jh Willis MD [address] [facility] [address] [place] [address] 08/26/2025 8:45 AM CDT Office Visit [facility] Oncology and Hematology - [place] [address] [facility] [address] [place] [address] Graeme Diez MD [address] [facility] [address] [place] [address] documented as of this encounter Procedures Procedure [...] (ABNORMAL) POC GLUCOSE (08/26/2006 12:08 PM CDT) Pathologist [facility] GLUCOSE POC 124(H) 65 - 99 mg/dL INTERFACE SYSTEM 08/26/2006 12:0 8 PM CDT Jose Schrader MD POINT OF CARE TESTING Edited INTERFACE SYSTEM Refer to clinic/hospital department * (ABNORMAL) CBC WITH DIFFERENTIAL (08/26/2006 8:37 AM CDT) NEUTROPHILS 82(H) 45 - 70 % INTERFAC [...] HEMATOLOGY ORDERABLES E dited Performing Organization Address [facility] Phone Number INTERFACE SYSTEM Refer to clinic/hospital [...] HEMATOLOGY ORDERABLES E dited Performing Organization Address [facility] Phone Number INTERFACE SYSTEM Refer to clinic/hospital [...] and non- Americans is available on the [facility] Intranet at: [email or web address] Select: Lab Policies and Procedures Select: Reference Ranges - GFR 08/26/2006 8:37 AM CDT Jh Guerrero Jr., MD CHEMISTRY ORDERABLES Ed ited Performing Organization Address [facility] de Phone Number INTERFACE SYSTEM Refer to clinic/hospital department * (ABNORMAL) POC GLUCOSE (08/26/2006 8:16 AM CDT) GLUCOSE POC 202(H) 65 - 99 mg/dL INTERFACE SYSTEM 08/26/2006 8:16 AM CDT Jose Schrader MD POINT OF CARE TESTING Edited Performing Organization Address [facility] de Phone Number INTERFACE SYSTEM Refer to clinic/hospital department * (ABNORMAL) POC GLUCOSE (08/25/2006 8:18 PM CDT) GLUCOSE POC 180(H) 65 - 99 mg/dL INTERFACE SYSTEM 08/25/2006 8:18 PM CDT Jose Schrader MD POINT OF CARE TESTING Edited Performing Organization Address [facility] de Phone Number INTERFACE SYSTEM Refer to clinic/hospital department * (ABNORMAL) POC GLUCOSE (08/25/2006 4:56 PM CDT) GLUCOSE POC 131(H) 65 - 99 mg/dL INTERFACE SYSTEM 08/25/2006 4:56 PM CDT us Jose Schrader MD POINT OF CARE TESTING Edited Performing Organization Address [facility] de Phone Number INTERFACE SYSTEM Refer to clinic/hospital department * (ABNORMAL) POC GLUCOSE (08/25/2006 12:00 PM CDT) GLUCOSE POC 148(H) 65 - 99 mg/dL INTERFACE SYSTEM 08/25/2006 12:0 0 PM CDT us Jose Schrader MD POINT OF CARE TESTING Edited Performing Organization Address [facility] Co de Phone Number INTERFACE SYSTEM Refer to clinic/hospital department * (ABNORMAL) POC GLUCOSE (08/25/2006 7:25 AM CDT) GLUCOSE POC 137(H) 65 - 99 mg/dL INTERFACE SYSTEM 08/25/2006 7:25 AM CDT us Jose Schrader MD POINT OF CARE TESTING Edited Performing Organization Address [facility] de Phone Number INTERFACE SYSTEM Refer to clinic/hospital department * (ABNORMAL) POC GLUCOSE (08/24/2006 8:33 PM CDT) GLUCOSE POC 185(H) 65 - 99 mg/dL INTERFACE SYSTEM 08/24/2006 8:33 PM CDT us Jose Schrader MD POINT OF CARE TESTING Edited Performing Organization Address [facility] de Phone Number INTERFACE SYSTEM Refer to clinic/hospital department * (ABNORMAL) POC GLUCOSE (08/24/2006 6:12 PM CDT) GLUCOSE POC 165(H) 65 - 99 mg/dL INTERFACE SYSTEM 08/24/2006 6:12 PM CDT us Jose Schrader MD POINT OF CARE TESTING Edited Performing Organization Address [facility] Co de Phone Number INTERFACE SYSTEM [...] K/uL INTERFACE SYSTEM 08/24/2006 8:05 AM CDT Srinivas Guardado MD HEMATOLOGY ORDERABLES Edited Performing Organization Address [facility] Co de Phone Number INTERFACE SYSTEM [...] fL INTERFACE SYSTEM 08/24/2006 8:05 AM CDT us Srinivas Guardado MD HEMATOLOGY ORDERABLES Edited Performing Organization Address [facility] Phone Number INTERFACE SYSTEM Refer to clinic/hospital department * (ABNORMAL) POC GLUCOSE (08/24/2006 7:56 AM CDT) GLUCOSE POC 157(H) 65 - 99 mg/dL INTERFACE SYSTEM 08/24/2006 7:56 AM CDT us Jose Schrader MD POINT OF CARE TESTING Edited Performing Organization Address [facility] Phone Number INTERFACE SYSTEM Refer to [...] and non- Americans is available on the [facility] Intranet at: [email or web address] Select: Lab Policies and Procedures Select: Reference Ranges - GFR 08/24/2006 5:37 AM CDT us Jh Guerrero Jr., MD CHEMISTRY ORDERABLES Ed ited Performing Organization Address [facility] Phone Number INTERFACE SYSTEM Refer to clinic/hospital department * (ABNORMAL) POC GLUCOSE (08/23/2006 8:28 PM CDT) GLUCOSE POC 153(H) 65 - 99 mg/dL INTERFACE SYSTEM 08/23/2006 8:28 PM CDT us Jose Schrader MD POINT OF CARE TESTING Edited Performing Organization Address [facility] Co de Phone Number INTERFACE SYSTEM Refer to clinic/hospital department * (ABNORMAL) POC GLUCOSE (08/23/2006 6:00 PM CDT) GLUCOSE POC 160(H) 65 - 99 mg/dL INTERFACE SYSTEM 08/23/2006 6:00 PM CDT us Jose Schrader MD POINT OF CARE TESTING Edited Performing Organization Address [facility] Phone Number INTERFACE SYSTEM Refer to clinic/hospital department * (ABNORMAL) POC GLUCOSE (08/23/2006 3:50 PM CDT) GLUCOSE POC 181(H) 65 - 99 mg/dL INTERFACE SYSTEM 08/23/2006 3:50 PM CDT us Jose Schrader MD POINT OF CARE TESTING Edited Performing Organization Address [facility] de Phone Number INTERFACE SYSTEM Refer to clinic/hospital department * (ABNORMAL) POC GLUCOSE (08/23/2006 12:38 PM CDT) GLUCOSE POC 137(H) 65 - 99 mg/dL INTERFACE SYSTEM 08/23/2006 12:3 8 PM CDT us Jose Schrader MD POINT OF CARE TESTING Edited Performing Organization Address [facility] Co de Phone Number INTERFACE SYSTEM Refer to clinic/hospital department * (ABNORMAL) POC GLUCOSE (08/23/2006 9:57 AM CDT) GLUCOSE POC 170(H) 65 - 99 mg/dL INTERFACE SYSTEM 08/23/2006 9:57 AM CDT Jose Schrader MD POINT OF CARE TESTING Edited Performing Organization Address [facility] de Phone Number INTERFACE SYSTEM Refer to clinic/hospital department * (ABNORMAL) POC GLUCOSE (08/23/2006 6:14 AM CDT) GLUCOSE POC 114(H) 65 - 99 mg/dL INTERFACE SYSTEM 08/23/2006 6:14 AM CDT Jose Schrader MD POINT OF CARE TESTING Edited Performing Organization Address [facility] de Phone Number INTERFACE SYSTEM Refer to clinic/hospital department * (ABNORMAL) POC GLUCOSE (08/23/2006 4:57 AM CDT) GLUCOSE POC 111(H) 65 - 99 mg/dL INTERFACE SYSTEM 08/23/2006 4:57 AM CDT Jose Schrader MD POINT OF CARE TESTING Edited Performing Organization Address [facility] de Phone Number INTERFACE SYSTEM Refer [...] K/uL INTERFACE SYSTEM 08/23/2006 4:20 AM CDT hJ Guerrero Jr., MD HEMATOLOGY ORDERABLES E dited Performing Organization Address [facility] Phone Number INTERFACE SYSTEM Refer to clinic/hospital [...] HEMATOLOGY ORDERABLES E dited Performing Organization Address [facility] Phone Number INTERFACE SYSTEM Refer to clinic/hospital [...] patients with mechanical heart valves or post MS. Pediatric (12 years and under): 1.5 - [...] and non- Americans is available on the [facility] Intranet at: [email or web address] Select: Lab Policies and Procedures Select: Reference Ranges - GFR 08/23/2006 4:20 AM CDT Jh Guerrero Jr., MD CHEMISTRY ORDERABLES Ed ited Performing Organization Address [facility] Phone Number INTERFACE SYSTEM Refer to clinic/hospital department * (ABNORMAL) POC GLUCOSE (08/23/2006 4:11 AM CDT) GLUCOSE POC 118(H) 65 - 99 mg/dL INTERFACE SYSTEM 08/23/2006 4:11 AM CDT Jose Schrader MD POINT OF CARE TESTING Edited Performing Organization Address [facility] Phone Number INTERFACE SYSTEM Refer to clinic/hospital department * (ABNORMAL) POC GLUCOSE (08/23/2006 2:40 AM CDT) GLUCOSE POC 133(H) 65 - 99 mg/dL INTERFACE SYSTEM 08/23/2006 2:40 AM CDT Jose Schrader MD POINT OF CARE TESTING Edited Performing Organization Address [facility] Phone Number INTERFACE SYSTEM Refer to clinic/hospital department * (ABNORMAL) POC GLUCOSE (08/23/2006 1:45 AM CDT) GLUCOSE POC 142(H) 65 - 99 mg/dL INTERFACE SYSTEM 08/23/2006 1:45 AM CDT Jose Schrader MD POINT OF CARE TESTING Edited Performing Organization Address [facility] Phone Number INTERFACE SYSTEM Refer to clinic/hospital department * (ABNORMAL) POC GLUCOSE (08/23/2006 12:26 AM CDT) GLUCOSE POC 168(H) 65 - 99 mg/dL INTERFACE SYSTEM 08/23/2006 12:2 6 AM CDT us Jose Schrader MD POINT OF CARE TESTING Edited Performing Organization Address [facility] de Phone Number INTERFACE SYSTEM [...] MD CHEMISTRY ORDERABLES Edited Performing Organization Address [facility] Phone Number INTERFACE SYSTEM Refer to clinic/hospital department * MAGNESIUM LEVEL (08/22/2006 11:50 PM CDT) MAGNESIUM 1.9 1.5 - 2.5 mg/dL INTERFACE SYSTEM 08/22/2006 11:5 0 PM CDT us Jh Guerrero Jr., MD CHEMISTRY ORDERABLES Ed ited Performing Organization Address City/State/[facility] Co de Phone Number INTERFACE SYSTEM Refer to clinic/hospital department * POTASSIUM LEVEL (08/22/2006 11:50 PM CDT) POTASSIUM 4.8 3.5 - 4.9 mmol/L INTERFACE SYSTEM 08/22/2006 11:5 0 PM CDT us Jh Guerrero Jr., MD CHEMISTRY ORDERABLES Ed ited Performing Organization Address [facility] Phone Number INTERFACE SYSTEM Refer to clinic/hospital [...] CHEMISTRY ORDERABLES Ed ited Performing Organization Address [facility] Phone Number INTERFACE SYSTEM Refer to clinic/hospital department * (ABNORMAL) POC GLUCOSE (08/22/2006 11:46 PM CDT) GLUCOSE POC 175(H) 65 - 99 mg/dL INTERFACE SYSTEM 08/22/2006 11:4 6 PM CDT us Jose Schrader MD POINT OF CARE TESTING Edited Performing Organization Address [facility] Phone Number INTERFACE SYSTEM Refer to clinic/hospital department * (ABNORMAL) POC GLUCOSE (08/22/2006 11:02 PM CDT) GLUCOSE POC 177(H) 65 - 99 mg/dL INTERFACE SYSTEM 08/22/2006 11:0 2 PM CDT us Jose Schrader MD POINT OF CARE TESTING Edited Performing Organization Address [facility] Phone Number INTERFACE SYSTEM Refer to clinic/hospital department * (ABNORMAL) POC GLUCOSE (08/22/2006 9:58 PM CDT) GLUCOSE POC 183(H) 65 - 99 mg/dL INTERFACE SYSTEM 08/22/2006 9:58 PM CDT Jose Schrader MD POINT OF CARE TESTING Edited Performing Organization Address [facility] de Phone Number INTERFACE SYSTEM Refer to clinic/hospital department * (ABNORMAL) POC GLUCOSE (08/22/2006 9:31 PM CDT) GLUCOSE POC 189(H) 65 - 99 mg/dL INTERFACE SYSTEM 08/22/2006 9:31 PM CDT Jose Schrader MD POINT OF CARE TESTING Edited Performing Organization Address [facility] de Phone Number INTERFACE SYSTEM [...] AWARE INTERFACE SYSTEM 08/22/2006 9:15 PM CDT Jose Schrader MD CHEMISTRY ORDERABLES Edited Performing Organization Address [facility] de Phone Number INTERFACE SYSTEM Refer to clinic/hospital department * (ABNORMAL) POC GLUCOSE (08/22/2006 8:31 PM CDT) GLUCOSE POC 168(H) 65 - 99 mg/dL INTERFACE SYSTEM 08/22/2006 8:31 PM CDT Jose Schrader MD POINT OF CARE TESTING Edited Performing Organization Address [facility] Phone Number INTERFACE SYSTEM Refer to clinic/hospital department * (ABNORMAL) POC GLUCOSE (08/22/2006 7:40 PM CDT) GLUCOSE POC 142(H) 65 - 99 mg/dL INTERFACE SYSTEM 08/22/2006 7:40 PM CDT Jose Schrader MD POINT OF CARE TESTING Edited Performing Organization Address [facility] Phone Number INTERFACE SYSTEM Refer to clinic/hospital department * MAGNESIUM LEVEL (08/22/2006 5:57 PM CDT) MAGNESIUM 2.0 1.5 - 2.5 mg/dL INTERFACE SYSTEM 08/22/2006 5:57 PM CDT Jh Guerrero Jr., MD CHEMISTRY ORDERABLES Ed ited Performing Organization Address [facility] Phone Number INTERFACE SYSTEM Refer to clinic/hospital [...] HEMATOLOGY ORDERABLES E dited Performing Organization Address City/State/[facility] Co de Phone Number INTERFACE SYSTEM [...] HEMATOLOGY ORDERABLES E dited Performing Organization Address [facility] de Phone Number INTERFACE SYSTEM [...] patients with mechanical heart valves or post MS. Pediatric (12 years and under): 1.5 - [...] HEMATOLOGY ORDERABLES E dited Performing Organization Address [facility] de Phone Number INTERFACE SYSTEM [...] and non- Americans is available on the [facility] Intranet at: [email or web address] Select: Lab Policies and Procedures Select: Reference Ranges - GFR 08/22/2006 5:55 PM CDT Jh Guerrero Jr., MD CHEMISTRY ORDERABLES Ed ited Performing Organization Address [facility] de Phone Number INTERFACE SYSTEM [...] CHEMISTRY ORDERABLES Ed ited Performing Organization Address [facility] de Phone Number INTERFACE SYSTEM [...] MD CHEMISTRY ORDERABLES Edited Performing Organization Address [facility] Co de Phone Number INTERFACE SYSTEM Refer to clinic/hospital department * (ABNORMAL) POC RT, BLOOD GASES (08/22/2006 4:19 PM CDT) Pathologist [facility] PH ARTERIAL 7.41 7.35 - 7.45 INTERF [...] CVR ONLY, CKMB/CK (08/22/2006 4:00 PM CDT) [facility] CKMB Invalid Result <=6.7 INTERFACE SYSTEM [...] CBC WITH DIFFERENTIAL (08/22/2006 4:00 PM CDT) [facility] NEUTROPHILS Invalid Result 45 - 70 INTERFACE [...] HEMATOLOGY ORDERABLES E dited Performing Organization Address [facility] de Phone Number INTERFACE SYSTEM [...] and non- Americans is available on the [facility] Intranet at: [email or web address] Select: Lab Policies and Procedures Select: Reference Ranges - GFR 08/22/2006 4:00 PM CDT Jh Guerrero Jr., MD CHEMISTRY ORDERABLES Ed ited Performing Organization Address [facility] Co de Phone Number INTERFACE SYSTEM [...] MD CHEMISTRY ORDERABLES Edited Performing Organization Address [facility] de Phone Number INTERFACE SYSTEM [...] MD CHEMISTRY ORDERABLES Edited Performing Organization Address [facility] Co de Phone Number INTERFACE SYSTEM [...] MD CHEMISTRY ORDERABLES Edited Performing Organization Address [facility] de Phone Number INTERFACE SYSTEM [...] patients with mechanical heart valves or post MS. Pediatric (12 years and under): 1.5 - [...] HEMATOLOGY ORDERABLES E dited Performing Organization Address [facility] Co de Phone Number INTERFACE SYSTEM Refer to clinic/hospital department documented in this encounter Visit Diagnoses Diagnosis Coronary atherosclerosis of [place] coronary artery- Primary documented in this encounter Care Teams Share Holder Relationship Specialty Start Date End Date Jose Lewis DO PCP - General 05/04/15 documented as of this encounter
--- OUTSIDE RECORDS SUMMARY | 2024-12-28 06:58 | XMS_ITS | Clinical Summary ---
Author Organization [facility] Address [address] [place] [address] Care Team Providers Care Manager Clinical Name Role Phone Nkechi Lewis DO Primary Care Provider Allergies Active [...] H PRF SOB OR WHZ 0 Active Zinc Gluconate 100 mg Tablet Take by mouth. Activ e cyanocobalamin/cob amamide (B-12 PLUS SUBLINGUAL) 0 Active rosuvastatin (CRESTOR) 40 mg tabletIndications: Coronary artery disease involving akutan coronary artery of akutan heart without angina pectoris,Mixed hyperlipidemia TAKE 1 TABLET(40 MG) BY MOUTH DAILY 90 Tablet 3 4 Active omeprazole (PriLOSEC) 20 mg Capsule, Delayed Release(E.C.) Take 20 mg by mouth daily. Active coenzyme Q10 100 mg Capsule Take 100 mg by mouth daily. Active ascorbic acid, vitamin C, (VITAMIN C) 500 mg tablet Take 500 mg by mouth daily. Active Cholecalciferol, Vitamin D3, 50 mcg (2,000 unit) Capsule Take 2,000 Units by mouth daily with breakfast. Active fluticasone propionate (FLONASE) 50 mcg/spray [place], Suspension nasal inhaler Administer 2 Sprays in each nostril daily. Active metFORMIN (GLUCOPHAGE) 1,000 mg tablet Starting 09/24/24: Take 1 Tablet (1,000 mg) by mouth daily with lunch. 30 Tablet 09/21/2024 6:56 PM CDT 5 Active amLODIPine (NORVASC) 2.5 mg tablet Take 1 Tablet (2.5 mg) by mouth daily. 90 Tablet 4 5 Active lisinopriL (PRINIVIL) 20 mg tablet Take 1 Tablet (20 mg) by mouth daily. 90 Tablet 4 5 Active Active Problems Patient Care Coordination No te Formatting of this note migh t be different from the original. 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 Type 2 diabetes mellitus 02/11/2019 Sinus node dysfunction 04/10/2015 Overview (12/27/2024): HR in 40s on no rate slowing meds cardiac event moniror 10/10 HTN (hypertension) 04/10/2015 Glucose intolerance (pre-diabetes) 04/10/2015 Overview (04/10/2015): hgb A1C 6.3 CAD (coronary artery disease) 03/29/2010 Overview (12/27/2024): S/P CABG 08/20 grafts patent cath 10/10 Nl LV fxn echo 10/10 Amlodipine started for possible variant angina and Raynauds 10/10 HLD (hyperlipidemia) 03/29/2010 Erectile dysfunction 02/28/2010 Chest pressure 08/11/2006 Unspecified disorder of prostate 06/14/2005 Overview (02/03/2008): 08 bx neg Resolved Problems Problem Noted Date Diagnosed Date Resolved Date Primary localized osteoarthr osis, shoulder region 12/02/2006 02/28/2010 Other and unspecified hyperlipidemia 09/29/2006 03/29/2010 Rash and other nonspecific skin eruption 09/29/2006 02/03/2008 Coronary atherosclerosis of unspecified type of vessel, akutan or graft 09/29/2006 03/29/2010 Posttraumatic stress disorder 09/29/2006 02/03/2008 Acute sinusitis, unspecified 08/20/2005 02/03/2008 Routine general medical exam ination at a health care facility 06/14/2005 02/03/2008 Special screening for malign ant neoplasm of prostate 06/14/2005 02/03/2008 Need for prophylactic vaccin ation with tetanus-diphtheria (Td) 06/14/2005 02/03/2008 Screening for malignant neop lasm of the rectum 06/14/2005 02/03/2008 Encounters Date Type Department Care Team Description 12/27/2024 9:15 AM CDT Office Visit [facility] V[facility] At [address] [place] [address] Jh Willis MD CAD s/p CABG (Primary Dx); Hyperlipidemia; Hypertension; Sinus node dysfunction; Raynaud's phenomenon 12/01/2024 External Device Data STL ABSTRACTION Provider, Abstract 12/01/2024 External Device Data STL ABSTRACTION Provider, Abstract 12/01/2024 External Device Data STL ABSTRACTION Provider, Abstract 11/02/2024 External Device Data STL ABSTRACTION Provider, Abstract 10/26/2024 External Device Data STL ABSTRACTION Provider, Abstract 10/26/2024 External Device Data STL ABSTRACTION Provider, Abstract 10/26/2024 External Device Data STL ABSTRACTION Provider, Abstract 10/26/2024 External Device Data STL ABSTRACTION Provider, Abstract 10/07/2024 External Device Data STL ABSTRACTION Provider, Abstract 10/06/2024 External Device Data STL ABSTRACTION Provider, Abstract 10/05/2024 External Device Data STL ABSTRACTION Provider, Abstract 10/04/2024 9:30 AM CDT Office Visit [facility] At [address] [place] [address] Jh Willis MD CAD s/p CABG (Primary Dx); Hyperlipidemia; Hypertension; Sinus node dysfunction; Raynaud's phenomenon; Chest pain 10/01/2024 10:45 AM CDT - 10/01/2024 11:59 PM CDT Hospital Encounter [facility] [place] [address] [place] [address] Jenniffer Downing NP Discharge Disposition: Home or Self Care 10/01/2024 Results Follow-Up [facility] At [address] [place] [address] Helen Stringer RN ECHOCARDIOGRAM W/ CONTRAST AGENT 09/28/2024 External Device Data STL ABSTRACTION Provider, Abstract 09/28/2024 External Device Data STL ABSTRACTION Provider, Abstract 09/28/2024 External Device Data STL ABSTRACTION Provider, Abstract 09/28/2024 Abstract [facility] At [address] [place] [address] Jh Willis MD from Last 3 Months Immunizations Immunization Administration Dates Next Due (ADACEL/BOOSTRIX)(10 YR UP) TDAP VACCINE, 0.5ML, IM 11/14/2011 (PFIZER)(12 YR UP) COVID-19 VACCINE - EMERGENCY USE AUTHORIZATION, MRNA, [id number](PF) 30 MCG/0.3 ML IM SUSP 02/20/2021,07/12/2020,06/23/2020 (PNEUMOVAX [...] on file Legal Sex 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 Gender Identity Not on file Sexual Orientation Not on file Last Filed Vital Signs Vital Sign Reading Time Taken Comments Blood Pressure 108/62 12/27/2024 8:45 AM CDT Pulse 49 12/27/2024 8:45 AM CDT Temperature 36.7 C (98.1 F) 09/21/2024 1:07 PM CDT Respiratory Rate 17 09/21/2024 1:07 PM CDT Oxygen Saturation 97% 12/27/2024 8:45 AM CDT Inhaled Oxygen Concentration - - Weight 83.5 kg (184 lb) 12/27/2024 8:45 AM CDT Height 182.9 cm (6') 12/27/2024 8:45 AM CDT Body Mass Index 24.95 12/27/2024 8:45 AM CDT Plan of Treatment Upcoming Encounters Date Type Department Care Team (Late st Contact Info) Description 03/18/2025 9:00 AM CDT Office Visit [facility] [place] [address] [facility] [address] [place] [address] Jh Willis MD [address] [facility] [address] [place] [address] 08/26/2025 8:45 AM CDT Office Visit [facility] Oncology and Hematology - [place] [address] [facility] [address] [place] [address] Graeme Diez MD [address] [facility] [address] [place] [address] Health Maintenance Due Date Last Done Comments DIABETES ANNUAL FOOT EXAM 1969 DIABETES MICROALBUMIN ANNUAL SCREEN 1969 COLORECTAL SCREENING 1996 FIT-DNA Q 3 years 1996 Flex Sig/CT Colonography Q 5 years 1996 ZOSTER VACCINE (1 of 2) 2001 Colorectal Cancer Screening 02/10/2007 FIT/FOBT Q 1 year 02/10/2007 02/10/2006, 06/14/2005 PNEUMOCOCCAL VACCINE 50+ YEA RS (2 of 2 - PCV) 02/02/2009 02/03/2008 RSV VACCINE (60+ or ) (1 - Risk 60-74 years 1-dose series) 2011 DIABETES ANNUAL RETINAL EXAM 07/28/202004/2020, 07/29/2019, 01/25/2019, Additional history exists DTAP/TDAP/TD VACCINES (2 - T d or Tdap) 11/13/2021 11/14/2011, 06/14/2005 COVID-19 Vaccine ( - 2023-2 5 season) 2024 02/07/2022, 02/20/2021, 07/12/2020, Additional history exists INFLUENZA VACCINE (#1) 2024 2, 02/25/2011, 03/02/2010, Additional history exists DIABETES HBA1C Q 6 MONTHS 03/23/20252024, 08/31/2024, 05/31/2024, Additional history exists LDL CHOLESTEROL ANNUAL 09/21/2025 , 03/23/2015, 03/30/2014, Additional history exists Procedures Procedure Name Priority Date/Time Associated Diagnosis Comments ECHOCARDIOGRAM W/ CONTRAST AGENT Routine 10/01/2024 11:59 AM CDT Chest pain Sinus node dysfunction (CMS/HCC) CARDIAC EVENT MONITOR Routine 09/27/2024 5:00 AM CDT LIPID PANEL Routine 09/21/2024 2:37 AM CDT HEMOGLOBIN A1C Routine 09/20/2024 8:20 PM CDT from Last 3 Months or Most Recently Relevant to Health Maintenance Results * ECHOCARDIOGRAM W/ CONTRAST AGENT (10/01/2024 11:59 AM CDT) EJECTION FRACTION 64 INTERFACE SYSTEM 10/01/2024 10:5 7 AM CDT [employer] INTERFACE SYSTEM - 10/01/2024 12:36 PM CDT [facility] Transthoracic Echocardiogram Patient: Nkechi Aguiar Study ID: [id number] Gender: M : 1950 Age: 74 Race: ALY Height 182.9cm Study Date: 10/01/2024 Weight: 78kg Access. #: [id number] BP: 130 / 70 *Referring Physician:Jenniffer Samayoa Lauren Elizabeth *Ordering Physician:Jenniffer Samayoa *Powder Monkey:EMMA Bueno electric brain wave equipment mechanic: Nurse: Indications: Chest pain. History: PMH: CAD. HLD. CABG. Risk factors: Hypertension. Diabetes mellitus. STUDY CONCLUSIONS: SUMMARY: - Left ventricle: The cavity size was normal. Global systolic function is normal. For Epic reporting: the left ventricular ejection fraction is 64% . Left ventricular diastolic function parameters are normal for the patient's age. - Aortic valve: Trace regurgitation. - Mitral valve: Mild regurgitation. - Left atrium: The atrium is normal in size. - Right ventricle: The cavity size is normal. Systolic function is normal. - Atrial septum: No obvious PFO or ASD identified by 2Dimaging and color Doppler. - Pulmonic valve: Mild regurgitation. - Pulmonary arteries: The peak systolic pressure is 16mm Hg. - GLS = -19.9. Impressions: No prior echocardiogram available. Cardiac Anatomy: LEFT VENTRICLE: The cavity size was normal. There is mild asymmetric hypertrophy of the septum. Global systolic function is normal. For Epic reporting: the left ventricular ejection fraction is 64% . Wall motion is normal; there are no regional wall motion abnormalities. There is no evidence of a thrombus revealed by acoustic contrast opacification. There is no evidence of a thrombus revealed by acoustic contrast opacification. Global longitudinal strain was -19.9% (GLS is abnormal if greater than -16, i.e. -15). Left ventricular diastolic function parameters are normal for the patient's age. AORTIC VALVE: Structurally normal valve. Trileaflet. There was no stenosis. Trace regurgitation. The mean systolic gradient is 3mm Hg. The peak systolic gradient is 6mm Hg. The LVOT to aortic valve VTI ratio is 0.86. The valve area is 2.7cm^2. The ratio of LVOT to aortic valve peak velocity is 0.94. AORTA: Aortic root: The root is normal-sized. Ascending aorta: The vessel is normal-sized. MITRAL VALVE: Structurally normal valve. Mild regurgitation. The mean diastolic gradient is 1mm Hg. The peak diastolic gradient is 2mm Hg. LEFT ATRIUM: The atrium is normal in size. ATRIAL SEPTUM: No obvious PFO or ASD identified by 2Dimaging and color Doppler. RIGHT VENTRICLE: The cavity size is normal. Pacer wire or catheter noted in right ventricle. Systolic function is normal. PULMONIC VALVE: Structurally normal valve. Mild regurgitation. TRICUSPID VALVE: Structurally normal valve. No significant regurgitation. RIGHT ATRIUM: The atrium was normal in size. SYSTEMIC VEINS: Inferior vena cava: The IVC is normal-sized. PERICARDIUM: There is no pericardial effusion. Measurements Left ventricle Value Ref GLS, 2D -19.9 % --------- GILBERTO, LAX chord (N) 4.8 cm 4.2 - 5.8 ESD, LAX chord (N) 3.4 cm 2.5 - 4.0 GILBERTO/bsa, LAX chord (N) 2.4 cm/m^2 2.2 - 3.0 ESD/bsa, LAX chord (N) 1.7 cm/m^2 1.3 - 2.1 FS, LAX chord (N) 29 % 25 - 43 IVS, ED (H) 1.1 cm 0.6 - 1.0 PW, ED (N) 0.8 cm 0.6 - 1.0 EDV, 2-p (N) 143 ml 62 - 150 ESV, 2-p (N) 51 ml 21 - 61 EF, 2-p (N) 64 % 52 - 72 SV, 2-p 92 ml --------- SV/bsa, 2-p 46 ml/m^2 --------- E', med chester, TDI (L) 6.1 cm/sec >=7.0 E/e', med chester, TDI 9 --------- LVOT Value Ref Diam, S 2.0 cm --------- Area 3.1 cm^2 --------- Peak zachary, S 1.17 m/sec --------- VTI, S 29.1 cm --------- Peak grad, S 5 mm Hg --------- Right ventricle Value Ref GILBERTO minor ax, A4C base (N) 3.5 cm 2.5 - 4.1 GILBERTO minor ax, A4C mid (N) 2.8 cm 1.9 - 3.5 GILBERTO major ax, A4C (N) 8.0 cm 5.9 - 8.3 TAPSE, MM (N) 2.1 cm >=1.7 Pressure, S 16 mm Hg --------- S' lateral (L) 8.1 cm/sec >=9.5 Left atrium Value Ref AP dim, ES (H) 4.9 cm 3.0 - 4.0 AP dim index, ES (H) 2.5 cm/m^2 1.5 - 2.3 SI dim, A4C 5.1 cm --------- Area ES, A4C (N) 17 cm^2 <=20 Area/bsa ES, A4C 8.5 cm^2/m^2 --------- SI dim, A2C 4.9 cm --------- SI dim, shorter 4.9 cm --------- Vol, ES, 1-p A2C (N) 44 ml 18 - 58 Vol/bsa, ES, 1-p A2C (N) 22 ml/m^2 11 - 43 Vol, ES, 2-p 46 ml --------- Vol/bsa, ES, 2-p (N) 23 ml/m^2 16 - 34 LA/Ao root ratio 1.4 --------- Right atrium Value Ref SI dim, ES, A4C (N) 5.2 cm 3.4 - 5.3 SI dim/bsa, ES, A4C (N) 2.6 cm/m^2 1.8 - 3.0 Area, ES, A4C (N) 17 cm^2 10 - 18 Vol, ES, 1-p A4C 46 ml --------- Vol/bsa, ES, 1-p A4C (N) 23 ml/m^2 11 - 39 Aortic valve Value Ref Peak v, S 1.2 m/sec --------- Mean v, S 0.85 m/sec --------- VTI, S 34.0 cm --------- Mean grad, S 3 mm Hg --------- Peak grad, S 6 mm Hg --------- LVOT/AV, VTI ratio 0.86 --------- KELY, VTI 2.7 cm^2 --------- KELY/bsa, VTI 1.35 cm^2/m^2 --------- LVOT/AV, Vpeak ratio 0.94 --------- KELY, Vmax 3.0 cm^2 --------- KELY/bsa, Vmax 1.48 cm^2/m^2 --------- Mitral valve Value Ref Peak E 0.57 m/sec --------- Peak A 0.48 m/sec --------- Mean grad, D 1 mm Hg --------- Peak grad, D 2 mm Hg --------- Peak E/A ratio 1.2 --------- Pulmonic valve Value Ref Peak v, S 1.65 m/sec --------- Peak grad, S 11 mm Hg --------- Tricuspid valve Value Ref Peak E 0.4 m/sec --------- Aortic root Value Ref Root diam, 3.5 cm --------- Ascending aorta Value Ref AAo AP diam, S 3.2 cm --------- AAo AP diam/bsa, S 1.6 cm/m^2 --------- Pulmonary artery Value Ref Pressure, S 16 mm Hg --------- Systemic veins Value Ref Estimated RA pressure 5 mm Hg --------- Legend: (L) and (H) jignesh values outside specified reference range. (N) duarte values inside specified reference range. Procedure data: MCHOD No prior study was available for comparison. Procedure information: A transthoracic echocardiogram was performed. Image quality was suboptimal. The study was technically limited due to poor acoustic window availability. Scanning was performed from the parasternal, apical, and subcostal acoustic windows. Intravenous contrast (Definity) was administered to enhance endocardial border detection that was not seen in two consecutive segments due to suboptimal baseline images. Transthoracic echocardiogram. Complete 2D, complete spectral Doppler, and color Doppler. Birthdate: Patient birthdate: 1950. Age: Patient is 74year(s) old. Sex: gender: male. Height: 182.9cm. 72in. Weight: 78kg. 172lb. Body mass index: 23.3kg/m^2. Body surface area: 2m^2. Blood pressure: 130/70 Study date: Study date: 10/01/2024. Study time: 10:57 AM. Prepared and Electronically Authenticated Ronaldo Peterson [id number] Procedure Note Ronaldo Peterson MD - 10/01/2024 [facility] Transthoracic Echocardiogram Patient: Nkechi Aguiar Study ID: [id number] Gender: M : 1950 Age: 74 Race: CAU Height 182.9cm Study Date: 10/01/2024 Weight: 78kg Access. #: [id number] BP: 130 / 70 *Referring Physician:Jenniffer Samayoa Lauren Elizabeth *Ordering Physician:Jenniffer Samayoa *Powder Monkey:EMMA Bueno electric brain wave equipment mechanic: Nurse: Indications: Chest pain. History: PMH: CAD. HLD. CABG. Risk factors: Hypertension. Diabetes mellitus. STUDY CONCLUSIONS: SUMMARY: - Left ventricle: The cavity size was normal. Global systolic functionis normal. For Epic reporting: the left ventricular ejection fraction is64% . Left ventricular diastolic function parameters are normal for thepatient's age. - Aortic valve: Trace regurgitation. - Mitral valve: Mild regurgitation. - Left atrium: The atrium is normal in size. - Right ventricle: The cavity size is normal. Systolic function isnormal. - Atrial septum: No obvious PFO or ASD identified by 2Dimaging and color Doppler. - Pulmonic valve: Mild regurgitation. - Pulmonary arteries: The peak systolic pressure is 16mm Hg. - GLS = -19.9. Impressions: No prior echocardiogram available. Cardiac Anatomy: LEFT VENTRICLE: The cavity size was normal. There is mild asymmetric hypertrophy of the septum. Global systolic function is normal. For Epic reporting: the left ventricular ejection fraction is 64% . Wall motionis normal; there are no regional wall motion abnormalities. There is noevidence of a thrombus revealed by acoustic contrast opacification. There is no evidence of a thrombus revealed by acoustic contrast opacification.Global longitudinal strain was -19.9% (GLS is abnormal if greater than -16,i.e. -15). Left ventricular diastolic function parameters are normal for the patient's age. AORTIC VALVE: Structurally normal valve. Trileaflet. There was nostenosis. Trace regurgitation. The mean systolic gradient is 3mm Hg. The peak systolic gradient is 6mm Hg. The LVOT to aortic valve VTI ratio is 0.86.The valve area is 2.7cm^2. The ratio of LVOT to aortic valve peak velocityis 0.94. AORTA: Aortic root: The root is normal-sized. Ascending aorta: The vessel is normal-sized. MITRAL VALVE: Structurally normal valve. Mild regurgitation. Themean diastolic gradient is 1mm Hg. The peak diastolic gradient is 2mm Hg. LEFT ATRIUM: The atrium is normal in size. ATRIAL SEPTUM: No obvious PFO or ASD identified by 2Dimaging and color Doppler. RIGHT VENTRICLE: The cavity size is normal. Pacer wire or catheter notedin right ventricle. Systolic function is normal. PULMONIC VALVE: Structurally normal valve. Mild regurgitation. TRICUSPID VALVE: Structurally normal valve. No significantregurgitation. RIGHT ATRIUM: The atrium was normal in size. SYSTEMIC VEINS: Inferior vena cava: The IVC is normal-sized. PERICARDIUM: There is no pericardial effusion. Measurements Left ventricle Value Ref GLS, 2D -19.9 % --------- GILBERTO, LAX chord (N) 4.8 cm 4.2 - 5.8 ESD, LAX chord (N) 3.4 cm 2.5 - 4.0 GILBERTO/bsa, LAX chord (N) 2.4 cm/m^2 2.2 - 3.0 ESD/bsa, LAX chord (N) 1.7 cm/m^2 1.3 - 2.1 FS, LAX chord (N) 29 % 25 - 43 IVS, ED (H) 1.1 cm 0.6 - 1.0 PW, ED (N) 0.8 cm 0.6 - 1.0 EDV, 2-p (N) 143 ml 62 - 150 ESV, 2-p (N) 51 ml 21 - 61 EF, 2-p (N) 64 % 52 - 72 SV, 2-p 92 ml --------- SV/bsa, 2-p 46 ml/m^2 --------- E', med chester, TDI (L) 6.1 cm/sec >=7.0 E/e', med chester, TDI 9 --------- LVOT Value Ref Diam, S 2.0 cm --------- Area 3.1 cm^2 --------- Peak zachary, S 1.17 m/sec --------- VTI, S 29.1 cm --------- Peak grad, S 5 mm Hg --------- Right ventricle Value Ref GILBERTO minor ax, A4C base (N) 3.5 cm 2.5 - 4.1 GILBERTO minor ax, A4C mid (N) 2.8 cm 1.9 - 3.5 GILBERTO major ax, A4C (N) 8.0 cm 5.9 - 8.3 TAPSE, MM (N) 2.1 cm >=1.7 Pressure, S 16 mm Hg --------- S' lateral (L) 8.1 cm/sec >=9.5 Left atrium Value Ref AP dim, ES (H) 4.9 cm 3.0 - 4.0 AP dim index, ES (H) 2.5 cm/m^2 1.5 - 2.3 SI dim, A4C 5.1 cm --------- Area ES, A4C (N) 17 cm^2 <=20 Area/bsa ES, A4C 8.5 cm^2/m^2 --------- SI dim, A2C 4.9 cm --------- SI dim, shorter 4.9 cm --------- Vol, ES, 1-p A2C (N) 44 ml 18 - 58 Vol/bsa, ES, 1-p A2C (N) 22 ml/m^2 11 - 43 Vol, ES, 2-p 46 ml --------- Vol/bsa, ES, 2-p (N) 23 ml/m^2 16 - 34 LA/Ao root ratio 1.4 --------- Right atrium Value Ref SI dim, ES, A4C (N) 5.2 cm 3.4 - 5.3 SI dim/bsa, ES, A4C (N) 2.6 cm/m^2 1.8 - 3.0 Area, ES, A4C (N) 17 cm^2 10 - 18 Vol, ES, 1-p A4C 46 ml --------- Vol/bsa, ES, 1-p A4C (N) 23 ml/m^2 11 - 39 Aortic valve Value Ref Peak v, S 1.2 m/sec --------- Mean v, S 0.85 m/sec --------- VTI, S 34.0 cm --------- Mean grad, S 3 mm Hg --------- Peak grad, S 6 mm Hg --------- LVOT/AV, VTI ratio 0.86 --------- KELY, VTI 2.7 cm^2 --------- KELY/bsa, VTI 1.35 cm^2/m^2 --------- LVOT/AV, Vpeak ratio 0.94 --------- KELY, Vmax 3.0 cm^2 --------- KELY/bsa, Vmax 1.48 cm^2/m^2 --------- Mitral valve Value Ref Peak E 0.57 m/sec --------- Peak A 0.48 m/sec --------- Mean grad, D 1 mm Hg --------- Peak grad, D 2 mm Hg --------- Peak E/A ratio 1.2 --------- Pulmonic valve Value Ref Peak v, S 1.65 m/sec --------- Peak grad, S 11 mm Hg --------- Tricuspid valve Value Ref Peak E 0.4 m/sec --------- Aortic root Value Ref Root diam, 3.5 cm --------- Ascending aorta Value Ref AAo AP diam, S 3.2 cm --------- AAo AP diam/bsa, S 1.6 cm/m^2 --------- Pulmonary artery Value Ref Pressure, S 16 mm Hg --------- Systemic veins Value Ref Estimated RA pressure 5 mm Hg --------- Legend: (L) and (H) jignesh values outside specified reference range. (N) duarte values inside specified reference range. Procedure data: MCHOD No prior study was available for comparison. Procedure information:A transthoracic echocardiogram was performed. Image quality was suboptimal.The study was technically limited due to poor acoustic window availability. Scanning was performed from the parasternal, apical, and subcostalacoustic windows. Intravenous contrast (Definity) was administered to enhance endocardial border detection that was not seen in two consecutive segmentsdue to suboptimal baseline images. Transthoracic echocardiogram. Complete 2D, complete spectral Doppler, and color Doppler. Birthdate: Patient birthdate: 1950. Age: Patient is 74year(s) old. Sex: gender: male. Height: 182.9cm. 72in. Weight: 78kg. 172lb. Body mass index: 23.3kg/m^2. Body surface area: 2m^2. Blood pressure:130/70 Study date: Study date: 10/01/2024. Study time: 10:57 AM. 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 This corresponded to symptoms of lightheadedness, heart racing, and dizziness. There were 2 additional patient triggered transmissions for unspecified symptoms showing sinus rhythm / sinus bradycardia. There was an autotriggered transmission at 11:17 PM on 09/25 showing sinus bradycardia rate 43 BPM. There were no other arrhythmias. 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 This corresponded to symptoms of lightheadedness, heart racing, and dizziness. There were 2 additional patient triggered transmissions for unspecified symptoms showing sinus rhythm / sinus bradycardia. There was an autotriggered transmission at 11:17 PM on 09/25 showing sinus bradycardia rate 43 BPM. There were no other arrhythmias. Electronically Signed On 09-30-2024 15:38:36 CDT by Liu Hernandez us Jenniffer Downing [employer] [facility] ORDERA BLES Final Result INTERFACE SYSTEM Refer to clinic/hospital department * (ABNORMAL) LIPID PANEL (09/21/2024 2:37 AM CDT) [facility] CHOLESTEROL 95 <200 mg/dL 09/21/2024 4:03 AM CDT [facility] TRIGLYCERIDE 141 <150 mg/dL 09/21/2024 4:03 AM T [facility] HDL 35(L) 40 - 59 mg/dL 09/21/2024 4:03 AM T [facility] LDL CALCULATED 32 <100 mg/dL 09/21/2024 4:03 AM T [facility] NON-HDL CHOLESTEROL 60 <130 mg/dL 09/21/2024 4:03 AM T [facility] Blood Venipuncture / Unknown 09/21/2024 2:37 AM CDT 09/21/2024 3:05 AM CDT [facility] - [facility] - 09/21/2024 4:03 AM CDT TOTAL CHOLESTEROL mg/dL Desirable <200 Borderline high 200-239 High >=240 TRIGLYCERIDES mg/dL Normal <150 Borderline high 150-199 High 200-499 Very high >=500 HDL CHOLESTEROL mg/dL Low <40 Normal 40-59 Desirable >=60 NON HDL CHOLESTEROL mg/dL Optimal <130 Near Optimal 130-159 Borderline High 160-189 Very High >=190 CALCULATED LDL mg/dL LDL <70, OPTIMAL if have Atherosclerotic cardiovascular disease (ASCVD) or intermediate or higher (>7.5%) 10 year risk of ASCVD including most adults with diabetes. LDL <100, Optimal in adult patients with low (<7.5%) 10 year ASCVD risk LDL 100-160, Suboptimal LDL >160, High LDL >190, Very high LDL calculated using the Friedewald equation. ATPIII Guidelines Reference Ranges for Lipid Panels (NCEP/AMA) . Sonia Sharma MD CHEMISTRY ORDERABLES Final R esult Performing Organization Address [facility]/ZIP Co de Phone Number [facility] [employer] CLIA# [id number] [address] [place] [address] * (ABNORMAL) HEMOGLOBIN A1C (09/20/2024 8:20 PM CDT) HEMOGLOBIN A1C 6.9(H) <5.7 % 09/20/2024 9:34 PM CDT [facility] EST. AVG GLUCOSE, A1C 151 mg/dL 09/20/2024 9:34 PM CDT [facility] Blood Venipuncture / Unknown 09/20/2024 8:20 PM CDT 09/20/2024 8:40 PM CDT Narrative [facility] - 09/20/2024 9:34 PM CDT HGB A1C INTERPRETATION NORMAL: <5.7% PRE-DIABETES: 5.7 - 6.4% DIABETES: 6.5% OR GREATER Sonia Sharma MD CHEMISTRY ORDERABLES Final R esult Performing Organization Address [facility] Co de Phone Number [facility] [place]# [id number] [address] [place] [address] from Last 3 Months or Most Recently Relevant to Health Maintenance Insurance MEDICARE PART A AND B [facility] SUPP MEDICARE PART A AND B [facility] SUPP RX [employer] Medicare Part D Advance Directives For more information, please contact: [phone] Documents on File Type Date Recorded Patient Surveyor Geophysical Prospecting Expl anation Advance Directive POA 01/06/2020 10:40 AM Advance Directive POA * Full Code (Latest Code Status on File) Date Activated Date Inactivated Comments 09/20/2024 8:22 PM 09/21/2024 9:45 PM * Default Full Code - Needs Discussion Date Activated Date Inactivated Comments 09/20/2024 8:12 PM 09/20/2024 8:22 PM Care Teams Manager Clinical Relationship Specialty Start Date End Date Nkechi Lewis DO PCP - General 05/04/15
--- OUTSIDE RECORDS SUMMARY | 2024-12-28 06:58 | XMS_ITS | Encounter Summary ---
Author Organization [facility] Address 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 [address] D.O.B: 1950 SSN: [id number] Parent/Guardian if applicable: Patient Insurance: BLUE CROSS BLUE SHIELD ID#: [id number] Group#: ORDER(S) #: [id number] stress thallium BEST TO CALL HOME. BEST TIME TO CALL: ANYTIME. MAY WE LEAVE MESSAGE AT THAT NUMBER: YES, LEAVE MESSAGE. PLEASE SCHEDULE THE APPOINTMENT AT THE FOLLOWING LOCATION: nkechi batista m.d. [phone] TEST PRIORITY: 2 - 7 DAYS. SPECIAL SCHEDULING INSTRUCTIONS: pt needs prep ORDERING PHYSICIAN: LOBO OLSEN MD OFFICE DIGITAL PRINTER OPERATOR & PHONE: Katherine Byrd E ORDER PRINTED [...] was scheduled by Ayse Falcon A at [phone] Pre-authorization number: BC/BS of [place] -- NN Given/Authorized by: pre-recorded message/fast check @ [phone] FINAL ACTION Spoke with patient. Follow up completed. * Lobo Olsen MD - 10/09/2007 2:07 PM CDT WHO TOOK THE CALL: Lobo Olsen M TIME:05:34 pm given wrong z richie--notify pt can change to z richie (script for alexandre) 08/11/06 5:38P Spoke w/pt. Pharm # [phone]. [place] called back & corrected to oral Z-richie 250 mg. take as directed. sl Electronically Signed by: Donna Gutiérrez on Friday, August 11, 2006 * Lobo Olsen MD - 10/09/2007 2:07 PM CDT WEIGHT: 202lbs BLOOD PRESSURE: 122/76 Right Arm Sitting NURSE NAME: Ghazal Cortes J CHIEF COMPLAINT Patient here for follow [...] . Illnesses: Hypercholesterolemia, diabetes, heart disease. The cause of was cancer. occurred at age 68. MOTHER: [...] improved LAB ORDERS: 6 mo Order number: [id number] Test Ordered: COMPREHENSIVE METABOLIC PANEL & GFR 1112 Order number: [id number] Test Ordered: LIPID PANEL 1078 461.9-SINUSITIS UNSPECIFIED rx MEDICATIONS: ZITHROMAX Z-RICHIE ORAL TABLET 250 MG, DIRECTED, 1 Dispensed, status: NEW PRESCRIPTION, 08/11/2006. 602.9-OTHER DISORDERS OF PROSTATE cont med, discussed 786.50-CHEST PAIN UNSPECIFIED risk factors, fhx, send stress test discussed LAB ORDERS: Order number: [id number] Test Ordered: EKG W/ INTERPRETATION & REPORT [id number] Order number: [id number] Test Ordered: STRESS THALLIUM pt would like to schedule with [facility] RETURN VISIT : Patient instructed to return in 6 months. Electronically Signed by: Lobo Olsen MD on Friday, August 11, 2006 documented in this encounter Plan of Treatment Upcoming Encounters Date Type Department Care Team (Late st Contact Info) Description 03/18/2025 9:00 AM CDT Office Visit [facility] Heart and Vascular At [address] [place] [address] Jh Willis MD [address] [place] [address] [address] [place] [address] 08/26/2025 8:45 AM CDT Office Visit [facility] Oncology and Hematology - Brandin [address] [facility] [address] [place] [address] Graeme Diez MD [address] [facility] [address] [place] [address] documented as of this encounter Visit Diagnoses Not on filedocumented in this encounter Care Teams Tower Hand Relationship Specialty Start Date End Date Nkechi Lewis DO PCP - General 05/04/15 documented as of this encounter
--- OUTSIDE RECORDS SUMMARY | 2024-12-28 06:58 | XMS_ITS | Encounter Summary ---
Author Organization [facility] Address [address] [place] [address] Care Team Providers Care Distillery Miller Name Role Phone Joshua Jose Moreland DO Primary Care Provider Encounter Details Date Type Department Care Team (Late st Contact Info) Description 09/17/[address] 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 Heart and Vascular At [address] [place] [address] Jh Willis MD [address] [place] [address] [address] [place] [address] 08/26/2025 8:45 AM CDT Office Visit [facility] Oncology and Hematology - Brandin [address] [facility] 200 [place] [address] Graeme Diez MD [address] [facility] [address] [place] [address] documented as of this encounter Visit Diagnoses Not on filedocumented in this encounter Care Teams Distillery Miller Relationship Specialty Start Date End Date Jose Lewis DO PCP - General 05/04/15 documented as of this encounter
--- OUTSIDE RECORDS SUMMARY | 2024-12-28 06:58 | XMS_ITS | Encounter Summary ---
Author Organization [facility] Address 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 Gender Identity Not on file Sexual Orientation Not on file documented as of this encounter Plan of Treatment Upcoming Encounters Date Type Department Care Team (Late st Contact Info) Description 03/18/2025 9:00 AM CDT Office Visit [facility] Heart and Vascular At [address] [place] [address] Jh Willis MD [address] [place] [address] [address] [place] [address] 08/26/2025 8:45 AM CDT Office Visit [facility] Oncology and Hematology - [place] [address] [place] [address] [address] [place] [address] [place] [address] [place] [address] documented as of this encounter Visit Diagnoses Not on filedocumented in this encounter Care Teams Hvac Mechanic Relationship Specialty Start Date End Date Jose Lewis DO PCP - General 05/04/15 documented as of this encounter
--- OUTSIDE RECORDS SUMMARY | 2024-12-28 06:58 | XMS_ITS | Encounter Summary ---
Author Organization [facility] Address 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 Gender Identity Not on file Sexual Orientation Not on file documented as of this encounter Plan of Treatment Upcoming Encounters Date Type Department Care Team (Late st Contact Info) Description 03/18/2025 9:00 AM CDT Office Visit [facility] Heart and Vascular At [address] [place] [address] Jh Willis MD [address] [place] [address] [address] [place] [address] 08/26/2025 8:45 AM CDT Office Visit [facility] Oncology and Hematology - Brandin [address] [place] [address] [place] [address] Graeme Diez MD [address] [facility] [address] [place] [address] documented as of this encounter [...] WITH DIFFERENTIAL (09/17/2006 11:50 AM CDT) Pathologist [facility] WBC 6.7 4.0 - 9.8 K/uL [...] encounter Visit Diagnoses Diagnosis Coronary atherosclerosis of [place] coronary artery- Primary documented in this encounter Care Teams Alarm Investigator Relationship Specialty Start Date End Date Jose Lewis DO PCP - General 05/04/15 documented as of this encounter
--- OUTSIDE RECORDS SUMMARY | 2024-12-28 06:58 | XMS_ITS | Encounter Summary ---
Author Organization [facility] Address [address] [place] [address] Care Team Providers Care Account Executive Metalworking Name Role Phone Joshua Jose Moreland DO Primary Care Provider Encounter Details Date Type Department Care Team (Late st Contact Info) Description 09/24/2006 Outpatient Historical [facility] Cardiovas and Thor Surg at [address] [place] [address] Jh Guerrero Jr., MD NO ADDRESS ON FILE Social History Tobacco Use Types Packs/Day Years Used Date Smoking Tobacco: Never Assessed Sex and Gender Information Value Date Recorded Sex Assigned at Not on file 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 Gender Identity Not on file Sexual Orientation Not on file documented as of this encounter Plan of Treatment Upcoming Encounters Date Type Department Care Team (Late st Contact Info) Description 03/18/2025 9:00 AM CDT Office Visit [facility] Heart and Vascular At [address] [place] [address] Jh Willis MD [address] [place] [address] [address] [place] [address] 08/26/2025 8:45 AM CDT Office Visit [facility] Oncology and Hematology - Brandin [address] [facility] 200 [place] [address] Graeme Diez MD [address] [facility] [address] [place] [address] documented as of this encounter Visit Diagnoses Not on filedocumented in this encounter Care Teams Account Executive Metalworking Relationship Specialty Start Date End Date Jose Lewis DO PCP - General 05/04/15 documented as of this encounter
--- OUTSIDE RECORDS SUMMARY | 2024-12-28 06:58 | XMS_ITS | Encounter Summary ---
Author Organization [facility] Address 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 Gender Identity Not on file Sexual Orientation Not on file documented as of this encounter Plan of Treatment Upcoming Encounters Date Type Department Care Team (Late st Contact Info) Description 03/18/2025 9:00 AM CDT Office Visit [facility] Heart and Vascular At [address] [place] [address] Jh Willis MD [address] [place] [address] [address] [place] [address] 08/26/2025 8:45 AM CDT Office Visit [facility] Oncology and Hematology - Brandin [address] [place] [address] [address] [place] [address] [place] [address] [place] [address] documented as of this encounter Visit Diagnoses Not on filedocumented in this encounter Care Teams Director Television Relationship Specialty Start Date End Date Jose Lewis DO PCP - General 05/04/15 documented as of this encounter
--- OUTSIDE RECORDS SUMMARY | 2024-12-28 06:58 | XMS_ITS | Encounter Summary ---
Author Organization [facility] Address 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 Gender Identity Not on file Sexual Orientation [...] Description 03/18/2025 9:00 AM CDT Office Visit [facility] Heart and Vascular At [address] [place] [address] Jh Willis MD [address] [place] [address] [address] [place], [place] [id number] 08/26/2025 8:45 AM CDT Office Visit [facility] Oncology and Hematology - Brandin [address] [facility] [address] [place] [address] Graeme Diez MD [address] [facility] [address] [place] [address] documented as of this encounter Visit Diagnoses Not on filedocumented in this encounter Care Teams Hot Kettle Tender Relationship Specialty Start Date End Date Jose Lewis DO PCP - General 05/04/15 documented as of this encounter
--- OUTSIDE RECORDS SUMMARY | 2024-12-28 06:58 | XMS_ITS | Encounter Summary ---
Author Organization [facility] Address 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 Gender Identity Not on file Sexual Orientation Not on file documented as of this encounter Plan of Treatment Upcoming Encounters Date Type Department Care Team (Late st Contact Info) Description 03/18/2025 9:00 AM CDT Office Visit [facility] Heart and Vascular At [address] [place] [address] Jh Willis MD [address] [place] [address] [address] [place] [address] 08/26/2025 8:45 AM CDT Office Visit [facility] Oncology and Hematology - Brandin [address] [facility] 200 [place] [address] Graeme Diez MD [address] [facility] [address] [place] [address] documented as of this encounter Visit Diagnoses Not on filedocumented in this encounter Care Teams Physician/Ophthalmologist Relationship Specialty Start Date End Date Jose Lewis DO PCP - General 05/04/15 documented as of this encounter
--- OUTSIDE RECORDS SUMMARY | 2024-12-28 06:58 | XMS_ITS | Encounter Summary ---
Author Organization [facility] Address 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 Gender Identity Not on file Sexual Orientation Not on file documented as of this encounter Plan of Treatment Upcoming Encounters Date Type Department Care Team (Late st Contact Info) Description 03/18/2025 9:00 AM CDT Office Visit [facility] Heart and Vascular At [address] [place] [address] Jh Willis MD [address] [place] [address] [address] [place] [address] 08/26/2025 8:45 AM CDT Office Visit [facility] Oncology and Hematology - Brandin [address] [facility] 200 [place] [address] Graeme Diez MD [address] [facility] [address] [place] [address] documented as of this encounter Visit Diagnoses Not on filedocumented in this encounter Care Teams Instructional Technology Instructor Relationship Specialty Start Date End Date Jose Lewis DO PCP - General 05/04/15 documented as of this encounter
--- OUTSIDE RECORDS SUMMARY | 2024-12-28 06:58 | XMS_ITS | Encounter Summary ---
Author Organization [facility] Address [address] [place] [address] Care Team Providers Care Director Of Business Continuity Name Role Phone Jose Lewis DO Primary Care Provider Reason for Visit * Reason Comments Follow Up CAD s/p CABG Encounter Details Date Type Department Care Team (Late st Contact Info) Description 12/27/2024 9:15 AM CDT [facility] Heart [facility] Vascular At [address] [place] [address] Jh Willis MD [address] [place] [address] [address] [place] [address] CAD s/p CABG (Primary Dx); Hyperlipidemia; Hypertension; Sinus node dysfunction; Raynaud's phenomenon Social History Tobacco Use Types Packs/Day Years Used Date Smoking Tobacco: Never Smokeless Tobacco: Never Alcohol Use Standard Drinks/Week Comments Yes 0 (1 standard drink = 0.6 oz pur e alcohol) OCASSIONLLY Sex and Gender Information Value Date Recorded Sex Assigned at Not on file 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 Gender Identity Not on file Sexual Orientation Not on file documented as of this encounter Last Filed Vital Signs Vital Sign Reading Time Taken Comments Blood Pressure 108/62 12/27/2024 8:45 AM CDT Pulse 49 12/27/2024 8:45 AM CDT Temperature - - Respiratory Rate - - Oxygen Saturation 97% 12/27/2024 8:45 AM CDT Inhaled Oxygen Concentration - - Weight 83.5 kg (184 lb) 12/27/2024 8:45 AM CDT Height 182.9 cm (6') 12/27/2024 8:45 AM CDT Body Mass Index 24.95 12/27/2024 8:45 AM CDT documented in this encounter Progress Notes * Jh Willis MD - 12/27/2024 9:38 AM CDT HISTORY OF PRESENT ILLNESS Jose Watson, a 74 y.o. male presents with a Chief Complaint of Follow Up (CAD s/p CABG) Subjective HPI Feels great. CP sxs he was having at last OV has resolved. No SOB. No CURIEL. No PND, orthopnea or LE edema. No claudication. No palpitations, lightheadedness, near syncope or syncope. Active. Exercisesregularly. No decline in exercise capacity. REVIEW OF SYSTEMS Review of Systems Constitutional: Negative for unexpected weight change. HENT: Negative for nosebleeds. Respiratory: Negative for cough. Gastrointestinal: Negative for abdominal pain and blood in stool. Genitourinary: Negative for hematuria. Musculoskeletal: Negative for myalgias. Current Outpatient Medications Medication Sig Dispense Refill amLODIPine (NORVASC) 2.5 mg tablet Take 1 Tablet (2.5 mg) by mouth daily. 90 Tablet 4 lisinopriL (PRINIVIL) 20 mg tablet Take 1 Tablet (20 mg) by mouth daily. 90 Tablet 4 metFORMIN (GLUCOPHAGE) 1,000 mg tablet Starting 09/24/24: Take 1 Tablet (1,000 mg) by mouth daily with lunch. 30 Tablet 0 coenzyme Q10 100 mg Capsule Take 100 mg by mouth daily. ascorbic acid, vitamin C, (VITAMIN C) 500 mg tablet Take 500 mg by mouth daily. Cholecalciferol, Vitamin D3, 50 mcg (2,000 unit) Capsule Take 2,000 Units by mouth daily with breakfast. fluticasone propionate (FLONASE) 50 mcg/spray Lisman, Suspension nasal inhaler Administer 2 Sprays in each nostril daily. omeprazole (PriLOSEC) 20 mg Capsule, Delayed Release(E.C.) Take 20 mg by mouth daily. rosuvastatin (CRESTOR) 40 mg tablet TAKE 1 TABLET(40 MG) BY MOUTH DAILY 90 Tablet 3 cyanocobalamin/cobamamide (B-12 PLUS SUBLINGUAL) Zinc Gluconate 100 mg Tablet Take by mouth. albuterol HFA 90 mcg inhaler INL 2 PFS PO Q 4 TO 6 H PRF SOB OR WHZ finasteride (PROSCAR) 5 mg tablet Take 5 mg by mouth daily. aspirin (ASPIR-81) 81 mg Oral TbEC Take 1 Tab by mouth daily. 90 0 No current facility-administered medications for this visit. Objective PHYSICAL EXAM BP 108/62 Pulse (!) 49 Ht 6' (1.829 m) Wt 83.5 kg (184 lb) SpO2 97% BMI 24.95 kg/m?? Physical Exam Neck: Vascular: No carotid bruit or JVD. Cardiovascular: Rate and Rhythm: Regular rhythm. Bradycardia present. Pulses: Posterior tibial pulses are 2+ on the right side and 2+ on the left side. Heart sounds: Normal heart sounds. No murmur heard. No S3 sounds. Pulmonary: Effort: Pulmonary effort is normal. Breath sounds: Normal breath sounds. No wheezing or rales. Abdominal: Palpations: Abdomen is soft. Tenderness: There is no abdominal tenderness. Musculoskeletal: Right lower leg: No edema. Left lower leg: No edema. Procedures Assessment ASSESSMENT and PLAN: ICD-10-CM ICD-9-CM 1. CAD s/p CABG I25.10 414.01 2. Hyperlipidemia E78.2 272.2 3. Hypertension I10 401.1 4. Sinus node dysfunction I49.5 427.81 5. Raynaud's phenomenon I73.00 443.0 Cardiovascular status appears stable. No angina. Does not appear to be in CHF. No sxs bradycardia. Blood pressure controlled. Lipids treated. Continue current cardiovascular regimen. Reviewed dietary and lifestyle modifications to reduce risk of future cardiovascular events. ROV this fall as prev scheduled * Kaleb Willis - 12/27/2024 8:46 AM CDT 3 mo f/u for CAD s/p CABG. Pt reports no new symptoms. documented in this encounter Plan of Treatment Upcoming Encounters Date Type Department Care Team (Late st Contact Info) Description 03/18/2025 9:00 AM CDT [facility] At [facility] [address] [facility] [address] [place] [address] Jh Willis MD [address] [place] [address] 08/26/2025 8:45 AM CDT [facility] Oncology and Hematology [facility] [address] [facility] [address] [place] [address] Graeme Diez MD [address] [facility] [address] [place] [address] documented as of this encounter Visit Diagnoses Diagnosis CAD s/p CABG- Primary Hyperlipidemia Mixed hyperlipidemia Hypertension Essential hypertension, benign Sinus node dysfunction Sinoatrial node dysfunction Raynaud's phenomenon documented in this encounter Care Teams Director Of Business Continuity Relationship Specialty Start Date End Date Jose Lewis DO PCP - General 05/04/15 documented as of this encounter
--- OUTSIDE RECORDS SUMMARY | 2024-12-28 06:58 | XMS_ITS | Encounter Summary ---
Author Organization [facility] Address 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 Gender Identity Not on file Sexual Orientation Not on file documented as of this encounter Plan of Treatment Upcoming Encounters Date Type Department Care Team (Late st Contact Info) Description 03/18/2025 9:00 AM CDT Office Visit [facility] Heart and Vascular At [address] [place] [address] Jh Willis MD [address] [place] [address] [address] [place] [address] 08/26/2025 8:45 AM CDT Office Visit [facility] Oncology and Hematology - [place] [address] [place] [address] [address] [place] [address] [place] [address] [place] [address] documented as of this encounter Visit Diagnoses Not on filedocumented in this encounter Care Teams Android Ios Developer Relationship Specialty Start Date End Date Jose Lewis DO PCP - General 05/04/15 documented as of this encounter
--- OUTSIDE RECORDS SUMMARY | 2024-12-28 06:58 | XMS_ITS | Encounter Summary ---
Author Organization [facility] Address 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 [address] D.O.B: 1950 SSN: [id number] Parent/Guardian if applicable: Patient Insurance: BLUE CROSS BLUE SHIELD ID#: [id number] Group#: ORDER(S) #: [id number] MRI of left shoulder BEST TO CALL HOME. BEST TIME TO CALL: ANYTIME. MAY WE LEAVE MESSAGE AT THAT NUMBER: YES, LEAVE MESSAGE. PLEASE SCHEDULE THE APPOINTMENT AT THE FOLLOWING LOCATION: TEST SCHEDULE OTHER LOCATION. MRI in [place]-patient to give name of facility TEST PRIORITY: 2 - 7 DAYS. ORDERING PHYSICIAN: LOBO OLSEN MD OFFICE MARQUETRY WORKER & PHONE: Rita Alfaro R ORDER PRINTED BY: DEC 04, 2006 Thania Michelle, P 06:09 p FOR SCHEDULING USE ONLY: FIRST ATTEMPT Date:DEC 04, 2006 Thania Michelle, P 06:47 p Left message on Recorder. Actually spoke with pt and stated he will call back tomorrow to schedule because [facility] in [place] was already closed. 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 cont med 782.1-RASH improved 715.11-OSTEOARTHROSIS AND ALLIED DISORDERS left shoulder pain LAB ORDERS: Order number: [id number] Test Ordered: MRI SHOULDER LEFT PREVENTIVE COUNSELING [...] Visit [facility] Heart and Vascular At [address] [place] [address] Jh Willis MD [address] [place] [address] [address] [place] [address] 08/26/2025 8:45 AM CDT Office Visit [facility] Oncology and Hematology - [place] [address] [facility] [address] [place] [address] Graeme Diez MD [address] [facility] [address] [place] [address] documented as of this encounter Visit Diagnoses Not on filedocumented in this encounter Care Teams Residence Leasing Agent Relationship Specialty Start Date End Date Nkechi Lewis DO PCP - General 05/04/15 documented as of this encounter
--- OUTSIDE RECORDS SUMMARY | 2024-12-28 06:58 | XMS_ITS | Encounter Summary ---
Author Organization [facility] Address 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 PROBLEMS: S/P CABG [...] wean off metoprolol, consider Coreg, pt to dw Cardiology 414.00-CORONARY ARTERY DISEASE discussed at length, [...] [facility] Heart and Vascular At [facility] [address] [facility] [address] [place] [address] Jh Willis MD [address] [facility] [address] [place] [address] 08/26/2025 8:45 AM CDT Office Visit [facility] Oncology and Hematology - [place] [address] [facility] [address] [place] [address] Graeme Diez MD [address] [facility] [address] [place] [address] documented as of this encounter Visit Diagnoses Not on filedocumented in this encounter Care Teams Outside Sales Representative Relationship Specialty Start Date End Date Jose Lewis DO PCP - General 05/04/15 documented as of this encounter
--- OUTSIDE RECORDS SUMMARY | 2024-12-28 06:58 | XMS_ITS | Encounter Summary ---
Author Organization [facility] Address 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 Gender Identity Not on file Sexual Orientation Not on file documented as of this encounter Plan of Treatment Upcoming Encounters Date Type Department Care Team (Late st Contact Info) Description 03/18/2025 9:00 AM CDT Office Visit [facility] Heart and Vascular At [address] [place] [address] Jh Willis MD [address] [place] [address] [address] [place] [address] 08/26/2025 8:45 AM CDT Office Visit [facility] Oncology and Hematology - [place] [address] [place] [address] [address] [place] [address] [place] [address] [place] [address] documented as of this encounter Visit Diagnoses Not on filedocumented in this encounter Care Teams Rivet Tapping Machine Operator Relationship Specialty Start Date End Date Jose Lewis DO PCP - General 05/04/15 documented as of this encounter
--- OUTSIDE RECORDS SUMMARY | 2024-12-28 06:58 | XMS_ITS | Encounter Summary ---
Author Organization [facility] Address 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 Gender Identity Not on file Sexual Orientation Not on file documented as of this encounter Plan of Treatment Upcoming Encounters Date Type Department Care Team (Late st Contact Info) Description 03/18/2025 9:00 AM CDT Office Visit [facility] Heart and Vascular At [address] [place] [address] Jh Willis MD [address] [place] [address] [address] [place] [address] 08/26/2025 8:45 AM CDT Office Visit [facility] Oncology and Hematology - [place] [address] [place] [address] [address] [place] [address] [place] [address] [place] [address] documented as of this encounter Visit Diagnoses Not on filedocumented in this encounter Care Teams Customer Data Technician Relationship Specialty Start Date End Date Jose Lewis DO PCP - General 05/04/15 documented as of this encounter
--- OUTSIDE RECORDS SUMMARY | 2024-12-28 06:58 | XMS_ITS | Encounter Summary ---
Author Organization [facility] Address [address] [place] [address] Care Team Providers Care Operator Ground Based Air Defence Name Role Phone Jose Lewis DO Primary Care Provider Encounter Details Date Type Department Care Team (Late st Contact Info) Description 08/11/[address] 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 Heart and Vascular At [address] [place] [address] Jh Willis MD [address] [place] [address] [address] [place] [address] 08/26/2025 8:45 AM CDT Office Visit [facility] Oncology and Hematology - [place] [address] [place] [address] [address] [place] [address] [place] [address] [place] [address] documented as of this encounter Visit Diagnoses Not on filedocumented in this encounter Care Teams Operator Ground Based Air Defence Relationship Specialty Start Date End Date Jose Lewis DO PCP - General 05/04/15 documented as of this encounter
--- OUTSIDE RECORDS SUMMARY | 2024-12-28 06:58 | XMS_ITS | Encounter Summary ---
Author Organization [facility] Address 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 Gender Identity Not on file Sexual Orientation [...] reviewed other supplts LAB ORDERS: Order number: [id number] Test Ordered: INJ-TETANUS & DIPTHERIA TOXOID 86641 272.4-HYPERLIPIDEMIA LAB ORDERS: now, pt fasting Order number: [id number] Test Ordered: CBC (INCLUDES DIFF/PLT) 6399 Order number: [id number] Test Ordered: COMPREHENSIVE METABOLIC PANEL 24420 Order number: [id number] Test Ordered: LIPID PANEL 7600 Order number: [id number] Test Ordered: TSH 899 Order number: [id number] Test Ordered: PSA 5363 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 Anil Shaw ph: [phone].colonscopy RETURN VISIT : Patient instructed to return in 3 months. Electronically Signed by: Octavio Mccain MD on Tuesday, June 14, 2005 documented in this encounter Plan of Treatment Upcoming Encounters Date Type Department Care Team (Late st Contact Info) Description 03/18/2025 9:00 AM CDT Office Visit [facility] Heart and Vascular At [address] [place] [address] Jh Willis MD [address] [place] [address] 08/26/2025 8:45 AM CDT Office Visit [facility] Oncology and Hematology - [place] [address] [facility] 200 [place] [address] Graeme Diez MD [address] [facility] [address] [place] [address] documented as of this encounter Visit Diagnoses Not on filedocumented in this encounter Care Teams Automatic Winder Operator Relationship Specialty Start Date End Date Jose Lewis DO PCP - General 05/04/15 documented as of this encounter
--- OUTSIDE RECORDS SUMMARY | 2024-12-28 06:58 | XMS_ITS | Encounter Summary ---
Author Organization [facility] Address 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 Gender Identity Not on file Sexual [...] [facility] At [address] [place] [address] Jh Willis MD [address] [place] [address] [address] [place], [place] [id number] 08/26/2025 8:45 AM CDT Office Visit [facility] Oncology and Hematology - [place] [address] [facility] 200 [place] [address] Graeme Diez MD [address] [facility] [address] [place] [address] documented as of this encounter Visit Diagnoses Not on filedocumented in this encounter Care Teams Tool Filer Hand Relationship Specialty Start Date End Date Jose Lewis DO PCP - General 05/04/15 documented as of this encounter
--- OUTSIDE RECORDS SUMMARY | 2024-12-28 06:58 | XMS_ITS | Encounter Summary ---
Author Organization [facility] Address 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 [place] [facility] Heart and Vascular At [place] [address] [facility] [address] [place] [address] Jh Willis MD [facility] [address] [facility] [address] [place] [address] 08/26/2025 8:45 AM CDT Office Visit [facility] [place] [facility] Oncology and Hematology - [place] [address] [facility] [address] [place] [address] Graeme Diez MD [address] [facility] [place] [facility] [address] [place] [address] documented as of this encounter Visit Diagnoses Diagnosis Special screening for malignant neoplasms, colon- Primary documented in this encounter Care Teams Smash Piecer Relationship Specialty Start Date End Date Jose Lewis DO PCP - General 05/04/15 documented as of this encounter
--- OUTSIDE RECORDS SUMMARY | 2024-12-28 06:59 | XMS_ITS | Continuity of Care Document ---
Author Organization [facility] Address [address] [place] [address] [address] [place] [address] Phone Care Team Providers Care Customer Data Technician Name Role Phone Jh Peralta MD Unavailable [...] EXTENDED GDX Optic Nerve GONIOSCOPY OFFICE/OUTPATIENT VISIT, [facility] Advance Directives Directive Yes / No Effective Date File Name No Information Encounters Encounter Description Practice Location Reason(s) For Visit Diagnoses Date Provider Providers Copied on Encounter OFFICE/OUTPA TIENT VISIT, [facility], [id number] [place] [address], [place], [place], [id number], [place] tel:[phone] [facility] Glaucoma Evaluation (chief complaint) Presence of pseudophakiaOp en angle with borderline findings, low risk, bilateralPucke ring of macula, bilateral Jul-2 2 Bj Peñaloza. [address] [place], [place], [id number] , [place]. tel:[phone] Consulting Provider: Donnie Lemons, [address] [facility], [place], [address]. tel:[phone] ring Provider: Jh Peralta, [address] [facility], [place], [address]. tel:[phone] [facility], [address] [place] [address], [place], [place], [id number], tel:[phone] [facility] No Information 2 Bj Peñaloza. [address] [facility], [place], [place], [id number] , [place]. [phone] Family History Family Member Type Diagnosis Age At Onset Problem Family history of Heart dise ase Problem Family history of Diabetes m bryan Payers Payer name Insurance type Covered libertarian ID Authoriza tion(s) MEDIC[place] OF [place] MB [id number] [facility] [id number] Social History Type Description Quantity Date Captured Comments Alcohol Use Details Unknown Caffeine Use Details Unknown Tobacco Use Status Current non-smoker Smoking Status Never smoker Non-Smoking Tobacco Use Details : No Details Available : No Details Available Sex Male Chief Complaint And Reason For Visit From encounter dated '08/14/2021 13:00'. Glaucoma Evaluation (chief complaint). Description: The 71 [...]
[2024-12-28 08:14] LABS: Anion Gap 9 mmol/L (4-12); Blood Urea Nitrogen 16 mg/dL (9-20); Calcium 9.4 mg/dL (8.4-10.2); Carbon Dioxide 22 mmol/L (22-30); Chloride 108 mmol/L (98-107); Estimated Glomerular Filt Rate > 60; Glucose 145 mg/dL (65-110); Potassium 4.2 mmol/L (3.4-5.0); Sodium 139 mmol/L (137-145)
[2024-12-28 08:20] LABS: Hemoglobin A1C 6.6 % (<5.7)
[2024-12-28 09:11] LABS: Vitamin B12 939.0 pg/mL (239-931)
== END 2024-12-28 06:55 | disposition home or self-care (01) ==
LOC: ANHLAB 06:56
PROVIDERS: PCP Clinical Nurse Specialist; Visit Provider Clinical Nurse Specialist
DX: E11.9 Type 2 diabetes mellitus without complications (principal)
CPT/HCPCS: 36415; 80048; 82607; 83036

== ENCOUNTER 2025-02-03 14:20 | Outpatient (RCR) | payer MEDICARE, SELFPAY | END 2025-03-18 15:50 | disposition home or self-care (01) | LOC: ANHDMC 14:20 | PROVIDERS: PCP Clinical Nurse Specialist; Visit Provider Clinical Nurse Specialist | DX: E11.65 Type 2 diabetes mellitus with hyperglycemia (principal); Z71.3 Dietary counseling and surveillance | CPT/HCPCS: G0109 ==